=== PATIENT | female | born 1960 | race African-American/Black ===

== ENCOUNTER 2017-03-07 03:57 | Inpatient (IN) | payer BC ==
[~2017-03-07] VITALS: Ht 152.4 cm; Wt 69.4 kg
[~2017-03-07 03:57] MED LIST: FERR325T3 PO; LISI-334 PO; PANT40TA3 PO; PRAV20TA2 PO
[2017-03-07 04:42] LABS: BILIRUBIN,URINE SMALL (NEG); GLUCOSE,URINE 250 mg/dL (NEG); NITRITE,URINE NEGATIVE (NEG); PROTEIN,URINE 100 mg/dL (NEG-TRACE)
[2017-03-07 04:44] LABS: BASO % 0 % (0-3); EOS % 0 % (0-3); HEMATOCRIT 33.9 % (36.0-47.0); HEMOGLOBIN 10.7 g/dL (12.0-15.5); LYMPH # 1.4 x10^3/uL (1.0-4.8); LYMPH % 14 % (24-48); MEAN CORPUSCULAR HEMOGLOBIN 22 pg (25-35); MEAN CORPUSCULAR HGB CONC 32 g/dL (31-37); MEAN CORPUSCULAR VOLUME 69 fL (79-100); MONO % 9 % (0-9); NEUT % 77 % (31-73); PLATELET COUNT 202 x10^3/uL (140-400); RED BLOOD COUNT 4.92 x10^6/uL (3.50-5.40); WHITE BLOOD COUNT 10.5 x10^3/uL (4.0-11.0)
[2017-03-07] MEDS ORDERED: IV NORMAL SALINE 1000ML BAG 1,000 ML IV SCH (04:45)
[2017-03-07 04:54] LABS: CALCIUM 9.1 mg/dL (8.5-10.1); CREATININE 0.9 mg/dL (0.6-1.0); GFR 78.1; POTASSIUM 3.7 mmol/L (3.5-5.1)
[2017-03-07 04:55] LABS: BACTERIA,URINE MANY /HPF (0-FEW); RBC,URINE 0 /HPF (0-2); SQUAMOUS EPITHELIAL CELL,UR FEW /LPF
[2017-03-07 05:00] LABS: ALBUMIN 3.6 g/dL (3.4-5.0); ALBUMIN/GLOBULIN RATIO 0.8 (1.0-1.7); TOTAL BILIRUBIN 0.7 mg/dL (0.2-1.0); TOTAL PROTEIN 8.3 g/dL (6.4-8.2)
[2017-03-07] MEDS ORDERED: HYDROmorphone 2 MG/ML VIAL IV ONE (05:00)
[2017-03-07] MEDS ORDERED: IOHEXOL 300 MG/ML 75 ML VIAL IV ONE (05:00)
[2017-03-07] MEDS ORDERED: ONDANSETRON PF 4 MG/2 ML VIAL. IV ONE (05:00)
[2017-03-07] MEDS ORDERED: ACETAMINOPHEN 325 MG TABLET. PO ONE (05:00)
[2017-03-07] MEDS ORDERED: KETOROLAC TROMETHAMINE 30 MG/ML INJ. IV ONE (05:00)
[2017-03-07] MEDS ORDERED: CONTRAST GIVEN MC PRN (05:00)
--- NOTE | 2017-03-07 06:03 | RAD ---
INDICATION: Abdomen pain. COMPARISON: None TECHNIQUE: Axial CT images obtained through the abdomen and pelvis. Intravenous contrast was utilized. One or more of the following individualized dose reduction techniques were utilized for this examination: 1. Automated exposure control; 2. Adjustment of the mA and/or kV according to patient size; 3. Use of iterative reconstruction technique. FINDINGS: Abdominal aorta not aneurysmal. Small hiatal hernia No intrahepatic bile duct dilation. Liver is low attenuation. Gallstones. No peripancreatic edema. Spleen unremarkable. No hydronephrosis. 28 millimeter left renal cystic lesion. No definite evidence of small bowel obstruction. Bladder unremarkable within limits of CT. 6 millimeter nodule right lung base. Similar to CT chest from August 2014 The appendix measures up to about 6 millimeters without definite adjacent inflammation. Degenerative changes of the spine. There is expansion of the right gonadal vein with adjacent edema to the fat. IMPRESSION: Expansion of the right gonadal vein with adjacent infiltration of fat is suspected. Would correlate with symptoms in the region since causes such as partial ovarian vein thrombophlebitis can have this appearance. There is contrast seen throughout the majority of the vein therefore if there is a thrombophlebitis it would be partial. Low-attenuation liver. Nonspecific but can be seen with fatty infiltration. Gallstones. Left renal cystic lesion. Cannot exclude complex component. Follow-up ultrasound may be helpful to further evaluate. 6 millimeter nodule right lung base again seen. Electronically signed by: Babak Randall (Mar 07, 2017 06:02:00)
[2017-03-07 06:35] LABS: PLT ESTIMATE ADEQUATE (ADEQUATE)
[2017-03-07 06:36] LABS: ANISOCYTOSIS PRESENT; HYPOCHROMIA PRESENT; MICROCYTOSIS PRESENT
[2017-03-07] MEDS ORDERED: ONDANSETRON PF 4 MG/2 ML VIAL. IV PRN (06:45)
[2017-03-07] MEDS ORDERED: MORPHINE SULFATE 4 MG/ML DISP.SYRIN. IV PRN (06:45)
--- NOTE | 2017-03-07 06:45 | PHYS DOC ---
Past Medical History Past Medical History: High Cholesterol, Hypertension Past Surgical History: Hysterectomy Alcohol Use: None Drug Use: None Adult General Chief Complaint Chief Complaint: ABDOMINAL PAIN HPI HPI Patient is a 56 year old female who presents here today secondary to abdominal pain and fever up to 102.8 started on Monday. Patient reports that she went to urgent care center on Monday and she had a normal chest x-ray, strep screen, flu test. She reports all the systems were negative and she was sent home. Patient reports that today she is having a lot of fevers or muscle aches cough. Patient denies any dysuria frequency or urgency. Patient is complaining of pain to her right lower abdomen. Patient reports it's in the right flank to her right abdomen. Patient denies any diarrhea. Patient reports nausea and vomiting. Patient reports she has a history of hypertension no diabetes CHF COPD or CAD. Patient has had a hysterectomy. Her gallbladder and appendix are still intact. Patient does not smoke drink or do drugs. Patient is not allergic to any medications. Patient denies any rashes other than her typical eczema. Patient's physical exam was significant for tenderness to palpation in her right flank as well as right lower quadrant. Patient's abdomen was soft nondistended no rebound or guarding. Patient normal active bowel sounds. Patient denies any signs or symptoms of be consistent with an acute surgical abdomen. Patient is CT scan that was remarkable for a normal-appearing appendix. There was extension of the right gonadal vein with adjacent infiltration of the fat. 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 Patient's UA showed 5 tenderly disease per high-power field. Patient had normal white cell. Patient did have a high fever. Patient feels significantly improved after pain medicines in the ED. Given the patient's pain and persistent fever she's been having since Monday afield preprinted admit this patient for admission for IV antibiotics until her cultures return. A/P #1 fever/abdominal pain. Etiology unclear however suspect possibly secondary to urinary source. Patient was started on Rocephin and will be admitted to the hospital. Review of Systems Review of Systems Constitutional: Denies fever or chills [] Eyes: Denies change in visual acuity, redness, or eye pain [] HENT: Denies nasal congestion or sore throat [] Respiratory: Denies cough or shortness of breath [] All other review systems are negative except as documented in the history of present illness. Current Medications Current Medications Current Medications Medications (Trade) Dose Ordered Sig/Fe Start Time Stop Time Status Last Admin Dose Admin Acetaminophen (Tylenol) 650 mg 1X ONCE 03/07/17 05:00 03/07/17 05:01 DC 03/07/17 05:00 650 MG Ceftriaxone Sodium (Rocephin 1gm Ivpb For Omni) 50 ml @ 100 mls/hr 1X ONCE 03/07/17 06:30 03/07/17 06:59 Hydromorphone HCl (Dilaudid) 1 mg 1X ONCE 03/07/17 05:00 03/07/17 05:01 DC 03/07/17 04:59 1 MG Info 1 each 1 each PRN DAILY PRN 03/07/17 05:00 03/09/17 04:59 Iohexol (Omnipaque 300 Mg/ml) 75 ml 1X ONCE 03/07/17 05:00 03/07/17 05:01 DC 03/07/17 05:21 75 ML Ketorolac Tromethamine (Toradol) 15 mg 1X ONCE 03/07/17 05:00 03/07/17 05:01 DC 03/07/17 04:59 15 MG Ondansetron HCl (Zofran) 4 mg 1X ONCE 03/07/17 05:00 03/07/17 05:01 DC 03/07/17 05:00 4 MG Sodium Chloride (Iv Sodium Chloride 0.9% 1000ml Bag) 1,000 ml @ 1,000 mls/hr Q1H 03/07/17 04:45 03/07/17 05:44 DC 03/07/17 04:59 1,000 MLS/HR Allergies Allergies Allergies Coded Allergies Type Severity Reaction Last Updated Verified No Known Drug Allergies 01/28/16 No Physical Exam Physical Exam Constitutional: Well developed, well nourished, no acute distress, non-toxic appearance. [] HENT: Normocephalic, atraumatic, bilateral external ears normal, oropharynx moist, no oral exudates, nose normal. [] Eyes: PERRLA, EOMI, conjunctiva normal, no discharge. [] Neck: Normal range of motion, no tenderness, supple, no stridor. [] Cardiovascular:Heart rate regular rhythm, no murmur [] Lungs & Thorax: Bilateral breath sounds clear to auscultation [] Abdomen: As above. Skin: Warm, dry, no erythema, no rash. [] Back: No tenderness, no CVA tenderness. [] Extremities: No tenderness, no cyanosis, no clubbing, ROM intact, no edema. [] Neurologic: Alert and oriented X 3, normal motor function, normal sensory function, no focal deficits noted. [] Psychologic: Affect normal, judgement normal, mood normal. [] Current Patient Data Vital Signs Vital Signs Date Time Temp Pulse Resp B/P Pulse Ox O2 Delivery O2 Flow Rate FiO2 03/07/17 04:08 102.8 101 25 144/85 96 Room Air 102.8 Lab Values Laboratory Tests Test 03/07/17 04:30 03/07/17 04:40 Urine Collection Type Unknown Urine Color Monique Urine Clarity Clear Urine pH 6.0 Urine Specific [place] >=1.030 Urine Protein 100mg/dL (NEG-TRACE) Urine Glucose (UA) 250mg/dL (NEG) Urine Ketones (Stick) >=80mg/dL (NEG) Urine Blood Negative (NEG) Urine Nitrite Negative (NEG) Urine Bilirubin Small (NEG) Urine Urobilinogen Dipstick 4.0mg/dL (0.2 mg/dL) Urine Leukocyte Esterase Negative (NEG) Urine RBC 0/HPF (0-2) Urine WBC 5-10/HPF (0-4) Urine Squamous Epithelial Cells Few/LPF Urine Bacteria Many/HPF (0-FEW) Urine Mucus Mod/LPF White Blood Count 10.5x10^3/uL (4.0-11.0) Red Blood Count 4.92x10^6/uL (3.50-5.40) Hemoglobin 10.7g/dL (12.0-15.5) L Hematocrit 33.9% (36.0-47.0) L Mean Corpuscular Volume 69fL (79-100) L Mean Corpuscular Hemoglobin 22pg (25-35) L Mean Corpuscular Hemoglobin Concent 32g/dL (31-37) Red Cell Distribution Width 19.0% (11.5-14.5) H Platelet Count 202x10^3/uL (140-400) Neutrophils (%) (Auto) 77% (31-73) H Lymphocytes (%) (Auto) 14% (24-48) L Monocytes (%) (Auto) 9% (0-9) Eosinophils (%) (Auto) 0% (0-3) Basophils (%) (Auto) 0% (0-3) Neutrophils # (Auto) 8.0x10^3uL (1.8-7.7) H Lymphocytes # (Auto) 1.4x10^3/uL (1.0-4.8) Monocytes # (Auto) 1.0x10^3/uL (0.0-1.1) Eosinophils # (Auto) 0.0x10^3/uL (0.0-0.7) Basophils # (Auto) 0.0x10^3/uL (0.0-0.2) Platelet Estimate Adequate (ADEQUATE) Hypochromasia Present Anisocytosis Present Microcytosis Present Sodium Level 135mmol/L (136-145) L Potassium Level 3.7mmol/L (3.5-5.1) Chloride Level 98mmol/L (98-107) Carbon Dioxide Level 27mmol/L (21-32) Anion Gap 10 (6-14) Blood Urea Nitrogen 13mg/dL (7-20) Creatinine 0.9mg/dL (0.6-1.0) Estimated GFR (Cockcroft-Gault) 78.1 BUN/Creatinine Ratio 14 (6-20) Glucose Level 190mg/dL (70-99) H Calcium Level 9.1mg/dL (8.5-10.1) Total Bilirubin 0.7mg/dL (0.2-1.0) Aspartate Amino Transferase (AST) 75U/L (15-37) H Alanine Aminotransferase (ALT) 130U/L (14-59) H Alkaline Phosphatase 150U/L (46-116) H Total Protein 8.3g/dL (6.4-8.2) H Albumin 3.6g/dL (3.4-5.0) Albumin/Globulin Ratio 0.8 (1.0-1.7) L Lipase 158U/L (73-393) Laboratory Tests 03/07/17 04:40 Laboratory Tests 03/07/17 04:40 EKG EKG [] Radiology/Procedures Radiology/Procedures [] Course & Med Decision Making Course & Med Decision Making Pertinent Labs and Imaging studies reviewed. (See chart for details) [] Dragon Disclaimer Dragon Disclaimer This electronic medical record was generated, in whole or in part, using a voice recognition dictation system. Departure Departure Impression: Primary Impression: Abdominal pain Additional Impressions: Fever Urinary tract infection Disposition: ADMITTED INPATIENT Admitting Physician: Sharif Mckeon Condition: GUARDED Referrals: BISHNU ALLEN Jr, MD (PCP) Problem Qualifiers JOSE LEVY MD Mar 07, 2017 06:45
[2017-03-07] MEDS: IV NORMAL SALINE 1000ML BAG 1,000 ML IV SCH ×4 (07:09→17:21)
[2017-03-07 07:30] VITALS: BP 131/79
[2017-03-07] MEDS: ACETAMINOPHEN 325 MG TABLET. PO PRN ×2 (08:15→20:42)
[2017-03-07] MEDS ORDERED: ACETAMINOPHEN 325 MG TABLET. PO PRN (08:45)
[2017-03-07] MEDS ORDERED: hydrALAZINE 20 MG/ML VIAL. IVP PRN (08:45)
[2017-03-07] MEDS ORDERED: ALBUTEROL SULFATE 2.5 MG/3 ML NEBU. NEB PRN (08:45)
[2017-03-07] MEDS: HYDROcodone/APAP 5/325MG 1 TAB TABLET PO PRN ×2 (10:40→16:56)
--- NOTE | 2017-03-07 10:53 | PDOC1 ---
History and Physical Social History Smoke: No ALCOHOL: none Drugs: None Current Problem List Problem List Problems Medical Problems: (1) Abdominal pain Status: Acute (2) Fever Status: Acute (3) Urinary tract infection Status: Acute Current Medications Current Medications Current Medications Medications (Trade) Dose Ordered Sig/Fe Start Time Stop Time Status Last Admin Dose Admin Acetaminophen (Tylenol) 325 mg PRN Q6HRS PRN 03/07/17 08:45 Acetaminophen/ Hydrocodone Bitart (Lortab 5/325) 1 tab PRN Q6HRS PRN 03/07/17 08:45 03/07/17 10:40 1 TAB Albuterol Sulfate 2.5 mg 2.5 mg PRN Q4HRS PRN 03/07/17 08:45 Ceftriaxone Sodium 1 gm/ Sodium Chloride 50 ml @ 100 mls/hr Q24H 03/08/17 06:00 Ceftriaxone Sodium (Rocephin 1gm Ivpb For Omni) 50 ml @ 100 mls/hr 1X ONCE 03/07/17 06:30 03/07/17 06:59 DC 03/07/17 06:54 100 MLS/HR Hydralazine HCl (Apresoline) 10 mg PRN Q4HRS PRN 03/07/17 08:45 Hydromorphone HCl (Dilaudid) 1 mg 1X ONCE 03/07/17 05:00 03/07/17 05:01 DC 03/07/17 04:59 1 MG Info 1 each 1 each PRN DAILY PRN 03/07/17 05:00 03/09/17 04:59 Iohexol (Omnipaque 300 Mg/ml) 75 ml 1X ONCE 03/07/17 05:00 03/07/17 05:01 DC 03/07/17 05:21 75 ML Ketorolac Tromethamine (Toradol) 15 mg 1X ONCE 03/07/17 05:00 03/07/17 05:01 DC 03/07/17 04:59 15 MG Morphine Sulfate 4 mg PRN Q2HR PRN 03/07/17 06:45 03/08/17 06:44 Ondansetron HCl (Zofran) 4 mg PRN Q8HRS PRN 03/07/17 08:45 Sodium Chloride (Iv Sodium Chloride 0.9% 1000ml Bag) 1,000 ml @ 125 mls/hr Q8H 03/07/17 08:45 03/07/17 10:40 125 MLS/HR Allergies Allergies Allergies Coded Allergies Type Severity Reaction Last Updated Verified No Known Drug Allergies 01/28/16 No ROS Review of System CONSTITUTIONAL: No fever or chills EYES: No recent changes SKIN: No rash or itching CARDIOVASCULAR: No chest pain, syncope, palpitations, or edema RESPIRATORY: No SOB or cough GASTROINTESTINAL: abdominal pain NEUROLOGICAL: No headaches or weakness ENDOCRINE: No cold or heat intolerance GENITOURINARY: No urgency or frequency of urination MUSCULOSKELETAL: No back pain or joint pain LYMPHATICS: No enlarged lymph nodes PSYCHIATRIC: No anxiety or depression Physical Exam Physical Exam GEN.: apparent distress. Alert and oriented. HEENT: Head is normocephalic, atraumatic NECK: Supple. no JVD LUNGS: Clear to auscultation. normal airflow HEART: RRR, S1, S2 present. Peripheral pulses intact ABDOMEN: Soft, RLQ tender. Positive bowel sounds. EXTREMITIES: Without any cyanosis. NEUROLOGIC: Normal speech, normal tone PSYCHIATRIC: Normal affect, normal mood. SKIN: DRY Vitals Vitals Vital Signs Date Time Temp Pulse Resp B/P Pulse Ox O2 Delivery O2 Flow Rate FiO2 03/07/17 07:30 97.4 94 24 131/79 97 Room Air 97.4 Labs Labs Laboratory Tests Test 03/07/17 04:30 03/07/17 04:40 03/07/17 06:00 Urine Collection Type Unknown Urine Color Monique Urine Clarity Clear Urine pH 6.0 Urine Specific [place] >=1.030 Urine Protein 100mg/dL (NEG-TRACE) Urine Glucose (UA) 250mg/dL (NEG) Urine Ketones (Stick) >=80mg/dL (NEG) Urine Blood Negative (NEG) Urine Nitrite Negative (NEG) Urine Bilirubin Small (NEG) Urine Urobilinogen Dipstick 4.0mg/dL (0.2 mg/dL) Urine Leukocyte Esterase Negative (NEG) Urine RBC 0/HPF (0-2) Urine WBC 5-10/HPF (0-4) Urine Squamous Epithelial Cells Few/LPF Urine Bacteria Many/HPF (0-FEW) Urine Mucus Mod/LPF White Blood Count 10.5x10^3/uL (4.0-11.0) Red Blood Count 4.92x10^6/uL (3.50-5.40) Hemoglobin 10.7g/dL (12.0-15.5) Hematocrit 33.9% (36.0-47.0) Mean Corpuscular Volume 69fL (79-100) Mean Corpuscular Hemoglobin 22pg (25-35) Mean Corpuscular Hemoglobin Concent 32g/dL (31-37) Red Cell Distribution Width 19.0% (11.5-14.5) Platelet Count 202x10^3/uL (140-400) Neutrophils (%) (Auto) 77% (31-73) Lymphocytes (%) (Auto) 14% (24-48) Monocytes (%) (Auto) 9% (0-9) Eosinophils (%) (Auto) 0% (0-3) Basophils (%) (Auto) 0% (0-3) Neutrophils # (Auto) 8.0x10^3uL (1.8-7.7) Lymphocytes # (Auto) 1.4x10^3/uL (1.0-4.8) Monocytes # (Auto) 1.0x10^3/uL (0.0-1.1) Eosinophils # (Auto) 0.0x10^3/uL (0.0-0.7) Basophils # (Auto) 0.0x10^3/uL (0.0-0.2) Platelet Estimate Adequate (ADEQUATE) Hypochromasia Present Anisocytosis Present Microcytosis Present Sodium Level 135mmol/L (136-145) Potassium Level 3.7mmol/L (3.5-5.1) Chloride Level 98mmol/L (98-107) Carbon Dioxide Level 27mmol/L (21-32) Anion Gap 10 (6-14) Blood Urea Nitrogen 13mg/dL (7-20) Creatinine 0.9mg/dL (0.6-1.0) Estimated GFR (Cockcroft-Gault) 78.1 BUN/Creatinine Ratio 14 (6-20) Glucose Level 190mg/dL (70-99) Calcium Level 9.1mg/dL (8.5-10.1) Total Bilirubin 0.7mg/dL (0.2-1.0) Aspartate Amino Transf (AST/SGOT) 75U/L (15-37) Alanine Aminotransferase (ALT/SGPT) 130U/L (14-59) Alkaline Phosphatase 150U/L (46-116) Total Protein 8.3g/dL (6.4-8.2) Albumin 3.6g/dL (3.4-5.0) Albumin/Globulin Ratio 0.8 (1.0-1.7) Lipase 158U/L (73-393) Lactic Acid Level 2.2mmol/L (0.4-2.0) Laboratory Tests Test 03/07/17 04:30 03/07/17 04:40 03/07/17 06:00 Urine Collection Type Unknown Urine Color Monique Urine Clarity Clear Urine pH 6.0 Urine Specific [place] >=1.030 Urine Protein 100mg/dL (NEG-TRACE) Urine Glucose (UA) 250mg/dL (NEG) Urine Ketones (Stick) >=80mg/dL (NEG) Urine Blood Negative (NEG) Urine Nitrite Negative (NEG) Urine Bilirubin Small (NEG) Urine Urobilinogen Dipstick 4.0mg/dL (0.2 mg/dL) Urine Leukocyte Esterase Negative (NEG) Urine RBC 0/HPF (0-2) Urine WBC 5-10/HPF (0-4) Urine Squamous Epithelial Cells Few/LPF Urine Bacteria Many/HPF (0-FEW) Urine Mucus Mod/LPF White Blood Count 10.5x10^3/uL (4.0-11.0) Red Blood Count 4.92x10^6/uL (3.50-5.40) Hemoglobin 10.7g/dL (12.0-15.5) Hematocrit 33.9% (36.0-47.0) Mean Corpuscular Volume 69fL (79-100) Mean Corpuscular Hemoglobin 22pg (25-35) Mean Corpuscular Hemoglobin Concent 32g/dL (31-37) Red Cell Distribution Width 19.0% (11.5-14.5) Platelet Count 202x10^3/uL (140-400) Neutrophils (%) (Auto) 77% (31-73) Lymphocytes (%) (Auto) 14% (24-48) Monocytes (%) (Auto) 9% (0-9) Eosinophils (%) (Auto) 0% (0-3) Basophils (%) (Auto) 0% (0-3) Neutrophils # (Auto) 8.0x10^3uL (1.8-7.7) Lymphocytes # (Auto) 1.4x10^3/uL (1.0-4.8) Monocytes # (Auto) 1.0x10^3/uL (0.0-1.1) Eosinophils # (Auto) 0.0x10^3/uL (0.0-0.7) Basophils # (Auto) 0.0x10^3/uL (0.0-0.2) Platelet Estimate Adequate (ADEQUATE) Hypochromasia Present Anisocytosis Present Microcytosis Present Sodium Level 135mmol/L (136-145) Potassium Level 3.7mmol/L (3.5-5.1) Chloride Level 98mmol/L (98-107) Carbon Dioxide Level 27mmol/L (21-32) Anion Gap 10 (6-14) Blood Urea Nitrogen 13mg/dL (7-20) Creatinine 0.9mg/dL (0.6-1.0) Estimated GFR (Cockcroft-Gault) 78.1 BUN/Creatinine Ratio 14 (6-20) Glucose Level 190mg/dL (70-99) Calcium Level 9.1mg/dL (8.5-10.1) Total Bilirubin 0.7mg/dL (0.2-1.0) Aspartate Amino Transf (AST/SGOT) 75U/L (15-37) Alanine Aminotransferase (ALT/SGPT) 130U/L (14-59) Alkaline Phosphatase 150U/L (46-116) Total Protein 8.3g/dL (6.4-8.2) Albumin 3.6g/dL (3.4-5.0) Albumin/Globulin Ratio 0.8 (1.0-1.7) Lipase 158U/L (73-393) Lactic Acid Level 2.2mmol/L (0.4-2.0) VTE Prophylaxis Ordered VTE Prophylaxis Devices: Yes VTE Pharmacological Prophylaxi: Yes SYLVIA SAAB MD Mar 07, 2017 10:53
[2017-03-07 11:00] VITALS: BP 96/64
[2017-03-07] MEDS ORDERED: levOFLOXacin PER PHARMACY. MC PRN (11:00)
--- NOTE | 2017-03-07 11:14 | ACF ---
Admit Criteria Forms Admit Criteria Forms Admit Criteria Forms ABDOMINAL PAIN Clinical Indications for Admission to Inpatient Care (Place 'X' for any and all applicable criteria): Admission is indicated for ANY ONE of the following(1)(2)(3)(4)(5): [X]I. Inpatient admission required rather than observation care (Also use Abdominal Pain: Observation Care, as appropriate) because of ANY ONE of the following: [ ]a) Severe pain requiring acute inpatient management [ ]b) Identification of etiology/finding that requires inpatient care (eg, aortic dissection, free air) [ ]c) Absent bowel sounds with complete ileus(6) [ ]d) Suspected toxic megacolon [ ]e) Severe electrolyte abnormalities requiring inpatient care [ ]f) High fever or infection requiring inpatient admission as indicated by ANY ONE of following(7)(8): [ ] i) Appropriate outpatient or observational care antimicrobial treatment unavailable, not effective, or not feasible [ ] ii) Documented bacteremia [ ] iii) Temperature > 104.9 degrees F (oral) [ ] iv) T >103.1 F (oral) or < 96.8 F(rectal) that does not respond to all emergency treatment measures [ ]g) Signs of intestinal obstruction [B] [ ]h) Hemodynamic instability [ ]i) IV fluid to replace significant ongoing losses (greater than 3 L/m2 per day) (12)(13) [ ]j) Percutaneous or open drainage (eg, abscess, biliary tract ) procedures [ ]k) Parenteral nutrition regimen that must be implemented on inpatient basis [X]l) Other condition,treatment or monitoring requiring inpatient admission. [ ]II. Peritoneal signs present [ ]III. Surgery needed that cannot be performed on an ambulatory basis. [ ]IV. Evaluation requires patient to not eat or drink for extended period ( eg, more than 24 hours). [ ]V. Contraindications and/or Inappropriate clinical situations for Observational Care in patients with abdominal pain, when ANY ONE of the following is required: [ ]a) Thorough evaluation is required to prevent catastrophic events due to delays in diagnosing (e.g.Mesenteric ischemia) 1,3 [ ]b) Patient with severe pathology or with chronic symptoms unlikely to improve in the ED stay (3) [ ]. General contraindications and/or Inappropriate clinical situations for Observational Care in patients with abdominal pain, when ANY ONE of the following is required: [ ]a) Prediction of prolongation of LOS based on ANY ONE of the following may be considered as a contraindication for observational care 2, 3, 4, 5, 6, 7, 8, 9, 10, 11 [ ]i) Age > 65 yrs. [ ]ii) Patient arriving by ambulance [ ]iii) Patient with high acuity [ ]iv) Patient requiring vital sign monitoring [ ]v) Patient on IV medication [ ]b) Systolic blood pressures 180mmHg 3,12 [ ]c) Patient with altered mental status including delirium and other alteration of consciousness, (3) [ ]d) Patient whose discharge disposition will be to a custodial home or rehabilitation home should not be managed in Emergency Department Observation Unit. CMS rule requires 3 days hospital stay before such placement.3,13 [ ]e) Patient with failure to thrive due to broad array of etiologies 3,16,17 [ ]f) Inability to ambulate 3,14 Extended stay beyond goal length of stay may be needed for(2)(3): [ ]a) Persistent abdominal pain with suspected intra-abdominal process [ ]b) Diagnosed condition requiring continued stay (e.g., pancreatitis, complicated diverticulitis) [ ]c) Surgery (e.g., colectomy) The original [employer] content created by [employer] has been revised. The portions of the content which have been revised are identified through the use of italic text or in bold, and [facility] has neither reviewed nor approved the modified material.All other unmodified content is copyright [employer]. Please see references footnoted in the original [facility] [facility] edition 2016 BRIONNA REED Mar 07, 2017 11:14
[2017-03-07] MEDS: LISINOPRIL 20 MG TABLET PO SCH (11:30)
--- NOTE | 2017-03-07 12:37 | PDOC2 ---
GI CONSULT Reason For Consult: RLQ pain, fever HPI: HPI: 56 y/o AA female admitted through ER. Reports illness for two weeks, beginning w/ cough. Previously seen at an urgent care, reports flu tests negative, CXR normal. Has had intermittent fever w/ worsening RLQ pain which is most bothersome w/ movement and yawning. No change in bowel habits, generally has 1 stool every other day. No hematochezia, melena. No n/v, does report decreased appetite. Occasionally coughs up mucous. No heartburn/reflux. Reports previous EGD and colonoscopy each revealing polyps, believes she is due to repeat colonoscopy. H/o anemia, doesn't take iron due to constipation. Taking NSAIDs at home for fever. Labs: WBC 10.5, Hgb 10.7, low indices, elevated RDW, lactic acid 2.2 (now 0.9), AST 75, ALT 130, Alk Phos 150. Normal WBC, bili, lipase. Tmax 102.8. CT A/P: expansion of the right gonadal vein with adjacent infiltration of fat (?partial ovarian vein thrombophlebitis), possible fatty liver, gallstone, left renal cystic lesion, right lung nodule. On IV Flagyl and Levaquin. [facility] was consulted /cancelled (although appears as if transvag sono ordered). Gen surg asked to see as well. PMH: PMH: HTN, DANE and uterine fibroids s/p LAVH w/ BSO FH: Family History: No pertinent hx (denies GI cancers), CAD, Other (endometriosis) Social History: Smoke: No ALCOHOL: none Drugs: None ROS: GEN: +fevers HEENT: Denies blurred vision, sore throat CV: Denies chest pain RESP: +cough GI: Per HPI : Denies hematuria, dysuria ENDO: Denies weight changes NEURO: Denies confusion, dizziness MSK: Denies weakness, joint pain/swelling SKIN: Denies jaundice, pruritus VItals: Vitals: Vital Signs Date Time Temp Pulse Resp B/P Pulse Ox O2 Delivery O2 Flow Rate FiO2 03/07/17 11:30 88 96/64 03/07/17 11:00 97.4 20 97 Room Air 97.4 Labs: Labs: Laboratory Tests Test 03/07/17 04:30 03/07/17 04:40 03/07/17 06:00 03/07/17 10:50 Urine Collection Type Unknown Urine Color Monique Urine Clarity Clear Urine pH 6.0 Urine Specific [place] >=1.030 Urine Protein 100mg/dL (NEG-TRACE) Urine Glucose (UA) 250mg/dL (NEG) Urine Ketones (Stick) >=80mg/dL (NEG) Urine Blood Negative (NEG) Urine Nitrite Negative (NEG) Urine Bilirubin Small (NEG) Urine Urobilinogen Dipstick 4.0mg/dL (0.2 mg/dL) Urine Leukocyte Esterase Negative (NEG) Urine RBC 0/HPF (0-2) Urine WBC 5-10/HPF (0-4) Urine Squamous Epithelial Cells Few/LPF Urine Bacteria Many/HPF (0-FEW) Urine Mucus Mod/LPF White Blood Count 10.5x10^3/uL (4.0-11.0) Red Blood Count 4.92x10^6/uL (3.50-5.40) Hemoglobin 10.7g/dL (12.0-15.5) Hematocrit 33.9% (36.0-47.0) Mean Corpuscular Volume 69fL (79-100) Mean Corpuscular Hemoglobin 22pg (25-35) Mean Corpuscular Hemoglobin Concent 32g/dL (31-37) Red Cell Distribution Width 19.0% (11.5-14.5) Platelet Count 202x10^3/uL (140-400) Neutrophils (%) (Auto) 77% (31-73) Lymphocytes (%) (Auto) 14% (24-48) Monocytes (%) (Auto) 9% (0-9) Eosinophils (%) (Auto) 0% (0-3) Basophils (%) (Auto) 0% (0-3) Neutrophils # (Auto) 8.0x10^3uL (1.8-7.7) Lymphocytes # (Auto) 1.4x10^3/uL (1.0-4.8) Monocytes # (Auto) 1.0x10^3/uL (0.0-1.1) Eosinophils # (Auto) 0.0x10^3/uL (0.0-0.7) Basophils # (Auto) 0.0x10^3/uL (0.0-0.2) Platelet Estimate Adequate (ADEQUATE) Hypochromasia Present Anisocytosis Present Microcytosis Present Sodium Level 135mmol/L (136-145) Potassium Level 3.7mmol/L (3.5-5.1) Chloride Level 98mmol/L (98-107) Carbon Dioxide Level 27mmol/L (21-32) Anion Gap 10 (6-14) Blood Urea Nitrogen 13mg/dL (7-20) Creatinine 0.9mg/dL (0.6-1.0) Estimated GFR (Cockcroft-Gault) 78.1 BUN/Creatinine Ratio 14 (6-20) Glucose Level 190mg/dL (70-99) Calcium Level 9.1mg/dL (8.5-10.1) Total Bilirubin 0.7mg/dL (0.2-1.0) Aspartate Amino Transf (AST/SGOT) 75U/L (15-37) Alanine Aminotransferase (ALT/SGPT) 130U/L (14-59) Alkaline Phosphatase 150U/L (46-116) Total Protein 8.3g/dL (6.4-8.2) Albumin 3.6g/dL (3.4-5.0) Albumin/Globulin Ratio 0.8 (1.0-1.7) Lipase 158U/L (73-393) Lactic Acid Level 2.2mmol/L (0.4-2.0) 0.9mmol/L (0.4-2.0) Allergies: Coded Allergies: No Known Drug Allergies (Unverified , 01/28/16) Medications: Current Medications Medications (Trade) Dose Ordered Sig/Fe Route PRN Reason Start Time Stop Time Status Last Admin Dose Admin Sodium Chloride (Iv Sodium Chloride 0.9% 1000ml Bag) 1,000 ml @ 1,000 mls/hr Q1H IV 03/07/17 04:45 03/07/17 05:44 DC 03/07/17 04:59 Hydromorphone HCl (Dilaudid) 1 mg 1X ONCE IV 03/07/17 05:00 03/07/17 05:01 DC 03/07/17 04:59 Ondansetron HCl (Zofran) 4 mg 1X ONCE IV 03/07/17 05:00 03/07/17 05:01 DC 03/07/17 05:00 Ketorolac Tromethamine (Toradol) 15 mg 1X ONCE IV 03/07/17 05:00 03/07/17 05:01 DC 03/07/17 04:59 Acetaminophen (Tylenol) 650 mg 1X ONCE PO 03/07/17 05:00 03/07/17 05:01 DC 03/07/17 05:00 Iohexol 75 ml 75 ml 1X ONCE IV 03/07/17 05:00 03/07/17 05:01 DC 03/07/17 05:21 Ceftriaxone Sodium (Rocephin 1gm Ivpb For Omni) 50 ml @ 100 mls/hr 1X ONCE IV 03/07/17 06:30 03/07/17 06:59 DC 03/07/17 06:54 Ondansetron HCl 4 mg 4 mg PRN Q8HRS PRN IV NAUSEA/VOMITING 03/07/17 06:45 03/08/17 06:44 03/07/17 10:41 Sodium Chloride (Iv Sodium Chloride 0.9% 1000ml Bag) 1,000 ml @ 125 mls/hr Q8H IV 03/07/17 06:45 03/07/17 10:32 DC 03/07/17 07:09 Acetaminophen (Tylenol) 650 mg PRN Q4HRS PRN PO FEVER 03/07/17 06:45 03/08/17 06:44 03/07/17 08:15 Acetaminophen/ Hydrocodone Bitart 1 tab 1 tab PRN Q6HRS PRN PO MODERATE TO SEVERE PAIN 03/07/17 08:45 03/07/17 10:40 Sodium Chloride 1,000 ml @ 125 mls/hr Q8H IV 03/07/17 08:45 03/07/17 10:40 Levofloxacin/ Dextrose (LEVAQUIN 500mg PREMIX) 100 ml @ 100 mls/hr Q24H IV 03/07/17 12:00 03/07/17 12:10 Imaging: Imaging: CT A/P w/ IV contrast IMPRESSION: Expansion of the right gonadal vein with adjacent infiltration of fat is suspected. Would correlate with symptoms in the region since causes such as partial ovarian vein thrombophlebitis can have this appearance. There is contrast seen throughout the majority of the vein therefore if there is a thrombophlebitis it would be partial. Low-attenuation liver. Nonspecific but can be seen with fatty infiltration. Gallstones. Left renal cystic lesion. Cannot exclude complex component. Follow-up ultrasound may be helpful to further evaluate. 6 millimeter nodule right lung base again seen. PE: GEN: cooperative, looks uncomfortable HEENT: Atraumatic, PERRL LUNGS: CTAB anteriorly HEART: RRR ABD: BS quiet, RLQ tenderness, perhaps some RUQ/epigastric discomfort but much less obvious EXTREMITY: No edema SKIN: No rashes, no jaundice NEURO/PSYCH: A & O 3 A/P: A/P: RLQ pain, fever, decreased appetite -x 2 weeks, pain worse w/ movement -Tmax 102.8, on IV atbx Abnormal CT A/P -expansion of the right gonadal vein with adjacent infiltration of fat (? partial ovarian vein thrombophlebitis), gallstone -normal appendix Elevated LFTs -AST 75, ALT 130, Alk Phos 150 (normal bili) -fatty liver on CT Anemia -Hgb 10.7, low indices, elevated RDW -history of this (can review low Hgb back to 2013), denies overt bleeding, avoids taking iron due to side effect of constipation -recalls previous EGD and colonoscopy both revealing polyps -s/p hysterectomy w/ BSO Left renal cyst, right lung nodule -per primary CRC screen, h/o colon polyps (unsure type) -- D/w Dr. Beavers - [facility] consult cancelled w/ h/o hysterectomy w/ BSO. Check RUQ US w/ gallstone on CT, elevated LFTs. Await surgery thoughts, possible inpatient EGD/colon. LUPE MCLEOD Mar 07, 2017 12:36
--- NOTE | 2017-03-07 12:50 | HP ---
ADMIT DATE: 03/07/2017 CHIEF COMPLAINT: Abdominal pain. HISTORY OF PRESENT ILLNESS: A 56-year-old -[place] female patient with prior history of hypertension and hyperlipidemia, presented to the ER with complaints of abdominal pain, which was there for nearly few weeks; however, it is slowly getting worse. The patient is using heat pad and went to Urgent Care on Monday and she was sent home after treating symptomatically. She had a chest x-ray and flu test, which was negative per the patient; however, she had a temperature spike of 100.2. She denies any significant hematemesis, hematuria or hematochezia. She denies any cough, sick contacts or diarrhea; however, pain is located to right lower quadrant and dull in nature and able to have some bowel movements, last bowel movement is few days ago. She had prior history of total hysterectomy. Denies any surgeries. Her pain has been controlled with IV morphine; however, morphine make her drowsy. She denies any urinary tract infections or problems with urination. PAST MEDICAL HISTORY: Hyperlipidemia, hypertension. PAST SURGICAL HISTORY: Total hysterectomy. PERSONAL HISTORY: No smoking, no alcohol, no drug abuse. FAMILY HISTORY: Hypertension. REVIEW OF SYSTEMS AND PHYSICAL EXAMINATION: Please see my electronic H and P. LABORATORY FINDINGS: Sodium 135, potassium 3.7, chloride is 98, carbon dioxide 27, anion gap 10, BUN is 13, creatinine 0.9, GFR is 78, glucose is 198, lactic acid 2.2, AST 75, ALT 130, alkaline phosphatase 150. Albumin 3.6. Hemoglobin 10.7, MCV is 69 and platelets is 202. Urinalysis: Color is eddie, clarity clear, pH is 6, specific gravity more than 1.030, glucose 250, ketones more than 80, nitrites negative, leukocyte esterase negative. IMAGING STUDIES: 1. CT of the abdomen showed expansion of right gonadal vein with thrombophlebitis infiltration of the fat is suspected, would correlate with symptoms in the such as portal vein thrombophlebitis. 2. A 6 mm nodule at the right lung base. 3. Left renal cysts is 28 mm. ASSESSMENT: 1. Intractable abdominal pain, right lower quadrant, suspected vein thrombophlebitis. 2. Hypertension. 3. Fever, mild elevation of LFTs. PLAN: 1. Keep the patient n.p.o. and pain control with IV Dilaudid 0.5 q. 2 hours as needed, avoid CO2 narcosis. 2. Consult General Surgery and [employer] for further recommendations. 3. The patient received IV Rocephin this morning. I will change antibiotics to IV ciprofloxacin and Levaquin. Blood cultures have been drawn in the ER. We will wait for culture and sensitivity, urine cultures pending. 4. If the patient's symptoms do not improve, I will consult Gastroenterology. 5. Continue home medications for high blood pressures, p.r.n. hydralazine for high blood pressure. 6. Deep venous thrombosis prophylaxis, Lovenox. SYLVIA SAAB MD DR: CHRIS/skye JOB#: [id number] / [id number] ZAIN
[2017-03-07 15:00] VITALS: BP 140/80
--- NOTE | 2017-03-07 16:05 | RAD ---
Abdominal ultrasound, 03/07/2017: History: Abdominal pain The gallbladder is within normal limits in size. It contains echogenic foci with posterior acoustic shadowing compatible with cholelithiasis. The gallbladder scott are not thickened. No bile duct dilatation is seen. The hepatic echogenicity is generally increased suggesting fatty change. No hepatic mass is evident. The pancreas was obscured by overlying bowel. The spleen is of normal size. A 2.6 cm simple cyst is noted in the left kidney. The kidneys are otherwise unremarkable. Much of the abdominal aorta and inferior vena cava were obscured by overlying bowel. IMPRESSION: 1. Cholelithiasis. 2. Increased hepatic echogenicity suggesting hepatic steatosis. 3. Small left renal cyst.
--- NOTE | 2017-03-07 17:05 | RAD ---
Limited pelvic ultrasound include evaluation right lower quadrant of the abdomen 03/07/2017 Clinical history: Pelvic and right lower quadrant abdominal pain. Technique: Using the distended urinary bladder as a sonographic window, real-time ultrasound examination of the pelvis was performed. Additionally real-time ultrasound examination right lower quadrant of the abdomen was performed. Multiple images were obtained. Findings: The uterus and both ovaries are not visualized consistent with the patient's history of hysterectomy and bilateral oophorectomy. No adnexal mass is seen. No free fluid is noted. The appendix is not visualized. No abnormal fluid collection or free fluid is seen within the right lower quadrant of the abdomen. Impression: 1. Status post hysterectomy and bilateral oophorectomy. 2. Otherwise negative study.
--- NOTE | 2017-03-07 18:02 | PDOC2 ---
CONSULT Date of Consult Date of Consult DATE: 03/07/17 TIME: 17:56 Reason for Consult Reason for Consult: abd pain Referring Physician Referring Physician: Dr. Mckeon Identification/Chief Complaint Chief Complaint Abd pain in RLQ Source Source: Chart review, Patient History of Present Illness Reason for Visit: 56 y/o A1 presented to Urgent Care with c/o RLQ abd pain that was crampy/ sharp in nature for the past 3 wks that worsened in the past 2 days along with fever of 102 degrees F. She was then admitted to hospital for pain management and evaluation. She had LAVH & BSO a few years ago by Dr. Sarmiento. Past Surgical History Past Surgical History: Hysterectomy Social History No ALCOHOL: none Drugs: None Current Problem List Problem List Problems Medical Problems: (1) Abdominal pain Status: Acute (2) Fever Status: Acute (3) Urinary tract infection Status: Acute Current Medications Current Medications Current Medications Sodium Chloride (Iv Sodium Chloride 0.9% 1000ml Bag) 1,000 ml @ 1,000 mls/hr Q1H IV Last administered on 03/07/17 04:59; Start 03/07/17 at 04:45; Stop 10/13 at 05:44; Status DC Hydromorphone HCl (Dilaudid) 1 mg 1X ONCE IV Last administered on 03/07/17 04 :59; Start 03/07/17 at 05:00; Stop 03/07/17 at 05:01; Status DC Ondansetron HCl (Zofran) 4 mg 1X ONCE IV Last administered on 03/07/17 05:00 ; Start 03/07/17 at 05:00; Stop 03/07/17 at 05:01; Status DC Ketorolac Tromethamine (Toradol) 15 mg 1X ONCE IV Last administered on 04:59; Start 03/07/17 at 05:00; Stop 03/07/17 at 05:01; Status DC Acetaminophen (Tylenol) 650 mg 1X ONCE PO Last administered on 03/07/17 05:00 ; Start 03/07/17 at 05:00; Stop 03/07/17 at 05:01; Status DC Iohexol (Omnipaque 300 Mg/ml) 75 ml 1X ONCE IV Last administered on 03/07/17 05:21; Start 03/07/17 at 05:00; Stop 03/07/17 at 05:01; Status DC Info 1 each 1 each PRN DAILY PRN MC SEE COMMENTS; Start 03/07/17 at 05:00; Stop 03/09/17 at 04:59 Ceftriaxone Sodium (Rocephin 1gm Ivpb For Omni) 50 ml @ 100 mls/hr 1X ONCE IV Last administered on 03/07/17 06:54; Start 03/07/17 at 06:30; Stop 03/07/17 at 06:59; Status DC Ondansetron HCl (Zofran) 4 mg PRN Q8HRS PRN IV NAUSEA/VOMITING Last administered on 03/07/17 10:41; Start 03/07/17 at 06:45; Stop 03/08/17 at 06:44 Morphine Sulfate 4 mg 4 mg PRN Q2HR PRN IV PAIN; Start 03/07/17 at 06:45; Stop 03/07/17 at 10:52; Status DC Sodium Chloride (Iv Sodium Chloride 0.9% 1000ml Bag) 1,000 ml @ 125 mls/hr Q8H IV Last administered on 03/07/17 07:09; Start 03/07/17 at 06:45; Stop at 10:32; Status DC Acetaminophen (Tylenol) 650 mg PRN Q4HRS PRN PO FEVER Last administered on 03/07 08:15; Start 03/07/17 at 06:45; Stop 03/08/17 at 06:44 Acetaminophen (Tylenol) 325 mg PRN Q6HRS PRN PO MILD PAIN / TEMP; Start at 08:45; Stop 03/07/17 at 08:45; Status DC Acetaminophen/ Hydrocodone Bitart (Lortab 5/325) 1 tab PRN Q6HRS PRN PO MODERATE TO SEVERE PAIN Last administered on 03/07/17 16:56; Start 03/07/17 at 08:45 Hydralazine HCl (Apresoline) 10 mg PRN Q4HRS PRN IVP ELEVATED BP, SEE COMMENTS ; Start 03/07/17 at 08:45 Ondansetron HCl (Zofran) 4 mg PRN Q8HRS PRN IV NAUSEA/VOMITING; Start 03/07/17 at 08:45 Albuterol Sulfate 2.5 mg 2.5 mg PRN Q4HRS PRN NEB SHORTNESS OF BREATH; Start at 08:45 Ceftriaxone Sodium 1 gm/ Sodium Chloride 50 ml @ 100 mls/hr Q24H IV ; Start 11/12 at 06:00; Stop 03/08/17 at 06:00; Status DC Sodium Chloride (Iv Sodium Chloride 0.9% 1000ml Bag) 1,000 ml @ 125 mls/hr Q8H IV Last administered on 03/07/17 10:40; Start 03/07/17 at 08:45 Acetaminophen (Tylenol) 325 mg PRN Q6HRS PRN PO MILD PAIN / TEMP; Start at 08:45 Hydromorphone HCl 0.5 mg 0.5 mg PRN Q2HR PRN IV PAIN; Start 03/07/17 at 10:45 Metronidazole (FLAGYL 500Mmg PREMIX) 100 ml @ 100 mls/hr Q8HRS IV Last administered on 03/07/17 14:02; Start 03/07/17 at 14:00 Levofloxacin/ Dextrose (Levaquin Per Pharmacy) 1 each PRN DAILY PRN MC SEE COMMENTS; Start 03/07/17 at 11:00 Enoxaparin Sodium 40 mg 40 mg Q24H SQ ; Start 03/07/17 at 21:00 Levofloxacin/ Dextrose (LEVAQUIN 500mg PREMIX) 100 ml @ 100 mls/hr Q24H IV Last administered on 03/07/17 12:10; Start 03/07/17 at 12:00 Lisinopril (Prinivil) 20 mg DAILY PO ; Start 03/07/17 at 11:30 Atorvastatin Calcium (Lipitor) 5 mg QHS PO ; Start 03/07/17 at 21:00 Active Scripts Active Reported Pravastatin Sodium 20 Mg Tablet 1 Tab PO QHS Ferrous Sulfate 325 Mg Tablet.dr 325 Mg PO Lisinopril 20 Mg Tablet 1 Tab PO DAILY Allergies Allergies: Coded Allergies: No Known Drug Allergies (Unverified , 01/28/16) ROS General: YES: Appetite, Fatigue, Malaise, No: Chills, Night Sweats, Other PSYCHOLOGICAL ROS: No: Anxiety, Behavioral Disorder, Concentration difficultie , Decreased libido, Depression, Disorientation, Hallucinations, Hostility, Irritablity, Memory difficulties, Mood Swings, Obsessive thoughts, Other, Physical abuse, Sexual abuse, Sleep disturbances, Suicidal ideation Eyes: No Blurry vision, No Decreased vision, No Double vision, No Dry eyes, No Excessive tearing, No Eye Pain, No Itchy Eyes, No Loss of vision, No Other, No Photophobia, No Scotomata, No Uses contacts, No Uses glasses HEENT: No: Epistaxis, Heacaches, Hearing change, Nasal congestion, Nasal discharge, Oral lesions, Other, Sinus pain, Sneezing, Snoring, Sore Throat, Tinnitus, Vertigo, Visual Changes, Vocal changes ALLERGY AND IMMUNOLOGY: No: Hives, Insect Bite Sensitivity, Itchy/Watery Eyes, Nasal Congestion, Other, Post Nasal Drip, Seasonal Allergies Hematological and Lymphatic: No: Bleeding Problems, Blood Clots, Blood Transfusions, Brusing, Night Sweats, Other, Pallor, Swollen Lymph Nodes ENDOCRINE: No: Breast Changes, Galactorrhea, Hair Pattern Changes, Hot Flashes , Malaise/lethargy, Mood Swings, Other, Palpitations, Polydipsia/polyuria, Skin Changes, Temperature Intolerance, Unexpected Weight Changes Breast: No New/Changing Breast Lumps, No Nipple changes, No Nipple discharge, No Other Respiratory: No: Cough, Hemoptysis, Orthopnea, Other, Pleuritic Pain, SOB with excertion, Shortness of breath, Sputum Changes, Stridor, Tachypnea, Wheezing Cardiovascular: No Chest Pain, No Edema, No Lt Headedness, No Orthopnea, No Other, No Palpitations, No Paroxysmal Noc. Dyspnea Gastrointestinal: Yes Abdominal Pain, No Constipation, No Diarrhea, No Hematochezia, No Melena, No Nausea, No Other , No Vomiting Genitourinary: No , No , No , No , No , No , No , No Discharge, No Dysuria, No Flank Pain, No Frequency, No Hematuria, No Incontinence, No Other, No Pain, No Retention, No Urgency Skin: No Acne, No Dry Skin, No Eczema, No Hair Changes, No Lumps, No Mole Changes, No Mottling, No Nail Changes, No Other, No Pruritus, No Rash, No Skin Lesion Changes Physical Exam General: Alert, Oriented X3, Cooperative HEENT: Atraumatic Lungs: Clear to auscultation Heart: Regular rate Abdomen: Normal bowel sounds, Soft, No masses, Other (RLQ tenderness to palpation. No rebound tenderness) Extremities: No edema Neuro: Normal speech Psych/Mental Status: Mental status NL Vitals VITALS Vital Signs Date Time Temp Pulse Resp B/P Pulse Ox O2 Delivery O2 Flow Rate FiO2 03/07/17 15:00 98.0 86 22 140/80 98 Room Air 98.0 Labs Labs Laboratory Tests Test 03/07/17 04:30 03/07/17 04:40 03/07/17 06:00 03/07/17 10:50 Urine Collection Type Unknown Urine Color Monique Urine Clarity Clear Urine pH 6.0 Urine Specific [place] >=1.030 Urine Protein 100mg/dL (NEG-TRACE) Urine Glucose (UA) 250mg/dL (NEG) Urine Ketones (Stick) >=80mg/dL (NEG) Urine Blood Negative (NEG) Urine Nitrite Negative (NEG) Urine Bilirubin Small (NEG) Urine Urobilinogen Dipstick 4.0mg/dL (0.2 mg/dL) Urine Leukocyte Esterase Negative (NEG) Urine RBC 0/HPF (0-2) Urine WBC 5-10/HPF (0-4) Urine Squamous Epithelial Cells Few/LPF Urine Bacteria Many/HPF (0-FEW) Urine Mucus Mod/LPF White Blood Count 10.5x10^3/uL (4.0-11.0) Red Blood Count 4.92x10^6/uL (3.50-5.40) Hemoglobin 10.7g/dL (12.0-15.5) Hematocrit 33.9% (36.0-47.0) Mean Corpuscular Volume 69fL (79-100) Mean Corpuscular Hemoglobin 22pg (25-35) Mean Corpuscular Hemoglobin Concent 32g/dL (31-37) Red Cell Distribution Width 19.0% (11.5-14.5) Platelet Count 202x10^3/uL (140-400) Neutrophils (%) (Auto) 77% (31-73) Lymphocytes (%) (Auto) 14% (24-48) Monocytes (%) (Auto) 9% (0-9) Eosinophils (%) (Auto) 0% (0-3) Basophils (%) (Auto) 0% (0-3) Neutrophils # (Auto) 8.0x10^3uL (1.8-7.7) Lymphocytes # (Auto) 1.4x10^3/uL (1.0-4.8) Monocytes # (Auto) 1.0x10^3/uL (0.0-1.1) Eosinophils # (Auto) 0.0x10^3/uL (0.0-0.7) Basophils # (Auto) 0.0x10^3/uL (0.0-0.2) Platelet Estimate Adequate (ADEQUATE) Hypochromasia Present Anisocytosis Present Microcytosis Present Sodium Level 135mmol/L (136-145) Potassium Level 3.7mmol/L (3.5-5.1) Chloride Level 98mmol/L (98-107) Carbon Dioxide Level 27mmol/L (21-32) Anion Gap 10 (6-14) Blood Urea Nitrogen 13mg/dL (7-20) Creatinine 0.9mg/dL (0.6-1.0) Estimated GFR (Cockcroft-Gault) 78.1 BUN/Creatinine Ratio 14 (6-20) Glucose Level 190mg/dL (70-99) Calcium Level 9.1mg/dL (8.5-10.1) Total Bilirubin 0.7mg/dL (0.2-1.0) Aspartate Amino Transf (AST/SGOT) 75U/L (15-37) Alanine Aminotransferase (ALT/SGPT) 130U/L (14-59) Alkaline Phosphatase 150U/L (46-116) Total Protein 8.3g/dL (6.4-8.2) Albumin 3.6g/dL (3.4-5.0) Albumin/Globulin Ratio 0.8 (1.0-1.7) Lipase 158U/L (73-393) Lactic Acid Level 2.2mmol/L (0.4-2.0) 0.9mmol/L (0.4-2.0) Laboratory Tests Test 03/07/17 04:30 03/07/17 04:40 03/07/17 06:00 03/07/17 10:50 Urine Collection Type Unknown Urine Color Monique Urine Clarity Clear Urine pH 6.0 Urine Specific [place] >=1.030 Urine Protein 100mg/dL (NEG-TRACE) Urine Glucose (UA) 250mg/dL (NEG) Urine Ketones (Stick) >=80mg/dL (NEG) Urine Blood Negative (NEG) Urine Nitrite Negative (NEG) Urine Bilirubin Small (NEG) Urine Urobilinogen Dipstick 4.0mg/dL (0.2 mg/dL) Urine Leukocyte Esterase Negative (NEG) Urine RBC 0/HPF (0-2) Urine WBC 5-10/HPF (0-4) Urine Squamous Epithelial Cells Few/LPF Urine Bacteria Many/HPF (0-FEW) Urine Mucus Mod/LPF White Blood Count 10.5x10^3/uL (4.0-11.0) Red Blood Count 4.92x10^6/uL (3.50-5.40) Hemoglobin 10.7g/dL (12.0-15.5) Hematocrit 33.9% (36.0-47.0) Mean Corpuscular Volume 69fL (79-100) Mean Corpuscular Hemoglobin 22pg (25-35) Mean Corpuscular Hemoglobin Concent 32g/dL (31-37) Red Cell Distribution Width 19.0% (11.5-14.5) Platelet Count 202x10^3/uL (140-400) Neutrophils (%) (Auto) 77% (31-73) Lymphocytes (%) (Auto) 14% (24-48) Monocytes (%) (Auto) 9% (0-9) Eosinophils (%) (Auto) 0% (0-3) Basophils (%) (Auto) 0% (0-3) Neutrophils # (Auto) 8.0x10^3uL (1.8-7.7) Lymphocytes # (Auto) 1.4x10^3/uL (1.0-4.8) Monocytes # (Auto) 1.0x10^3/uL (0.0-1.1) Eosinophils # (Auto) 0.0x10^3/uL (0.0-0.7) Basophils # (Auto) 0.0x10^3/uL (0.0-0.2) Platelet Estimate Adequate (ADEQUATE) Hypochromasia Present Anisocytosis Present Microcytosis Present Sodium Level 135mmol/L (136-145) Potassium Level 3.7mmol/L (3.5-5.1) Chloride Level 98mmol/L (98-107) Carbon Dioxide Level 27mmol/L (21-32) Anion Gap 10 (6-14) Blood Urea Nitrogen 13mg/dL (7-20) Creatinine 0.9mg/dL (0.6-1.0) Estimated GFR (Cockcroft-Gault) 78.1 BUN/Creatinine Ratio 14 (6-20) Glucose Level 190mg/dL (70-99) Calcium Level 9.1mg/dL (8.5-10.1) Total Bilirubin 0.7mg/dL (0.2-1.0) Aspartate Amino Transf (AST/SGOT) 75U/L (15-37) Alanine Aminotransferase (ALT/SGPT) 130U/L (14-59) Alkaline Phosphatase 150U/L (46-116) Total Protein 8.3g/dL (6.4-8.2) Albumin 3.6g/dL (3.4-5.0) Albumin/Globulin Ratio 0.8 (1.0-1.7) Lipase 158U/L (73-393) Lactic Acid Level 2.2mmol/L (0.4-2.0) 0.9mmol/L (0.4-2.0) Assessment/Plan Assessment/Plan A: Abd pain Cholelithiasis Nml Electric Meter Technician P: Agree with current plan for evaluation with colonoscopy. No evidence of Electric Meter Technician problems. Will be happy to see patient in clinic for wellness exam. Thank you for consult. OLIVA GROVER Jr, MD Mar 07, 2017 18:02
[2017-03-07 19:00] VITALS: BP 119/71
[2017-03-07] MEDS: ATORVASTATIN CALCIUM 10 MG TABLET. PO SCH (20:42)
[2017-03-07] MEDS: ENOXAPARIN 40 MG/0.4 ML SYRINGE. SQ SCH (20:43)
[2017-03-07 23:00] VITALS: BP 113/62
[2017-03-08] MEDS: HYDROcodone/APAP 5/325MG 1 TAB TABLET PO PRN ×3 (00:27→21:35)
[2017-03-08] MEDS: IV NORMAL SALINE 1000ML BAG 1,000 ML IV SCH ×3 (02:55→17:21)
[2017-03-08 02:59] VITALS: BP 114/67
[2017-03-08] MEDS: ACETAMINOPHEN 325 MG TABLET. PO PRN (05:53)
[2017-03-08 07:00] VITALS: BP 124/78
[2017-03-08 07:54] LABS: BASO % 0 % (0-3); EOS % 1 % (0-3); HEMATOCRIT 26.9 % (36.0-47.0); HEMOGLOBIN 8.5 g/dL (12.0-15.5); LYMPH # 1.8 x10^3/uL (1.0-4.8); LYMPH % 21 % (24-48); MEAN CORPUSCULAR HEMOGLOBIN 22 pg (25-35); MEAN CORPUSCULAR HGB CONC 32 g/dL (31-37); MEAN CORPUSCULAR VOLUME 69 fL (79-100); MONO % 12 % (0-9); NEUT % 67 % (31-73); PLATELET COUNT 174 x10^3/uL (140-400); RED BLOOD COUNT 3.89 x10^6/uL (3.50-5.40); RED CELL DISTRIBUTION WIDTH 18.5 % (11.5-14.5)
[2017-03-08 08:04] LABS: CALCIUM 8.2 mg/dL (8.5-10.1); CREATININE 0.7 mg/dL (0.6-1.0); GFR 104.4; POTASSIUM 3.1 mmol/L (3.5-5.1)
[2017-03-08] MEDS: LISINOPRIL 20 MG TABLET PO SCH (08:08)
--- NOTE | 2017-03-08 09:41 | PDOC ---
PROGRESS NOTES Chief Complaint Chief Complaint CC: Abdominal pain A/P RLQ Pain for Weeks, Unclear etiology, ? gonadal vein thrombophlebitis GPC bacteremia POA HTN HLP Hypokalemia Plan on Levaquin and Falgyl, IV KCL NPO IV NS- hydration Follow blood cx. ID consult pending US abdomen no acute process GI and OBEGYN following DVT prophylaxis Lovenox Prognosis guarded. History of Present Illness History of Present Illness no fever no acute events. Vitals Vitals Vital Signs Date Time Temp Pulse Resp B/P Pulse Ox O2 Delivery O2 Flow Rate FiO2 03/08/17 07:00 98.4 82 20 124/78 96 Room Air 98.4 Physical Exam General: Alert, Oriented X3, Cooperative Heart: Regular rate, Normal S1, Normal S2 Lungs: Clear Abdomen: Normal bowel sounds, Soft, No masses, Other (RLQ tenderness to palpation. No rebound tenderness) Extremities: No edema Labs LABS Laboratory Tests Test 03/07/17 10:50 03/08/17 07:00 Lactic Acid Level 0.9mmol/L (0.4-2.0) White Blood Count 9.0x10^3/uL (4.0-11.0) Red Blood Count 3.89x10^6/uL (3.50-5.40) Hemoglobin 8.5g/dL (12.0-15.5) Hematocrit 26.9% (36.0-47.0) Mean Corpuscular Volume 69fL (79-100) Mean Corpuscular Hemoglobin 22pg (25-35) Mean Corpuscular Hemoglobin Concent 32g/dL (31-37) Red Cell Distribution Width 18.5% (11.5-14.5) Platelet Count 174x10^3/uL (140-400) Neutrophils (%) (Auto) 67% (31-73) Lymphocytes (%) (Auto) 21% (24-48) Monocytes (%) (Auto) 12% (0-9) Eosinophils (%) (Auto) 1% (0-3) Basophils (%) (Auto) 0% (0-3) Neutrophils # (Auto) 6.0x10^3uL (1.8-7.7) Lymphocytes # (Auto) 1.8x10^3/uL (1.0-4.8) Monocytes # (Auto) 1.1x10^3/uL (0.0-1.1) Eosinophils # (Auto) 0.1x10^3/uL (0.0-0.7) Basophils # (Auto) 0.0x10^3/uL (0.0-0.2) Sodium Level 138mmol/L (136-145) Potassium Level 3.1mmol/L (3.5-5.1) Chloride Level 104mmol/L (98-107) Carbon Dioxide Level 22mmol/L (21-32) Anion Gap 12 (6-14) Blood Urea Nitrogen 6mg/dL (7-20) Creatinine 0.7mg/dL (0.6-1.0) Estimated GFR (Cockcroft-Gault) 104.4 Glucose Level 98mg/dL (70-99) Calcium Level 8.2mg/dL (8.5-10.1) Assessment and Plan Assessmemt and Plan Problems Medical Problems: (1) Abdominal pain Status: Acute (2) Fever Status: Acute (3) Urinary tract infection Status: Acute Problems: Comment Review of Relevant I have reviewed the following items kory (where applicable) has been applied. Labs Laboratory Tests Test 03/07/17 04:30 03/07/17 04:40 03/07/17 06:00 03/07/17 10:50 Urine Collection Type Unknown Urine Color Monique Urine Clarity Clear Urine pH 6.0 Urine Specific [place] >=1.030 Urine Protein 100mg/dL (NEG-TRACE) Urine Glucose (UA) 250mg/dL (NEG) Urine Ketones (Stick) >=80mg/dL (NEG) Urine Blood Negative (NEG) Urine Nitrite Negative (NEG) Urine Bilirubin Small (NEG) Urine Urobilinogen Dipstick 4.0mg/dL (0.2 mg/dL) Urine Leukocyte Esterase Negative (NEG) Urine RBC 0/HPF (0-2) Urine WBC 5-10/HPF (0-4) Urine Squamous Epithelial Cells Few/LPF Urine Bacteria Many/HPF (0-FEW) Urine Mucus Mod/LPF White Blood Count 10.5x10^3/uL (4.0-11.0) Red Blood Count 4.92x10^6/uL (3.50-5.40) Hemoglobin 10.7g/dL (12.0-15.5) Hematocrit 33.9% (36.0-47.0) Mean Corpuscular Volume 69fL (79-100) Mean Corpuscular Hemoglobin 22pg (25-35) Mean Corpuscular Hemoglobin Concent 32g/dL (31-37) Red Cell Distribution Width 19.0% (11.5-14.5) Platelet Count 202x10^3/uL (140-400) Neutrophils (%) (Auto) 77% (31-73) Lymphocytes (%) (Auto) 14% (24-48) Monocytes (%) (Auto) 9% (0-9) Eosinophils (%) (Auto) 0% (0-3) Basophils (%) (Auto) 0% (0-3) Neutrophils # (Auto) 8.0x10^3uL (1.8-7.7) Lymphocytes # (Auto) 1.4x10^3/uL (1.0-4.8) Monocytes # (Auto) 1.0x10^3/uL (0.0-1.1) Eosinophils # (Auto) 0.0x10^3/uL (0.0-0.7) Basophils # (Auto) 0.0x10^3/uL (0.0-0.2) Platelet Estimate Adequate (ADEQUATE) Hypochromasia Present Anisocytosis Present Microcytosis Present Sodium Level 135mmol/L (136-145) Potassium Level 3.7mmol/L (3.5-5.1) Chloride Level 98mmol/L (98-107) Carbon Dioxide Level 27mmol/L (21-32) Anion Gap 10 (6-14) Blood Urea Nitrogen 13mg/dL (7-20) Creatinine 0.9mg/dL (0.6-1.0) Estimated GFR (Cockcroft-Gault) 78.1 BUN/Creatinine Ratio 14 (6-20) Glucose Level 190mg/dL (70-99) Calcium Level 9.1mg/dL (8.5-10.1) Total Bilirubin 0.7mg/dL (0.2-1.0) Aspartate Amino Transf (AST/SGOT) 75U/L (15-37) Alanine Aminotransferase (ALT/SGPT) 130U/L (14-59) Alkaline Phosphatase 150U/L (46-116) Total Protein 8.3g/dL (6.4-8.2) Albumin 3.6g/dL (3.4-5.0) Albumin/Globulin Ratio 0.8 (1.0-1.7) Lipase 158U/L (73-393) Lactic Acid Level 2.2mmol/L (0.4-2.0) 0.9mmol/L (0.4-2.0) Test 03/08/17 07:00 White Blood Count 9.0x10^3/uL (4.0-11.0) Red Blood Count 3.89x10^6/uL (3.50-5.40) Hemoglobin 8.5g/dL (12.0-15.5) Hematocrit 26.9% (36.0-47.0) Mean Corpuscular Volume 69fL (79-100) Mean Corpuscular Hemoglobin 22pg (25-35) Mean Corpuscular Hemoglobin Concent 32g/dL (31-37) Red Cell Distribution Width 18.5% (11.5-14.5) Platelet Count 174x10^3/uL (140-400) Neutrophils (%) (Auto) 67% (31-73) Lymphocytes (%) (Auto) 21% (24-48) Monocytes (%) (Auto) 12% (0-9) Eosinophils (%) (Auto) 1% (0-3) Basophils (%) (Auto) 0% (0-3) Neutrophils # (Auto) 6.0x10^3uL (1.8-7.7) Lymphocytes # (Auto) 1.8x10^3/uL (1.0-4.8) Monocytes # (Auto) 1.1x10^3/uL (0.0-1.1) Eosinophils # (Auto) 0.1x10^3/uL (0.0-0.7) Basophils # (Auto) 0.0x10^3/uL (0.0-0.2) Sodium Level 138mmol/L (136-145) Potassium Level 3.1mmol/L (3.5-5.1) Chloride Level 104mmol/L (98-107) Carbon Dioxide Level 22mmol/L (21-32) Anion Gap 12 (6-14) Blood Urea Nitrogen 6mg/dL (7-20) Creatinine 0.7mg/dL (0.6-1.0) Estimated GFR (Cockcroft-Gault) 104.4 Glucose Level 98mg/dL (70-99) Calcium Level 8.2mg/dL (8.5-10.1) Laboratory Tests Test 03/07/17 10:50 03/08/17 07:00 Lactic Acid Level 0.9mmol/L (0.4-2.0) White Blood Count 9.0x10^3/uL (4.0-11.0) Red Blood Count 3.89x10^6/uL (3.50-5.40) Hemoglobin 8.5g/dL (12.0-15.5) Hematocrit 26.9% (36.0-47.0) Mean Corpuscular Volume 69fL (79-100) Mean Corpuscular Hemoglobin 22pg (25-35) Mean Corpuscular Hemoglobin Concent 32g/dL (31-37) Red Cell Distribution Width 18.5% (11.5-14.5) Platelet Count 174x10^3/uL (140-400) Neutrophils (%) (Auto) 67% (31-73) Lymphocytes (%) (Auto) 21% (24-48) Monocytes (%) (Auto) 12% (0-9) Eosinophils (%) (Auto) 1% (0-3) Basophils (%) (Auto) 0% (0-3) Neutrophils # (Auto) 6.0x10^3uL (1.8-7.7) Lymphocytes # (Auto) 1.8x10^3/uL (1.0-4.8) Monocytes # (Auto) 1.1x10^3/uL (0.0-1.1) Eosinophils # (Auto) 0.1x10^3/uL (0.0-0.7) Basophils # (Auto) 0.0x10^3/uL (0.0-0.2) Sodium Level 138mmol/L (136-145) Potassium Level 3.1mmol/L (3.5-5.1) Chloride Level 104mmol/L (98-107) Carbon Dioxide Level 22mmol/L (21-32) Anion Gap 12 (6-14) Blood Urea Nitrogen 6mg/dL (7-20) Creatinine 0.7mg/dL (0.6-1.0) Estimated GFR (Cockcroft-Gault) 104.4 Glucose Level 98mg/dL (70-99) Calcium Level 8.2mg/dL (8.5-10.1) Microbiology 03/07/17 Blood Culture - Final, Complete Medications Current Medications Sodium Chloride (Iv Sodium Chloride 0.9% 1000ml Bag) 1,000 ml @ 1,000 mls/hr Q1H IV Last administered on 03/07/17 04:59; Start 03/07/17 at 04:45; Stop 10/13 at 05:44; Status DC Hydromorphone HCl (Dilaudid) 1 mg 1X ONCE IV Last administered on 03/07/17 04 :59; Start 03/07/17 at 05:00; Stop 03/07/17 at 05:01; Status DC Ondansetron HCl (Zofran) 4 mg 1X ONCE IV Last administered on 03/07/17 05:00 ; Start 03/07/17 at 05:00; Stop 03/07/17 at 05:01; Status DC Ketorolac Tromethamine (Toradol) 15 mg 1X ONCE IV Last administered on 04:59; Start 03/07/17 at 05:00; Stop 03/07/17 at 05:01; Status DC Acetaminophen (Tylenol) 650 mg 1X ONCE PO Last administered on 03/07/17 05:00 ; Start 03/07/17 at 05:00; Stop 03/07/17 at 05:01; Status DC Iohexol (Omnipaque 300 Mg/ml) 75 ml 1X ONCE IV Last administered on 03/07/17 05:21; Start 03/07/17 at 05:00; Stop 03/07/17 at 05:01; Status DC Info 1 each 1 each PRN DAILY PRN MC SEE COMMENTS; Start 03/07/17 at 05:00; Stop 03/09/17 at 04:59 Ceftriaxone Sodium (Rocephin 1gm Ivpb For Omni) 50 ml @ 100 mls/hr 1X ONCE IV Last administered on 03/07/17 06:54; Start 03/07/17 at 06:30; Stop 03/07/17 at 06:59; Status DC Ondansetron HCl (Zofran) 4 mg PRN Q8HRS PRN IV NAUSEA/VOMITING Last administered on 03/07/17 10:41; Start 03/07/17 at 06:45; Stop 03/08/17 at 06:44 ; Status DC Morphine Sulfate 4 mg 4 mg PRN Q2HR PRN IV PAIN; Start 03/07/17 at 06:45; Stop 03/07/17 at 10:52; Status DC Sodium Chloride (Iv Sodium Chloride 0.9% 1000ml Bag) 1,000 ml @ 125 mls/hr Q8H IV Last administered on 03/07/17 07:09; Start 03/07/17 at 06:45; Stop at 10:32; Status DC Acetaminophen (Tylenol) 650 mg PRN Q4HRS PRN PO FEVER Last administered on 03/08 05:53; Start 03/07/17 at 06:45; Stop 03/08/17 at 06:44; Status DC Acetaminophen (Tylenol) 325 mg PRN Q6HRS PRN PO MILD PAIN / TEMP; Start at 08:45; Stop 03/07/17 at 08:45; Status DC Acetaminophen/ Hydrocodone Bitart (Lortab 5/325) 1 tab PRN Q6HRS PRN PO MODERATE TO SEVERE PAIN Last administered on 03/08/17 00:27; Start 03/07/17 at 08:45 Hydralazine HCl (Apresoline) 10 mg PRN Q4HRS PRN IVP ELEVATED BP, SEE COMMENTS ; Start 03/07/17 at 08:45 Ondansetron HCl (Zofran) 4 mg PRN Q8HRS PRN IV NAUSEA/VOMITING; Start 03/07/17 at 08:45 Albuterol Sulfate 2.5 mg 2.5 mg PRN Q4HRS PRN NEB SHORTNESS OF BREATH; Start at 08:45 Ceftriaxone Sodium 1 gm/ Sodium Chloride 50 ml @ 100 mls/hr Q24H IV ; Start 11/12 at 06:00; Stop 03/08/17 at 06:00; Status DC Sodium Chloride (Iv Sodium Chloride 0.9% 1000ml Bag) 1,000 ml @ 125 mls/hr Q8H IV Last administered on 03/08/17 08:09; Start 03/07/17 at 08:45 Acetaminophen (Tylenol) 325 mg PRN Q6HRS PRN PO MILD PAIN / TEMP; Start at 08:45 Hydromorphone HCl 0.5 mg 0.5 mg PRN Q2HR PRN IV PAIN; Start 03/07/17 at 10:45 Metronidazole (FLAGYL 500Mmg PREMIX) 100 ml @ 100 mls/hr Q8HRS IV Last administered on 03/08/17 05:51; Start 03/07/17 at 14:00 Levofloxacin/ Dextrose (Levaquin Per Pharmacy) 1 each PRN DAILY PRN MC SEE COMMENTS; Start 03/07/17 at 11:00 Enoxaparin Sodium 40 mg 40 mg Q24H SQ Last administered on 03/07/17 20:43; Start 03/07/17 at 21:00 Levofloxacin/ Dextrose (LEVAQUIN 500mg PREMIX) 100 ml @ 100 mls/hr Q24H IV Last administered on 03/08/17 08:10; Start 03/07/17 at 12:00 Lisinopril (Prinivil) 20 mg DAILY PO ; Start 03/07/17 at 11:30 Atorvastatin Calcium (Lipitor) 5 mg QHS PO Last administered on 03/07/17 20:42 ; Start 03/07/17 at 21:00 Active Scripts Active Reported Pravastatin Sodium 20 Mg Tablet 1 Tab PO QHS Ferrous Sulfate 325 Mg Tablet.dr 325 Mg PO Lisinopril 20 Mg Tablet 1 Tab PO DAILY Vitals/I & O Vital Sign - Last 24 Hours 03/07/17 03/07/17 03/07/17 03/07/17 11:00 11:30 13:27 15:00 Temp 97.4 98.0 97.4 98.0 Pulse 88 88 86 Resp 20 22 B/P 96/64 96/64 140/80 Pulse Ox 97 94 98 O2 Delivery Room Air Room Air Room Air 03/07/17 03/07/17 03/08/17 03/08/17 19:00 23:00 00:27 01:42 Temp 100.1 99.6 100.1 99.6 Pulse 81 78 Resp 20 20 16 15 B/P 119/71 113/62 Pulse Ox 98 95 95 95 O2 Delivery Room Air Room Air Room Air Room Air 03/08/17 03/08/17 02:59 07:00 Temp 98.2 98.4 98.2 98.4 Pulse 78 82 Resp 20 20 B/P 114/67 124/78 Pulse Ox 98 96 O2 Delivery Room Air Room Air Intake and Output 03/07/17 03/07/17 03/08/17 15:00 23:00 07:00 Intake Total 50 ml 480 ml Balance 50 ml 480 ml SYLVIA SAAB MD Mar 08, 2017 09:41
[2017-03-08] MEDS ORDERED: POTASSIUM CL 20MEQ D5-0.9%NACL 1,000 ML IV ONE (10:00)
[2017-03-08 11:00] VITALS: BP 128/79
--- NOTE | 2017-03-08 11:03 | PDOC ---
Infectious Disease Note Vital Sign Vital Signs Vital Signs Date Time Temp Pulse Resp B/P Pulse Ox O2 Delivery O2 Flow Rate FiO2 03/08/17 07:00 98.4 82 20 124/78 96 Room Air 98.4 Labs Lab Laboratory Tests Test 03/08/17 07:00 White Blood Count 9.0x10^3/uL (4.0-11.0) Red Blood Count 3.89x10^6/uL (3.50-5.40) Hemoglobin 8.5g/dL (12.0-15.5) Hematocrit 26.9% (36.0-47.0) Mean Corpuscular Volume 69fL (79-100) Mean Corpuscular Hemoglobin 22pg (25-35) Mean Corpuscular Hemoglobin Concent 32g/dL (31-37) Red Cell Distribution Width 18.5% (11.5-14.5) Platelet Count 174x10^3/uL (140-400) Neutrophils (%) (Auto) 67% (31-73) Lymphocytes (%) (Auto) 21% (24-48) Monocytes (%) (Auto) 12% (0-9) Eosinophils (%) (Auto) 1% (0-3) Basophils (%) (Auto) 0% (0-3) Neutrophils # (Auto) 6.0x10^3uL (1.8-7.7) Lymphocytes # (Auto) 1.8x10^3/uL (1.0-4.8) Monocytes # (Auto) 1.1x10^3/uL (0.0-1.1) Eosinophils # (Auto) 0.1x10^3/uL (0.0-0.7) Basophils # (Auto) 0.0x10^3/uL (0.0-0.2) Sodium Level 138mmol/L (136-145) Potassium Level 3.1mmol/L (3.5-5.1) Chloride Level 104mmol/L (98-107) Carbon Dioxide Level 22mmol/L (21-32) Anion Gap 12 (6-14) Blood Urea Nitrogen 6mg/dL (7-20) Creatinine 0.7mg/dL (0.6-1.0) Estimated GFR (Cockcroft-Gault) 104.4 Glucose Level 98mg/dL (70-99) Calcium Level 8.2mg/dL (8.5-10.1) Objective Assessment BC + with strep vs enterococcus ID pending Fever Abd pain Anemia Plan Plan of Care change antibiotics to unasyn await id and then further workup and adjustment supportive care d/w KRISTIAN Amador MD Mar 08, 2017 11:03
[2017-03-08] MEDS: AMPICILLIN/SULBACTAM 3 GM in IV NORMAL SALINE 100ML 100 ML IV SCH ×3 (12:00→23:45)
--- NOTE | 2017-03-08 13:13 | PDOC ---
Subjective: Subjective: RLQ pain stable, about 4/10. Not much appetite. Had hallucinations overnight. Objective: Vital Signs: Vital Signs Date Time Temp Pulse Resp B/P Pulse Ox O2 Delivery O2 Flow Rate FiO2 03/08/17 11:00 98.2 76 22 128/79 96 Room Air 98.2 Labs: Laboratory Tests Test 03/08/17 07:00 White Blood Count 9.0x10^3/uL Red Blood Count 3.89x10^6/uL Hemoglobin 8.5g/dL Hematocrit 26.9% Mean Corpuscular Volume 69fL Mean Corpuscular Hemoglobin 22pg Mean Corpuscular Hemoglobin Concent 32g/dL Red Cell Distribution Width 18.5% Platelet Count 174x10^3/uL Neutrophils (%) (Auto) 67% Lymphocytes (%) (Auto) 21% Monocytes (%) (Auto) 12% Eosinophils (%) (Auto) 1% Basophils (%) (Auto) 0% Neutrophils # (Auto) 6.0x10^3uL Lymphocytes # (Auto) 1.8x10^3/uL Monocytes # (Auto) 1.1x10^3/uL Eosinophils # (Auto) 0.1x10^3/uL Basophils # (Auto) 0.0x10^3/uL Sodium Level 138mmol/L Potassium Level 3.1mmol/L Chloride Level 104mmol/L Carbon Dioxide Level 22mmol/L Anion Gap 12 Blood Urea Nitrogen 6mg/dL Creatinine 0.7mg/dL Estimated GFR (Cockcroft-Gault) 104.4 Glucose Level 98mg/dL Calcium Level 8.2mg/dL Imaging: Abd US IMPRESSION: 1. Cholelithiasis. 2. Increased hepatic echogenicity suggesting hepatic steatosis. 3. Small left renal cyst. Pelv US Impression: 1. Status post hysterectomy and bilateral oophorectomy. 2. Otherwise negative study. PE: GEN: NAD, up to chair watching tv LUNGS: clear anteriorly HEART: RRR ABD: BS+, RLQ tenderness NEURO/PSYCH: A & O 3 A/P: RLQ pain, fever, +blood cx -anemia (Hgb 10.7 to 8.5) -gram + cocci suggestive of strep; ID following on IV atbx -CT: expansion of the right gonadal vein with adjacent infiltration of fat (? partial ovarian vein thrombophlebitis), gallstone, normal appendix, US: cholelithiasis; surgery and DIRECT CARE COUNSELOR have seen -has had previous colonoscopy w/ polyps, s/p hysterectomy for DANE/fibroids -- D/w Dr. Diana - agree w/ ID eval, antibiotics. With positive blood cx and anemia, plan for eventual colonoscopy r/o malignancy. (Gram + cocci like strep bovis associated w/ colon cancer.) LUPE MCLEOD Mar 08, 2017 13:13
[2017-03-08 15:00] VITALS: BP 120/76
[2017-03-08 19:00] VITALS: BP 134/87
[2017-03-08] MEDS: ATORVASTATIN CALCIUM 10 MG TABLET. PO SCH (21:08)
[2017-03-08] MEDS: ENOXAPARIN 40 MG/0.4 ML SYRINGE. SQ SCH (21:09)
--- NOTE | 2017-03-08 22:44 | CONS ---
DATE OF CONSULTATION: 03/08/2017 REQUESTING PHYSICIAN: Dr. Beavers. REASON FOR CONSULTATION: Blood culture positive. HISTORY OF PRESENT ILLNESS: This is a 56-year-old -[place] female with history of hypertension and hyperlipidemia, but otherwise very active and in good "shape." presented with 2-week history of not feeling well, initially started with cough, has had fever. The patient was seen in the urgent care. Chest x-ray was done, which was negative and influenza throat swab was done, which was negative and she was not given any antibiotics. The patient also started then with right-sided abdominal pain, which pain got worse and she came in. The patient had [address] scan was done. The patient had blood culture done and blood cultures are 4/6 positive with Gram-positive cocci in pairs and chains. The patient is receiving Levaquin and Flagyl and consult has been requested. The patient denies any nausea, vomiting, denies any diarrhea, denies any chest pain, shortness of breath, headache or visual symptoms. PAST MEDICAL HISTORY: Positive for hypertension, hyperlipidemia, has had hysterectomy this year for anemia and has had fibroid with bleeding. The patient has not had colonoscopy for 10 years. SOCIAL HISTORY: Negative for smoking, alcohol, illicit drug use. ALLERGIES: No known drug allergies. CURRENT MEDICATIONS: Reviewed. REVIEW OF SYSTEMS: As per HPI, all other systems reviewed are negative. PHYSICAL EXAMINATION: GENERAL: Alert and oriented female, not in distress. VITAL SIGNS: T-max is 102.8. HEENT: NAD. NECK: Supple, no JVP, no lymphadenopathy. LUNGS: Clear. HEART: S1, S2 regular. The patient does have faint murmur. ABDOMEN: Soft, nontender, no organomegaly. EXTREMITIES: No edema, cyanosis. SKIN: Unremarkable. The patient does not have any peripheral stigmata for endocarditis. NEUROLOGIC: Intact. LABORATORY DATA: White count is normal. Hemoglobin is 8.5, platelets are normal. BUN and creatinine is negative. Urinalysis unremarkable other than 5-10 WBC. Blood cultures positive, 4/6 bottles positive with Gram-positive cocci in chains. Ultrasound was negative. CT scan of the abdomen had shown some infiltration of the fat around the gonadal vessels, question partial ovarian thrombophlebitis. The patient does have cholelithiasis. IMPRESSION: 1. Blood culture positive 4/6 with Gram-positive cocci in pairs and chains that would indicate either strep or enterococcus. Further ID will be available tomorrow. 2. Fever. 3. Abdominal pain. 4. Anemia. RECOMMENDATIONS: We would change antibiotics to Unasyn to cover strep as well as enterococcus. We will wait for identification and further scale down and depending upon the identification of the organism, further workup will be ordered. Supportive care. Discussion with Dr. Pineda done. Thank you very much, Dr. Beavers, for giving me the opportunity to participate in this patient's care. KRISTIAN MCKINLEY MD DR: JESE/skye JOB#: [id number] / [id number]
--- NOTE | 2017-03-08 22:53 | CONS ---
DATE OF CONSULTATION: 03/07/[address] Beavers. SUBJECTIVE: The patient is a pleasant 56-year-old female who presents with right lower quadrant abdominal pain. She went to an Urgent Care and was sent home with symptomatic treatment. Chest x-ray and flu test were negative. She did have a fever of 100.2. She was admitted to the ED here with escalating pain and was asked to see her for evaluation of same. PAST MEDICAL HISTORY AND SURGERY: MARIMAR-BSO. Medically, history of hypertension, hyperlipidemia. ALLERGIES: No known drug allergies. ROUTINE MEDICATIONS: Listed on reconciliation sheet. FAMILY HISTORY: Hypertension. REVIEW OF SYSTEMS: GENERAL: Positive for low-grade fevers, no chills or sweats. HEENT: No recent sore throat or earache. LUNGS: No productive cough or wheezing. Normal chest x-ray recently. CARDIAC: Denies chest pain or palpitations. GASTROINTESTINAL: See history of present illness. GENITOURINARY: Has had some increased frequency and history of UTI. GYNECOLOGY: Status post MARIMAR-BSO NEUROLOGIC: Denies headaches or visual changes. SKIN: No recent rashes or breakdown. PSYCHIATRIC: No history of depression or anxiety. OBJECTIVE: GENERAL: Physical exam reveals a pleasant female, awake, alert and oriented, in no acute distress. VITAL SIGNS: She is afebrile at 98, heart rate 86, blood pressure 140/80. HEENT: Normocephalic. EOMs intact. NECK: Supple. LUNGS: Clear. HEART: Has regular rate and rhythm. BREAST: Deferred. ABDOMEN: The belly is mildly obese, soft, well healed scars from previous laparoscopic assisted hysterectomy. She is tender to palpation in the right lower quadrant, less so in the other quadrants. PELVIC AND RECTAL: Deferred. EXTREMITIES: Showed no gross skeletal abnormalities. NEUROLOGIC: She is grossly intact. IMAGING: CT scan of the abdomen and pelvis done earlier on the day of admission showed gallstones, a left renal cyst, a fatty liver and expansion of the right gonadal vein. A gallbladder ultrasound showed cholelithiasis with no evidence of wall thickening or pericholecystic edema. LABORATORY DATA: Admission white count is 10,500, now 9000, hemoglobin 10.7, now 8.5. Chemistries were remarkable for mild elevation of her transaminases and alk phos. Lactic acid was 2.2, now 0.9. Preliminary blood culture results show Gram positive cocci and chains. IMPRESSION: 1. Abdominal pain. 2. Cholelithiasis without evidence of acute cholecystitis. 3. Anemia. 4. Preliminary positive culture results to be seen by ID. PLAN: Given her positive cultures and anemia and the lack of radiographic evidence to suggest acute issues with her gallstones, I would defer surgical intervention at present. I discussed with Dr. Diana. I understand that Infectious Disease service will see today. We will await their input. Thank you for asking me to see the patient and participate in her care. We will follow her with you during her hospitalization. RANDA REESE MD DR: AMANDA/skye JOB#: [id number] / [id number]
[2017-03-08 23:00] VITALS: BP 125/85
[2017-03-09] MEDS: IV NORMAL SALINE 1000ML BAG 1,000 ML IV SCH ×3 (01:09→18:23)
[2017-03-09 03:00] VITALS: BP 117/91
[2017-03-09] MEDS: AMPICILLIN/SULBACTAM 3 GM in IV NORMAL SALINE 100ML 100 ML IV SCH ×3 (05:59→18:23)
[2017-03-09] MEDS: HYDROcodone/APAP 5/325MG 1 TAB TABLET PO PRN (06:03)
[2017-03-09 06:54] LABS: BASO % 1 % (0-3); EOS % 1 % (0-3); HEMOGLOBIN 8.8 g/dL (12.0-15.5); LYMPH # 2.1 x10^3/uL (1.0-4.8); LYMPH % 26 % (24-48); MEAN CORPUSCULAR HEMOGLOBIN 22 pg (25-35); MEAN CORPUSCULAR HGB CONC 32 g/dL (31-37); MEAN CORPUSCULAR VOLUME 69 fL (79-100); MONO % 11 % (0-9); NEUT % 62 % (31-73); PLATELET COUNT 226 x10^3/uL (140-400); RED BLOOD COUNT 4.08 x10^6/uL (3.50-5.40); RED CELL DISTRIBUTION WIDTH 19.3 % (11.5-14.5); WHITE BLOOD COUNT 8.1 x10^3/uL (4.0-11.0)
[2017-03-09 07:00] VITALS: BP 132/90
[2017-03-09 07:11] LABS: CALCIUM 8.3 mg/dL (8.5-10.1); CREATININE 0.6 mg/dL (0.6-1.0); GFR 124.7; POTASSIUM 3.1 mmol/L (3.5-5.1)
[2017-03-09 07:57] LABS: % EOS 1 % (0-5)
[2017-03-09 07:58] LABS: HYPOCHROMIA SLIGHT; PLT ESTIMATE ADEQUATE (ADEQUATE); POLYCHROMASIA SLIGHT
--- NOTE | 2017-03-09 09:07 | PDOC ---
SURGICAL PROGRESS NOTE Subjective no new complaints still has a little pain Vital Signs Vital Signs Date Time Temp Pulse Resp B/P Pulse Ox O2 Delivery O2 Flow Rate FiO2 03/09/17 07:00 98.7 82 17 132/90 95 Room Air 98.7 I&O Intake and Output 03/09/17 07:00 Intake Total 1280 ml Balance 1280 ml Intake Oral 1280 ml # Voids 4 PATIENT HAS A BARRIENTOS: No General: Alert, Oriented X3, Cooperative, No acute distress Abdomen: Soft, Other (minimally TTP) Labs Laboratory Tests Test 03/07/17 10:50 03/08/17 07:00 03/09/17 04:40 Lactic Acid Level 0.9mmol/L (0.4-2.0) White Blood Count 9.0x10^3/uL (4.0-11.0) 8.1x10^3/uL (4.0-11.0) Red Blood Count 3.89x10^6/uL (3.50-5.40) 4.08x10^6/uL (3.50-5.40) Hemoglobin 8.5g/dL (12.0-15.5) 8.8g/dL (12.0-15.5) Hematocrit 26.9% (36.0-47.0) 28.0% (36.0-47.0) Mean Corpuscular Volume 69fL (79-100) 69fL (79-100) Mean Corpuscular Hemoglobin 22pg (25-35) 22pg (25-35) Mean Corpuscular Hemoglobin Concent 32g/dL (31-37) 32g/dL (31-37) Red Cell Distribution Width 18.5% (11.5-14.5) 19.3% (11.5-14.5) Platelet Count 174x10^3/uL (140-400) 226x10^3/uL (140-400) Neutrophils (%) (Auto) 67% (31-73) 62% (31-73) Lymphocytes (%) (Auto) 21% (24-48) 26% (24-48) Monocytes (%) (Auto) 12% (0-9) 11% (0-9) Eosinophils (%) (Auto) 1% (0-3) 1% (0-3) Basophils (%) (Auto) 0% (0-3) 1% (0-3) Neutrophils # (Auto) 6.0x10^3uL (1.8-7.7) 5.0x10^3uL (1.8-7.7) Lymphocytes # (Auto) 1.8x10^3/uL (1.0-4.8) 2.1x10^3/uL (1.0-4.8) Monocytes # (Auto) 1.1x10^3/uL (0.0-1.1) 0.8x10^3/uL (0.0-1.1) Eosinophils # (Auto) 0.1x10^3/uL (0.0-0.7) 0.1x10^3/uL (0.0-0.7) Basophils # (Auto) 0.0x10^3/uL (0.0-0.2) 0.0x10^3/uL (0.0-0.2) Sodium Level 138mmol/L (136-145) 141mmol/L (136-145) Potassium Level 3.1mmol/L (3.5-5.1) 3.1mmol/L (3.5-5.1) Chloride Level 104mmol/L (98-107) 105mmol/L (98-107) Carbon Dioxide Level 22mmol/L (21-32) 26mmol/L (21-32) Anion Gap 12 (6-14) 10 (6-14) Blood Urea Nitrogen 6mg/dL (7-20) 2mg/dL (7-20) Creatinine 0.7mg/dL (0.6-1.0) 0.6mg/dL (0.6-1.0) Estimated GFR (Cockcroft-Gault) 104.4 124.7 Glucose Level 98mg/dL (70-99) 151mg/dL (70-99) Calcium Level 8.2mg/dL (8.5-10.1) 8.3mg/dL (8.5-10.1) Segmented Neutrophils % 43% (35-66) Band Neutrophils % 10% (0-9) Lymphocytes % 30% (24-48) Atypical Lymphocytes % (Manual) 1% (0-0) Monocytes % 15% (0-10) Eosinophils % 1% (0-5) Platelet Estimate Adequate (ADEQUATE) Polychromasia Slight Hypochromasia Slight Laboratory Tests Test 03/09/17 04:40 White Blood Count 8.1x10^3/uL (4.0-11.0) Red Blood Count 4.08x10^6/uL (3.50-5.40) Hemoglobin 8.8g/dL (12.0-15.5) Hematocrit 28.0% (36.0-47.0) Mean Corpuscular Volume 69fL (79-100) Mean Corpuscular Hemoglobin 22pg (25-35) Mean Corpuscular Hemoglobin Concent 32g/dL (31-37) Red Cell Distribution Width 19.3% (11.5-14.5) Platelet Count 226x10^3/uL (140-400) Neutrophils (%) (Auto) 62% (31-73) Lymphocytes (%) (Auto) 26% (24-48) Monocytes (%) (Auto) 11% (0-9) Eosinophils (%) (Auto) 1% (0-3) Basophils (%) (Auto) 1% (0-3) Neutrophils # (Auto) 5.0x10^3uL (1.8-7.7) Lymphocytes # (Auto) 2.1x10^3/uL (1.0-4.8) Monocytes # (Auto) 0.8x10^3/uL (0.0-1.1) Eosinophils # (Auto) 0.1x10^3/uL (0.0-0.7) Basophils # (Auto) 0.0x10^3/uL (0.0-0.2) Segmented Neutrophils % 43% (35-66) Band Neutrophils % 10% (0-9) Lymphocytes % 30% (24-48) Atypical Lymphocytes % (Manual) 1% (0-0) Monocytes % 15% (0-10) Eosinophils % 1% (0-5) Platelet Estimate Adequate (ADEQUATE) Polychromasia Slight Hypochromasia Slight Sodium Level 141mmol/L (136-145) Potassium Level 3.1mmol/L (3.5-5.1) Chloride Level 105mmol/L (98-107) Carbon Dioxide Level 26mmol/L (21-32) Anion Gap 10 (6-14) Blood Urea Nitrogen 2mg/dL (7-20) Creatinine 0.6mg/dL (0.6-1.0) Estimated GFR (Cockcroft-Gault) 124.7 Glucose Level 151mg/dL (70-99) Calcium Level 8.3mg/dL (8.5-10.1) Problem List Problems Medical Problems: (1) Abdominal pain Status: Acute (2) Fever Status: Acute (3) Urinary tract infection Status: Acute Assessment/Plan cholelithiasis, sx? positive blood cultures anemia Rx bacteremia treat stones expectantly for colonoscopy as per GI Problems: RANDA REESE MD Mar 09, 2017 09:07
[2017-03-09] MEDS: LISINOPRIL 20 MG TABLET PO SCH (09:18)
--- NOTE | 2017-03-09 09:56 | PDOC ---
Infectious Disease Note Subjective Subjective feeling better, still some abd pain ROS ROS GEN: Denies fevers, chills, sweats HEENT: Denies blurred vision, sore throat CV: Denies chest pain RESP: Denies shortness of air, cough GI: Denies n/v/d NEURO: Denies confusion, dizziness MSK: Denies weakness, joint pain/swelling Vital Sign Vital Signs Vital Signs Date Time Temp Pulse Resp B/P Pulse Ox O2 Delivery O2 Flow Rate FiO2 03/09/17 09:18 82 132/90 03/09/17 07:00 98.7 17 95 Room Air 98.7 Physical Exam PHYSICAL EXAM GENERAL: NAD, Alert HEENT: PERRL, OC/OP NECK: Supple, no JVD, no LN LUNGS: Clear HEART: S1S2, no gallop, no murmur ABD: Soft, NT, no organomegaly, no rebound EXT: No edema, no cyanosis RESOURCE ANALYST: Alert, oriented x 3, no focal neurologic deficit SKIN: No rash IV: ok Labs Lab Laboratory Tests Test 03/09/17 04:40 White Blood Count 8.1x10^3/uL (4.0-11.0) Red Blood Count 4.08x10^6/uL (3.50-5.40) Hemoglobin 8.8g/dL (12.0-15.5) Hematocrit 28.0% (36.0-47.0) Mean Corpuscular Volume 69fL (79-100) Mean Corpuscular Hemoglobin 22pg (25-35) Mean Corpuscular Hemoglobin Concent 32g/dL (31-37) Red Cell Distribution Width 19.3% (11.5-14.5) Platelet Count 226x10^3/uL (140-400) Neutrophils (%) (Auto) 62% (31-73) Lymphocytes (%) (Auto) 26% (24-48) Monocytes (%) (Auto) 11% (0-9) Eosinophils (%) (Auto) 1% (0-3) Basophils (%) (Auto) 1% (0-3) Neutrophils # (Auto) 5.0x10^3uL (1.8-7.7) Lymphocytes # (Auto) 2.1x10^3/uL (1.0-4.8) Monocytes # (Auto) 0.8x10^3/uL (0.0-1.1) Eosinophils # (Auto) 0.1x10^3/uL (0.0-0.7) Basophils # (Auto) 0.0x10^3/uL (0.0-0.2) Segmented Neutrophils % 43% (35-66) Band Neutrophils % 10% (0-9) Lymphocytes % 30% (24-48) Atypical Lymphocytes % (Manual) 1% (0-0) Monocytes % 15% (0-10) Eosinophils % 1% (0-5) Platelet Estimate Adequate (ADEQUATE) Polychromasia Slight Hypochromasia Slight Sodium Level 141mmol/L (136-145) Potassium Level 3.1mmol/L (3.5-5.1) Chloride Level 105mmol/L (98-107) Carbon Dioxide Level 26mmol/L (21-32) Anion Gap 10 (6-14) Blood Urea Nitrogen 2mg/dL (7-20) Creatinine 0.6mg/dL (0.6-1.0) Estimated GFR (Cockcroft-Gault) 124.7 Glucose Level 151mg/dL (70-99) Calcium Level 8.3mg/dL (8.5-10.1) Micro BLOOD CULTURE Final GRAM POSITIVE COCCI IN CHAINS, SUGGESTIVE OF STREP, IN 4 OF 6 BOTTLES, TWO OF THREE SETS. CALLED TO JAMIE ON 5S AT 9:10 ON 03/08/17 DW MT SENT TO [facility] FOR FURTHER WORKUP. Objective Assessment BC + with strep vs enterococcus ID pending Fever Abd pain Anemia Plan Plan of Care unasyn await id and then further workup and adjustment supportive care d/w dr Pineda colonoscopy can be done will also get echo KRISTIAN MCKINLEY MD Mar 09, 2017 09:56
[2017-03-09] MEDS ORDERED: POTASSIUM CHLORIDE 20 MEQ TABLET.ER. PO ONE (10:45)
[2017-03-09 10:59] VITALS: BP 125/95
[2017-03-09] MEDS: POLYETHYLENE GLYCOL 3350 17 GM PACKET. PO SCH (11:51)
[2017-03-09] MEDS: ONDANSETRON PF 4 MG/2 ML VIAL. IV PRN (12:00)
--- NOTE | 2017-03-09 12:18 | PDOC ---
Subjective: Subjective: A little less RLQ pain today. Objective: Objective: Reviewed Dr. Valdez's and Dr. Pineda's notes. Echocardiogram ordered. Vital Signs: Vital Signs Date Time Temp Pulse Resp B/P Pulse Ox O2 Delivery O2 Flow Rate FiO2 03/09/17 10:59 98.8 78 16 125/95 97 Room Air 98.8 Labs: Laboratory Tests Test 03/09/17 04:40 White Blood Count 8.1x10^3/uL Red Blood Count 4.08x10^6/uL Hemoglobin 8.8g/dL Hematocrit 28.0% Mean Corpuscular Volume 69fL Mean Corpuscular Hemoglobin 22pg Mean Corpuscular Hemoglobin Concent 32g/dL Red Cell Distribution Width 19.3% Platelet Count 226x10^3/uL Neutrophils (%) (Auto) 62% Lymphocytes (%) (Auto) 26% Monocytes (%) (Auto) 11% Eosinophils (%) (Auto) 1% Basophils (%) (Auto) 1% Neutrophils # (Auto) 5.0x10^3uL Lymphocytes # (Auto) 2.1x10^3/uL Monocytes # (Auto) 0.8x10^3/uL Eosinophils # (Auto) 0.1x10^3/uL Basophils # (Auto) 0.0x10^3/uL Segmented Neutrophils % 43% Band Neutrophils % 10% Lymphocytes % 30% Atypical Lymphocytes % (Manual) 1% Monocytes % 15% Eosinophils % 1% Platelet Estimate Adequate Polychromasia Slight Hypochromasia Slight Sodium Level 141mmol/L Potassium Level 3.1mmol/L Chloride Level 105mmol/L Carbon Dioxide Level 26mmol/L Anion Gap 10 Blood Urea Nitrogen 2mg/dL Creatinine 0.6mg/dL Estimated GFR (Cockcroft-Gault) 124.7 Glucose Level 151mg/dL Calcium Level 8.3mg/dL PE: GEN: NAD LUNGS: CTAB HEART: RRR ABD: less RLQ discomfort NEURO/PSYCH: A & O 3 A/P: RLQ pain, fever, +blood cx -anemia (Hgb now stable in 8s) -gram + cocci suggestive of strep; ID following on IV atbx ---> echocardiogram ordered -CT: 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 Diana re: timing of colonoscopy. LUPE MCLEOD Mar 09, 2017 12:18
[2017-03-09] MEDS ORDERED: POLYETHYLENE GLYCOL 3350 238 GM POWDER PO ONE ×2 (13:15→14:00)
--- NOTE | 2017-03-09 13:25 | PDOC ---
PROGRESS NOTES Chief Complaint Chief Complaint CC: Abdominal pain A/P RLQ Pain for Weeks, Unclear etiology, ? gonadal vein thrombophlebitis GPC bacteremia POA HTN HLP Hypokalemia Replaced. Plan On Unasyn, IV KCL IV NS- hydration Echo r/o endocarditis. ID consult pending GS following Colonoscopy per GI History of Present Illness History of Present Illness no fever no acute events. Vitals Vitals Vital Signs Date Time Temp Pulse Resp B/P Pulse Ox O2 Delivery O2 Flow Rate FiO2 03/09/17 10:59 98.8 78 16 125/95 97 Room Air 98.8 Physical Exam General: Alert, Oriented X3, Cooperative, No acute distress Heart: Regular rate, Normal S1, Normal S2 Lungs: Clear Abdomen: Soft, No masses, Other (minimally TTP) Extremities: No edema Labs LABS Laboratory Tests Test 03/09/17 04:40 White Blood Count 8.1x10^3/uL (4.0-11.0) Red Blood Count 4.08x10^6/uL (3.50-5.40) Hemoglobin 8.8g/dL (12.0-15.5) Hematocrit 28.0% (36.0-47.0) Mean Corpuscular Volume 69fL (79-100) Mean Corpuscular Hemoglobin 22pg (25-35) Mean Corpuscular Hemoglobin Concent 32g/dL (31-37) Red Cell Distribution Width 19.3% (11.5-14.5) Platelet Count 226x10^3/uL (140-400) Neutrophils (%) (Auto) 62% (31-73) Lymphocytes (%) (Auto) 26% (24-48) Monocytes (%) (Auto) 11% (0-9) Eosinophils (%) (Auto) 1% (0-3) Basophils (%) (Auto) 1% (0-3) Neutrophils # (Auto) 5.0x10^3uL (1.8-7.7) Lymphocytes # (Auto) 2.1x10^3/uL (1.0-4.8) Monocytes # (Auto) 0.8x10^3/uL (0.0-1.1) Eosinophils # (Auto) 0.1x10^3/uL (0.0-0.7) Basophils # (Auto) 0.0x10^3/uL (0.0-0.2) Segmented Neutrophils % 43% (35-66) Band Neutrophils % 10% (0-9) Lymphocytes % 30% (24-48) Atypical Lymphocytes % (Manual) 1% (0-0) Monocytes % 15% (0-10) Eosinophils % 1% (0-5) Platelet Estimate Adequate (ADEQUATE) Polychromasia Slight Hypochromasia Slight Sodium Level 141mmol/L (136-145) Potassium Level 3.1mmol/L (3.5-5.1) Chloride Level 105mmol/L (98-107) Carbon Dioxide Level 26mmol/L (21-32) Anion Gap 10 (6-14) Blood Urea Nitrogen 2mg/dL (7-20) Creatinine 0.6mg/dL (0.6-1.0) Estimated GFR (Cockcroft-Gault) 124.7 Glucose Level 151mg/dL (70-99) Calcium Level 8.3mg/dL (8.5-10.1) Assessment and Plan Assessmemt and Plan Problems Medical Problems: (1) Abdominal pain Status: Acute (2) Fever Status: Acute (3) Urinary tract infection Status: Acute Problems: Comment Review of Relevant I have reviewed the following items kory (where applicable) has been applied. Labs Laboratory Tests Test 03/08/17 07:00 03/09/17 04:40 White Blood Count 9.0x10^3/uL (4.0-11.0) 8.1x10^3/uL (4.0-11.0) Red Blood Count 3.89x10^6/uL (3.50-5.40) 4.08x10^6/uL (3.50-5.40) Hemoglobin 8.5g/dL (12.0-15.5) 8.8g/dL (12.0-15.5) Hematocrit 26.9% (36.0-47.0) 28.0% (36.0-47.0) Mean Corpuscular Volume 69fL (79-100) 69fL (79-100) Mean Corpuscular Hemoglobin 22pg (25-35) 22pg (25-35) Mean Corpuscular Hemoglobin Concent 32g/dL (31-37) 32g/dL (31-37) Red Cell Distribution Width 18.5% (11.5-14.5) 19.3% (11.5-14.5) Platelet Count 174x10^3/uL (140-400) 226x10^3/uL (140-400) Neutrophils (%) (Auto) 67% (31-73) 62% (31-73) Lymphocytes (%) (Auto) 21% (24-48) 26% (24-48) Monocytes (%) (Auto) 12% (0-9) 11% (0-9) Eosinophils (%) (Auto) 1% (0-3) 1% (0-3) Basophils (%) (Auto) 0% (0-3) 1% (0-3) Neutrophils # (Auto) 6.0x10^3uL (1.8-7.7) 5.0x10^3uL (1.8-7.7) Lymphocytes # (Auto) 1.8x10^3/uL (1.0-4.8) 2.1x10^3/uL (1.0-4.8) Monocytes # (Auto) 1.1x10^3/uL (0.0-1.1) 0.8x10^3/uL (0.0-1.1) Eosinophils # (Auto) 0.1x10^3/uL (0.0-0.7) 0.1x10^3/uL (0.0-0.7) Basophils # (Auto) 0.0x10^3/uL (0.0-0.2) 0.0x10^3/uL (0.0-0.2) Sodium Level 138mmol/L (136-145) 141mmol/L (136-145) Potassium Level 3.1mmol/L (3.5-5.1) 3.1mmol/L (3.5-5.1) Chloride Level 104mmol/L (98-107) 105mmol/L (98-107) Carbon Dioxide Level 22mmol/L (21-32) 26mmol/L (21-32) Anion Gap 12 (6-14) 10 (6-14) Blood Urea Nitrogen 6mg/dL (7-20) 2mg/dL (7-20) Creatinine 0.7mg/dL (0.6-1.0) 0.6mg/dL (0.6-1.0) Estimated GFR (Cockcroft-Gault) 104.4 124.7 Glucose Level 98mg/dL (70-99) 151mg/dL (70-99) Calcium Level 8.2mg/dL (8.5-10.1) 8.3mg/dL (8.5-10.1) Segmented Neutrophils % 43% (35-66) Band Neutrophils % 10% (0-9) Lymphocytes % 30% (24-48) Atypical Lymphocytes % (Manual) 1% (0-0) Monocytes % 15% (0-10) Eosinophils % 1% (0-5) Platelet Estimate Adequate (ADEQUATE) Polychromasia Slight Hypochromasia Slight Laboratory Tests Test 03/09/17 04:40 White Blood Count 8.1x10^3/uL (4.0-11.0) Red Blood Count 4.08x10^6/uL (3.50-5.40) Hemoglobin 8.8g/dL (12.0-15.5) Hematocrit 28.0% (36.0-47.0) Mean Corpuscular Volume 69fL (79-100) Mean Corpuscular Hemoglobin 22pg (25-35) Mean Corpuscular Hemoglobin Concent 32g/dL (31-37) Red Cell Distribution Width 19.3% (11.5-14.5) Platelet Count 226x10^3/uL (140-400) Neutrophils (%) (Auto) 62% (31-73) Lymphocytes (%) (Auto) 26% (24-48) Monocytes (%) (Auto) 11% (0-9) Eosinophils (%) (Auto) 1% (0-3) Basophils (%) (Auto) 1% (0-3) Neutrophils # (Auto) 5.0x10^3uL (1.8-7.7) Lymphocytes # (Auto) 2.1x10^3/uL (1.0-4.8) Monocytes # (Auto) 0.8x10^3/uL (0.0-1.1) Eosinophils # (Auto) 0.1x10^3/uL (0.0-0.7) Basophils # (Auto) 0.0x10^3/uL (0.0-0.2) Segmented Neutrophils % 43% (35-66) Band Neutrophils % 10% (0-9) Lymphocytes % 30% (24-48) Atypical Lymphocytes % (Manual) 1% (0-0) Monocytes % 15% (0-10) Eosinophils % 1% (0-5) Platelet Estimate Adequate (ADEQUATE) Polychromasia Slight Hypochromasia Slight Sodium Level 141mmol/L (136-145) Potassium Level 3.1mmol/L (3.5-5.1) Chloride Level 105mmol/L (98-107) Carbon Dioxide Level 26mmol/L (21-32) Anion Gap 10 (6-14) Blood Urea Nitrogen 2mg/dL (7-20) Creatinine 0.6mg/dL (0.6-1.0) Estimated GFR (Cockcroft-Gault) 124.7 Glucose Level 151mg/dL (70-99) Calcium Level 8.3mg/dL (8.5-10.1) Microbiology 03/07/17 Blood Culture - Preliminary, Resulted NO GROWTH AFTER 2 DAYS 03/07/17 Urine Culture - Preliminary, Resulted 03/07/17 Urine Culture Result 1 ([facility]) - Preliminary, Resulted Medications Current Medications Sodium Chloride (Iv Sodium Chloride 0.9% 1000ml Bag) 1,000 ml @ 1,000 mls/hr Q1H IV Last administered on 03/07/17 04:59; Start 03/07/17 at 04:45; Stop 10/13 at 05:44; Status DC Hydromorphone HCl (Dilaudid) 1 mg 1X ONCE IV Last administered on 03/07/17 04 :59; Start 03/07/17 at 05:00; Stop 03/07/17 at 05:01; Status DC Ondansetron HCl (Zofran) 4 mg 1X ONCE IV Last administered on 03/07/17 05:00 ; Start 03/07/17 at 05:00; Stop 03/07/17 at 05:01; Status DC Ketorolac Tromethamine (Toradol) 15 mg 1X ONCE IV Last administered on 04:59; Start 03/07/17 at 05:00; Stop 03/07/17 at 05:01; Status DC Acetaminophen (Tylenol) 650 mg 1X ONCE PO Last administered on 03/07/17 05:00 ; Start 03/07/17 at 05:00; Stop 03/07/17 at 05:01; Status DC Iohexol (Omnipaque 300 Mg/ml) 75 ml 1X ONCE IV Last administered on 03/07/17 05:21; Start 03/07/17 at 05:00; Stop 03/07/17 at 05:01; Status DC Info 1 each 1 each PRN DAILY PRN MC SEE COMMENTS; Start 03/07/17 at 05:00; Stop 03/09/17 at 04:59; Status DC Ceftriaxone Sodium (Rocephin 1gm Ivpb For Omni) 50 ml @ 100 mls/hr 1X ONCE IV Last administered on 03/07/17 06:54; Start 03/07/17 at 06:30; Stop 03/07/17 at 06:59; Status DC Ondansetron HCl (Zofran) 4 mg PRN Q8HRS PRN IV NAUSEA/VOMITING Last administered on 03/07/17 10:41; Start 03/07/17 at 06:45; Stop 03/08/17 at 06:44 ; Status DC Morphine Sulfate 4 mg 4 mg PRN Q2HR PRN IV PAIN; Start 03/07/17 at 06:45; Stop 03/07/17 at 10:52; Status DC Sodium Chloride (Iv Sodium Chloride 0.9% 1000ml Bag) 1,000 ml @ 125 mls/hr Q8H IV Last administered on 03/07/17 07:09; Start 03/07/17 at 06:45; Stop at 10:32; Status DC Acetaminophen (Tylenol) 650 mg PRN Q4HRS PRN PO FEVER Last administered on 03/08 05:53; Start 03/07/17 at 06:45; Stop 03/08/17 at 06:44; Status DC Acetaminophen (Tylenol) 325 mg PRN Q6HRS PRN PO MILD PAIN / TEMP; Start at 08:45; Stop 03/07/17 at 08:45; Status DC Acetaminophen/ Hydrocodone Bitart (Lortab 5/325) 1 tab PRN Q6HRS PRN PO MODERATE TO SEVERE PAIN Last administered on 03/09/17 06:03; Start 03/07/17 at 08:45 Hydralazine HCl (Apresoline) 10 mg PRN Q4HRS PRN IVP ELEVATED BP, SEE COMMENTS ; Start 03/07/17 at 08:45 Ondansetron HCl (Zofran) 4 mg PRN Q8HRS PRN IV NAUSEA/VOMITING Last administered on 03/09/17 12:00; Start 03/07/17 at 08:45 Albuterol Sulfate 2.5 mg 2.5 mg PRN Q4HRS PRN NEB SHORTNESS OF BREATH; Start at 08:45 Ceftriaxone Sodium 1 gm/ Sodium Chloride 50 ml @ 100 mls/hr Q24H IV ; Start 11/12 at 06:00; Stop 03/08/17 at 06:00; Status DC Sodium Chloride (Iv Sodium Chloride 0.9% 1000ml Bag) 1,000 ml @ 125 mls/hr Q8H IV Last administered on 03/09/17 09:42; Start 03/07/17 at 08:45 Acetaminophen (Tylenol) 325 mg PRN Q6HRS PRN PO MILD PAIN / TEMP; Start at 08:45 Hydromorphone HCl 0.5 mg 0.5 mg PRN Q2HR PRN IV PAIN; Start 03/07/17 at 10:45 Metronidazole (FLAGYL 500Mmg PREMIX) 100 ml @ 100 mls/hr Q8HRS IV Last administered on 03/08/17 05:51; Start 03/07/17 at 14:00; Stop 03/08/17 at 11:03 ; Status DC Levofloxacin/ Dextrose (Levaquin Per Pharmacy) 1 each PRN DAILY PRN MC SEE COMMENTS; Start 03/07/17 at 11:00; Status Cancel Enoxaparin Sodium 40 mg 40 mg Q24H SQ Last administered on 03/08/17 21:09; Start 03/07/17 at 21:00 Levofloxacin/ Dextrose (LEVAQUIN 500mg PREMIX) 100 ml @ 100 mls/hr Q24H IV Last administered on 03/08/17 08:10; Start 03/07/17 at 12:00; Stop 03/08/17 at 11:03; Status DC Lisinopril (Prinivil) 20 mg DAILY PO Last administered on 03/09/17 09:18; Start 03/07/17 at 11:30 Atorvastatin Calcium 5 mg 5 mg QHS PO Last administered on 03/08/17 21:08; Start 03/07/17 at 21:00 Potassium Chloride/Dextrose/ Sod Cl 1,000 ml @ 75 mls/hr 1X ONCE IV Last administered on 03/08/17 10:00; Start 03/08/17 at 10:00; Stop 03/08/17 at 23:19 ; Status DC Ampicillin Sodium/ Sulbactam Sodium/ Sodium Chloride (Unasyn/Iv Sodium Chloride 0.9% 100ml) 100 ml @ 200 mls/hr Q6HRS IV Last administered on 03/09/17 12:00 ; Start 03/08/17 at 12:00 Polyethylene Glycol (miraLAX PACKET) 17 gm DAILY PO Last administered on 11:51; Start 03/09/17 at 11:00 Potassium Chloride (Klor-Con) 40 meq 1X ONCE PO Last administered on 11:51; Start 03/09/17 at 10:45; Stop 03/09/17 at 10:46; Status DC Polyethylene Glycol (miraLAX Powder BULK BOTTLE) 238 gm 1X ONCE PO ; Start at 13:15; Stop 03/09/17 at 13:16; Status UNV Magnesium Citrate (Citroma) 296 ml 1X ONCE PO ; Start 03/09/17 at 13:15; Stop 03/09/17 at 13:16; Status UNV Bisacodyl (Dulcolax Tab) 5 mg 1X ONCE PO ; Start 03/09/17 at 13:15; Stop at 13:16; Status UNV Active Scripts Active Reported Pravastatin Sodium 20 Mg Tablet 1 Tab PO QHS Ferrous Sulfate 325 Mg Tablet.dr 325 Mg PO Lisinopril 20 Mg Tablet 1 Tab PO DAILY Vitals/I & O Vital Sign - Last 24 Hours 03/08/17 03/08/17 03/08/17 03/08/17 15:00 19:00 21:35 23:00 Temp 98.0 98.6 98.7 98.0 98.6 98.7 Pulse 76 77 75 Resp 20 18 18 16 B/P 120/76 134/87 125/85 Pulse Ox 96 97 98 O2 Delivery Room Air Room Air 403/09/17 03/09/17 03/09/17 03:00 06:03 07:00 08:00 Temp 99.1 98.7 99.1 98.7 Pulse 78 82 Resp 18 17 B/P 117/91 132/90 Pulse Ox 98 95 O2 Delivery Room Air Room Air Room Air 03/09/17 03/09/17 09:18 10:59 Temp 98.8 98.8 Pulse 82 78 Resp 16 B/P 132/90 125/95 Pulse Ox 97 O2 Delivery Room Air Intake and Output 03/08/17 03/08/17 03/09/17 15:00 23:00 07:00 Intake Total 240 ml 920 ml 120 ml Balance 240 ml 920 ml 120 ml SYLVIA SAAB MD Mar 09, 2017 13:25
[2017-03-09] MEDS ORDERED: MAGNESIUM CITRATE 296 ML SOLUTION. PO ONE (14:00)
[2017-03-09] MEDS ORDERED: BISACODYL 5 MG TABLET.DR. PO ONE ×2 (14:00→14:30)
[2017-03-09 15:00] VITALS: BP 139/97
[2017-03-09] MEDS: ACETAMINOPHEN 325 MG TABLET. PO PRN (15:50)
--- NOTE | 2017-03-09 16:48 | CARD ---
APPROVED REPORT EXAM: Two-dimensional and M-mode echocardiogram with Doppler and color Doppler. Other Information Quality : GoodHR: 70bpm Rhythm : NSR INDICATION Rule out endocarditis 2D DIMENSIONS RVDd2.9 (2.9-3.5cm)Left Atrium(2D)3.3 (1.6-4.0cm) IVSd0.9 (0.7-1.1cm)Aortic Root(2D)3.0 (2.0-3.7cm) LVDd5.1 (3.9-5.9cm)LVOT Diameter2.0 (1.8-2.4cm) PWd0.9 (0.7-1.1cm)LVDs3.5 (2.5-4.0cm) FS (%) 32.2 %SV74.0 ml LVEF(%)60.0 (>50%) Aortic Valve AoV Peak Chris.133.0cm/sAoV VTI27.0cm AO Peak GR.7.1mmHgLVOT Peak Chris.112.4cm/s LVOT VTI 24.84cmAO Mean GR.4mmHg SABRA (VMAX)2.38bm1WGT (VTI)2.88cm2 Mitral Valve MV E Fuejqhby77.2cm/sMV DECEL BAZD910vz MV A Pvehczmf60.0cm/sMV E Mean Gr.2mmHg MV ZBX76ieY/A Ratio1.4 MV A Scmjlqki255iwNLW (PHT)3.62cm2 TDI E/Lateral E'10.1E/Medial E'12.6 Pulmonary Valve PV Peak Aruiekxc86.5cm/sPV Peak Grad.3mmHg RVOT VTI19.5cm Tricuspid Valve TR P. Ezlgnmqa018cu/sRAP JHPHHEPQ1adGy TR Peak Gr.46bwAbLIEY53rkLm Pulmonary Vein S1 Fsjelezc09.2cm/sD2 Waknrmia88.2cm/s PVa asfjmfhj493dcev LEFT VENTRICLE The left ventricle is normal size. There is normal left ventricular wall thickness. Left ventricle sy stolic function is normal. The Ejection Fraction is 60%. There is normal LV segmental wall motion. Th e left ventricular diastolic function and filling is normal for age. There is no ventricular septal d efect visualized. RIGHT VENTRICLE The right ventricle is normal size. The right ventricular systolic function is normal. ATRIA The left atrium size is normal. The right atrium size is normal. The interatrial septum is intact wit h no evidence for an atrial septal defect or patent foramen ovale as noted on 2-D or Doppler imaging. AORTIC VALVE The aortic valve is normal in structure and function. The aortic valve is trileaflet. Doppler and Col or Flow revealed no significant aortic regurgitation. There is no significant aortic valvular stenosi s. MITRAL VALVE The mitral valve is normal in structure There is no evidence of mitral valve prolapse. There is no mi tral valve stenosis. Doppler and Color Flow revealed mild mitral regurgitation. TRICUSPID VALVE The tricuspid valve is normal in structure. Doppler and Color Flow revealed trace to mild tricuspid r egurgitation. There is no pulmonary hypertension. The PA pressure was estimated at 26 mmHg. There is no tricuspid valve stenosis. PULMONIC VALVE The pulmonary valve is normal in structure Doppler and Color Flow revealed trace pulmonic valvular re gurgitation. There is no pulmonic valvular stenosis. GREAT VESSELS The aortic root is normal in size. The ascending aorta is normal in size. Normal pulmonary venous taon w (Doppler). The IVC is normal in size and collapses >50% with inspiration. PERICARDIAL EFFUSION There is no pleural effusion. There is no evidence of significant pericardial effusion. Critical Notification Critical Value: No <Conclusion> Left ventricle systolic function is normal. The Ejection Fraction is 60%. The left atrium size is normal. The right atrium size is normal. The aortic valve is normal in structure and function. The aortic valve is trileaflet. Doppler and Color Flow revealed mild mitral regurgitation. Doppler and Color Flow revealed trace to mild tricuspid regurgitation. There is no pulmonary hypertension. The PA pressure was estimated at 26 mmHg. Doppler and Color Flow revealed trace pulmonic valvular regurgitation. There is no evidence of significant pericardial effusion.
[2017-03-09 19:00] VITALS: BP 126/91
[2017-03-09] MEDS: ENOXAPARIN 40 MG/0.4 ML SYRINGE. SQ SCH (21:00)
[2017-03-09] MEDS: ATORVASTATIN CALCIUM 10 MG TABLET. PO SCH (22:34)
[2017-03-09 23:00] VITALS: BP 130/93
[2017-03-10] MEDS: AMPICILLIN/SULBACTAM 3 GM in IV NORMAL SALINE 100ML 100 ML IV SCH ×4 (00:30→17:36)
[2017-03-10] MEDS: IV NORMAL SALINE 1000ML BAG 1,000 ML IV SCH ×3 (01:54→21:22)
[2017-03-10] MEDS: ACETAMINOPHEN 325 MG TABLET. PO PRN ×3 (01:54→17:35)
[2017-03-10 06:25] LABS: BASO % 1 % (0-3); EOS % 1 % (0-3); HEMOGLOBIN 8.9 g/dL (12.0-15.5); LYMPH # 2.4 x10^3/uL (1.0-4.8); LYMPH % 31 % (24-48); MEAN CORPUSCULAR HEMOGLOBIN 22 pg (25-35); MEAN CORPUSCULAR HGB CONC 32 g/dL (31-37); MEAN CORPUSCULAR VOLUME 68 fL (79-100); MONO % 10 % (0-9); NEUT % 58 % (31-73); PLATELET COUNT 284 x10^3/uL (140-400); RED BLOOD COUNT 4.14 x10^6/uL (3.50-5.40); WHITE BLOOD COUNT 7.8 x10^3/uL (4.0-11.0)
[2017-03-10 06:38] LABS: CALCIUM 8.3 mg/dL (8.5-10.1); CREATININE 0.5 mg/dL (0.6-1.0); GFR 153.9; POTASSIUM 3.2 mmol/L (3.5-5.1)
[2017-03-10 07:00] VITALS: BP 151/80
[2017-03-10] MEDS ORDERED: MORPHINE SULFATE 2 MG/ML DISP.SYRIN. IV PRN (07:00)
[2017-03-10] MEDS ORDERED: LIDOCAINE 1% 1 ML SYRINGE. ID PRN (07:00)
[2017-03-10] MEDS ORDERED: IV RINGERS,LACTATED 1000ML 1,000 ML IV SCH (07:00)
[2017-03-10] MEDS ORDERED: PROCHLORPERAZINE 10 MG/2 ML VIAL. IV PRN (07:00)
[2017-03-10] MEDS ORDERED: fentaNYL PF VIAL 100 MCG/2 ML VIAL IV PRN ×2 (07:00)
[2017-03-10] MEDS ORDERED: HYDROmorphone 2 MG/ML VIAL IV PRN (07:00)
[2017-03-10] MEDS ORDERED: ONDANSETRON PF 4 MG/2 ML VIAL. IV PRN (07:00)
[2017-03-10] MEDS: POLYETHYLENE GLYCOL 3350 17 GM PACKET. PO SCH (09:25)
[2017-03-10] MEDS: LISINOPRIL 20 MG TABLET PO SCH (09:29)
[2017-03-10] MEDS ORDERED: LIDOCAINE 2% PF Vial for OR 5 ML VIAL. ONE (10:26)
[2017-03-10] MEDS ORDERED: PROPOFOL 40 ML IV ONE (10:26)
--- NOTE | 2017-03-10 11:00 | PDOC4 ---
Operative Note Operative Note EGD Colonoscopy with biopsy Meds propofol per anesthesia Pre-op dx anemia/rlq abd pain Post-op dx gastritis internal hemorrhoids rectal polyps s/p bx Imp RLQ abd pain- etiology likely thrombophlebitis Plan antibiotics and medical therapy advance diet MAYRA LUNDY MD Mar 10, 2017 11:00
[2017-03-10 11:48] VITALS: BP 147/81
[2017-03-10] MEDS: ONDANSETRON PF 4 MG/2 ML VIAL. IV PRN (11:57)
[2017-03-10] MEDS: HYDROcodone/APAP 5/325MG 1 TAB TABLET PO PRN (11:58)
--- NOTE | 2017-03-10 12:35 | PDOC ---
PROGRESS NOTES Chief Complaint Chief Complaint CC: Abdominal pain A/P RLQ Pain for Weeks, Unclear etiology, ? gonadal vein thrombophlebitis GPC bacteremia POA Group A strep HTN HLP Hypokalemia Replaced. Plan On Unasyn, KCL Echo no endocarditis. appreciate ID recommendations. s/p Colonoscopy, rectal polyp biopsy History of Present Illness History of Present Illness no fever no acute events. Vitals Vitals Vital Signs Date Time Temp Pulse Resp B/P Pulse Ox O2 Delivery O2 Flow Rate FiO2 03/10/17 11:48 97.9 69 18 147/81 98 Room Air 97.9 Physical Exam General: Alert, Oriented X3, Cooperative, No acute distress Heart: Regular rate, Normal S1, Normal S2 Lungs: Clear Abdomen: Soft, No masses, Other Extremities: No edema Labs LABS Laboratory Tests Test 03/10/17 05:50 White Blood Count 7.8x10^3/uL (4.0-11.0) Red Blood Count 4.14x10^6/uL (3.50-5.40) Hemoglobin 8.9g/dL (12.0-15.5) Hematocrit 28.0% (36.0-47.0) Mean Corpuscular Volume 68fL (79-100) Mean Corpuscular Hemoglobin 22pg (25-35) Mean Corpuscular Hemoglobin Concent 32g/dL (31-37) Red Cell Distribution Width 19.0% (11.5-14.5) Platelet Count 284x10^3/uL (140-400) Neutrophils (%) (Auto) 58% (31-73) Lymphocytes (%) (Auto) 31% (24-48) Monocytes (%) (Auto) 10% (0-9) Eosinophils (%) (Auto) 1% (0-3) Basophils (%) (Auto) 1% (0-3) Neutrophils # (Auto) 4.5x10^3uL (1.8-7.7) Lymphocytes # (Auto) 2.4x10^3/uL (1.0-4.8) Monocytes # (Auto) 0.7x10^3/uL (0.0-1.1) Eosinophils # (Auto) 0.1x10^3/uL (0.0-0.7) Basophils # (Auto) 0.0x10^3/uL (0.0-0.2) Sodium Level 143mmol/L (136-145) Potassium Level 3.2mmol/L (3.5-5.1) Chloride Level 106mmol/L (98-107) Carbon Dioxide Level 27mmol/L (21-32) Anion Gap 10 (6-14) Blood Urea Nitrogen 2mg/dL (7-20) Creatinine 0.5mg/dL (0.6-1.0) Estimated GFR (Cockcroft-Gault) 153.9 Glucose Level 145mg/dL (70-99) Calcium Level 8.3mg/dL (8.5-10.1) Assessment and Plan Assessmemt and Plan Problems Medical Problems: (1) Abdominal pain Status: Acute (2) Fever Status: Acute (3) Urinary tract infection Status: Acute Problems: Comment Review of Relevant I have reviewed the following items kory (where applicable) has been applied. Labs Laboratory Tests Test 03/09/17 04:40 03/10/17 05:50 White Blood Count 8.1x10^3/uL (4.0-11.0) 7.8x10^3/uL (4.0-11.0) Red Blood Count 4.08x10^6/uL (3.50-5.40) 4.14x10^6/uL (3.50-5.40) Hemoglobin 8.8g/dL (12.0-15.5) 8.9g/dL (12.0-15.5) Hematocrit 28.0% (36.0-47.0) 28.0% (36.0-47.0) Mean Corpuscular Volume 69fL (79-100) 68fL (79-100) Mean Corpuscular Hemoglobin 22pg (25-35) 22pg (25-35) Mean Corpuscular Hemoglobin Concent 32g/dL (31-37) 32g/dL (31-37) Red Cell Distribution Width 19.3% (11.5-14.5) 19.0% (11.5-14.5) Platelet Count 226x10^3/uL (140-400) 284x10^3/uL (140-400) Neutrophils (%) (Auto) 62% (31-73) 58% (31-73) Lymphocytes (%) (Auto) 26% (24-48) 31% (24-48) Monocytes (%) (Auto) 11% (0-9) 10% (0-9) Eosinophils (%) (Auto) 1% (0-3) 1% (0-3) Basophils (%) (Auto) 1% (0-3) 1% (0-3) Neutrophils # (Auto) 5.0x10^3uL (1.8-7.7) 4.5x10^3uL (1.8-7.7) Lymphocytes # (Auto) 2.1x10^3/uL (1.0-4.8) 2.4x10^3/uL (1.0-4.8) Monocytes # (Auto) 0.8x10^3/uL (0.0-1.1) 0.7x10^3/uL (0.0-1.1) Eosinophils # (Auto) 0.1x10^3/uL (0.0-0.7) 0.1x10^3/uL (0.0-0.7) Basophils # (Auto) 0.0x10^3/uL (0.0-0.2) 0.0x10^3/uL (0.0-0.2) Segmented Neutrophils % 43% (35-66) Band Neutrophils % 10% (0-9) Lymphocytes % 30% (24-48) Atypical Lymphocytes % (Manual) 1% (0-0) Monocytes % 15% (0-10) Eosinophils % 1% (0-5) Platelet Estimate Adequate (ADEQUATE) Polychromasia Slight Hypochromasia Slight Sodium Level 141mmol/L (136-145) 143mmol/L (136-145) Potassium Level 3.1mmol/L (3.5-5.1) 3.2mmol/L (3.5-5.1) Chloride Level 105mmol/L (98-107) 106mmol/L (98-107) Carbon Dioxide Level 26mmol/L (21-32) 27mmol/L (21-32) Anion Gap 10 (6-14) 10 (6-14) Blood Urea Nitrogen 2mg/dL (7-20) 2mg/dL (7-20) Creatinine 0.6mg/dL (0.6-1.0) 0.5mg/dL (0.6-1.0) Estimated GFR (Cockcroft-Gault) 124.7 153.9 Glucose Level 151mg/dL (70-99) 145mg/dL (70-99) Calcium Level 8.3mg/dL (8.5-10.1) 8.3mg/dL (8.5-10.1) Laboratory Tests Test 03/10/17 05:50 White Blood Count 7.8x10^3/uL (4.0-11.0) Red Blood Count 4.14x10^6/uL (3.50-5.40) Hemoglobin 8.9g/dL (12.0-15.5) Hematocrit 28.0% (36.0-47.0) Mean Corpuscular Volume 68fL (79-100) Mean Corpuscular Hemoglobin 22pg (25-35) Mean Corpuscular Hemoglobin Concent 32g/dL (31-37) Red Cell Distribution Width 19.0% (11.5-14.5) Platelet Count 284x10^3/uL (140-400) Neutrophils (%) (Auto) 58% (31-73) Lymphocytes (%) (Auto) 31% (24-48) Monocytes (%) (Auto) 10% (0-9) Eosinophils (%) (Auto) 1% (0-3) Basophils (%) (Auto) 1% (0-3) Neutrophils # (Auto) 4.5x10^3uL (1.8-7.7) Lymphocytes # (Auto) 2.4x10^3/uL (1.0-4.8) Monocytes # (Auto) 0.7x10^3/uL (0.0-1.1) Eosinophils # (Auto) 0.1x10^3/uL (0.0-0.7) Basophils # (Auto) 0.0x10^3/uL (0.0-0.2) Sodium Level 143mmol/L (136-145) Potassium Level 3.2mmol/L (3.5-5.1) Chloride Level 106mmol/L (98-107) Carbon Dioxide Level 27mmol/L (21-32) Anion Gap 10 (6-14) Blood Urea Nitrogen 2mg/dL (7-20) Creatinine 0.5mg/dL (0.6-1.0) Estimated GFR (Cockcroft-Gault) 153.9 Glucose Level 145mg/dL (70-99) Calcium Level 8.3mg/dL (8.5-10.1) Microbiology 03/07/17 Blood Culture - Preliminary, Resulted NO GROWTH AFTER 3 DAYS 03/07/17 Urine Culture - Final, Complete 03/07/17 Urine Culture Result 1 ([facility]) - Final, Complete Medications Current Medications Sodium Chloride (Iv Sodium Chloride 0.9% 1000ml Bag) 1,000 ml @ 1,000 mls/hr Q1H IV Last administered on 03/07/17 04:59; Start 03/07/17 at 04:45; Stop 10/13 at 05:44; Status DC Hydromorphone HCl (Dilaudid) 1 mg 1X ONCE IV Last administered on 03/07/17 04 :59; Start 03/07/17 at 05:00; Stop 03/07/17 at 05:01; Status DC Ondansetron HCl (Zofran) 4 mg 1X ONCE IV Last administered on 03/07/17 05:00 ; Start 03/07/17 at 05:00; Stop 03/07/17 at 05:01; Status DC Ketorolac Tromethamine (Toradol) 15 mg 1X ONCE IV Last administered on 04:59; Start 03/07/17 at 05:00; Stop 03/07/17 at 05:01; Status DC Acetaminophen (Tylenol) 650 mg 1X ONCE PO Last administered on 03/07/17 05:00 ; Start 03/07/17 at 05:00; Stop 03/07/17 at 05:01; Status DC Iohexol (Omnipaque 300 Mg/ml) 75 ml 1X ONCE IV Last administered on 03/07/17 05:21; Start 03/07/17 at 05:00; Stop 03/07/17 at 05:01; Status DC Info 1 each 1 each PRN DAILY PRN MC SEE COMMENTS; Start 03/07/17 at 05:00; Stop 03/09/17 at 04:59; Status DC Ceftriaxone Sodium (Rocephin 1gm Ivpb For Omni) 50 ml @ 100 mls/hr 1X ONCE IV Last administered on 03/07/17 06:54; Start 03/07/17 at 06:30; Stop 03/07/17 at 06:59; Status DC Ondansetron HCl (Zofran) 4 mg PRN Q8HRS PRN IV NAUSEA/VOMITING Last administered on 03/07/17 10:41; Start 03/07/17 at 06:45; Stop 03/08/17 at 06:44 ; Status DC Morphine Sulfate 4 mg 4 mg PRN Q2HR PRN IV PAIN; Start 03/07/17 at 06:45; Stop 03/07/17 at 10:52; Status DC Sodium Chloride (Iv Sodium Chloride 0.9% 1000ml Bag) 1,000 ml @ 125 mls/hr Q8H IV Last administered on 03/07/17 07:09; Start 03/07/17 at 06:45; Stop at 10:32; Status DC Acetaminophen (Tylenol) 650 mg PRN Q4HRS PRN PO FEVER Last administered on 03/08 05:53; Start 03/07/17 at 06:45; Stop 03/08/17 at 06:44; Status DC Acetaminophen (Tylenol) 325 mg PRN Q6HRS PRN PO MILD PAIN / TEMP; Start at 08:45; Stop 03/07/17 at 08:45; Status DC Acetaminophen/ Hydrocodone Bitart (Lortab 5/325) 1 tab PRN Q6HRS PRN PO MODERATE TO SEVERE PAIN Last administered on 03/10/17 11:58; Start 03/07/17 at 08:45 Hydralazine HCl (Apresoline) 10 mg PRN Q4HRS PRN IVP ELEVATED BP, SEE COMMENTS ; Start 03/07/17 at 08:45 Ondansetron HCl (Zofran) 4 mg PRN Q8HRS PRN IV NAUSEA/VOMITING Last administered on 03/10/17 11:57; Start 03/07/17 at 08:45 Albuterol Sulfate 2.5 mg 2.5 mg PRN Q4HRS PRN NEB SHORTNESS OF BREATH; Start at 08:45 Ceftriaxone Sodium 1 gm/ Sodium Chloride 50 ml @ 100 mls/hr Q24H IV ; Start 11/12 at 06:00; Stop 03/08/17 at 06:00; Status DC Sodium Chloride (Iv Sodium Chloride 0.9% 1000ml Bag) 1,000 ml @ 125 mls/hr Q8H IV Last administered on 03/10/17 11:56; Start 03/07/17 at 08:45 Acetaminophen (Tylenol) 325 mg PRN Q6HRS PRN PO MILD PAIN / TEMP Last administered on 03/10/17 09:29; Start 03/07/17 at 08:45 Hydromorphone HCl 0.5 mg 0.5 mg PRN Q2HR PRN IV PAIN; Start 03/07/17 at 10:45 Metronidazole (FLAGYL 500Mmg PREMIX) 100 ml @ 100 mls/hr Q8HRS IV Last administered on 03/08/17 05:51; Start 03/07/17 at 14:00; Stop 03/08/17 at 11:03 ; Status DC Levofloxacin/ Dextrose (Levaquin Per Pharmacy) 1 each PRN DAILY PRN MC SEE COMMENTS; Start 03/07/17 at 11:00; Status Cancel Enoxaparin Sodium 40 mg 40 mg Q24H SQ Last administered on 03/08/17 21:09; Start 03/07/17 at 21:00 Levofloxacin/ Dextrose (LEVAQUIN 500mg PREMIX) 100 ml @ 100 mls/hr Q24H IV Last administered on 03/08/17 08:10; Start 03/07/17 at 12:00; Stop 03/08/17 at 11:03; Status DC Lisinopril (Prinivil) 20 mg DAILY PO Last administered on 03/10/17 09:29; Start 03/07/17 at 11:30 Atorvastatin Calcium 5 mg 5 mg QHS PO Last administered on 03/09/17 22:34; Start 03/07/17 at 21:00 Potassium Chloride/Dextrose/ Sod Cl 1,000 ml @ 75 mls/hr 1X ONCE IV Last administered on 03/08/17 10:00; Start 03/08/17 at 10:00; Stop 03/08/17 at 23:19 ; Status DC Ampicillin Sodium/ Sulbactam Sodium/ Sodium Chloride (Unasyn/Iv Sodium Chloride 0.9% 100ml) 100 ml @ 200 mls/hr Q6HRS IV Last administered on 03/10/17 11:56 ; Start 03/08/17 at 12:00 Polyethylene Glycol (miraLAX PACKET) 17 gm DAILY PO Last administered on 11:51; Start 03/09/17 at 11:00 Potassium Chloride (Klor-Con) 40 meq 1X ONCE PO Last administered on 11:51; Start 03/09/17 at 10:45; Stop 03/09/17 at 10:46; Status DC Polyethylene Glycol (miraLAX Powder BULK BOTTLE) 238 gm 1X ONCE PO ; Start at 13:15; Stop 03/09/17 at 13:29; Status DC Magnesium Citrate (Citroma) 296 ml 1X ONCE PO Last administered on 03/09/17 14:21; Start 03/09/17 at 14:00; Stop 03/09/17 at 14:01; Status DC Bisacodyl (Dulcolax Tab) 5 mg 1X ONCE PO ; Start 03/09/17 at 14:00; Stop at 14:19; Status DC Polyethylene Glycol (miraLAX Powder BULK BOTTLE) 238 gm 1X ONCE PO Last administered on 03/09/17 14:30; Start 03/09/17 at 14:00; Stop 03/09/17 at 14:01 ; Status DC Ondansetron HCl (Zofran) 4 mg PRN Q6HRS PRN IV NAUSEA/VOMITING; Start 03/10/17 at 07:00; Stop 03/10/17 at 18:00 Fentanyl Citrate (Fentanyl 2ml Vial) 25 mcg PRN Q5MIN PRN IV MILD PAIN; Start 03/10/17 at 07:00; Stop 03/10/17 at 18:00 Fentanyl Citrate (Fentanyl 2ml Vial) 50 mcg PRN Q5MIN PRN IV MODERATE PAIN; Start 03/10/17 at 07:00; Stop 03/10/17 at 18:00 Morphine Sulfate 1 mg 1 mg PRN Q10MIN PRN IV SEVERE PAIN; Start 03/10/17 at 07: 00; Stop 03/10/17 at 18:00 Lactated Ringer's (Iv Lactated Ringers) 1,000 ml @ 30 mls/hr Q24H IV ; Start at 07:00; Stop 03/10/17 at 18:59 Lidocaine HCl 2 ml PRN 1X PRN ID PRIOR TO IV START; Start 03/10/17 at 07:00; Stop 03/10/17 at 18:00 Hydromorphone HCl (Dilaudid) 0.5 mg PRN Q10MIN PRN IV SEV PAIN, Second choice; Start 03/10/17 at 07:00; Stop 03/10/17 at 18:00 Prochlorperazine Edisylate (Compazine) 5 mg PACU PRN PRN IV NAUSEA, MRX1; Start 03/10/17 at 07:00; Stop 03/10/17 at 18:00 Bisacodyl 10 mg 10 mg 1X ONCE PO Last administered on 03/09/17t 18:23; Start 03/09/17 at 14:30; Stop 03/09/17 at 14:31; Status DC Propofol (Diprivan) 40 ml @ As Directed STK-MED ONCE IV ; Start 03/10/17 at 10: 26; Stop 03/10/17 at 10:27; Status DC Lidocaine HCl (Lidocaine Pf 2% Vial) 5 ml STK-MED ONCE .ROUTE ; Start 03/10/17 at 10:26; Stop 03/10/17 at 10:27; Status DC Active Scripts Active Reported Pravastatin Sodium 20 Mg Tablet 1 Tab PO QHS Ferrous Sulfate 325 Mg Tablet.dr 325 Mg PO Lisinopril 20 Mg Tablet 1 Tab PO DAILY Vitals/I & O Vital Sign - Last 24 Hours 03/09/17 03/09/17 03/09/17 03/09/17 15:00 19:00 20:00 23:00 Temp 98.5 98.4 98.5 98.5 98.4 98.5 Pulse 80 74 74 Resp 17 16 16 B/P 139/97 126/91 130/93 Pulse Ox 98 100 97 O2 Delivery Room Air Room Air 03/10/17 03/10/17 03/10/17 03/10/17 03:00 07:00 08:00 09:29 Temp 98.1 98.1 Pulse 67 67 Resp 18 B/P 151/80 151/80 Pulse Ox 98 O2 Delivery Room Air Room Air 03/10/17 03/10/17 03/10/17 03/10/17 10:09 10:59 11:05 11:10 Temp 98.2 98.2 98.2 98.2 98.2 98.2 Pulse 68 73 84 Resp 20 20 20 B/P 140/74 131/73 Pulse Ox 97 95 98 O2 Delivery Room Air Room Air Room Air 03/10/17 03/10/17 03/10/17 11:19 11:25 11:48 Temp 98.2 98.2 97.9 98.2 98.2 97.9 Pulse 68 71 69 Resp 20 20 18 B/P 134/82 141/79 147/81 Pulse Ox 98 97 98 O2 Delivery Room Air Room Air Room Air Intake and Output 03/09/17 03/09/17 03/10/17 14:59 22:59 06:59 Intake Total 600 ml 720 ml 100 ml Balance 600 ml 720 ml 100 ml SYLVIA SAAB MD Mar 10, 2017 12:35
[2017-03-10] MEDS ORDERED: POTASSIUM CHLORIDE 20 MEQ TABLET.ER. PO ONE (12:45)
[2017-03-10 15:27] VITALS: BP 137/96
--- NOTE | 2017-03-10 17:10 | EKG ---
[facility] [address] [place] [address] Test Date: 2017-03-10 Test Time: 16:01:28 Pat Name: SANDRA ROA Department: Room: 554 1 Gender: F [employer]: JANICE : 1960 Requested By: SYLVIA SAAB Order Number: [id number] Reading MD: Blu Jules Measurements Intervals [place] Rate: 73 P: 24 LA: 186 QRS: 2 QRSD: 92 T: 5 QT: 388 QTc: 431 Interpretive Statements SINUS RHYTHM Electronically Signed On 03-21-2017 13:05:32 CDT by Blu Jules
[2017-03-10] MEDS: guaiFENesin DM 200MG/20MG 10 ML SYRUP PO PRN (17:36)
[2017-03-10 19:00] VITALS: BP 117/88
[2017-03-10] MEDS: ENOXAPARIN 40 MG/0.4 ML SYRINGE. SQ SCH (21:00)
[2017-03-10] MEDS: ATORVASTATIN CALCIUM 10 MG TABLET. PO SCH (21:25)
[2017-03-10 22:30] VITALS: BP 122/76
[2017-03-11] MEDS: AMPICILLIN/SULBACTAM 3 GM in IV NORMAL SALINE 100ML 100 ML IV SCH ×4 (00:19→17:55)
[2017-03-11 02:31] VITALS: BP 122/83
[2017-03-11 05:20] LABS: BASO % 1 % (0-3); EOS % 2 % (0-3); HEMOGLOBIN 8.4 g/dL (12.0-15.5); LYMPH # 2.3 x10^3/uL (1.0-4.8); LYMPH % 36 % (24-48); MEAN CORPUSCULAR HEMOGLOBIN 22 pg (25-35); MEAN CORPUSCULAR HGB CONC 31 g/dL (31-37); MEAN CORPUSCULAR VOLUME 69 fL (79-100); MONO % 6 % (0-9); NEUT % 55 % (31-73); PLATELET COUNT 319 x10^3/uL (140-400); WHITE BLOOD COUNT 6.5 x10^3/uL (4.0-11.0)
[2017-03-11 05:30] LABS: CALCIUM 8.4 mg/dL (8.5-10.1); CREATININE 0.6 mg/dL (0.6-1.0); GFR 124.7; POTASSIUM 3.2 mmol/L (3.5-5.1)
[2017-03-11] MEDS: IV NORMAL SALINE 1000ML BAG 1,000 ML IV SCH ×3 (05:45→17:21)
[2017-03-11] MEDS: guaiFENesin DM 200MG/20MG 10 ML SYRUP PO PRN (05:56)
[2017-03-11 07:00] VITALS: BP 146/98
[2017-03-11] MEDS: POLYETHYLENE GLYCOL 3350 17 GM PACKET. PO SCH (08:39)
[2017-03-11] MEDS: LISINOPRIL 20 MG TABLET PO SCH (08:40)
[2017-03-11 11:10] VITALS: BP 123/78
--- NOTE | 2017-03-11 11:33 | PDOC ---
SURGICAL PROGRESS NOTE Subjective feels well, no new complaints Vital Signs Vital Signs Date Time Temp Pulse Resp B/P Pulse Ox O2 Delivery O2 Flow Rate FiO2 03/11/17 11:10 98.8 75 18 123/78 98 Room Air 98.8 I&O Intake and Output 03/11/17 07:00 Intake Total 1180 ml Balance 1180 ml Intake Oral 980 ml IV Total 200 ml # Voids 1 PATIENT HAS A BARRIENTOS: No General: Alert, Oriented X3, Cooperative, No acute distress Abdomen: Soft, No tenderness Labs Laboratory Tests Test 03/10/17 05:50 03/11/17 04:30 White Blood Count 7.8x10^3/uL (4.0-11.0) 6.5x10^3/uL (4.0-11.0) Red Blood Count 4.14x10^6/uL (3.50-5.40) 3.90x10^6/uL (3.50-5.40) Hemoglobin 8.9g/dL (12.0-15.5) 8.4g/dL (12.0-15.5) Hematocrit 28.0% (36.0-47.0) 27.0% (36.0-47.0) Mean Corpuscular Volume 68fL (79-100) 69fL (79-100) Mean Corpuscular Hemoglobin 22pg (25-35) 22pg (25-35) Mean Corpuscular Hemoglobin Concent 32g/dL (31-37) 31g/dL (31-37) Red Cell Distribution Width 19.0% (11.5-14.5) 19.0% (11.5-14.5) Platelet Count 284x10^3/uL (140-400) 319x10^3/uL (140-400) Neutrophils (%) (Auto) 58% (31-73) 55% (31-73) Lymphocytes (%) (Auto) 31% (24-48) 36% (24-48) Monocytes (%) (Auto) 10% (0-9) 6% (0-9) Eosinophils (%) (Auto) 1% (0-3) 2% (0-3) Basophils (%) (Auto) 1% (0-3) 1% (0-3) Neutrophils # (Auto) 4.5x10^3uL (1.8-7.7) 3.6x10^3uL (1.8-7.7) Lymphocytes # (Auto) 2.4x10^3/uL (1.0-4.8) 2.3x10^3/uL (1.0-4.8) Monocytes # (Auto) 0.7x10^3/uL (0.0-1.1) 0.4x10^3/uL (0.0-1.1) Eosinophils # (Auto) 0.1x10^3/uL (0.0-0.7) 0.2x10^3/uL (0.0-0.7) Basophils # (Auto) 0.0x10^3/uL (0.0-0.2) 0.0x10^3/uL (0.0-0.2) Sodium Level 143mmol/L (136-145) 142mmol/L (136-145) Potassium Level 3.2mmol/L (3.5-5.1) 3.2mmol/L (3.5-5.1) Chloride Level 106mmol/L (98-107) 106mmol/L (98-107) Carbon Dioxide Level 27mmol/L (21-32) 29mmol/L (21-32) Anion Gap 10 (6-14) 7 (6-14) Blood Urea Nitrogen 2mg/dL (7-20) 3mg/dL (7-20) Creatinine 0.5mg/dL (0.6-1.0) 0.6mg/dL (0.6-1.0) Estimated GFR (Cockcroft-Gault) 153.9 124.7 Glucose Level 145mg/dL (70-99) 144mg/dL (70-99) Calcium Level 8.3mg/dL (8.5-10.1) 8.4mg/dL (8.5-10.1) Laboratory Tests Test 03/11/17 04:30 White Blood Count 6.5x10^3/uL (4.0-11.0) Red Blood Count 3.90x10^6/uL (3.50-5.40) Hemoglobin 8.4g/dL (12.0-15.5) Hematocrit 27.0% (36.0-47.0) Mean Corpuscular Volume 69fL (79-100) Mean Corpuscular Hemoglobin 22pg (25-35) Mean Corpuscular Hemoglobin Concent 31g/dL (31-37) Red Cell Distribution Width 19.0% (11.5-14.5) Platelet Count 319x10^3/uL (140-400) Neutrophils (%) (Auto) 55% (31-73) Lymphocytes (%) (Auto) 36% (24-48) Monocytes (%) (Auto) 6% (0-9) Eosinophils (%) (Auto) 2% (0-3) Basophils (%) (Auto) 1% (0-3) Neutrophils # (Auto) 3.6x10^3uL (1.8-7.7) Lymphocytes # (Auto) 2.3x10^3/uL (1.0-4.8) Monocytes # (Auto) 0.4x10^3/uL (0.0-1.1) Eosinophils # (Auto) 0.2x10^3/uL (0.0-0.7) Basophils # (Auto) 0.0x10^3/uL (0.0-0.2) Sodium Level 142mmol/L (136-145) Potassium Level 3.2mmol/L (3.5-5.1) Chloride Level 106mmol/L (98-107) Carbon Dioxide Level 29mmol/L (21-32) Anion Gap 7 (6-14) Blood Urea Nitrogen 3mg/dL (7-20) Creatinine 0.6mg/dL (0.6-1.0) Estimated GFR (Cockcroft-Gault) 124.7 Glucose Level 144mg/dL (70-99) Calcium Level 8.4mg/dL (8.5-10.1) Problem List Problems Medical Problems: (1) Abdominal pain Status: Acute (2) Fever Status: Acute (3) Urinary tract infection Status: Acute Assessment/Plan cholelithiasis bacteremia chronic anemia would like to post pone any surgery happy to follow her post hospitalization in my office Problems: RANDA REESE MD Mar 11, 2017 11:33
--- NOTE | 2017-03-11 13:07 | PDOC ---
Infectious Disease Note Subjective Subjective Mild abdominal pain No BM + cough Low-energy Appeite alright ROS ROS GEN: Denies fevers, chills, sweats CV: Denies chest pain RESP: Denies shortness of air GI: Denies n/v Vital Sign Vital Signs Vital Signs Date Time Temp Pulse Resp B/P Pulse Ox O2 Delivery O2 Flow Rate FiO2 03/11/17 11:10 98.8 75 18 123/78 98 Room Air 98.8 Physical Exam PHYSICAL EXAM GENERAL: Propped up in bed, NAD HEENT: PERRL, OC/OP clear NECK: Supple, no JVD, no LN LUNGS: Clear HEART: S1S2, no gallop, no murmur ABD: Soft, NT light palpation EXT: No edema, no cyanosis SECURITY EXPERT: Alert, oriented x 3, no focal neurologic deficit SKIN: No rash IV: ok Labs Lab Laboratory Tests Test 03/11/17 04:30 White Blood Count 6.5x10^3/uL (4.0-11.0) Red Blood Count 3.90x10^6/uL (3.50-5.40) Hemoglobin 8.4g/dL (12.0-15.5) Hematocrit 27.0% (36.0-47.0) Mean Corpuscular Volume 69fL (79-100) Mean Corpuscular Hemoglobin 22pg (25-35) Mean Corpuscular Hemoglobin Concent 31g/dL (31-37) Red Cell Distribution Width 19.0% (11.5-14.5) Platelet Count 319x10^3/uL (140-400) Neutrophils (%) (Auto) 55% (31-73) Lymphocytes (%) (Auto) 36% (24-48) Monocytes (%) (Auto) 6% (0-9) Eosinophils (%) (Auto) 2% (0-3) Basophils (%) (Auto) 1% (0-3) Neutrophils # (Auto) 3.6x10^3uL (1.8-7.7) Lymphocytes # (Auto) 2.3x10^3/uL (1.0-4.8) Monocytes # (Auto) 0.4x10^3/uL (0.0-1.1) Eosinophils # (Auto) 0.2x10^3/uL (0.0-0.7) Basophils # (Auto) 0.0x10^3/uL (0.0-0.2) Sodium Level 142mmol/L (136-145) Potassium Level 3.2mmol/L (3.5-5.1) Chloride Level 106mmol/L (98-107) Carbon Dioxide Level 29mmol/L (21-32) Anion Gap 7 (6-14) Blood Urea Nitrogen 3mg/dL (7-20) Creatinine 0.6mg/dL (0.6-1.0) Estimated GFR (Cockcroft-Gault) 124.7 Glucose Level 144mg/dL (70-99) Calcium Level 8.4mg/dL (8.5-10.1) TTE <Conclusion> Left ventricle systolic function is normal. The Ejection Fraction is 60%. The left atrium size is normal. The right atrium size is normal. The aortic valve is normal in structure and function. The aortic valve is trileaflet. Doppler and Color Flow revealed mild mitral regurgitation. Doppler and Color Flow revealed trace to mild tricuspid regurgitation. There is no pulmonary hypertension. The PA pressure was estimated at 26 mmHg. Doppler and Color Flow revealed trace pulmonic valvular regurgitation. There is no evidence of significant pericardial effusion. Micro /. BLOOD CULT RESULT 1 Final Comment Beta hemolytic Streptococcus, group A 03/10. BC pending Objective Assessment Group A strep sepsis. POA 03/07 Fever. Resolved Abdominal pain. Cholelithiasis - better Anemia Eczema Plan Plan of Care Unasyn for now f/u am labs/cultures d/w dr Pineda. No surgery at this time. Patient plans to follow-up OP Attending Co-Sign Attending Co-Sign The patient was seen and interviewed as well as examined at the bedside. The chart was reviewed. The case was discussed. Agree with the plan of care. IAN CRUZ APRN Mar 11, 2017 13:07 BELGICA QUINTEROS MD Mar 11, 2017 13:13
--- NOTE | 2017-03-11 13:13 | PDOC ---
PROGRESS NOTES Chief Complaint Chief Complaint CC: Abdominal pain 1.) Abdominal Pain - RLQ Pain for Weeks, Unclear etiology, ? gonadal vein thrombophlebitis seen abd/pelvis CT 2.) Gram (+) cultures - bacteremia, POA. Postive for Group A strep 3.) HTN 4.) HLP 5.) hypokalemia 6.) Cholelithiasis. 7.) probable hepatic steatosis 8.) Left simple renal cyst. 9.) microcytic, microchromic anemia, ? etiology chronic vs. iron deficiency 10.) internal hemorroids 11.) rectal polyps s/p bx. History of Present Illness History of Present Illness Patient seen and evaluated at bedside. Patient resting comfortably, in no apparent distress. She c/o epigastric pain when palpated, but otherwise no new complaints. d/w nurse about plan of care. Questions were sought and answered. Vitals Vitals Vital Signs Date Time Temp Pulse Resp B/P Pulse Ox O2 Delivery O2 Flow Rate FiO2 03/11/17 11:10 98.8 75 18 123/78 98 Room Air 98.8 Physical Exam General: Alert, Oriented X3, Cooperative, No acute distress Heart: Regular rate, Normal S1, Normal S2 Lungs: Clear, Other (equalt chest wall rise bilaterally. negative chest retractions ) Abdomen: Normal bowel sounds, Soft, Other (minimal tenderness to palpation to lower quadrants bilaterally. negative peritoneal signs. ) Extremities: No clubbing, No edema Skin: No rashes, No significant lesion Labs LABS Laboratory Tests Test 03/11/17 04:30 White Blood Count 6.5x10^3/uL (4.0-11.0) Red Blood Count 3.90x10^6/uL (3.50-5.40) Hemoglobin 8.4g/dL (12.0-15.5) Hematocrit 27.0% (36.0-47.0) Mean Corpuscular Volume 69fL (79-100) Mean Corpuscular Hemoglobin 22pg (25-35) Mean Corpuscular Hemoglobin Concent 31g/dL (31-37) Red Cell Distribution Width 19.0% (11.5-14.5) Platelet Count 319x10^3/uL (140-400) Neutrophils (%) (Auto) 55% (31-73) Lymphocytes (%) (Auto) 36% (24-48) Monocytes (%) (Auto) 6% (0-9) Eosinophils (%) (Auto) 2% (0-3) Basophils (%) (Auto) 1% (0-3) Neutrophils # (Auto) 3.6x10^3uL (1.8-7.7) Lymphocytes # (Auto) 2.3x10^3/uL (1.0-4.8) Monocytes # (Auto) 0.4x10^3/uL (0.0-1.1) Eosinophils # (Auto) 0.2x10^3/uL (0.0-0.7) Basophils # (Auto) 0.0x10^3/uL (0.0-0.2) Sodium Level 142mmol/L (136-145) Potassium Level 3.2mmol/L (3.5-5.1) Chloride Level 106mmol/L (98-107) Carbon Dioxide Level 29mmol/L (21-32) Anion Gap 7 (6-14) Blood Urea Nitrogen 3mg/dL (7-20) Creatinine 0.6mg/dL (0.6-1.0) Estimated GFR (Cockcroft-Gault) 124.7 Glucose Level 144mg/dL (70-99) Calcium Level 8.4mg/dL (8.5-10.1) Review of Systems Review of Systems (+) abdominal pain Denies chest pain, sob, n/v/d, headache, or fever/chills. Assessment and Plan Assessmemt and Plan Problems Medical Problems: (1) Abdominal pain Status: Acute (2) Fever Status: Acute (3) Urinary tract infection Status: Acute 1.) Abdominal Pain - RLQ Pain for Weeks, Unclear etiology, ? gonadal vein thrombophlebitis seen abd/pelvis CT 2.) Gram (+) cultures - bacteremia, POA. Postive for Group A strep 3.) HTN 4.) HLP 5.) hypokalemia 6.) Cholelithiasis. 7.) probable hepatic steatosis 8.) Left simple renal cyst. 9.) microcytic, microchromic anemia, ? etiology chronic vs. iron deficiency 10.) internal hemorroids 11.) rectal polyps s/p bx. Plan 1.) continue IV Unasyn, per ID 2.) electrolyte repletion. check magnesium lvls. 3.) Echocardiogram with no evidence of endocarditis. 4.) appreciate subspecialty input 5.) PT/OT 6.) recheck AM labs 7.) s/p Colonoscopy, f/u rectal polyp biopsy 8.) f/u cultures 9.) probable discharge with f/u instructions in the next few days when okay with subspecialties 10.) dvt ppx: lovenox Problems: Comment Review of Relevant I have reviewed the following items kory (where applicable) has been applied. Labs Laboratory Tests Test 03/10/17 05:50 03/11/17 04:30 White Blood Count 7.8x10^3/uL (4.0-11.0) 6.5x10^3/uL (4.0-11.0) Red Blood Count 4.14x10^6/uL (3.50-5.40) 3.90x10^6/uL (3.50-5.40) Hemoglobin 8.9g/dL (12.0-15.5) 8.4g/dL (12.0-15.5) Hematocrit 28.0% (36.0-47.0) 27.0% (36.0-47.0) Mean Corpuscular Volume 68fL (79-100) 69fL (79-100) Mean Corpuscular Hemoglobin 22pg (25-35) 22pg (25-35) Mean Corpuscular Hemoglobin Concent 32g/dL (31-37) 31g/dL (31-37) Red Cell Distribution Width 19.0% (11.5-14.5) 19.0% (11.5-14.5) Platelet Count 284x10^3/uL (140-400) 319x10^3/uL (140-400) Neutrophils (%) (Auto) 58% (31-73) 55% (31-73) Lymphocytes (%) (Auto) 31% (24-48) 36% (24-48) Monocytes (%) (Auto) 10% (0-9) 6% (0-9) Eosinophils (%) (Auto) 1% (0-3) 2% (0-3) Basophils (%) (Auto) 1% (0-3) 1% (0-3) Neutrophils # (Auto) 4.5x10^3uL (1.8-7.7) 3.6x10^3uL (1.8-7.7) Lymphocytes # (Auto) 2.4x10^3/uL (1.0-4.8) 2.3x10^3/uL (1.0-4.8) Monocytes # (Auto) 0.7x10^3/uL (0.0-1.1) 0.4x10^3/uL (0.0-1.1) Eosinophils # (Auto) 0.1x10^3/uL (0.0-0.7) 0.2x10^3/uL (0.0-0.7) Basophils # (Auto) 0.0x10^3/uL (0.0-0.2) 0.0x10^3/uL (0.0-0.2) Sodium Level 143mmol/L (136-145) 142mmol/L (136-145) Potassium Level 3.2mmol/L (3.5-5.1) 3.2mmol/L (3.5-5.1) Chloride Level 106mmol/L (98-107) 106mmol/L (98-107) Carbon Dioxide Level 27mmol/L (21-32) 29mmol/L (21-32) Anion Gap 10 (6-14) 7 (6-14) Blood Urea Nitrogen 2mg/dL (7-20) 3mg/dL (7-20) Creatinine 0.5mg/dL (0.6-1.0) 0.6mg/dL (0.6-1.0) Estimated GFR (Cockcroft-Gault) 153.9 124.7 Glucose Level 145mg/dL (70-99) 144mg/dL (70-99) Calcium Level 8.3mg/dL (8.5-10.1) 8.4mg/dL (8.5-10.1) Laboratory Tests Test 03/11/17 04:30 White Blood Count 6.5x10^3/uL (4.0-11.0) Red Blood Count 3.90x10^6/uL (3.50-5.40) Hemoglobin 8.4g/dL (12.0-15.5) Hematocrit 27.0% (36.0-47.0) Mean Corpuscular Volume 69fL (79-100) Mean Corpuscular Hemoglobin 22pg (25-35) Mean Corpuscular Hemoglobin Concent 31g/dL (31-37) Red Cell Distribution Width 19.0% (11.5-14.5) Platelet Count 319x10^3/uL (140-400) Neutrophils (%) (Auto) 55% (31-73) Lymphocytes (%) (Auto) 36% (24-48) Monocytes (%) (Auto) 6% (0-9) Eosinophils (%) (Auto) 2% (0-3) Basophils (%) (Auto) 1% (0-3) Neutrophils # (Auto) 3.6x10^3uL (1.8-7.7) Lymphocytes # (Auto) 2.3x10^3/uL (1.0-4.8) Monocytes # (Auto) 0.4x10^3/uL (0.0-1.1) Eosinophils # (Auto) 0.2x10^3/uL (0.0-0.7) Basophils # (Auto) 0.0x10^3/uL (0.0-0.2) Sodium Level 142mmol/L (136-145) Potassium Level 3.2mmol/L (3.5-5.1) Chloride Level 106mmol/L (98-107) Carbon Dioxide Level 29mmol/L (21-32) Anion Gap 7 (6-14) Blood Urea Nitrogen 3mg/dL (7-20) Creatinine 0.6mg/dL (0.6-1.0) Estimated GFR (Cockcroft-Gault) 124.7 Glucose Level 144mg/dL (70-99) Calcium Level 8.4mg/dL (8.5-10.1) Microbiology 03/07/17 Blood Culture - Preliminary, Resulted NO GROWTH AFTER 4 DAYS 03/07/17 Urine Culture - Final, Complete 03/07/17 Urine Culture Result 1 ([facility]) - Final, Complete Medications Current Medications Sodium Chloride (Iv Sodium Chloride 0.9% 1000ml Bag) 1,000 ml @ 1,000 mls/hr Q1H IV Last administered on 03/07/17t 04:59; Start 03/07/17 at 04:45; Stop 10/13 at 05:44; Status DC Hydromorphone HCl (Dilaudid) 1 mg 1X ONCE IV Last administered on 03/07/17 04 :59; Start 03/07/17 at 05:00; Stop 03/07/17 at 05:01; Status DC Ondansetron HCl (Zofran) 4 mg 1X ONCE IV Last administered on 03/07/17 05:00 ; Start 03/07/17 at 05:00; Stop 03/07/17 at 05:01; Status DC Ketorolac Tromethamine (Toradol) 15 mg 1X ONCE IV Last administered on 04:59; Start 03/07/17 at 05:00; Stop 03/07/17 at 05:01; Status DC Acetaminophen (Tylenol) 650 mg 1X ONCE PO Last administered on 03/07/17 05:00 ; Start 03/07/17 at 05:00; Stop 03/07/17 at 05:01; Status DC Iohexol (Omnipaque 300 Mg/ml) 75 ml 1X ONCE IV Last administered on 03/07/17 05:21; Start 03/07/17 at 05:00; Stop 03/07/17 at 05:01; Status DC Info 1 each 1 each PRN DAILY PRN MC SEE COMMENTS; Start 03/07/17 at 05:00; Stop 03/09/17 at 04:59; Status DC Ceftriaxone Sodium (Rocephin 1gm Ivpb For Omni) 50 ml @ 100 mls/hr 1X ONCE IV Last administered on 03/07/17 06:54; Start 03/07/17 at 06:30; Stop 03/07/17 at 06:59; Status DC Ondansetron HCl (Zofran) 4 mg PRN Q8HRS PRN IV NAUSEA/VOMITING Last administered on 03/07/17 10:41; Start 03/07/17 at 06:45; Stop 03/08/17 at 06:44 ; Status DC Morphine Sulfate 4 mg 4 mg PRN Q2HR PRN IV PAIN; Start 03/07/17 at 06:45; Stop 03/07/17 at 10:52; Status DC Sodium Chloride (Iv Sodium Chloride 0.9% 1000ml Bag) 1,000 ml @ 125 mls/hr Q8H IV Last administered on 03/07/17 07:09; Start 03/07/17 at 06:45; Stop at 10:32; Status DC Acetaminophen (Tylenol) 650 mg PRN Q4HRS PRN PO FEVER Last administered on 03/08 05:53; Start 03/07/17 at 06:45; Stop 03/08/17 at 06:44; Status DC Acetaminophen (Tylenol) 325 mg PRN Q6HRS PRN PO MILD PAIN / TEMP; Start at 08:45; Stop 03/07/17 at 08:45; Status DC Acetaminophen/ Hydrocodone Bitart (Lortab 5/325) 1 tab PRN Q6HRS PRN PO MODERATE TO SEVERE PAIN Last administered on 03/10/17 11:58; Start 03/07/17 at 08:45 Hydralazine HCl (Apresoline) 10 mg PRN Q4HRS PRN IVP ELEVATED BP, SEE COMMENTS ; Start 03/07/17 at 08:45 Ondansetron HCl (Zofran) 4 mg PRN Q8HRS PRN IV NAUSEA/VOMITING Last administered on 03/10/17 11:57; Start 03/07/17 at 08:45 Albuterol Sulfate 2.5 mg 2.5 mg PRN Q4HRS PRN NEB SHORTNESS OF BREATH; Start at 08:45 Ceftriaxone Sodium 1 gm/ Sodium Chloride 50 ml @ 100 mls/hr Q24H IV ; Start 11/12 at 06:00; Stop 03/08/17 at 06:00; Status DC Sodium Chloride (Iv Sodium Chloride 0.9% 1000ml Bag) 1,000 ml @ 125 mls/hr Q8H IV Last administered on 03/11/17 05:45; Start 03/07/17 at 08:45 Acetaminophen (Tylenol) 325 mg PRN Q6HRS PRN PO MILD PAIN / TEMP Last administered on 03/10/17 09:29; Start 03/07/17 at 08:45; Stop 03/10/17 at 17:22 ; Status DC Hydromorphone HCl 0.5 mg 0.5 mg PRN Q2HR PRN IV PAIN; Start 03/07/17 at 10:45 Metronidazole (FLAGYL 500Mmg PREMIX) 100 ml @ 100 mls/hr Q8HRS IV Last administered on 03/08/17 05:51; Start 03/07/17 at 14:00; Stop 03/08/17 at 11:03 ; Status DC Levofloxacin/ Dextrose (Levaquin Per Pharmacy) 1 each PRN DAILY PRN MC SEE COMMENTS; Start 03/07/17 at 11:00; Status Cancel Enoxaparin Sodium 40 mg 40 mg Q24H SQ Last administered on 03/08/17 21:09; Start 03/07/17 at 21:00 Levofloxacin/ Dextrose (LEVAQUIN 500mg PREMIX) 100 ml @ 100 mls/hr Q24H IV Last administered on 03/08/17 08:10; Start 03/07/17 at 12:00; Stop 03/08/17 at 11:03; Status DC Lisinopril (Prinivil) 20 mg DAILY PO Last administered on 03/11/17 08:40; Start 03/07/17 at 11:30 Atorvastatin Calcium 5 mg 5 mg QHS PO Last administered on 03/10/17 21:25; Start 03/07/17 at 21:00 Potassium Chloride/Dextrose/ Sod Cl 1,000 ml @ 75 mls/hr 1X ONCE IV Last administered on 03/08/17 10:00; Start 03/08/17 at 10:00; Stop 03/08/17 at 23:19 ; Status DC Ampicillin Sodium/ Sulbactam Sodium/ Sodium Chloride (Unasyn/Iv Sodium Chloride 0.9% 100ml) 100 ml @ 200 mls/hr Q6HRS IV Last administered on 03/11/17 05:46 ; Start 03/08/17 at 12:00 Polyethylene Glycol (miraLAX PACKET) 17 gm DAILY PO Last administered on 08:39; Start 03/09/17 at 11:00 Potassium Chloride (Klor-Con) 40 meq 1X ONCE PO Last administered on 11:51; Start 03/09/17 at 10:45; Stop 03/09/17 at 10:46; Status DC Polyethylene Glycol (miraLAX Powder BULK BOTTLE) 238 gm 1X ONCE PO ; Start at 13:15; Stop 03/09/17 at 13:29; Status DC Magnesium Citrate (Citroma) 296 ml 1X ONCE PO Last administered on 03/09/17t 14:21; Start 03/09/17 at 14:00; Stop 03/09/17 at 14:01; Status DC Bisacodyl (Dulcolax Tab) 5 mg 1X ONCE PO ; Start 03/09/17 at 14:00; Stop at 14:19; Status DC Polyethylene Glycol (miraLAX Powder BULK BOTTLE) 238 gm 1X ONCE PO Last administered on 03/09/17t 14:30; Start 03/09/17 at 14:00; Stop 03/09/17 at 14:01 ; Status DC Ondansetron HCl (Zofran) 4 mg PRN Q6HRS PRN IV NAUSEA/VOMITING; Start 03/10/17 at 07:00; Stop 03/10/17 at 17:20; Status DC Fentanyl Citrate (Fentanyl 2ml Vial) 25 mcg PRN Q5MIN PRN IV MILD PAIN; Start 03/10/17 at 07:00; Stop 03/10/17 at 17:20; Status DC Fentanyl Citrate (Fentanyl 2ml Vial) 50 mcg PRN Q5MIN PRN IV MODERATE PAIN; Start 03/10/17 at 07:00; Stop 03/10/17 at 17:20; Status DC Morphine Sulfate 1 mg 1 mg PRN Q10MIN PRN IV SEVERE PAIN; Start 03/10/17 at 07: 00; Stop 03/10/17 at 17:20; Status DC Lactated Ringer's (Iv Lactated Ringers) 1,000 ml @ 30 mls/hr Q24H IV ; Start at 07:00; Stop 03/10/17 at 17:20; Status DC Lidocaine HCl 2 ml PRN 1X PRN ID PRIOR TO IV START; Start 03/10/17 at 07:00; Stop 03/10/17 at 17:20; Status DC Hydromorphone HCl (Dilaudid) 0.5 mg PRN Q10MIN PRN IV SEV PAIN, Second choice; Start 03/10/17 at 07:00; Stop 03/10/17 at 17:21; Status DC Prochlorperazine Edisylate (Compazine) 5 mg PACU PRN PRN IV NAUSEA, MRX1; Start 03/10/17 at 07:00; Stop 03/10/17 at 17:21; Status DC Bisacodyl 10 mg 10 mg 1X ONCE PO Last administered on 03/09/17 18:23; Start 03/09/17 at 14:30; Stop 03/09/17 at 14:31; Status DC Propofol (Diprivan) 40 ml @ As Directed STK-MED ONCE IV ; Start 03/10/17 at 10: 26; Stop 03/10/17 at 10:27; Status DC Lidocaine HCl (Lidocaine Pf 2% Vial) 5 ml STK-MED ONCE .ROUTE ; Start 03/10/17 at 10:26; Stop 03/10/17 at 10:27; Status DC Potassium Chloride (Klor-Con) 40 meq 1X ONCE PO Last administered on 14:11; Start 03/10/17 at 12:45; Stop 03/10/17 at 12:46; Status DC Acetaminophen (Tylenol) 650 mg PRN Q6HRS PRN PO MILD PAIN / TEMP Last administered on 03/10/17 17:35; Start 03/10/17 at 17:30 Guaifenesin (Robitussin Dm) 10 ml PRN Q6HRS PRN PO COUGH Last administered on 05:56; Start 03/10/17 at 17:30 Active Scripts Active Reported Pravastatin Sodium 20 Mg Tablet 1 Tab PO QHS Ferrous Sulfate 325 Mg Tablet.dr 325 Mg PO Lisinopril 20 Mg Tablet 1 Tab PO DAILY Vitals/I & O Vital Sign - Last 24 Hours 03/10/17 03/10/17 03/10/17 03/10/17 14:09 15:27 19:00 20:00 Temp 98.1 98.6 98.1 98.6 Pulse 67 79 Resp 18 B/P 137/96 117/88 Pulse Ox 98 98 99 O2 Delivery Room Air Room Air Room Air Room Air 03/10/17 03/11/17 03/11/17 03/11/17 22:30 02:31 07:00 08:10 Temp 98.6 98.4 98.3 98.6 98.4 98.3 Pulse 72 67 68 Resp 17 18 18 B/P 122/76 122/83 146/98 Pulse Ox 97 99 99 O2 Delivery Room Air Room Air Room Air Room Air 03/11/17 03/11/17 08:40 11:10 Temp 98.8 98.8 Pulse 68 75 Resp 18 B/P 146/98 123/78 Pulse Ox 98 O2 Delivery Room Air Intake and Output 03/10/17 03/10/17 03/11/17 15:00 23:00 07:00 Intake Total 260 ml 220 ml 700 ml Balance 260 ml 220 ml 700 ml DIETER KUHN III, DO Mar 11, 2017 13:13
[2017-03-11] MEDS ORDERED: POTASSIUM CHLORIDE 20 MEQ TABLET.ER. PO ONE (13:30)
--- NOTE | 2017-03-11 13:52 | PDOC ---
G I PROGRESS NOTE Subjective No real GI complaints. Has cough. Relates seen at Urgent Care for "sore throat " prior to admission. Physical Exam Seems a little tender beneath right mandibular angle. Lungs clear. RRR Abdomen soft, not distended nor tender. Review of Relevant I have reviewed the following items kory (where applicable) has been applied. Labs Laboratory Tests Test 03/10/17 05:50 03/11/17 04:30 White Blood Count 7.8x10^3/uL (4.0-11.0) 6.5x10^3/uL (4.0-11.0) Red Blood Count 4.14x10^6/uL (3.50-5.40) 3.90x10^6/uL (3.50-5.40) Hemoglobin 8.9g/dL (12.0-15.5) 8.4g/dL (12.0-15.5) Hematocrit 28.0% (36.0-47.0) 27.0% (36.0-47.0) Mean Corpuscular Volume 68fL (79-100) 69fL (79-100) Mean Corpuscular Hemoglobin 22pg (25-35) 22pg (25-35) Mean Corpuscular Hemoglobin Concent 32g/dL (31-37) 31g/dL (31-37) Red Cell Distribution Width 19.0% (11.5-14.5) 19.0% (11.5-14.5) Platelet Count 284x10^3/uL (140-400) 319x10^3/uL (140-400) Neutrophils (%) (Auto) 58% (31-73) 55% (31-73) Lymphocytes (%) (Auto) 31% (24-48) 36% (24-48) Monocytes (%) (Auto) 10% (0-9) 6% (0-9) Eosinophils (%) (Auto) 1% (0-3) 2% (0-3) Basophils (%) (Auto) 1% (0-3) 1% (0-3) Neutrophils # (Auto) 4.5x10^3uL (1.8-7.7) 3.6x10^3uL (1.8-7.7) Lymphocytes # (Auto) 2.4x10^3/uL (1.0-4.8) 2.3x10^3/uL (1.0-4.8) Monocytes # (Auto) 0.7x10^3/uL (0.0-1.1) 0.4x10^3/uL (0.0-1.1) Eosinophils # (Auto) 0.1x10^3/uL (0.0-0.7) 0.2x10^3/uL (0.0-0.7) Basophils # (Auto) 0.0x10^3/uL (0.0-0.2) 0.0x10^3/uL (0.0-0.2) Sodium Level 143mmol/L (136-145) 142mmol/L (136-145) Potassium Level 3.2mmol/L (3.5-5.1) 3.2mmol/L (3.5-5.1) Chloride Level 106mmol/L (98-107) 106mmol/L (98-107) Carbon Dioxide Level 27mmol/L (21-32) 29mmol/L (21-32) Anion Gap 10 (6-14) 7 (6-14) Blood Urea Nitrogen 2mg/dL (7-20) 3mg/dL (7-20) Creatinine 0.5mg/dL (0.6-1.0) 0.6mg/dL (0.6-1.0) Estimated GFR (Cockcroft-Gault) 153.9 124.7 Glucose Level 145mg/dL (70-99) 144mg/dL (70-99) Calcium Level 8.3mg/dL (8.5-10.1) 8.4mg/dL (8.5-10.1) Magnesium Level 1.9mg/dL (1.8-2.4) Laboratory Tests Test 03/11/17 04:30 White Blood Count 6.5x10^3/uL (4.0-11.0) Red Blood Count 3.90x10^6/uL (3.50-5.40) Hemoglobin 8.4g/dL (12.0-15.5) Hematocrit 27.0% (36.0-47.0) Mean Corpuscular Volume 69fL (79-100) Mean Corpuscular Hemoglobin 22pg (25-35) Mean Corpuscular Hemoglobin Concent 31g/dL (31-37) Red Cell Distribution Width 19.0% (11.5-14.5) Platelet Count 319x10^3/uL (140-400) Neutrophils (%) (Auto) 55% (31-73) Lymphocytes (%) (Auto) 36% (24-48) Monocytes (%) (Auto) 6% (0-9) Eosinophils (%) (Auto) 2% (0-3) Basophils (%) (Auto) 1% (0-3) Neutrophils # (Auto) 3.6x10^3uL (1.8-7.7) Lymphocytes # (Auto) 2.3x10^3/uL (1.0-4.8) Monocytes # (Auto) 0.4x10^3/uL (0.0-1.1) Eosinophils # (Auto) 0.2x10^3/uL (0.0-0.7) Basophils # (Auto) 0.0x10^3/uL (0.0-0.2) Sodium Level 142mmol/L (136-145) Potassium Level 3.2mmol/L (3.5-5.1) Chloride Level 106mmol/L (98-107) Carbon Dioxide Level 29mmol/L (21-32) Anion Gap 7 (6-14) Blood Urea Nitrogen 3mg/dL (7-20) Creatinine 0.6mg/dL (0.6-1.0) Estimated GFR (Cockcroft-Gault) 124.7 Glucose Level 144mg/dL (70-99) Calcium Level 8.4mg/dL (8.5-10.1) Magnesium Level 1.9mg/dL (1.8-2.4) Microbiology 03/07/17 Blood Culture - Preliminary, Resulted NO GROWTH AFTER 4 DAYS 03/07/17 Urine Culture - Final, Complete 03/07/17 Urine Culture Result 1 ([facility]) - Final, Complete Medications Current Medications Sodium Chloride (Iv Sodium Chloride 0.9% 1000ml Bag) 1,000 ml @ 1,000 mls/hr Q1H IV Last administered on 03/07/17t 04:59; Start 03/07/17 at 04:45; Stop 10/13 at 05:44; Status DC Hydromorphone HCl (Dilaudid) 1 mg 1X ONCE IV Last administered on 03/07/17 04 :59; Start 03/07/17 at 05:00; Stop 03/07/17 at 05:01; Status DC Ondansetron HCl (Zofran) 4 mg 1X ONCE IV Last administered on 03/07/17 05:00 ; Start 03/07/17 at 05:00; Stop 03/07/17 at 05:01; Status DC Ketorolac Tromethamine (Toradol) 15 mg 1X ONCE IV Last administered on 04:59; Start 03/07/17 at 05:00; Stop 03/07/17 at 05:01; Status DC Acetaminophen (Tylenol) 650 mg 1X ONCE PO Last administered on 03/07/17 05:00 ; Start 03/07/17 at 05:00; Stop 03/07/17 at 05:01; Status DC Iohexol (Omnipaque 300 Mg/ml) 75 ml 1X ONCE IV Last administered on 03/07/17 05:21; Start 03/07/17 at 05:00; Stop 03/07/17 at 05:01; Status DC Info 1 each 1 each PRN DAILY PRN MC SEE COMMENTS; Start 03/07/17 at 05:00; Stop 03/09/17 at 04:59; Status DC Ceftriaxone Sodium (Rocephin 1gm Ivpb For Omni) 50 ml @ 100 mls/hr 1X ONCE IV Last administered on 03/07/17 06:54; Start 03/07/17 at 06:30; Stop 03/07/17 at 06:59; Status DC Ondansetron HCl (Zofran) 4 mg PRN Q8HRS PRN IV NAUSEA/VOMITING Last administered on 03/07/17 10:41; Start 03/07/17 at 06:45; Stop 03/08/17 at 06:44 ; Status DC Morphine Sulfate 4 mg 4 mg PRN Q2HR PRN IV PAIN; Start 03/07/17 at 06:45; Stop 03/07/17 at 10:52; Status DC Sodium Chloride (Iv Sodium Chloride 0.9% 1000ml Bag) 1,000 ml @ 125 mls/hr Q8H IV Last administered on 03/07/17 07:09; Start 03/07/17 at 06:45; Stop at 10:32; Status DC Acetaminophen (Tylenol) 650 mg PRN Q4HRS PRN PO FEVER Last administered on 03/08 05:53; Start 03/07/17 at 06:45; Stop 03/08/17 at 06:44; Status DC Acetaminophen (Tylenol) 325 mg PRN Q6HRS PRN PO MILD PAIN / TEMP; Start at 08:45; Stop 03/07/17 at 08:45; Status DC Acetaminophen/ Hydrocodone Bitart (Lortab 5/325) 1 tab PRN Q6HRS PRN PO MODERATE TO SEVERE PAIN Last administered on 03/10/17 11:58; Start 03/07/17 at 08:45 Hydralazine HCl (Apresoline) 10 mg PRN Q4HRS PRN IVP ELEVATED BP, SEE COMMENTS ; Start 03/07/17 at 08:45 Ondansetron HCl (Zofran) 4 mg PRN Q8HRS PRN IV NAUSEA/VOMITING Last administered on 03/10/17 11:57; Start 03/07/17 at 08:45 Albuterol Sulfate 2.5 mg 2.5 mg PRN Q4HRS PRN NEB SHORTNESS OF BREATH; Start at 08:45 Ceftriaxone Sodium 1 gm/ Sodium Chloride 50 ml @ 100 mls/hr Q24H IV ; Start 11/12 at 06:00; Stop 03/08/17 at 06:00; Status DC Sodium Chloride (Iv Sodium Chloride 0.9% 1000ml Bag) 1,000 ml @ 125 mls/hr Q8H IV Last administered on 03/11/17 05:45; Start 03/07/17 at 08:45 Acetaminophen (Tylenol) 325 mg PRN Q6HRS PRN PO MILD PAIN / TEMP Last administered on 03/10/17 09:29; Start 03/07/17 at 08:45; Stop 03/10/17 at 17:22 ; Status DC Hydromorphone HCl 0.5 mg 0.5 mg PRN Q2HR PRN IV PAIN; Start 03/07/17 at 10:45 Metronidazole (FLAGYL 500Mmg PREMIX) 100 ml @ 100 mls/hr Q8HRS IV Last administered on 03/08/17 05:51; Start 03/07/17 at 14:00; Stop 03/08/17 at 11:03 ; Status DC Levofloxacin/ Dextrose (Levaquin Per Pharmacy) 1 each PRN DAILY PRN MC SEE COMMENTS; Start 03/07/17 at 11:00; Status Cancel Enoxaparin Sodium 40 mg 40 mg Q24H SQ Last administered on 03/08/17 21:09; Start 03/07/17 at 21:00 Levofloxacin/ Dextrose (LEVAQUIN 500mg PREMIX) 100 ml @ 100 mls/hr Q24H IV Last administered on 03/08/17 08:10; Start 03/07/17 at 12:00; Stop 03/08/17 at 11:03; Status DC Lisinopril (Prinivil) 20 mg DAILY PO Last administered on 03/11/17 08:40; Start 03/07/17 at 11:30 Atorvastatin Calcium 5 mg 5 mg QHS PO Last administered on 03/10/17 21:25; Start 03/07/17 at 21:00 Potassium Chloride/Dextrose/ Sod Cl 1,000 ml @ 75 mls/hr 1X ONCE IV Last administered on 03/08/17 10:00; Start 03/08/17 at 10:00; Stop 03/08/17 at 23:19 ; Status DC Ampicillin Sodium/ Sulbactam Sodium/ Sodium Chloride (Unasyn/Iv Sodium Chloride 0.9% 100ml) 100 ml @ 200 mls/hr Q6HRS IV Last administered on 03/11/17 12:00 ; Start 03/08/17 at 12:00 Polyethylene Glycol (miraLAX PACKET) 17 gm DAILY PO Last administered on 08:39; Start 03/09/17 at 11:00 Potassium Chloride (Klor-Con) 40 meq 1X ONCE PO Last administered on 11:51; Start 03/09/17 at 10:45; Stop 03/09/17 at 10:46; Status DC Polyethylene Glycol (miraLAX Powder BULK BOTTLE) 238 gm 1X ONCE PO ; Start at 13:15; Stop 03/09/17 at 13:29; Status DC Magnesium Citrate (Citroma) 296 ml 1X ONCE PO Last administered on 4/13/17at 14:21; Start 03/09/17 at 14:00; Stop 03/09/17 at 14:01; Status DC Bisacodyl (Dulcolax Tab) 5 mg 1X ONCE PO ; Start 03/09/17 at 14:00; Stop at 14:19; Status DC Polyethylene Glycol (miraLAX Powder BULK BOTTLE) 238 gm 1X ONCE PO Last administered on 03/09/17t 14:30; Start 03/09/17 at 14:00; Stop 03/09/17 at 14:01 ; Status DC Ondansetron HCl (Zofran) 4 mg PRN Q6HRS PRN IV NAUSEA/VOMITING; Start 03/10/17 at 07:00; Stop 03/10/17 at 17:20; Status DC Fentanyl Citrate (Fentanyl 2ml Vial) 25 mcg PRN Q5MIN PRN IV MILD PAIN; Start 03/10/17 at 07:00; Stop 03/10/17 at 17:20; Status DC Fentanyl Citrate (Fentanyl 2ml Vial) 50 mcg PRN Q5MIN PRN IV MODERATE PAIN; Start 03/10/17 at 07:00; Stop 03/10/17 at 17:20; Status DC Morphine Sulfate 1 mg 1 mg PRN Q10MIN PRN IV SEVERE PAIN; Start 03/10/17 at 07: 00; Stop 03/10/17 at 17:20; Status DC Lactated Ringer's (Iv Lactated Ringers) 1,000 ml @ 30 mls/hr Q24H IV ; Start at 07:00; Stop 03/10/17 at 17:20; Status DC Lidocaine HCl 2 ml PRN 1X PRN ID PRIOR TO IV START; Start 03/10/17 at 07:00; Stop 03/10/17 at 17:20; Status DC Hydromorphone HCl (Dilaudid) 0.5 mg PRN Q10MIN PRN IV SEV PAIN, Second choice; Start 03/10/17 at 07:00; Stop 03/10/17 at 17:21; Status DC Prochlorperazine Edisylate (Compazine) 5 mg PACU PRN PRN IV NAUSEA, MRX1; Start 03/10/17 at 07:00; Stop 03/10/17 at 17:21; Status DC Bisacodyl 10 mg 10 mg 1X ONCE PO Last administered on 03/09/17 18:23; Start 03/09/17 at 14:30; Stop 03/09/17 at 14:31; Status DC Propofol (Diprivan) 40 ml @ As Directed STK-MED ONCE IV ; Start 03/10/17 at 10: 26; Stop 03/10/17 at 10:27; Status DC Lidocaine HCl (Lidocaine Pf 2% Vial) 5 ml STK-MED ONCE .ROUTE ; Start 03/10/17 at 10:26; Stop 03/10/17 at 10:27; Status DC Potassium Chloride (Klor-Con) 40 meq 1X ONCE PO Last administered on 14:11; Start 03/10/17 at 12:45; Stop 03/10/17 at 12:46; Status DC Acetaminophen (Tylenol) 650 mg PRN Q6HRS PRN PO MILD PAIN / TEMP Last administered on 03/10/17 17:35; Start 03/10/17 at 17:30 Guaifenesin (Robitussin Dm) 10 ml PRN Q6HRS PRN PO COUGH Last administered on 05:56; Start 03/10/17 at 17:30 Potassium Chloride (Klor-Con) 40 meq 1X ONCE PO ; Start 03/11/17 at 13:30; Stop 03/11/17 at 13:31; Status DC Active Scripts Active Reported Pravastatin Sodium 20 Mg Tablet 1 Tab PO QHS Ferrous Sulfate 325 Mg Tablet.dr 325 Mg PO Lisinopril 20 Mg Tablet 1 Tab PO DAILY Vitals/I & O Vital Sign - Last 24 Hours 03/10/17 03/10/17 03/10/17 03/10/17 14:09 15:27 19:00 20:00 Temp 98.1 98.6 98.1 98.6 Pulse 67 79 Resp 18 B/P 137/96 117/88 Pulse Ox 98 98 99 O2 Delivery Room Air Room Air Room Air Room Air 03/10/17 03/11/17 03/11/17 03/11/17 22:30 02:31 07:00 08:10 Temp 98.6 98.4 98.3 98.6 98.4 98.3 Pulse 72 67 68 Resp 18 18 B/P 122/76 122/83 146/98 Pulse Ox 97 99 99 O2 Delivery Room Air Room Air Room Air Room Air 03/11/17 03/11/17 08:40 11:10 Temp 98.8 98.8 Pulse 68 75 Resp 18 B/P 146/98 123/78 Pulse Ox 98 O2 Delivery Room Air Intake and Output 03/10/17 03/10/17 03/11/17 15:00 23:00 07:00 Intake Total 260 ml 220 ml 700 ml Balance 260 ml 220 ml 700 ml Problem List Problems Medical Problems: (1) Abdominal pain Status: Acute (2) Fever Status: Acute (3) Urinary tract infection Status: Acute Assessment Group A Strep sepsis; this is not a gut bug. Has some neck tenderness to me. Plan of Care: Continue current Tx, Mgmt Plan of Care Note Early imaging neck? WYATT STEVENS MD Mar 11, 2017 13:52
[2017-03-11 15:10] VITALS: BP 131/84
[2017-03-11 19:00] VITALS: BP 155/89
[2017-03-11] MEDS: ACETAMINOPHEN 325 MG TABLET. PO PRN (20:54)
[2017-03-11] MEDS: ATORVASTATIN CALCIUM 10 MG TABLET. PO SCH (20:54)
[2017-03-11] MEDS: ENOXAPARIN 40 MG/0.4 ML SYRINGE. SQ SCH (20:55)
[2017-03-11 22:57] VITALS: BP 141/95
[2017-03-12] MEDS: AMPICILLIN/SULBACTAM 3 GM in IV NORMAL SALINE 100ML 100 ML IV SCH ×4 (00:46→17:01)
[2017-03-12] MEDS: IV NORMAL SALINE 1000ML BAG 1,000 ML IV SCH ×3 (01:42→23:51)
[2017-03-12 02:26] VITALS: BP 131/96
[2017-03-12 04:35] LABS: BASO % 1 % (0-3); EOS % 4 % (0-3); HEMATOCRIT 27.1 % (36.0-47.0); HEMOGLOBIN 8.5 g/dL (12.0-15.5); LYMPH # 2.7 x10^3/uL (1.0-4.8); LYMPH % 38 % (24-48); MEAN CORPUSCULAR HEMOGLOBIN 22 pg (25-35); MEAN CORPUSCULAR HGB CONC 32 g/dL (31-37); MEAN CORPUSCULAR VOLUME 69 fL (79-100); MONO % 8 % (0-9); NEUT % 50 % (31-73); PLATELET COUNT 377 x10^3/uL (140-400); RED BLOOD COUNT 3.93 x10^6/uL (3.50-5.40); WHITE BLOOD COUNT 7.1 x10^3/uL (4.0-11.0)
[2017-03-12 05:44] LABS: CALCIUM 8.6 mg/dL (8.5-10.1); CREATININE 0.7 mg/dL (0.6-1.0); GFR 104.4
[2017-03-12 07:00] VITALS: BP 145/90
[2017-03-12] MEDS: LISINOPRIL 20 MG TABLET PO SCH (08:36)
[2017-03-12] MEDS: POLYETHYLENE GLYCOL 3350 17 GM PACKET. PO SCH (08:36)
[2017-03-12] MEDS: ACETAMINOPHEN 325 MG TABLET. PO PRN (08:39)
[2017-03-12 11:00] VITALS: BP 137/88
--- NOTE | 2017-03-12 11:22 | PDOC ---
PROGRESS NOTES Chief Complaint Chief Complaint CC: Abdominal pain 1.) Abdominal Pain - RLQ Pain for Weeks, Unclear etiology, ? gonadal vein thrombophlebitis seen abd/pelvis CT 2.) Gram (+) cultures - bacteremia, POA. Positive for Group A strep : on Unasyn , , anticipated DC based on ID recommendations 3.) HTN 4.) HLP 5.) Hypokalemia: resolved. 6.) Cholelithiasis. 7.) Probable hepatic steatosis 8.) Left simple renal cyst. 9.) Microcytic, micro chromic anemia, ? etiology chronic vs. iron deficiency s/ p colonoscopy, rectal polyps s/p bx. 10.) Internal hemorrhoids Vitals Vitals Vital Signs Date Time Temp Pulse Resp B/P Pulse Ox O2 Delivery O2 Flow Rate FiO2 03/12/17 08:36 95 145/90 03/12/17 07:00 98.1 20 99 Room Air 98.1 Physical Exam General: Alert, Oriented X3, Cooperative, No acute distress Heart: Regular rate, Normal S1, Normal S2 Lungs: Clear, Other Abdomen: Normal bowel sounds, Soft, Other Extremities: No clubbing, No edema Skin: No rashes, No significant lesion Labs LABS Laboratory Tests Test 03/12/17 04:15 White Blood Count 7.1x10^3/uL (4.0-11.0) Red Blood Count 3.93x10^6/uL (3.50-5.40) Hemoglobin 8.5g/dL (12.0-15.5) Hematocrit 27.1% (36.0-47.0) Mean Corpuscular Volume 69fL (79-100) Mean Corpuscular Hemoglobin 22pg (25-35) Mean Corpuscular Hemoglobin Concent 32g/dL (31-37) Red Cell Distribution Width 19.0% (11.5-14.5) Platelet Count 377x10^3/uL (140-400) Neutrophils (%) (Auto) 50% (31-73) Lymphocytes (%) (Auto) 38% (24-48) Monocytes (%) (Auto) 8% (0-9) Eosinophils (%) (Auto) 4% (0-3) Basophils (%) (Auto) 1% (0-3) Neutrophils # (Auto) 3.6x10^3uL (1.8-7.7) Lymphocytes # (Auto) 2.7x10^3/uL (1.0-4.8) Monocytes # (Auto) 0.5x10^3/uL (0.0-1.1) Eosinophils # (Auto) 0.2x10^3/uL (0.0-0.7) Basophils # (Auto) 0.0x10^3/uL (0.0-0.2) Sodium Level 142mmol/L (136-145) Potassium Level 4.0mmol/L (3.5-5.1) Chloride Level 106mmol/L (98-107) Carbon Dioxide Level 29mmol/L (21-32) Anion Gap 7 (6-14) Blood Urea Nitrogen 5mg/dL (7-20) Creatinine 0.7mg/dL (0.6-1.0) Estimated GFR (Cockcroft-Gault) 104.4 Glucose Level 170mg/dL (70-99) Calcium Level 8.6mg/dL (8.5-10.1) Assessment and Plan Assessmemt and Plan Problems Medical Problems: (1) Abdominal pain Status: Acute (2) Fever Status: Acute (3) Urinary tract infection Status: Acute Problems: Comment Review of Relevant I have reviewed the following items kory (where applicable) has been applied. Labs Laboratory Tests Test 03/11/17 04:30 03/12/17 04:15 White Blood Count 6.5x10^3/uL (4.0-11.0) 7.1x10^3/uL (4.0-11.0) Red Blood Count 3.90x10^6/uL (3.50-5.40) 3.93x10^6/uL (3.50-5.40) Hemoglobin 8.4g/dL (12.0-15.5) 8.5g/dL (12.0-15.5) Hematocrit 27.0% (36.0-47.0) 27.1% (36.0-47.0) Mean Corpuscular Volume 69fL (79-100) 69fL (79-100) Mean Corpuscular Hemoglobin 22pg (25-35) 22pg (25-35) Mean Corpuscular Hemoglobin Concent 31g/dL (31-37) 32g/dL (31-37) Red Cell Distribution Width 19.0% (11.5-14.5) 19.0% (11.5-14.5) Platelet Count 319x10^3/uL (140-400) 377x10^3/uL (140-400) Neutrophils (%) (Auto) 55% (31-73) 50% (31-73) Lymphocytes (%) (Auto) 36% (24-48) 38% (24-48) Monocytes (%) (Auto) 6% (0-9) 8% (0-9) Eosinophils (%) (Auto) 2% (0-3) 4% (0-3) Basophils (%) (Auto) 1% (0-3) 1% (0-3) Neutrophils # (Auto) 3.6x10^3uL (1.8-7.7) 3.6x10^3uL (1.8-7.7) Lymphocytes # (Auto) 2.3x10^3/uL (1.0-4.8) 2.7x10^3/uL (1.0-4.8) Monocytes # (Auto) 0.4x10^3/uL (0.0-1.1) 0.5x10^3/uL (0.0-1.1) Eosinophils # (Auto) 0.2x10^3/uL (0.0-0.7) 0.2x10^3/uL (0.0-0.7) Basophils # (Auto) 0.0x10^3/uL (0.0-0.2) 0.0x10^3/uL (0.0-0.2) Sodium Level 142mmol/L (136-145) 142mmol/L (136-145) Potassium Level 3.2mmol/L (3.5-5.1) 4.0mmol/L (3.5-5.1) Chloride Level 106mmol/L (98-107) 106mmol/L (98-107) Carbon Dioxide Level 29mmol/L (21-32) 29mmol/L (21-32) Anion Gap 7 (6-14) 7 (6-14) Blood Urea Nitrogen 3mg/dL (7-20) 5mg/dL (7-20) Creatinine 0.6mg/dL (0.6-1.0) 0.7mg/dL (0.6-1.0) Estimated GFR (Cockcroft-Gault) 124.7 104.4 Glucose Level 144mg/dL (70-99) 170mg/dL (70-99) Calcium Level 8.4mg/dL (8.5-10.1) 8.6mg/dL (8.5-10.1) Magnesium Level 1.9mg/dL (1.8-2.4) Laboratory Tests Test 03/12/17 04:15 White Blood Count 7.1x10^3/uL (4.0-11.0) Red Blood Count 3.93x10^6/uL (3.50-5.40) Hemoglobin 8.5g/dL (12.0-15.5) Hematocrit 27.1% (36.0-47.0) Mean Corpuscular Volume 69fL (79-100) Mean Corpuscular Hemoglobin 22pg (25-35) Mean Corpuscular Hemoglobin Concent 32g/dL (31-37) Red Cell Distribution Width 19.0% (11.5-14.5) Platelet Count 377x10^3/uL (140-400) Neutrophils (%) (Auto) 50% (31-73) Lymphocytes (%) (Auto) 38% (24-48) Monocytes (%) (Auto) 8% (0-9) Eosinophils (%) (Auto) 4% (0-3) Basophils (%) (Auto) 1% (0-3) Neutrophils # (Auto) 3.6x10^3uL (1.8-7.7) Lymphocytes # (Auto) 2.7x10^3/uL (1.0-4.8) Monocytes # (Auto) 0.5x10^3/uL (0.0-1.1) Eosinophils # (Auto) 0.2x10^3/uL (0.0-0.7) Basophils # (Auto) 0.0x10^3/uL (0.0-0.2) Sodium Level 142mmol/L (136-145) Potassium Level 4.0mmol/L (3.5-5.1) Chloride Level 106mmol/L (98-107) Carbon Dioxide Level 29mmol/L (21-32) Anion Gap 7 (6-14) Blood Urea Nitrogen 5mg/dL (7-20) Creatinine 0.7mg/dL (0.6-1.0) Estimated GFR (Cockcroft-Gault) 104.4 Glucose Level 170mg/dL (70-99) Calcium Level 8.6mg/dL (8.5-10.1) Microbiology 03/10/17 Blood Culture - Preliminary, Resulted NO GROWTH AFTER 1 DAY 03/07/17 Urine Culture - Final, Complete 03/07/17 Urine Culture Result 1 ([facility]) - Final, Complete Medications Current Medications Sodium Chloride (Iv Sodium Chloride 0.9% 1000ml Bag) 1,000 ml @ 1,000 mls/hr Q1H IV Last administered on 03/07/17 04:59; Start 03/07/17 at 04:45; Stop 10/13 at 05:44; Status DC Hydromorphone HCl (Dilaudid) 1 mg 1X ONCE IV Last administered on 03/07/17 04 :59; Start 03/07/17 at 05:00; Stop 03/07/17 at 05:01; Status DC Ondansetron HCl (Zofran) 4 mg 1X ONCE IV Last administered on 03/07/17 05:00 ; Start 03/07/17 at 05:00; Stop 03/07/17 at 05:01; Status DC Ketorolac Tromethamine (Toradol) 15 mg 1X ONCE IV Last administered on 04:59; Start 03/07/17 at 05:00; Stop 03/07/17 at 05:01; Status DC Acetaminophen (Tylenol) 650 mg 1X ONCE PO Last administered on 03/07/17 05:00 ; Start 03/07/17 at 05:00; Stop 03/07/17 at 05:01; Status DC Iohexol (Omnipaque 300 Mg/ml) 75 ml 1X ONCE IV Last administered on 03/07/17 05:21; Start 03/07/17 at 05:00; Stop 03/07/17 at 05:01; Status DC Info 1 each 1 each PRN DAILY PRN MC SEE COMMENTS; Start 03/07/17 at 05:00; Stop 03/09/17 at 04:59; Status DC Ceftriaxone Sodium (Rocephin 1gm Ivpb For Omni) 50 ml @ 100 mls/hr 1X ONCE IV Last administered on 03/07/17 06:54; Start 03/07/17 at 06:30; Stop 03/07/17 at 06:59; Status DC Ondansetron HCl (Zofran) 4 mg PRN Q8HRS PRN IV NAUSEA/VOMITING Last administered on 03/07/17 10:41; Start 03/07/17 at 06:45; Stop 03/08/17 at 06:44 ; Status DC Morphine Sulfate 4 mg 4 mg PRN Q2HR PRN IV PAIN; Start 03/07/17 at 06:45; Stop 03/07/17 at 10:52; Status DC Sodium Chloride (Iv Sodium Chloride 0.9% 1000ml Bag) 1,000 ml @ 125 mls/hr Q8H IV Last administered on 03/07/17 07:09; Start 03/07/17 at 06:45; Stop at 10:32; Status DC Acetaminophen (Tylenol) 650 mg PRN Q4HRS PRN PO FEVER Last administered on 03/08 05:53; Start 03/07/17 at 06:45; Stop 03/08/17 at 06:44; Status DC Acetaminophen (Tylenol) 325 mg PRN Q6HRS PRN PO MILD PAIN / TEMP; Start at 08:45; Stop 03/07/17 at 08:45; Status DC Acetaminophen/ Hydrocodone Bitart (Lortab 5/325) 1 tab PRN Q6HRS PRN PO MODERATE TO SEVERE PAIN Last administered on 03/10/17 11:58; Start 03/07/17 at 08:45 Hydralazine HCl (Apresoline) 10 mg PRN Q4HRS PRN IVP ELEVATED BP, SEE COMMENTS ; Start 03/07/17 at 08:45 Ondansetron HCl (Zofran) 4 mg PRN Q8HRS PRN IV NAUSEA/VOMITING Last administered on 03/10/17 11:57; Start 03/07/17 at 08:45 Albuterol Sulfate 2.5 mg 2.5 mg PRN Q4HRS PRN NEB SHORTNESS OF BREATH; Start at 08:45 Ceftriaxone Sodium 1 gm/ Sodium Chloride 50 ml @ 100 mls/hr Q24H IV ; Start 11/12 at 06:00; Stop 03/08/17 at 06:00; Status DC Sodium Chloride (Iv Sodium Chloride 0.9% 1000ml Bag) 1,000 ml @ 125 mls/hr Q8H IV Last administered on 03/12/17 01:42; Start 03/07/17 at 08:45 Acetaminophen (Tylenol) 325 mg PRN Q6HRS PRN PO MILD PAIN / TEMP Last administered on 03/10/17 09:29; Start 03/07/17 at 08:45; Stop 03/10/17 at 17:22 ; Status DC Hydromorphone HCl 0.5 mg 0.5 mg PRN Q2HR PRN IV PAIN; Start 03/07/17 at 10:45 Metronidazole (FLAGYL 500Mmg PREMIX) 100 ml @ 100 mls/hr Q8HRS IV Last administered on 03/08/17 05:51; Start 03/07/17 at 14:00; Stop 03/08/17 at 11:03 ; Status DC Levofloxacin/ Dextrose (Levaquin Per Pharmacy) 1 each PRN DAILY PRN MC SEE COMMENTS; Start 03/07/17 at 11:00; Status Cancel Enoxaparin Sodium 40 mg 40 mg Q24H SQ Last administered on 03/11/17 20:55; Start 03/07/17 at 21:00 Levofloxacin/ Dextrose (LEVAQUIN 500mg PREMIX) 100 ml @ 100 mls/hr Q24H IV Last administered on 03/08/17 08:10; Start 03/07/17 at 12:00; Stop 03/08/17 at 11:03; Status DC Lisinopril (Prinivil) 20 mg DAILY PO Last administered on 03/12/17 08:36; Start 03/07/17 at 11:30 Atorvastatin Calcium 5 mg 5 mg QHS PO Last administered on 03/11/17 20:54; Start 03/07/17 at 21:00 Potassium Chloride/Dextrose/ Sod Cl 1,000 ml @ 75 mls/hr 1X ONCE IV Last administered on 03/08/17 10:00; Start 03/08/17 at 10:00; Stop 03/08/17 at 23:19 ; Status DC Ampicillin Sodium/ Sulbactam Sodium/ Sodium Chloride (Unasyn/Iv Sodium Chloride 0.9% 100ml) 100 ml @ 200 mls/hr Q6HRS IV Last administered on 03/12/17 06:20 ; Start 03/08/17 at 12:00 Polyethylene Glycol (miraLAX PACKET) 17 gm DAILY PO Last administered on 08:36; Start 03/09/17 at 11:00 Potassium Chloride (Klor-Con) 40 meq 1X ONCE PO Last administered on 11:51; Start 03/09/17 at 10:45; Stop 03/09/17 at 10:46; Status DC Polyethylene Glycol (miraLAX Powder BULK BOTTLE) 238 gm 1X ONCE PO ; Start at 13:15; Stop 03/09/17 at 13:29; Status DC Magnesium Citrate (Citroma) 296 ml 1X ONCE PO Last administered on 03/09/17 14:21; Start 03/09/17 at 14:00; Stop 03/09/17 at 14:01; Status DC Bisacodyl (Dulcolax Tab) 5 mg 1X ONCE PO ; Start 03/09/17 at 14:00; Stop at 14:19; Status DC Polyethylene Glycol (miraLAX Powder BULK BOTTLE) 238 gm 1X ONCE PO Last administered on 03/09/17 14:30; Start 03/09/17 at 14:00; Stop 03/09/17 at 14:01 ; Status DC Ondansetron HCl (Zofran) 4 mg PRN Q6HRS PRN IV NAUSEA/VOMITING; Start 03/10/17 at 07:00; Stop 03/10/17 at 17:20; Status DC Fentanyl Citrate (Fentanyl 2ml Vial) 25 mcg PRN Q5MIN PRN IV MILD PAIN; Start 03/10/17 at 07:00; Stop 03/10/17 at 17:20; Status DC Fentanyl Citrate (Fentanyl 2ml Vial) 50 mcg PRN Q5MIN PRN IV MODERATE PAIN; Start 03/10/17 at 07:00; Stop 03/10/17 at 17:20; Status DC Morphine Sulfate 1 mg 1 mg PRN Q10MIN PRN IV SEVERE PAIN; Start 03/10/17 at 07: 00; Stop 03/10/17 at 17:20; Status DC Lactated Ringer's (Iv Lactated Ringers) 1,000 ml @ 30 mls/hr Q24H IV ; Start at 07:00; Stop 03/10/17 at 17:20; Status DC Lidocaine HCl 2 ml PRN 1X PRN ID PRIOR TO IV START; Start 03/10/17 at 07:00; Stop 03/10/17 at 17:20; Status DC Hydromorphone HCl (Dilaudid) 0.5 mg PRN Q10MIN PRN IV SEV PAIN, Second choice; Start 03/10/17 at 07:00; Stop 03/10/17 at 17:21; Status DC Prochlorperazine Edisylate (Compazine) 5 mg PACU PRN PRN IV NAUSEA, MRX1; Start 03/10/17 at 07:00; Stop 03/10/17 at 17:21; Status DC Bisacodyl 10 mg 10 mg 1X ONCE PO Last administered on 03/09/17 18:23; Start 03/09/17 at 14:30; Stop 03/09/17 at 14:31; Status DC Propofol (Diprivan) 40 ml @ As Directed STK-MED ONCE IV ; Start 03/10/17 at 10: 26; Stop 03/10/17 at 10:27; Status DC Lidocaine HCl (Lidocaine Pf 2% Vial) 5 ml STK-MED ONCE .ROUTE ; Start 03/10/17 at 10:26; Stop 03/10/17 at 10:27; Status DC Potassium Chloride (Klor-Con) 40 meq 1X ONCE PO Last administered on 14:11; Start 03/10/17 at 12:45; Stop 03/10/17 at 12:46; Status DC Acetaminophen (Tylenol) 650 mg PRN Q6HRS PRN PO MILD PAIN / TEMP Last administered on 03/12/17 08:39; Start 03/10/17 at 17:30 Guaifenesin (Robitussin Dm) 10 ml PRN Q6HRS PRN PO COUGH Last administered on 05:56; Start 03/10/17 at 17:30 Potassium Chloride (Klor-Con) 40 meq 1X ONCE PO Last administered on 14:23; Start 03/11/17 at 13:30; Stop 03/11/17 at 13:31; Status DC Active Scripts Active Reported Pravastatin Sodium 20 Mg Tablet 1 Tab PO QHS Ferrous Sulfate 325 Mg Tablet.dr 325 Mg PO Lisinopril 20 Mg Tablet 1 Tab PO DAILY Vitals/I & O Vital Sign - Last 24 Hours 03/11/17 03/11/17 03/11/17 03/11/17 15:10 19:00 20:00 22:57 Temp 98.8 99.9 98.7 98.8 99.9 98.7 Pulse 98 71 73 Resp 18 16 18 B/P 131/84 155/89 141/95 Pulse Ox 99 97 93 O2 Delivery Room Air Room Air Room Air Room Air 03/12/17 03/12/17 03/12/17 02:26 07:00 08:36 Temp 98.1 98.1 98.1 98.1 Pulse 75 98 95 Resp 18 20 B/P 131/96 145/90 145/90 Pulse Ox 94 99 O2 Delivery Room Air Room Air Intake and Output 03/11/17 03/11/17 03/12/17 15:00 23:00 07:00 Intake Total 800 ml 700 ml Balance 800 ml 700 ml SYLVIA SAAB MD Mar 12, 2017 11:22
--- NOTE | 2017-03-12 11:34 | PDOC ---
Infectious Disease Note Subjective Subjective Mild abdominal pain still + BM + cough Low-energy - still Appetite alright ROS ROS GEN: Denies fevers, chills, sweats HEENT: Denies blurred vision, sore throat CV: Denies chest pain RESP: Denies shortness of air, cough NEURO: Denies confusion, dizziness MSK: Denies weakness, joint pain/swelling Vital Sign Vital Signs Vital Signs Date Time Temp Pulse Resp B/P Pulse Ox O2 Delivery O2 Flow Rate FiO2 03/12/17 08:36 95 145/90 03/12/17 07:00 98.1 20 99 Room Air 98.1 Physical Exam PHYSICAL EXAM GENERAL: NAD, Alert - in chair. Looks a little tired HEENT: PERRL, OC/OP - clear NECK: Supple, no JVD, no LN LUNGS: Clear HEART: S1S2, no gallop, no murmur ABD: Soft, ND, no organomegaly, no rebound. 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, no focal neurologic deficit SKIN: No rash IV: ok Labs Lab Laboratory Tests Test 03/12/17 04:15 White Blood Count 7.1x10^3/uL (4.0-11.0) Red Blood Count 3.93x10^6/uL (3.50-5.40) Hemoglobin 8.5g/dL (12.0-15.5) Hematocrit 27.1% (36.0-47.0) Mean Corpuscular Volume 69fL (79-100) Mean Corpuscular Hemoglobin 22pg (25-35) Mean Corpuscular Hemoglobin Concent 32g/dL (31-37) Red Cell Distribution Width 19.0% (11.5-14.5) Platelet Count 377x10^3/uL (140-400) Neutrophils (%) (Auto) 50% (31-73) Lymphocytes (%) (Auto) 38% (24-48) Monocytes (%) (Auto) 8% (0-9) Eosinophils (%) (Auto) 4% (0-3) Basophils (%) (Auto) 1% (0-3) Neutrophils # (Auto) 3.6x10^3uL (1.8-7.7) Lymphocytes # (Auto) 2.7x10^3/uL (1.0-4.8) Monocytes # (Auto) 0.5x10^3/uL (0.0-1.1) Eosinophils # (Auto) 0.2x10^3/uL (0.0-0.7) Basophils # (Auto) 0.0x10^3/uL (0.0-0.2) Sodium Level 142mmol/L (136-145) Potassium Level 4.0mmol/L (3.5-5.1) Chloride Level 106mmol/L (98-107) Carbon Dioxide Level 29mmol/L (21-32) Anion Gap 7 (6-14) Blood Urea Nitrogen 5mg/dL (7-20) Creatinine 0.7mg/dL (0.6-1.0) Estimated GFR (Cockcroft-Gault) 104.4 Glucose Level 170mg/dL (70-99) Calcium Level 8.6mg/dL (8.5-10.1) Objective Assessment Group A strep sepsis. POA 03/07 Fever. Resolved Abdominal pain. Cholelithiasis - better but still mild Anemia Eczema Plan Plan of Care Unasyn for now f/u am labs/cultures d/w dr Pineda. No surgery at this time. Patient plans to follow-up OP Home 03/13 if stable D/w BELGICA Patel MD Mar 12, 2017 11:34
[2017-03-12 15:00] VITALS: BP 98/65
[2017-03-12 19:00] VITALS: BP 141/89
[2017-03-12] MEDS: ENOXAPARIN 40 MG/0.4 ML SYRINGE. SQ SCH (20:20)
[2017-03-12] MEDS: ATORVASTATIN CALCIUM 10 MG TABLET. PO SCH (20:22)
[2017-03-12 23:00] VITALS: BP 151/102
[2017-03-13] MEDS: AMPICILLIN/SULBACTAM 3 GM in IV NORMAL SALINE 100ML 100 ML IV SCH ×5 (01:20→23:26)
[2017-03-13 03:00] VITALS: BP 120/90
[2017-03-13 04:51] LABS: BASO % 1 % (0-3); EOS % 3 % (0-3); HEMATOCRIT 29.5 % (36.0-47.0); HEMOGLOBIN 9.2 g/dL (12.0-15.5); LYMPH # 2.5 x10^3/uL (1.0-4.8); LYMPH % 33 % (24-48); MEAN CORPUSCULAR HEMOGLOBIN 22 pg (25-35); MEAN CORPUSCULAR HGB CONC 31 g/dL (31-37); MEAN CORPUSCULAR VOLUME 69 fL (79-100); MONO % 7 % (0-9); NEUT % 57 % (31-73); PLATELET COUNT 468 x10^3/uL (140-400); RED CELL DISTRIBUTION WIDTH 19.3 % (11.5-14.5); WHITE BLOOD COUNT 7.5 x10^3/uL (4.0-11.0)
[2017-03-13 05:23] LABS: CALCIUM 8.9 mg/dL (8.5-10.1); CREATININE 0.7 mg/dL (0.6-1.0); GFR 104.4; POTASSIUM 3.5 mmol/L (3.5-5.1)
[2017-03-13 07:00] VITALS: BP 130/85
--- NOTE | 2017-03-13 08:35 | PDOC ---
Infectious Disease Note Subjective Subjective Mild abdominal pain still but better + BM Occ Shannon Appetite alright ROS ROS GEN: Denies fevers, chills, sweats HEENT: Denies blurred vision, sore throat CV: Denies chest pain RESP: Denies shortness of air GI: Denies n/v/d NEURO: Denies confusion, dizziness MSK: Denies weakness, joint pain/swelling Vital Sign Vital Signs Vital Signs Date Time Temp Pulse Resp B/P Pulse Ox O2 Delivery O2 Flow Rate FiO2 03/13/17 07:00 98.1 69 17 130/85 98 Room Air 98.1 Physical Exam PHYSICAL EXAM GENERAL: NAD, Alert HEENT: PERRL, OC/OP -clear NECK: Supple, no JVD, no LN LUNGS: Clear HEART: S1S2, no gallop, no murmur ABD: Soft, NT, no organomegaly, no rebound, obese. No guard or rebound. ? 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 Dry eczema skin IV: ok Labs Lab Laboratory Tests Test 03/13/17 03:00 White Blood Count 7.5x10^3/uL (4.0-11.0) Red Blood Count 4.30x10^6/uL (3.50-5.40) Hemoglobin 9.2g/dL (12.0-15.5) Hematocrit 29.5% (36.0-47.0) Mean Corpuscular Volume 69fL (79-100) Mean Corpuscular Hemoglobin 22pg (25-35) Mean Corpuscular Hemoglobin Concent 31g/dL (31-37) Red Cell Distribution Width 19.3% (11.5-14.5) Platelet Count 468x10^3/uL (140-400) Neutrophils (%) (Auto) 57% (31-73) Lymphocytes (%) (Auto) 33% (24-48) Monocytes (%) (Auto) 7% (0-9) Eosinophils (%) (Auto) 3% (0-3) Basophils (%) (Auto) 1% (0-3) Neutrophils # (Auto) 4.3x10^3uL (1.8-7.7) Lymphocytes # (Auto) 2.5x10^3/uL (1.0-4.8) Monocytes # (Auto) 0.5x10^3/uL (0.0-1.1) Eosinophils # (Auto) 0.2x10^3/uL (0.0-0.7) Basophils # (Auto) 0.0x10^3/uL (0.0-0.2) Sodium Level 141mmol/L (136-145) Potassium Level 3.5mmol/L (3.5-5.1) Chloride Level 103mmol/L (98-107) Carbon Dioxide Level 26mmol/L (21-32) Anion Gap 12 (6-14) Blood Urea Nitrogen 7mg/dL (7-20) Creatinine 0.7mg/dL (0.6-1.0) Estimated GFR (Cockcroft-Gault) 104.4 Glucose Level 181mg/dL (70-99) Calcium Level 8.9mg/dL (8.5-10.1) Objective Assessment Group A strep sepsis. POA 03/07. repeat cult 03/10 neg. ECHO 03/09 neg Fever. Resolved Abdominal pain. Cholelithiasis - better Anemia Eczema Plan Plan of Care Unasyn for now Would like to talk to Dr. Pineda re surgery f/u am labs/cultures BELGICA QUINTEROS MD Mar 13, 2017 08:35
[2017-03-13] MEDS: POLYETHYLENE GLYCOL 3350 17 GM PACKET. PO SCH (09:00)
[2017-03-13] MEDS: LISINOPRIL 20 MG TABLET PO SCH (09:44)
[2017-03-13 11:11] VITALS: BP 135/90
--- NOTE | 2017-03-13 11:51 | PDOC ---
G I PROGRESS NOTE Reason for Follow-up Anemia/rlq abdominal pain Subjective Pondering possible laparoscopy Physical Exam Lungs clear CV S1 S2 ABD +BS, soft, minimal RLQ tenderness Review of Relevant I have reviewed the following items kory (where applicable) has been applied. Labs Laboratory Tests Test 03/12/17 04:15 03/13/17 03:00 White Blood Count 7.1x10^3/uL (4.0-11.0) 7.5x10^3/uL (4.0-11.0) Red Blood Count 3.93x10^6/uL (3.50-5.40) 4.30x10^6/uL (3.50-5.40) Hemoglobin 8.5g/dL (12.0-15.5) 9.2g/dL (12.0-15.5) Hematocrit 27.1% (36.0-47.0) 29.5% (36.0-47.0) Mean Corpuscular Volume 69fL (79-100) 69fL (79-100) Mean Corpuscular Hemoglobin 22pg (25-35) 22pg (25-35) Mean Corpuscular Hemoglobin Concent 32g/dL (31-37) 31g/dL (31-37) Red Cell Distribution Width 19.0% (11.5-14.5) 19.3% (11.5-14.5) Platelet Count 377x10^3/uL (140-400) 468x10^3/uL (140-400) Neutrophils (%) (Auto) 50% (31-73) 57% (31-73) Lymphocytes (%) (Auto) 38% (24-48) 33% (24-48) Monocytes (%) (Auto) 8% (0-9) 7% (0-9) Eosinophils (%) (Auto) 4% (0-3) 3% (0-3) Basophils (%) (Auto) 1% (0-3) 1% (0-3) Neutrophils # (Auto) 3.6x10^3uL (1.8-7.7) 4.3x10^3uL (1.8-7.7) Lymphocytes # (Auto) 2.7x10^3/uL (1.0-4.8) 2.5x10^3/uL (1.0-4.8) Monocytes # (Auto) 0.5x10^3/uL (0.0-1.1) 0.5x10^3/uL (0.0-1.1) Eosinophils # (Auto) 0.2x10^3/uL (0.0-0.7) 0.2x10^3/uL (0.0-0.7) Basophils # (Auto) 0.0x10^3/uL (0.0-0.2) 0.0x10^3/uL (0.0-0.2) Sodium Level 142mmol/L (136-145) 141mmol/L (136-145) Potassium Level 4.0mmol/L (3.5-5.1) 3.5mmol/L (3.5-5.1) Chloride Level 106mmol/L (98-107) 103mmol/L (98-107) Carbon Dioxide Level 29mmol/L (21-32) 26mmol/L (21-32) Anion Gap 7 (6-14) 12 (6-14) Blood Urea Nitrogen 5mg/dL (7-20) 7mg/dL (7-20) Creatinine 0.7mg/dL (0.6-1.0) 0.7mg/dL (0.6-1.0) Estimated GFR (Cockcroft-Gault) 104.4 104.4 Glucose Level 170mg/dL (70-99) 181mg/dL (70-99) Calcium Level 8.6mg/dL (8.5-10.1) 8.9mg/dL (8.5-10.1) Laboratory Tests Test 03/13/17 03:00 White Blood Count 7.5x10^3/uL (4.0-11.0) Red Blood Count 4.30x10^6/uL (3.50-5.40) Hemoglobin 9.2g/dL (12.0-15.5) Hematocrit 29.5% (36.0-47.0) Mean Corpuscular Volume 69fL (79-100) Mean Corpuscular Hemoglobin 22pg (25-35) Mean Corpuscular Hemoglobin Concent 31g/dL (31-37) Red Cell Distribution Width 19.3% (11.5-14.5) Platelet Count 468x10^3/uL (140-400) Neutrophils (%) (Auto) 57% (31-73) Lymphocytes (%) (Auto) 33% (24-48) Monocytes (%) (Auto) 7% (0-9) Eosinophils (%) (Auto) 3% (0-3) Basophils (%) (Auto) 1% (0-3) Neutrophils # (Auto) 4.3x10^3uL (1.8-7.7) Lymphocytes # (Auto) 2.5x10^3/uL (1.0-4.8) Monocytes # (Auto) 0.5x10^3/uL (0.0-1.1) Eosinophils # (Auto) 0.2x10^3/uL (0.0-0.7) Basophils # (Auto) 0.0x10^3/uL (0.0-0.2) Sodium Level 141mmol/L (136-145) Potassium Level 3.5mmol/L (3.5-5.1) Chloride Level 103mmol/L (98-107) Carbon Dioxide Level 26mmol/L (21-32) Anion Gap 12 (6-14) Blood Urea Nitrogen 7mg/dL (7-20) Creatinine 0.7mg/dL (0.6-1.0) Estimated GFR (Cockcroft-Gault) 104.4 Glucose Level 181mg/dL (70-99) Calcium Level 8.9mg/dL (8.5-10.1) Microbiology 03/10/17 Blood Culture - Preliminary, Resulted NO GROWTH AFTER 2 DAYS 03/07/17 Urine Culture - Final, Complete 03/07/17 Urine Culture Result 1 ([facility]) - Final, Complete Medications Current Medications Sodium Chloride (Iv Sodium Chloride 0.9% 1000ml Bag) 1,000 ml @ 1,000 mls/hr Q1H IV Last administered on 03/07/17 04:59; Start 03/07/17 at 04:45; Stop 10/13 at 05:44; Status DC Hydromorphone HCl (Dilaudid) 1 mg 1X ONCE IV Last administered on 03/07/17 04 :59; Start 03/07/17 at 05:00; Stop 03/07/17 at 05:01; Status DC Ondansetron HCl (Zofran) 4 mg 1X ONCE IV Last administered on 03/07/17 05:00 ; Start 03/07/17 at 05:00; Stop 03/07/17 at 05:01; Status DC Ketorolac Tromethamine (Toradol) 15 mg 1X ONCE IV Last administered on 04:59; Start 03/07/17 at 05:00; Stop 03/07/17 at 05:01; Status DC Acetaminophen (Tylenol) 650 mg 1X ONCE PO Last administered on 03/07/17 05:00 ; Start 03/07/17 at 05:00; Stop 03/07/17 at 05:01; Status DC Iohexol (Omnipaque 300 Mg/ml) 75 ml 1X ONCE IV Last administered on 03/07/17 05:21; Start 03/07/17 at 05:00; Stop 03/07/17 at 05:01; Status DC Info 1 each 1 each PRN DAILY PRN MC SEE COMMENTS; Start 03/07/17 at 05:00; Stop 03/09/17 at 04:59; Status DC Ceftriaxone Sodium (Rocephin 1gm Ivpb For Omni) 50 ml @ 100 mls/hr 1X ONCE IV Last administered on 03/07/17 06:54; Start 03/07/17 at 06:30; Stop 03/07/17 at 06:59; Status DC Ondansetron HCl (Zofran) 4 mg PRN Q8HRS PRN IV NAUSEA/VOMITING Last administered on 03/07/17 10:41; Start 03/07/17 at 06:45; Stop 03/08/17 at 06:44 ; Status DC Morphine Sulfate 4 mg 4 mg PRN Q2HR PRN IV PAIN; Start 03/07/17 at 06:45; Stop 03/07/17 at 10:52; Status DC Sodium Chloride (Iv Sodium Chloride 0.9% 1000ml Bag) 1,000 ml @ 125 mls/hr Q8H IV Last administered on 03/07/17 07:09; Start 03/07/17 at 06:45; Stop at 10:32; Status DC Acetaminophen (Tylenol) 650 mg PRN Q4HRS PRN PO FEVER Last administered on 03/08 05:53; Start 03/07/17 at 06:45; Stop 03/08/17 at 06:44; Status DC Acetaminophen (Tylenol) 325 mg PRN Q6HRS PRN PO MILD PAIN / TEMP; Start at 08:45; Stop 03/07/17 at 08:45; Status DC Acetaminophen/ Hydrocodone Bitart (Lortab 5/325) 1 tab PRN Q6HRS PRN PO MODERATE TO SEVERE PAIN Last administered on 03/10/17 11:58; Start 03/07/17 at 08:45 Hydralazine HCl (Apresoline) 10 mg PRN Q4HRS PRN IVP ELEVATED BP, SEE COMMENTS ; Start 03/07/17 at 08:45 Ondansetron HCl (Zofran) 4 mg PRN Q8HRS PRN IV NAUSEA/VOMITING Last administered on 03/10/17 11:57; Start 03/07/17 at 08:45 Albuterol Sulfate 2.5 mg 2.5 mg PRN Q4HRS PRN NEB SHORTNESS OF BREATH; Start at 08:45 Ceftriaxone Sodium 1 gm/ Sodium Chloride 50 ml @ 100 mls/hr Q24H IV ; Start 11/12 at 06:00; Stop 03/08/17 at 06:00; Status DC Sodium Chloride (Iv Sodium Chloride 0.9% 1000ml Bag) 1,000 ml @ 50 mls/hr Q20H IV Last administered on 03/12/17 01:42; Start 03/07/17 at 08:45 Acetaminophen (Tylenol) 325 mg PRN Q6HRS PRN PO MILD PAIN / TEMP Last administered on 03/10/17 09:29; Start 03/07/17 at 08:45; Stop 03/10/17 at 17:22 ; Status DC Hydromorphone HCl 0.5 mg 0.5 mg PRN Q2HR PRN IV PAIN; Start 03/07/17 at 10:45 Metronidazole (FLAGYL 500Mmg PREMIX) 100 ml @ 100 mls/hr Q8HRS IV Last administered on 03/08/17 05:51; Start 03/07/17 at 14:00; Stop 03/08/17 at 11:03 ; Status DC Levofloxacin/ Dextrose (Levaquin Per Pharmacy) 1 each PRN DAILY PRN MC SEE COMMENTS; Start 03/07/17 at 11:00; Status Cancel Enoxaparin Sodium 40 mg 40 mg Q24H SQ Last administered on 03/11/17 20:55; Start 03/07/17 at 21:00 Levofloxacin/ Dextrose (LEVAQUIN 500mg PREMIX) 100 ml @ 100 mls/hr Q24H IV Last administered on 03/08/17 08:10; Start 03/07/17 at 12:00; Stop 03/08/17 at 11:03; Status DC Lisinopril (Prinivil) 20 mg DAILY PO Last administered on 03/13/17 09:44; Start 03/07/17 at 11:30 Atorvastatin Calcium 5 mg 5 mg QHS PO Last administered on 03/12/17 20:22; Start 03/07/17 at 21:00 Potassium Chloride/Dextrose/ Sod Cl 1,000 ml @ 75 mls/hr 1X ONCE IV Last administered on 03/08/17 10:00; Start 03/08/17 at 10:00; Stop 03/08/17 at 23:19 ; Status DC Ampicillin Sodium/ Sulbactam Sodium/ Sodium Chloride (Unasyn/Iv Sodium Chloride 0.9% 100ml) 100 ml @ 200 mls/hr Q6HRS IV Last administered on 03/13/17 06:11 ; Start 03/08/17 at 12:00 Polyethylene Glycol (miraLAX PACKET) 17 gm DAILY PO Last administered on 08:36; Start 03/09/17 at 11:00 Potassium Chloride (Klor-Con) 40 meq 1X ONCE PO Last administered on 11:51; Start 03/09/17 at 10:45; Stop 03/09/17 at 10:46; Status DC Polyethylene Glycol (miraLAX Powder BULK BOTTLE) 238 gm 1X ONCE PO ; Start at 13:15; Stop 03/09/17 at 13:29; Status DC Magnesium Citrate (Citroma) 296 ml 1X ONCE PO Last administered on 03/09/17 14:21; Start 03/09/17 at 14:00; Stop 03/09/17 at 14:01; Status DC Bisacodyl (Dulcolax Tab) 5 mg 1X ONCE PO ; Start 03/09/17 at 14:00; Stop at 14:19; Status DC Polyethylene Glycol (miraLAX Powder BULK BOTTLE) 238 gm 1X ONCE PO Last administered on 03/09/17t 14:30; Start 03/09/17 at 14:00; Stop 03/09/17 at 14:01 ; Status DC Ondansetron HCl (Zofran) 4 mg PRN Q6HRS PRN IV NAUSEA/VOMITING; Start 03/10/17 at 07:00; Stop 03/10/17 at 17:20; Status DC Fentanyl Citrate (Fentanyl 2ml Vial) 25 mcg PRN Q5MIN PRN IV MILD PAIN; Start 03/10/17 at 07:00; Stop 03/10/17 at 17:20; Status DC Fentanyl Citrate (Fentanyl 2ml Vial) 50 mcg PRN Q5MIN PRN IV MODERATE PAIN; Start 03/10/17 at 07:00; Stop 03/10/17 at 17:20; Status DC Morphine Sulfate 1 mg 1 mg PRN Q10MIN PRN IV SEVERE PAIN; Start 03/10/17 at 07: 00; Stop 03/10/17 at 17:20; Status DC Lactated Ringer's (Iv Lactated Ringers) 1,000 ml @ 30 mls/hr Q24H IV ; Start at 07:00; Stop 03/10/17 at 17:20; Status DC Lidocaine HCl 2 ml PRN 1X PRN ID PRIOR TO IV START; Start 03/10/17 at 07:00; Stop 03/10/17 at 17:20; Status DC Hydromorphone HCl (Dilaudid) 0.5 mg PRN Q10MIN PRN IV SEV PAIN, Second choice; Start 03/10/17 at 07:00; Stop 03/10/17 at 17:21; Status DC Prochlorperazine Edisylate (Compazine) 5 mg PACU PRN PRN IV NAUSEA, MRX1; Start 03/10/17 at 07:00; Stop 03/10/17 at 17:21; Status DC Bisacodyl 10 mg 10 mg 1X ONCE PO Last administered on 03/09/17t 18:23; Start 03/09/17 at 14:30; Stop 03/09/17 at 14:31; Status DC Propofol (Diprivan) 40 ml @ As Directed STK-MED ONCE IV ; Start 03/10/17 at 10: 26; Stop 03/10/17 at 10:27; Status DC Lidocaine HCl (Lidocaine Pf 2% Vial) 5 ml STK-MED ONCE .ROUTE ; Start 03/10/17 at 10:26; Stop 03/10/17 at 10:27; Status DC Potassium Chloride (Klor-Con) 40 meq 1X ONCE PO Last administered on 14:11; Start 03/10/17 at 12:45; Stop 03/10/17 at 12:46; Status DC Acetaminophen (Tylenol) 650 mg PRN Q6HRS PRN PO MILD PAIN / TEMP Last administered on 03/12/17 08:39; Start 03/10/17 at 17:30 Guaifenesin (Robitussin Dm) 10 ml PRN Q6HRS PRN PO COUGH Last administered on 05:56; Start 03/10/17 at 17:30 Potassium Chloride (Klor-Con) 40 meq 1X ONCE PO Last administered on 14:23; Start 03/11/17 at 13:30; Stop 03/11/17 at 13:31; Status DC Active Scripts Active Reported Pravastatin Sodium 20 Mg Tablet 1 Tab PO QHS Ferrous Sulfate 325 Mg Tablet.dr 325 Mg PO Lisinopril 20 Mg Tablet 1 Tab PO DAILY Vitals/I & O Vital Sign - Last 24 Hours 03/12/17 03/12/17 03/12/17 03/12/17 15:00 19:00 20:00 23:00 Temp 97.5 99.3 98.5 97.5 99.3 98.5 Pulse 65 70 64 Resp B/P 98/65 141/89 151/102 Pulse Ox 98 98 99 O2 Delivery Room Air Room Air 03/13/17 03/13/17 03/13/17 03/13/17 03:00 07:00 09:44 11:11 Temp 98.2 98.1 98.1 98.2 98.1 98.1 Pulse 70 69 69 73 Resp B/P 120/90 130/85 130/85 135/90 Pulse Ox 97 98 97 O2 Delivery Room Air Room Air Intake and Output 03/12/17 03/12/17 03/13/17 15:00 23:00 07:00 Intake Total 1800 ml 850 ml Balance 1800 ml 850 ml Problem List Problems Medical Problems: (1) Abdominal pain Status: Acute (2) Fever Status: Acute (3) Urinary tract infection Status: Acute Assessment RLQ abd pain- with unrevealing endoscopic evaluation, adhesions lead differential. Location of pain not consistent with symptomatic GB disease, advance diet as tolerated MAYRA LUNDY MD Mar 13, 2017 11:51
--- NOTE | 2017-03-13 13:28 | PATHOLOGY ---
PATHOLOGY REPORT * * * * * * * * FINAL DIAGNOSIS: Colorectal biopsy, rectal polyp: - Hyperplastic polyp showing focal congestion and mild chronic inflammation. COMMENT: There are no adenomatous changes or evidence of malignancy. (BRENDAM:; d/t: 03/13/17) REPORT ELECTRONICALLY SIGNED BY: Parag Kaur M.D. DATE/TIME: 03/13/2017 13:27 * * * * * * * * GROSS PATHOLOGY: Received in formalin labeled "Sandra Pastrana and rectal polyp," are 4 segments of valverde soft tissue measuring 1.3 x 0.3 x 0.2 cm in aggregate dimensions and ranging from 0.3 to 0.6 cm in maximum dimension. The specimen is submitted entirely in cassette A1. (TTL; 03/10/2017) INITIAL CPT CODE(S): A; 39560 Professional services performed [place] [facility] [address] Technical services performed by [facility] at [address] [place] [address], [facility] [address], [place] [address]. SPECIMEN(S) RECEIVED: A.Rectal polyp CLINICAL HISTORY: Fever, abdominal pain, UTI PATIENT: SANDRA PASTRANA /AGE: 8 1960 (Age: 56) PATIENT #: [id number] ALT CASE #: SPECIMEN COLLECTION DATE: 03/10/2017 SPECIMEN RECEIVED DATE: 03/10/2017 [facility] - [address] [place] [address] - PHONE: [phone] * * * END OF REPORT * * *
--- NOTE | 2017-03-13 14:20 | PDOC ---
PROGRESS NOTES Chief Complaint Chief Complaint CC: Abdominal pain 1.) Abdominal Pain - RLQ Pain - multifactorial 2.) Gram (+) cultures - strep bacteremia, POA. : on Unasyn, , following ID recommendations 3.) HTN 4.) HLP 5.) Hypokalemia: resolved. 6.) Cholelithiasis. 7.) Probable hepatic steatosis 8.) Left simple renal cyst. 9.) Microcytic, micro chromic anemia, chronic vs. iron deficiency s/p colonoscopy, rectal polyps s/p bx. 10.) Internal hemorrhoids Vitals Vitals Vital Signs Date Time Temp Pulse Resp B/P Pulse Ox O2 Delivery O2 Flow Rate FiO2 03/13/17 11:11 98.1 73 17 135/90 97 Room Air 98.1 Physical Exam General: Alert, Oriented X3, Cooperative, No acute distress Heart: Regular rate, Normal S1, Normal S2 Lungs: Clear, Other Abdomen: Normal bowel sounds, Soft, Other Extremities: No clubbing, No edema Skin: No rashes, No significant lesion Labs LABS Laboratory Tests Test 03/13/17 03:00 White Blood Count 7.5x10^3/uL (4.0-11.0) Red Blood Count 4.30x10^6/uL (3.50-5.40) Hemoglobin 9.2g/dL (12.0-15.5) Hematocrit 29.5% (36.0-47.0) Mean Corpuscular Volume 69fL (79-100) Mean Corpuscular Hemoglobin 22pg (25-35) Mean Corpuscular Hemoglobin Concent 31g/dL (31-37) Red Cell Distribution Width 19.3% (11.5-14.5) Platelet Count 468x10^3/uL (140-400) Neutrophils (%) (Auto) 57% (31-73) Lymphocytes (%) (Auto) 33% (24-48) Monocytes (%) (Auto) 7% (0-9) Eosinophils (%) (Auto) 3% (0-3) Basophils (%) (Auto) 1% (0-3) Neutrophils # (Auto) 4.3x10^3uL (1.8-7.7) Lymphocytes # (Auto) 2.5x10^3/uL (1.0-4.8) Monocytes # (Auto) 0.5x10^3/uL (0.0-1.1) Eosinophils # (Auto) 0.2x10^3/uL (0.0-0.7) Basophils # (Auto) 0.0x10^3/uL (0.0-0.2) Sodium Level 141mmol/L (136-145) Potassium Level 3.5mmol/L (3.5-5.1) Chloride Level 103mmol/L (98-107) Carbon Dioxide Level 26mmol/L (21-32) Anion Gap 12 (6-14) Blood Urea Nitrogen 7mg/dL (7-20) Creatinine 0.7mg/dL (0.6-1.0) Estimated GFR (Cockcroft-Gault) 104.4 Glucose Level 181mg/dL (70-99) Calcium Level 8.9mg/dL (8.5-10.1) Review of Systems Review of Systems no n.v.d RLQ pain is improved no event, eating OK Assessment and Plan Assessmemt and Plan Problems Medical Problems: (1) Abdominal pain Status: Acute (2) Fever Status: Acute (3) Urinary tract infection Status: Acute Problems: Comment Review of Relevant I have reviewed the following items kory (where applicable) has been applied. Labs Laboratory Tests Test 03/12/17 04:15 03/13/17 03:00 White Blood Count 7.1x10^3/uL (4.0-11.0) 7.5x10^3/uL (4.0-11.0) Red Blood Count 3.93x10^6/uL (3.50-5.40) 4.30x10^6/uL (3.50-5.40) Hemoglobin 8.5g/dL (12.0-15.5) 9.2g/dL (12.0-15.5) Hematocrit 27.1% (36.0-47.0) 29.5% (36.0-47.0) Mean Corpuscular Volume 69fL (79-100) 69fL (79-100) Mean Corpuscular Hemoglobin 22pg (25-35) 22pg (25-35) Mean Corpuscular Hemoglobin Concent 32g/dL (31-37) 31g/dL (31-37) Red Cell Distribution Width 19.0% (11.5-14.5) 19.3% (11.5-14.5) Platelet Count 377x10^3/uL (140-400) 468x10^3/uL (140-400) Neutrophils (%) (Auto) 50% (31-73) 57% (31-73) Lymphocytes (%) (Auto) 38% (24-48) 33% (24-48) Monocytes (%) (Auto) 8% (0-9) 7% (0-9) Eosinophils (%) (Auto) 4% (0-3) 3% (0-3) Basophils (%) (Auto) 1% (0-3) 1% (0-3) Neutrophils # (Auto) 3.6x10^3uL (1.8-7.7) 4.3x10^3uL (1.8-7.7) Lymphocytes # (Auto) 2.7x10^3/uL (1.0-4.8) 2.5x10^3/uL (1.0-4.8) Monocytes # (Auto) 0.5x10^3/uL (0.0-1.1) 0.5x10^3/uL (0.0-1.1) Eosinophils # (Auto) 0.2x10^3/uL (0.0-0.7) 0.2x10^3/uL (0.0-0.7) Basophils # (Auto) 0.0x10^3/uL (0.0-0.2) 0.0x10^3/uL (0.0-0.2) Sodium Level 142mmol/L (136-145) 141mmol/L (136-145) Potassium Level 4.0mmol/L (3.5-5.1) 3.5mmol/L (3.5-5.1) Chloride Level 106mmol/L (98-107) 103mmol/L (98-107) Carbon Dioxide Level 29mmol/L (21-32) 26mmol/L (21-32) Anion Gap 7 (6-14) 12 (6-14) Blood Urea Nitrogen 5mg/dL (7-20) 7mg/dL (7-20) Creatinine 0.7mg/dL (0.6-1.0) 0.7mg/dL (0.6-1.0) Estimated GFR (Cockcroft-Gault) 104.4 104.4 Glucose Level 170mg/dL (70-99) 181mg/dL (70-99) Calcium Level 8.6mg/dL (8.5-10.1) 8.9mg/dL (8.5-10.1) Laboratory Tests Test 03/13/17 03:00 White Blood Count 7.5x10^3/uL (4.0-11.0) Red Blood Count 4.30x10^6/uL (3.50-5.40) Hemoglobin 9.2g/dL (12.0-15.5) Hematocrit 29.5% (36.0-47.0) Mean Corpuscular Volume 69fL (79-100) Mean Corpuscular Hemoglobin 22pg (25-35) Mean Corpuscular Hemoglobin Concent 31g/dL (31-37) Red Cell Distribution Width 19.3% (11.5-14.5) Platelet Count 468x10^3/uL (140-400) Neutrophils (%) (Auto) 57% (31-73) Lymphocytes (%) (Auto) 33% (24-48) Monocytes (%) (Auto) 7% (0-9) Eosinophils (%) (Auto) 3% (0-3) Basophils (%) (Auto) 1% (0-3) Neutrophils # (Auto) 4.3x10^3uL (1.8-7.7) Lymphocytes # (Auto) 2.5x10^3/uL (1.0-4.8) Monocytes # (Auto) 0.5x10^3/uL (0.0-1.1) Eosinophils # (Auto) 0.2x10^3/uL (0.0-0.7) Basophils # (Auto) 0.0x10^3/uL (0.0-0.2) Sodium Level 141mmol/L (136-145) Potassium Level 3.5mmol/L (3.5-5.1) Chloride Level 103mmol/L (98-107) Carbon Dioxide Level 26mmol/L (21-32) Anion Gap 12 (6-14) Blood Urea Nitrogen 7mg/dL (7-20) Creatinine 0.7mg/dL (0.6-1.0) Estimated GFR (Cockcroft-Gault) 104.4 Glucose Level 181mg/dL (70-99) Calcium Level 8.9mg/dL (8.5-10.1) Microbiology 03/10/17 Blood Culture - Preliminary, Resulted NO GROWTH AFTER 3 DAYS 03/07/17 Urine Culture - Final, Complete 03/07/17 Urine Culture Result 1 ([facility]) - Final, Complete Medications Current Medications Sodium Chloride (Iv Sodium Chloride 0.9% 1000ml Bag) 1,000 ml @ 1,000 mls/hr Q1H IV Last administered on 03/07/17 04:59; Start 03/07/17 at 04:45; Stop 10/13 at 05:44; Status DC Hydromorphone HCl (Dilaudid) 1 mg 1X ONCE IV Last administered on 03/07/17 04 :59; Start 03/07/17 at 05:00; Stop 03/07/17 at 05:01; Status DC Ondansetron HCl (Zofran) 4 mg 1X ONCE IV Last administered on 03/07/17 05:00 ; Start 03/07/17 at 05:00; Stop 03/07/17 at 05:01; Status DC Ketorolac Tromethamine (Toradol) 15 mg 1X ONCE IV Last administered on 04:59; Start 03/07/17 at 05:00; Stop 03/07/17 at 05:01; Status DC Acetaminophen (Tylenol) 650 mg 1X ONCE PO Last administered on 03/07/17 05:00 ; Start 03/07/17 at 05:00; Stop 03/07/17 at 05:01; Status DC Iohexol (Omnipaque 300 Mg/ml) 75 ml 1X ONCE IV Last administered on 03/07/17 05:21; Start 03/07/17 at 05:00; Stop 03/07/17 at 05:01; Status DC Info 1 each 1 each PRN DAILY PRN MC SEE COMMENTS; Start 03/07/17 at 05:00; Stop 03/09/17 at 04:59; Status DC Ceftriaxone Sodium (Rocephin 1gm Ivpb For Omni) 50 ml @ 100 mls/hr 1X ONCE IV Last administered on 03/07/17 06:54; Start 03/07/17 at 06:30; Stop 03/07/17 at 06:59; Status DC Ondansetron HCl (Zofran) 4 mg PRN Q8HRS PRN IV NAUSEA/VOMITING Last administered on 03/07/17 10:41; Start 03/07/17 at 06:45; Stop 03/08/17 at 06:44 ; Status DC Morphine Sulfate 4 mg 4 mg PRN Q2HR PRN IV PAIN; Start 03/07/17 at 06:45; Stop 03/07/17 at 10:52; Status DC Sodium Chloride (Iv Sodium Chloride 0.9% 1000ml Bag) 1,000 ml @ 125 mls/hr Q8H IV Last administered on 03/07/17 07:09; Start 03/07/17 at 06:45; Stop at 10:32; Status DC Acetaminophen (Tylenol) 650 mg PRN Q4HRS PRN PO FEVER Last administered on 03/08 05:53; Start 03/07/17 at 06:45; Stop 03/08/17 at 06:44; Status DC Acetaminophen (Tylenol) 325 mg PRN Q6HRS PRN PO MILD PAIN / TEMP; Start at 08:45; Stop 03/07/17 at 08:45; Status DC Acetaminophen/ Hydrocodone Bitart (Lortab 5/325) 1 tab PRN Q6HRS PRN PO MODERATE TO SEVERE PAIN Last administered on 03/10/17 11:58; Start 03/07/17 at 08:45 Hydralazine HCl (Apresoline) 10 mg PRN Q4HRS PRN IVP ELEVATED BP, SEE COMMENTS ; Start 03/07/17 at 08:45 Ondansetron HCl (Zofran) 4 mg PRN Q8HRS PRN IV NAUSEA/VOMITING Last administered on 03/10/17 11:57; Start 03/07/17 at 08:45 Albuterol Sulfate 2.5 mg 2.5 mg PRN Q4HRS PRN NEB SHORTNESS OF BREATH; Start at 08:45 Ceftriaxone Sodium 1 gm/ Sodium Chloride 50 ml @ 100 mls/hr Q24H IV ; Start 11/12 at 06:00; Stop 03/08/17 at 06:00; Status DC Sodium Chloride (Iv Sodium Chloride 0.9% 1000ml Bag) 1,000 ml @ 50 mls/hr Q20H IV Last administered on 03/12/17 01:42; Start 03/07/17 at 08:45 Acetaminophen (Tylenol) 325 mg PRN Q6HRS PRN PO MILD PAIN / TEMP Last administered on 03/10/17 09:29; Start 03/07/17 at 08:45; Stop 03/10/17 at 17:22 ; Status DC Hydromorphone HCl 0.5 mg 0.5 mg PRN Q2HR PRN IV PAIN; Start 03/07/17 at 10:45 Metronidazole (FLAGYL 500Mmg PREMIX) 100 ml @ 100 mls/hr Q8HRS IV Last administered on 03/08/17 05:51; Start 03/07/17 at 14:00; Stop 03/08/17 at 11:03 ; Status DC Levofloxacin/ Dextrose (Levaquin Per Pharmacy) 1 each PRN DAILY PRN MC SEE COMMENTS; Start 03/07/17 at 11:00; Status Cancel Enoxaparin Sodium 40 mg 40 mg Q24H SQ Last administered on 03/11/17 20:55; Start 03/07/17 at 21:00 Levofloxacin/ Dextrose (LEVAQUIN 500mg PREMIX) 100 ml @ 100 mls/hr Q24H IV Last administered on 03/08/17 08:10; Start 03/07/17 at 12:00; Stop 03/08/17 at 11:03; Status DC Lisinopril (Prinivil) 20 mg DAILY PO Last administered on 03/13/17 09:44; Start 03/07/17 at 11:30 Atorvastatin Calcium 5 mg 5 mg QHS PO Last administered on 03/12/17 20:22; Start 03/07/17 at 21:00 Potassium Chloride/Dextrose/ Sod Cl 1,000 ml @ 75 mls/hr 1X ONCE IV Last administered on 03/08/17 10:00; Start 03/08/17 at 10:00; Stop 03/08/17 at 23:19 ; Status DC Ampicillin Sodium/ Sulbactam Sodium/ Sodium Chloride (Unasyn/Iv Sodium Chloride 0.9% 100ml) 100 ml @ 200 mls/hr Q6HRS IV Last administered on 03/13/17 12:00 ; Start 03/08/17 at 12:00 Polyethylene Glycol (miraLAX PACKET) 17 gm DAILY PO Last administered on 08:36; Start 03/09/17 at 11:00 Potassium Chloride (Klor-Con) 40 meq 1X ONCE PO Last administered on 11:51; Start 03/09/17 at 10:45; Stop 03/09/17 at 10:46; Status DC Polyethylene Glycol (miraLAX Powder BULK BOTTLE) 238 gm 1X ONCE PO ; Start at 13:15; Stop 03/09/17 at 13:29; Status DC Magnesium Citrate (Citroma) 296 ml 1X ONCE PO Last administered on 03/09/17 14:21; Start 03/09/17 at 14:00; Stop 03/09/17 at 14:01; Status DC Bisacodyl (Dulcolax Tab) 5 mg 1X ONCE PO ; Start 03/09/17 at 14:00; Stop at 14:19; Status DC Polyethylene Glycol (miraLAX Powder BULK BOTTLE) 238 gm 1X ONCE PO Last administered on 03/09/17 14:30; Start 03/09/17 at 14:00; Stop 03/09/17 at 14:01 ; Status DC Ondansetron HCl (Zofran) 4 mg PRN Q6HRS PRN IV NAUSEA/VOMITING; Start 03/10/17 at 07:00; Stop 03/10/17 at 17:20; Status DC Fentanyl Citrate (Fentanyl 2ml Vial) 25 mcg PRN Q5MIN PRN IV MILD PAIN; Start 03/10/17 at 07:00; Stop 03/10/17 at 17:20; Status DC Fentanyl Citrate (Fentanyl 2ml Vial) 50 mcg PRN Q5MIN PRN IV MODERATE PAIN; Start 03/10/17 at 07:00; Stop 03/10/17 at 17:20; Status DC Morphine Sulfate 1 mg 1 mg PRN Q10MIN PRN IV SEVERE PAIN; Start 03/10/17 at 07: 00; Stop 03/10/17 at 17:20; Status DC Lactated Ringer's (Iv Lactated Ringers) 1,000 ml @ 30 mls/hr Q24H IV ; Start at 07:00; Stop 03/10/17 at 17:20; Status DC Lidocaine HCl 2 ml PRN 1X PRN ID PRIOR TO IV START; Start 03/10/17 at 07:00; Stop 03/10/17 at 17:20; Status DC Hydromorphone HCl (Dilaudid) 0.5 mg PRN Q10MIN PRN IV SEV PAIN, Second choice; Start 03/10/17 at 07:00; Stop 03/10/17 at 17:21; Status DC Prochlorperazine Edisylate (Compazine) 5 mg PACU PRN PRN IV NAUSEA, MRX1; Start 03/10/17 at 07:00; Stop 03/10/17 at 17:21; Status DC Bisacodyl 10 mg 10 mg 1X ONCE PO Last administered on 03/09/17 18:23; Start 03/09/17 at 14:30; Stop 03/09/17 at 14:31; Status DC Propofol (Diprivan) 40 ml @ As Directed STK-MED ONCE IV ; Start 03/10/17 at 10: 26; Stop 03/10/17 at 10:27; Status DC Lidocaine HCl (Lidocaine Pf 2% Vial) 5 ml STK-MED ONCE .ROUTE ; Start 03/10/17 at 10:26; Stop 03/10/17 at 10:27; Status DC Potassium Chloride (Klor-Con) 40 meq 1X ONCE PO Last administered on 14:11; Start 03/10/17 at 12:45; Stop 03/10/17 at 12:46; Status DC Acetaminophen (Tylenol) 650 mg PRN Q6HRS PRN PO MILD PAIN / TEMP Last administered on 03/12/17 08:39; Start 03/10/17 at 17:30 Guaifenesin (Robitussin Dm) 10 ml PRN Q6HRS PRN PO COUGH Last administered on 05:56; Start 03/10/17 at 17:30 Potassium Chloride (Klor-Con) 40 meq 1X ONCE PO Last administered on 14:23; Start 03/11/17 at 13:30; Stop 03/11/17 at 13:31; Status DC Active Scripts Active Reported Pravastatin Sodium 20 Mg Tablet 1 Tab PO QHS Ferrous Sulfate 325 Mg Tablet.dr 325 Mg PO Lisinopril 20 Mg Tablet 1 Tab PO DAILY Vitals/I & O Vital Sign - Last 24 Hours 03/12/17 03/12/17 03/12/17 03/12/17 15:00 19:00 20:00 23:00 Temp 97.5 99.3 98.5 97.5 99.3 98.5 Pulse 65 70 64 Resp B/P 98/65 141/89 151/102 Pulse Ox 98 98 99 O2 Delivery Room Air Room Air 03/13/17 03/13/17 03/13/17 03/13/17 03:00 07:00 09:44 11:11 Temp 98.2 98.1 98.1 98.2 98.1 98.1 Pulse 70 69 69 73 Resp B/P 120/90 130/85 130/85 135/90 Pulse Ox 97 98 97 O2 Delivery Room Air Room Air Intake and Output 03/12/17 03/12/17 03/13/17 15:00 23:00 07:00 Intake Total 1800 ml 850 ml Balance 1800 ml 850 ml YURIY ROACH MD Mar 13, 2017 14:20
[2017-03-13] MEDS ORDERED: POTASSIUM CHLORIDE 20 MEQ TABLET.ER. PO ONE (14:30)
[2017-03-13 15:03] VITALS: BP 145/93
[2017-03-13] MEDS: ACETAMINOPHEN 325 MG TABLET. PO PRN (18:08)
[2017-03-13 19:00] VITALS: BP 139/88
[2017-03-13] MEDS: ENOXAPARIN 40 MG/0.4 ML SYRINGE. SQ SCH (21:10)
[2017-03-13] MEDS: ATORVASTATIN CALCIUM 10 MG TABLET. PO SCH (21:10)
[2017-03-13 23:00] VITALS: BP 126/80
[2017-03-14] MEDS: IV NORMAL SALINE 1000ML BAG 1,000 ML IV SCH ×2 (01:06→19:09)
[2017-03-14] MEDS: AMPICILLIN/SULBACTAM 3 GM in IV NORMAL SALINE 100ML 100 ML IV SCH ×4 (05:44→23:54)
[2017-03-14] MEDS: ACETAMINOPHEN 325 MG TABLET. PO PRN (05:47)
[2017-03-14 06:04] LABS: BASO % 0 % (0-3); EOS % 3 % (0-3); HEMATOCRIT 31.1 % (36.0-47.0); HEMOGLOBIN 9.8 g/dL (12.0-15.5); LYMPH # 2.3 x10^3/uL (1.0-4.8); LYMPH % 32 % (24-48); MEAN CORPUSCULAR HEMOGLOBIN 21 pg (25-35); MEAN CORPUSCULAR HGB CONC 32 g/dL (31-37); MEAN CORPUSCULAR VOLUME 68 fL (79-100); MONO % 6 % (0-9); NEUT % 59 % (31-73); PLATELET COUNT 599 x10^3/uL (140-400); RED BLOOD COUNT 4.57 x10^6/uL (3.50-5.40); RED CELL DISTRIBUTION WIDTH 19.6 % (11.5-14.5); WHITE BLOOD COUNT 7.2 x10^3/uL (4.0-11.0)
[2017-03-14 06:34] LABS: ALBUMIN 3.1 g/dL (3.4-5.0); ALBUMIN/GLOBULIN RATIO 0.7 (1.0-1.7); CALCIUM 9.1 mg/dL (8.5-10.1); CREATININE 0.7 mg/dL (0.6-1.0); GFR 104.4; POTASSIUM 3.8 mmol/L (3.5-5.1); TOTAL BILIRUBIN 0.4 mg/dL (0.2-1.0); TOTAL PROTEIN 7.5 g/dL (6.4-8.2)
[2017-03-14 06:43] LABS: % SAT IRON 8 % (15-34); IRON,SERUM 26 ug/dL (50-170)
[2017-03-14 07:00] VITALS: BP 129/85
[2017-03-14] MEDS: POLYETHYLENE GLYCOL 3350 17 GM PACKET. PO SCH (09:00)
--- NOTE | 2017-03-14 09:15 | PDOC ---
Infectious Disease Note Subjective Subjective Mild abdominal pain still but better + BM Occ AHN Appetite alright ROS ROS GEN: Denies fevers, chills, sweats HEENT: Denies blurred vision, sore throat CV: Denies chest pain RESP: Denies shortness of air, cough GI: Denies n/v/d NEURO: Denies confusion, dizziness MSK: Denies weakness, joint pain/swelling Vital Sign Vital Signs Vital Signs Date Time Temp Pulse Resp B/P Pulse Ox O2 Delivery O2 Flow Rate FiO2 03/14/17 07:00 98.3 67 16 129/85 98 Room Air 98.3 Physical Exam PHYSICAL EXAM GENERAL: NAD, Alert HEENT: PERRL, OC/OP - clear NECK: Supple, no JVD, no LN LUNGS: Clear HEART: S1S2, no gallop, no murmur ABD: Soft, NT, no organomegaly, no rebound, Obese, no guard EXT: No edema, no cyanosis [employer] BUS: Alert, oriented x 3, no focal neurologic deficit SKIN: No rash IV: ok Labs Lab Laboratory Tests Test 03/14/17 05:15 White Blood Count 7.2x10^3/uL (4.0-11.0) Red Blood Count 4.57x10^6/uL (3.50-5.40) Hemoglobin 9.8g/dL (12.0-15.5) Hematocrit 31.1% (36.0-47.0) Mean Corpuscular Volume 68fL (79-100) Mean Corpuscular Hemoglobin 21pg (25-35) Mean Corpuscular Hemoglobin Concent 32g/dL (31-37) Red Cell Distribution Width 19.6% (11.5-14.5) Platelet Count 599x10^3/uL (140-400) Neutrophils (%) (Auto) 59% (31-73) Lymphocytes (%) (Auto) 32% (24-48) Monocytes (%) (Auto) 6% (0-9) Eosinophils (%) (Auto) 3% (0-3) Basophils (%) (Auto) 0% (0-3) Neutrophils # (Auto) 4.3x10^3uL (1.8-7.7) Lymphocytes # (Auto) 2.3x10^3/uL (1.0-4.8) Monocytes # (Auto) 0.4x10^3/uL (0.0-1.1) Eosinophils # (Auto) 0.2x10^3/uL (0.0-0.7) Basophils # (Auto) 0.0x10^3/uL (0.0-0.2) Sodium Level 138mmol/L (136-145) Potassium Level 3.8mmol/L (3.5-5.1) Chloride Level 105mmol/L (98-107) Carbon Dioxide Level 29mmol/L (21-32) Anion Gap 4 (6-14) Blood Urea Nitrogen 7mg/dL (7-20) Creatinine 0.7mg/dL (0.6-1.0) Estimated GFR (Cockcroft-Gault) 104.4 BUN/Creatinine Ratio 10 (6-20) Glucose Level 158mg/dL (70-99) Calcium Level 9.1mg/dL (8.5-10.1) Iron Level 26ug/dL (50-170) Total Iron Binding Capacity 315ug/dL (250-450) Iron Saturation 8% (15-34) Total Bilirubin 0.4mg/dL (0.2-1.0) Aspartate Amino Transf (AST/SGOT) 25U/L (15-37) Alanine Aminotransferase (ALT/SGPT) 52U/L (14-59) Alkaline Phosphatase 88U/L (46-116) Total Protein 7.5g/dL (6.4-8.2) Albumin 3.1g/dL (3.4-5.0) Albumin/Globulin Ratio 0.7 (1.0-1.7) Objective Assessment Group A strep sepsis. POA 03/07. repeat cult 03/10 neg. ECHO 03/09 neg Fever. Resolved Abdominal pain. Cholelithiasis - better. / adhesions Anemia Eczema Plan Plan of Care Unasyn for now Await surgical decision. If no surgery ok to d/c home with Augmentin 875 mg po BID 5 days BELGICA QUINTEROS MD Mar 14, 2017 09:15
--- NOTE | 2017-03-14 09:59 | PDOC ---
SURGICAL PROGRESS NOTE Subjective she is still having RUQ pain with radiation to her back tolerating diet ok, no n/v considering surgery prior to discharge now with ongoing pain Vital Signs Vital Signs Date Time Temp Pulse Resp B/P Pulse Ox O2 Delivery O2 Flow Rate FiO2 03/14/17 07:00 98.3 67 16 129/85 98 Room Air 98.3 I&O Intake and Output 03/14/17 07:00 Intake Total 980 ml Balance 980 ml Intake Oral 980 ml # Voids 7 General: Alert, Oriented X3, Cooperative, No acute distress Abdomen: Soft, Other (ND, RUQ TTP) Labs Laboratory Tests Test 03/13/17 03:00 03/14/17 05:15 White Blood Count 7.5x10^3/uL (4.0-11.0) 7.2x10^3/uL (4.0-11.0) Red Blood Count 4.30x10^6/uL (3.50-5.40) 4.57x10^6/uL (3.50-5.40) Hemoglobin 9.2g/dL (12.0-15.5) 9.8g/dL (12.0-15.5) Hematocrit 29.5% (36.0-47.0) 31.1% (36.0-47.0) Mean Corpuscular Volume 69fL (79-100) 68fL (79-100) Mean Corpuscular Hemoglobin 22pg (25-35) 21pg (25-35) Mean Corpuscular Hemoglobin Concent 31g/dL (31-37) 32g/dL (31-37) Red Cell Distribution Width 19.3% (11.5-14.5) 19.6% (11.5-14.5) Platelet Count 468x10^3/uL (140-400) 599x10^3/uL (140-400) Neutrophils (%) (Auto) 57% (31-73) 59% (31-73) Lymphocytes (%) (Auto) 33% (24-48) 32% (24-48) Monocytes (%) (Auto) 7% (0-9) 6% (0-9) Eosinophils (%) (Auto) 3% (0-3) 3% (0-3) Basophils (%) (Auto) 1% (0-3) 0% (0-3) Neutrophils # (Auto) 4.3x10^3uL (1.8-7.7) 4.3x10^3uL (1.8-7.7) Lymphocytes # (Auto) 2.5x10^3/uL (1.0-4.8) 2.3x10^3/uL (1.0-4.8) Monocytes # (Auto) 0.5x10^3/uL (0.0-1.1) 0.4x10^3/uL (0.0-1.1) Eosinophils # (Auto) 0.2x10^3/uL (0.0-0.7) 0.2x10^3/uL (0.0-0.7) Basophils # (Auto) 0.0x10^3/uL (0.0-0.2) 0.0x10^3/uL (0.0-0.2) Sodium Level 141mmol/L (136-145) 138mmol/L (136-145) Potassium Level 3.5mmol/L (3.5-5.1) 3.8mmol/L (3.5-5.1) Chloride Level 103mmol/L (98-107) 105mmol/L (98-107) Carbon Dioxide Level 26mmol/L (21-32) 29mmol/L (21-32) Anion Gap 12 (6-14) 4 (6-14) Blood Urea Nitrogen 7mg/dL (7-20) 7mg/dL (7-20) Creatinine 0.7mg/dL (0.6-1.0) 0.7mg/dL (0.6-1.0) Estimated GFR (Cockcroft-Gault) 104.4 104.4 Glucose Level 181mg/dL (70-99) 158mg/dL (70-99) Calcium Level 8.9mg/dL (8.5-10.1) 9.1mg/dL (8.5-10.1) BUN/Creatinine Ratio 10 (6-20) Iron Level 26ug/dL (50-170) Total Iron Binding Capacity 315ug/dL (250-450) Iron Saturation 8% (15-34) Total Bilirubin 0.4mg/dL (0.2-1.0) Aspartate Amino Transf (AST/SGOT) 25U/L (15-37) Alanine Aminotransferase (ALT/SGPT) 52U/L (14-59) Alkaline Phosphatase 88U/L (46-116) Total Protein 7.5g/dL (6.4-8.2) Albumin 3.1g/dL (3.4-5.0) Albumin/Globulin Ratio 0.7 (1.0-1.7) Laboratory Tests Test 03/14/17 05:15 White Blood Count 7.2x10^3/uL (4.0-11.0) Red Blood Count 4.57x10^6/uL (3.50-5.40) Hemoglobin 9.8g/dL (12.0-15.5) Hematocrit 31.1% (36.0-47.0) Mean Corpuscular Volume 68fL (79-100) Mean Corpuscular Hemoglobin 21pg (25-35) Mean Corpuscular Hemoglobin Concent 32g/dL (31-37) Red Cell Distribution Width 19.6% (11.5-14.5) Platelet Count 599x10^3/uL (140-400) Neutrophils (%) (Auto) 59% (31-73) Lymphocytes (%) (Auto) 32% (24-48) Monocytes (%) (Auto) 6% (0-9) Eosinophils (%) (Auto) 3% (0-3) Basophils (%) (Auto) 0% (0-3) Neutrophils # (Auto) 4.3x10^3uL (1.8-7.7) Lymphocytes # (Auto) 2.3x10^3/uL (1.0-4.8) Monocytes # (Auto) 0.4x10^3/uL (0.0-1.1) Eosinophils # (Auto) 0.2x10^3/uL (0.0-0.7) Basophils # (Auto) 0.0x10^3/uL (0.0-0.2) Sodium Level 138mmol/L (136-145) Potassium Level 3.8mmol/L (3.5-5.1) Chloride Level 105mmol/L (98-107) Carbon Dioxide Level 29mmol/L (21-32) Anion Gap 4 (6-14) Blood Urea Nitrogen 7mg/dL (7-20) Creatinine 0.7mg/dL (0.6-1.0) Estimated GFR (Cockcroft-Gault) 104.4 BUN/Creatinine Ratio 10 (6-20) Glucose Level 158mg/dL (70-99) Calcium Level 9.1mg/dL (8.5-10.1) Iron Level 26ug/dL (50-170) Total Iron Binding Capacity 315ug/dL (250-450) Iron Saturation 8% (15-34) Total Bilirubin 0.4mg/dL (0.2-1.0) Aspartate Amino Transf (AST/SGOT) 25U/L (15-37) Alanine Aminotransferase (ALT/SGPT) 52U/L (14-59) Alkaline Phosphatase 88U/L (46-116) Total Protein 7.5g/dL (6.4-8.2) Albumin 3.1g/dL (3.4-5.0) Albumin/Globulin Ratio 0.7 (1.0-1.7) Problem List Problems Medical Problems: (1) Abdominal pain Status: Acute (2) Fever Status: Acute (3) Urinary tract infection Status: Acute Assessment/Plan cholelithiasis will review with Dr Pineda Problems: ZEKE CABELLO APRN Mar 14, 2017 09:59
[2017-03-14] MEDS: LISINOPRIL 20 MG TABLET PO SCH (10:04)
[2017-03-14 10:51] VITALS: BP 120/81
--- NOTE | 2017-03-14 14:13 | PDOC ---
PROGRESS NOTES Chief Complaint Chief Complaint CC: Abdominal pain 1.) Abdominal Pain - RLQ Pain - multifactorial 2.) Gram (+) cultures - strep bacteremia, POA. : on Unasyn, 3.) HTN 4.) HLP 5.) Hypokalemia: resolved. 6.) Cholelithiasis. 7.) Probable hepatic steatosis 8.) Left simple renal cyst. 9.) Microcytic, micro chromic anemia, chronic vs. iron deficiency s/p colonoscopy, rectal polyps s/p bx. 10.) Internal hemorrhoids History of Present Illness History of Present Illness would like to revisit discussion on cristóbal before DC, ongoing pain, does not feel much btter plan NPO in AM, if sched able Vitals Vitals Vital Signs Date Time Temp Pulse Resp B/P Pulse Ox O2 Delivery O2 Flow Rate FiO2 03/14/17 10:51 98.3 78 16 120/81 98 Room Air 98.3 Physical Exam General: Alert, Oriented X3, Cooperative, No acute distress Heart: Regular rate, Normal S1, Normal S2 Lungs: Clear, Other Abdomen: Soft, Other (ND, RUQ TTP) Extremities: No clubbing, No edema Skin: No rashes, No significant lesion Labs LABS Laboratory Tests Test 03/14/17 05:15 White Blood Count 7.2x10^3/uL (4.0-11.0) Red Blood Count 4.57x10^6/uL (3.50-5.40) Hemoglobin 9.8g/dL (12.0-15.5) Hematocrit 31.1% (36.0-47.0) Mean Corpuscular Volume 68fL (79-100) Mean Corpuscular Hemoglobin 21pg (25-35) Mean Corpuscular Hemoglobin Concent 32g/dL (31-37) Red Cell Distribution Width 19.6% (11.5-14.5) Platelet Count 599x10^3/uL (140-400) Neutrophils (%) (Auto) 59% (31-73) Lymphocytes (%) (Auto) 32% (24-48) Monocytes (%) (Auto) 6% (0-9) Eosinophils (%) (Auto) 3% (0-3) Basophils (%) (Auto) 0% (0-3) Neutrophils # (Auto) 4.3x10^3uL (1.8-7.7) Lymphocytes # (Auto) 2.3x10^3/uL (1.0-4.8) Monocytes # (Auto) 0.4x10^3/uL (0.0-1.1) Eosinophils # (Auto) 0.2x10^3/uL (0.0-0.7) Basophils # (Auto) 0.0x10^3/uL (0.0-0.2) Sodium Level 138mmol/L (136-145) Potassium Level 3.8mmol/L (3.5-5.1) Chloride Level 105mmol/L (98-107) Carbon Dioxide Level 29mmol/L (21-32) Anion Gap 4 (6-14) Blood Urea Nitrogen 7mg/dL (7-20) Creatinine 0.7mg/dL (0.6-1.0) Estimated GFR (Cockcroft-Gault) 104.4 BUN/Creatinine Ratio 10 (6-20) Glucose Level 158mg/dL (70-99) Calcium Level 9.1mg/dL (8.5-10.1) Iron Level 26ug/dL (50-170) Total Iron Binding Capacity 315ug/dL (250-450) Iron Saturation 8% (15-34) Total Bilirubin 0.4mg/dL (0.2-1.0) Aspartate Amino Transf (AST/SGOT) 25U/L (15-37) Alanine Aminotransferase (ALT/SGPT) 52U/L (14-59) Alkaline Phosphatase 88U/L (46-116) Total Protein 7.5g/dL (6.4-8.2) Albumin 3.1g/dL (3.4-5.0) Albumin/Globulin Ratio 0.7 (1.0-1.7) Assessment and Plan Assessmemt and Plan Problems Medical Problems: (1) Abdominal pain Status: Acute (2) Fever Status: Acute (3) Urinary tract infection Status: Acute Problems: Comment Review of Relevant I have reviewed the following items kory (where applicable) has been applied. Labs Laboratory Tests Test 03/13/17 03:00 03/14/17 05:15 White Blood Count 7.5x10^3/uL (4.0-11.0) 7.2x10^3/uL (4.0-11.0) Red Blood Count 4.30x10^6/uL (3.50-5.40) 4.57x10^6/uL (3.50-5.40) Hemoglobin 9.2g/dL (12.0-15.5) 9.8g/dL (12.0-15.5) Hematocrit 29.5% (36.0-47.0) 31.1% (36.0-47.0) Mean Corpuscular Volume 69fL (79-100) 68fL (79-100) Mean Corpuscular Hemoglobin 22pg (25-35) 21pg (25-35) Mean Corpuscular Hemoglobin Concent 31g/dL (31-37) 32g/dL (31-37) Red Cell Distribution Width 19.3% (11.5-14.5) 19.6% (11.5-14.5) Platelet Count 468x10^3/uL (140-400) 599x10^3/uL (140-400) Neutrophils (%) (Auto) 57% (31-73) 59% (31-73) Lymphocytes (%) (Auto) 33% (24-48) 32% (24-48) Monocytes (%) (Auto) 7% (0-9) 6% (0-9) Eosinophils (%) (Auto) 3% (0-3) 3% (0-3) Basophils (%) (Auto) 1% (0-3) 0% (0-3) Neutrophils # (Auto) 4.3x10^3uL (1.8-7.7) 4.3x10^3uL (1.8-7.7) Lymphocytes # (Auto) 2.5x10^3/uL (1.0-4.8) 2.3x10^3/uL (1.0-4.8) Monocytes # (Auto) 0.5x10^3/uL (0.0-1.1) 0.4x10^3/uL (0.0-1.1) Eosinophils # (Auto) 0.2x10^3/uL (0.0-0.7) 0.2x10^3/uL (0.0-0.7) Basophils # (Auto) 0.0x10^3/uL (0.0-0.2) 0.0x10^3/uL (0.0-0.2) Sodium Level 141mmol/L (136-145) 138mmol/L (136-145) Potassium Level 3.5mmol/L (3.5-5.1) 3.8mmol/L (3.5-5.1) Chloride Level 103mmol/L (98-107) 105mmol/L (98-107) Carbon Dioxide Level 26mmol/L (21-32) 29mmol/L (21-32) Anion Gap 12 (6-14) 4 (6-14) Blood Urea Nitrogen 7mg/dL (7-20) 7mg/dL (7-20) Creatinine 0.7mg/dL (0.6-1.0) 0.7mg/dL (0.6-1.0) Estimated GFR (Cockcroft-Gault) 104.4 104.4 Glucose Level 181mg/dL (70-99) 158mg/dL (70-99) Calcium Level 8.9mg/dL (8.5-10.1) 9.1mg/dL (8.5-10.1) BUN/Creatinine Ratio 10 (6-20) Iron Level 26ug/dL (50-170) Total Iron Binding Capacity 315ug/dL (250-450) Iron Saturation 8% (15-34) Total Bilirubin 0.4mg/dL (0.2-1.0) Aspartate Amino Transf (AST/SGOT) 25U/L (15-37) Alanine Aminotransferase (ALT/SGPT) 52U/L (14-59) Alkaline Phosphatase 88U/L (46-116) Total Protein 7.5g/dL (6.4-8.2) Albumin 3.1g/dL (3.4-5.0) Albumin/Globulin Ratio 0.7 (1.0-1.7) Laboratory Tests Test 03/14/17 05:15 White Blood Count 7.2x10^3/uL (4.0-11.0) Red Blood Count 4.57x10^6/uL (3.50-5.40) Hemoglobin 9.8g/dL (12.0-15.5) Hematocrit 31.1% (36.0-47.0) Mean Corpuscular Volume 68fL (79-100) Mean Corpuscular Hemoglobin 21pg (25-35) Mean Corpuscular Hemoglobin Concent 32g/dL (31-37) Red Cell Distribution Width 19.6% (11.5-14.5) Platelet Count 599x10^3/uL (140-400) Neutrophils (%) (Auto) 59% (31-73) Lymphocytes (%) (Auto) 32% (24-48) Monocytes (%) (Auto) 6% (0-9) Eosinophils (%) (Auto) 3% (0-3) Basophils (%) (Auto) 0% (0-3) Neutrophils # (Auto) 4.3x10^3uL (1.8-7.7) Lymphocytes # (Auto) 2.3x10^3/uL (1.0-4.8) Monocytes # (Auto) 0.4x10^3/uL (0.0-1.1) Eosinophils # (Auto) 0.2x10^3/uL (0.0-0.7) Basophils # (Auto) 0.0x10^3/uL (0.0-0.2) Sodium Level 138mmol/L (136-145) Potassium Level 3.8mmol/L (3.5-5.1) Chloride Level 105mmol/L (98-107) Carbon Dioxide Level 29mmol/L (21-32) Anion Gap 4 (6-14) Blood Urea Nitrogen 7mg/dL (7-20) Creatinine 0.7mg/dL (0.6-1.0) Estimated GFR (Cockcroft-Gault) 104.4 BUN/Creatinine Ratio 10 (6-20) Glucose Level 158mg/dL (70-99) Calcium Level 9.1mg/dL (8.5-10.1) Iron Level 26ug/dL (50-170) Total Iron Binding Capacity 315ug/dL (250-450) Iron Saturation 8% (15-34) Total Bilirubin 0.4mg/dL (0.2-1.0) Aspartate Amino Transf (AST/SGOT) 25U/L (15-37) Alanine Aminotransferase (ALT/SGPT) 52U/L (14-59) Alkaline Phosphatase 88U/L (46-116) Total Protein 7.5g/dL (6.4-8.2) Albumin 3.1g/dL (3.4-5.0) Albumin/Globulin Ratio 0.7 (1.0-1.7) Microbiology 03/10/17 Blood Culture - Preliminary, Resulted NO GROWTH AFTER 4 DAYS 03/07/17 Urine Culture - Final, Complete 03/07/17 Urine Culture Result 1 ([facility]) - Final, Complete Medications Current Medications Sodium Chloride (Iv Sodium Chloride 0.9% 1000ml Bag) 1,000 ml @ 1,000 mls/hr Q1H IV Last administered on 03/07/17 04:59; Start 03/07/17 at 04:45; Stop 10/13 at 05:44; Status DC Hydromorphone HCl (Dilaudid) 1 mg 1X ONCE IV Last administered on 03/07/17 04 :59; Start 03/07/17 at 05:00; Stop 03/07/17 at 05:01; Status DC Ondansetron HCl (Zofran) 4 mg 1X ONCE IV Last administered on 03/07/17 05:00 ; Start 03/07/17 at 05:00; Stop 03/07/17 at 05:01; Status DC Ketorolac Tromethamine (Toradol) 15 mg 1X ONCE IV Last administered on 04:59; Start 03/07/17 at 05:00; Stop 03/07/17 at 05:01; Status DC Acetaminophen (Tylenol) 650 mg 1X ONCE PO Last administered on 03/07/17 05:00 ; Start 03/07/17 at 05:00; Stop 03/07/17 at 05:01; Status DC Iohexol (Omnipaque 300 Mg/ml) 75 ml 1X ONCE IV Last administered on 03/07/17 05:21; Start 03/07/17 at 05:00; Stop 03/07/17 at 05:01; Status DC Info 1 each 1 each PRN DAILY PRN MC SEE COMMENTS; Start 03/07/17 at 05:00; Stop 03/09/17 at 04:59; Status DC Ceftriaxone Sodium (Rocephin 1gm Ivpb For Omni) 50 ml @ 100 mls/hr 1X ONCE IV Last administered on 03/07/17 06:54; Start 03/07/17 at 06:30; Stop 03/07/17 at 06:59; Status DC Ondansetron HCl (Zofran) 4 mg PRN Q8HRS PRN IV NAUSEA/VOMITING Last administered on 03/07/17 10:41; Start 03/07/17 at 06:45; Stop 03/08/17 at 06:44 ; Status DC Morphine Sulfate 4 mg 4 mg PRN Q2HR PRN IV PAIN; Start 03/07/17 at 06:45; Stop 03/07/17 at 10:52; Status DC Sodium Chloride (Iv Sodium Chloride 0.9% 1000ml Bag) 1,000 ml @ 125 mls/hr Q8H IV Last administered on 03/07/17 07:09; Start 03/07/17 at 06:45; Stop at 10:32; Status DC Acetaminophen (Tylenol) 650 mg PRN Q4HRS PRN PO FEVER Last administered on 03/08 05:53; Start 03/07/17 at 06:45; Stop 03/08/17 at 06:44; Status DC Acetaminophen (Tylenol) 325 mg PRN Q6HRS PRN PO MILD PAIN / TEMP; Start at 08:45; Stop 03/07/17 at 08:45; Status DC Acetaminophen/ Hydrocodone Bitart (Lortab 5/325) 1 tab PRN Q6HRS PRN PO MODERATE TO SEVERE PAIN Last administered on 03/10/17 11:58; Start 03/07/17 at 08:45 Hydralazine HCl (Apresoline) 10 mg PRN Q4HRS PRN IVP ELEVATED BP, SEE COMMENTS ; Start 03/07/17 at 08:45 Ondansetron HCl (Zofran) 4 mg PRN Q8HRS PRN IV NAUSEA/VOMITING Last administered on 03/10/17 11:57; Start 03/07/17 at 08:45 Albuterol Sulfate 2.5 mg 2.5 mg PRN Q4HRS PRN NEB SHORTNESS OF BREATH; Start at 08:45 Ceftriaxone Sodium 1 gm/ Sodium Chloride 50 ml @ 100 mls/hr Q24H IV ; Start 11/12 at 06:00; Stop 03/08/17 at 06:00; Status DC Sodium Chloride (Iv Sodium Chloride 0.9% 1000ml Bag) 1,000 ml @ 50 mls/hr Q20H IV Last administered on 03/14/17 01:06; Start 03/07/17 at 08:45 Acetaminophen (Tylenol) 325 mg PRN Q6HRS PRN PO MILD PAIN / TEMP Last administered on 03/10/17 09:29; Start 03/07/17 at 08:45; Stop 03/10/17 at 17:22 ; Status DC Hydromorphone HCl 0.5 mg 0.5 mg PRN Q2HR PRN IV PAIN; Start 03/07/17 at 10:45 Metronidazole (FLAGYL 500Mmg PREMIX) 100 ml @ 100 mls/hr Q8HRS IV Last administered on 03/08/17 05:51; Start 03/07/17 at 14:00; Stop 03/08/17 at 11:03 ; Status DC Levofloxacin/ Dextrose (Levaquin Per Pharmacy) 1 each PRN DAILY PRN MC SEE COMMENTS; Start 03/07/17 at 11:00; Status Cancel Enoxaparin Sodium 40 mg 40 mg Q24H SQ Last administered on 03/13/17 21:10; Start 03/07/17 at 21:00 Levofloxacin/ Dextrose (LEVAQUIN 500mg PREMIX) 100 ml @ 100 mls/hr Q24H IV Last administered on 03/08/17 08:10; Start 03/07/17 at 12:00; Stop 03/08/17 at 11:03; Status DC Lisinopril (Prinivil) 20 mg DAILY PO Last administered on 03/14/17 10:04; Start 03/07/17 at 11:30 Atorvastatin Calcium 5 mg 5 mg QHS PO Last administered on 03/13/17 21:10; Start 03/07/17 at 21:00 Potassium Chloride/Dextrose/ Sod Cl 1,000 ml @ 75 mls/hr 1X ONCE IV Last administered on 03/08/17 10:00; Start 03/08/17 at 10:00; Stop 03/08/17 at 23:19 ; Status DC Ampicillin Sodium/ Sulbactam Sodium/ Sodium Chloride (Unasyn/Iv Sodium Chloride 0.9% 100ml) 100 ml @ 200 mls/hr Q6HRS IV Last administered on 03/14/17 12:28 ; Start 03/08/17 at 12:00 Polyethylene Glycol (miraLAX PACKET) 17 gm DAILY PO Last administered on 08:36; Start 03/09/17 at 11:00 Potassium Chloride (Klor-Con) 40 meq 1X ONCE PO Last administered on 11:51; Start 03/09/17 at 10:45; Stop 03/09/17 at 10:46; Status DC Polyethylene Glycol (miraLAX Powder BULK BOTTLE) 238 gm 1X ONCE PO ; Start at 13:15; Stop 03/09/17 at 13:29; Status DC Magnesium Citrate (Citroma) 296 ml 1X ONCE PO Last administered on 03/09/17 14:21; Start 03/09/17 at 14:00; Stop 03/09/17 at 14:01; Status DC Bisacodyl (Dulcolax Tab) 5 mg 1X ONCE PO ; Start 03/09/17 at 14:00; Stop at 14:19; Status DC Polyethylene Glycol (miraLAX Powder BULK BOTTLE) 238 gm 1X ONCE PO Last administered on 03/09/17 14:30; Start 03/09/17 at 14:00; Stop 03/09/17 at 14:01 ; Status DC Ondansetron HCl (Zofran) 4 mg PRN Q6HRS PRN IV NAUSEA/VOMITING; Start 03/10/17 at 07:00; Stop 03/10/17 at 17:20; Status DC Fentanyl Citrate (Fentanyl 2ml Vial) 25 mcg PRN Q5MIN PRN IV MILD PAIN; Start 03/10/17 at 07:00; Stop 03/10/17 at 17:20; Status DC Fentanyl Citrate (Fentanyl 2ml Vial) 50 mcg PRN Q5MIN PRN IV MODERATE PAIN; Start 03/10/17 at 07:00; Stop 03/10/17 at 17:20; Status DC Morphine Sulfate 1 mg 1 mg PRN Q10MIN PRN IV SEVERE PAIN; Start 03/10/17 at 07: 00; Stop 03/10/17 at 17:20; Status DC Lactated Ringer's (Iv Lactated Ringers) 1,000 ml @ 30 mls/hr Q24H IV ; Start at 07:00; Stop 03/10/17 at 17:20; Status DC Lidocaine HCl 2 ml PRN 1X PRN ID PRIOR TO IV START; Start 03/10/17 at 07:00; Stop 03/10/17 at 17:20; Status DC Hydromorphone HCl (Dilaudid) 0.5 mg PRN Q10MIN PRN IV SEV PAIN, Second choice; Start 03/10/17 at 07:00; Stop 03/10/17 at 17:21; Status DC Prochlorperazine Edisylate (Compazine) 5 mg PACU PRN PRN IV NAUSEA, MRX1; Start 03/10/17 at 07:00; Stop 03/10/17 at 17:21; Status DC Bisacodyl 10 mg 10 mg 1X ONCE PO Last administered on 03/09/17 18:23; Start 03/09/17 at 14:30; Stop 03/09/17 at 14:31; Status DC Propofol (Diprivan) 40 ml @ As Directed STK-MED ONCE IV ; Start 03/10/17 at 10: 26; Stop 03/10/17 at 10:27; Status DC Lidocaine HCl (Lidocaine Pf 2% Vial) 5 ml STK-MED ONCE .ROUTE ; Start 03/10/17 at 10:26; Stop 03/10/17 at 10:27; Status DC Potassium Chloride (Klor-Con) 40 meq 1X ONCE PO Last administered on 14:11; Start 03/10/17 at 12:45; Stop 03/10/17 at 12:46; Status DC Acetaminophen (Tylenol) 650 mg PRN Q6HRS PRN PO MILD PAIN / TEMP Last administered on 03/14/17 05:47; Start 03/10/17 at 17:30 Guaifenesin (Robitussin Dm) 10 ml PRN Q6HRS PRN PO COUGH Last administered on 05:56; Start 03/10/17 at 17:30 Potassium Chloride (Klor-Con) 40 meq 1X ONCE PO Last administered on 14:23; Start 03/11/17 at 13:30; Stop 03/11/17 at 13:31; Status DC Potassium Chloride (Klor-Con) 20 meq 1X ONCE PO Last administered on 15:36; Start 03/13/17 at 14:30; Stop 03/13/17 at 14:31; Status DC Active Scripts Active Reported Pravastatin Sodium 20 Mg Tablet 1 Tab PO QHS Ferrous Sulfate 325 Mg Tablet.dr 325 Mg PO Lisinopril 20 Mg Tablet 1 Tab PO DAILY Vitals/I & O Vital Sign - Last 24 Hours 03/13/17 03/13/17 03/13/17 03/14/17 15:03 19:00 23:00 07:00 Temp 98.1 98.3 98.1 98.3 98.1 98.3 98.1 98.3 Pulse 77 64 67 67 Resp 17 20 20 16 B/P 145/93 139/88 126/80 129/85 Pulse Ox 99 97 99 98 O2 Delivery Room Air Room Air Room Air Room Air 03/14/17 03/14/17 03/14/17 08:00 10:04 10:51 Temp 98.3 98.3 Pulse 78 78 Resp 16 B/P 120/81 120/81 Pulse Ox 98 O2 Delivery Room Air Room Air Intake and Output 03/13/17 03/13/17 03/14/17 15:00 23:00 07:00 Intake Total 360 ml 620 ml Balance 360 ml 620 ml YURIY ROACH MD Mar 14, 2017 14:13
[2017-03-14 15:03] VITALS: BP 146/88
[2017-03-14 19:00] VITALS: BP 154/96
[2017-03-14] MEDS: ATORVASTATIN CALCIUM 10 MG TABLET. PO SCH (20:26)
[2017-03-14] MEDS: ENOXAPARIN 40 MG/0.4 ML SYRINGE. SQ SCH (20:27)
[2017-03-14 23:00] VITALS: BP 136/75
[2017-03-15 03:00] VITALS: BP 135/82
[2017-03-15] MEDS: AMPICILLIN/SULBACTAM 3 GM in IV NORMAL SALINE 100ML 100 ML IV SCH ×3 (05:43→20:33)
[2017-03-15 07:00] VITALS: BP 121/94
[2017-03-15] MEDS: POLYETHYLENE GLYCOL 3350 17 GM PACKET. PO SCH (08:08)
[2017-03-15] MEDS: LISINOPRIL 20 MG TABLET PO SCH (08:08)
--- NOTE | 2017-03-15 08:28 | PDOC ---
SURGICAL PROGRESS NOTE Subjective Patient still having right sided abdominal pain. No N/V Wants to have surgery to remove gallbladder. Vital Signs Vital Signs Date Time Temp Pulse Resp B/P Pulse Ox O2 Delivery O2 Flow Rate FiO2 03/15/17 08:08 68 121/94 03/15/17 03:00 98.4 20 95 98.4 03/14/17 23:00 Room Air I&O Intake and Output 03/15/17 07:00 Intake Total 480 ml Balance 480 ml Intake Oral 480 ml # Voids 4 PATIENT HAS A BARRIENTOS: No General: Alert, Oriented X3, Cooperative, mild distress Abdomen: Normal bowel sounds, Soft, Other (TTP RUQ) Labs Laboratory Tests Test 03/14/17 05:15 White Blood Count 7.2x10^3/uL (4.0-11.0) Red Blood Count 4.57x10^6/uL (3.50-5.40) Hemoglobin 9.8g/dL (12.0-15.5) Hematocrit 31.1% (36.0-47.0) Mean Corpuscular Volume 68fL (79-100) Mean Corpuscular Hemoglobin 21pg (25-35) Mean Corpuscular Hemoglobin Concent 32g/dL (31-37) Red Cell Distribution Width 19.6% (11.5-14.5) Platelet Count 599x10^3/uL (140-400) Neutrophils (%) (Auto) 59% (31-73) Lymphocytes (%) (Auto) 32% (24-48) Monocytes (%) (Auto) 6% (0-9) Eosinophils (%) (Auto) 3% (0-3) Basophils (%) (Auto) 0% (0-3) Neutrophils # (Auto) 4.3x10^3uL (1.8-7.7) Lymphocytes # (Auto) 2.3x10^3/uL (1.0-4.8) Monocytes # (Auto) 0.4x10^3/uL (0.0-1.1) Eosinophils # (Auto) 0.2x10^3/uL (0.0-0.7) Basophils # (Auto) 0.0x10^3/uL (0.0-0.2) Sodium Level 138mmol/L (136-145) Potassium Level 3.8mmol/L (3.5-5.1) Chloride Level 105mmol/L (98-107) Carbon Dioxide Level 29mmol/L (21-32) Anion Gap 4 (6-14) Blood Urea Nitrogen 7mg/dL (7-20) Creatinine 0.7mg/dL (0.6-1.0) Estimated GFR (Cockcroft-Gault) 104.4 BUN/Creatinine Ratio 10 (6-20) Glucose Level 158mg/dL (70-99) Calcium Level 9.1mg/dL (8.5-10.1) Iron Level 26ug/dL (50-170) Total Iron Binding Capacity 315ug/dL (250-450) Iron Saturation 8% (15-34) Total Bilirubin 0.4mg/dL (0.2-1.0) Aspartate Amino Transf (AST/SGOT) 25U/L (15-37) Alanine Aminotransferase (ALT/SGPT) 52U/L (14-59) Alkaline Phosphatase 88U/L (46-116) Total Protein 7.5g/dL (6.4-8.2) Albumin 3.1g/dL (3.4-5.0) Albumin/Globulin Ratio 0.7 (1.0-1.7) I have reviewed the following U/S shows gallstones Problem List Problems Medical Problems: (1) Abdominal pain Status: Acute (2) Fever Status: Acute (3) Urinary tract infection Status: Acute Assessment/Plan Symptomatic cholelithiasis plan for L/S Cholecystectomy tomorrow AM Discussed with the patient including risks and benefits and she wishes to proceed. Problems: PRINCE DUNCAN MD Mar 15, 2017 08:28
--- NOTE | 2017-03-15 10:25 | PDOC ---
Infectious Disease Note Subjective Subjective Mild abdominal pain still but better + BM Occ AHN at night Appetite alright ROS ROS GEN: Denies fevers, chills, sweats HEENT: Denies blurred vision, sore throat CV: Denies chest pain RESP: Denies shortness of air, cough GI: Denies n/v/d NEURO: Denies confusion, dizziness MSK: Denies weakness, joint pain/swelling Vital Sign Vital Signs Vital Signs Date Time Temp Pulse Resp B/P Pulse Ox O2 Delivery O2 Flow Rate FiO2 03/15/17 08:08 68 121/94 03/15/17 07:00 97.6 24 98 Room Air 97.6 Physical Exam PHYSICAL EXAM GENERAL: NAD, Alert HEENT: PERRL, OC/OP - clear NECK: Supple, no JVD, no LN LUNGS: Clear HEART: S1S2, no gallop, no murmur ABD: Soft, NT, no organomegaly, no rebound, Obese, no guard EXT: No edema, no cyanosis [employer]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 POA 03/07. repeat cult 03/10 neg. ECHO 03/09 neg Fever. Resolved AHN - Med related Abdominal pain. Cholelithiasis - better. /adhesions Anemia Eczema Plan Plan of Care Unasyn for now Surgery in am BELGICA QUINTEROS MD Mar 15, 2017 10:25
[2017-03-15 11:00] VITALS: BP 134/70
--- NOTE | 2017-03-15 11:36 | PDOC ---
PROGRESS NOTES Chief Complaint Chief Complaint CC: Abdominal pain 1.) Abdominal Pain - RLQ Pain - acute cristóbal pain, symptomatic cholecystitis 2.) Gram (+) cultures - strep bacteremia, POA. : on Unasyn, 3.) HTN 4.) HLP 5.) Hypokalemia: resolved. 6.) Cholelithiasis. 7.) Probable hepatic steatosis 8.) Left simple renal cyst. 9.) Microcytic, micro chromic anemia, chronic vs. iron deficiency s/p colonoscopy, rectal polyps s/p bx. 10.) Internal hemorrhoids History of Present Illness History of Present Illness AHN at night, would consider lipitor related, will hold tylenol PRN plan surg in AM per Dr. Bland note, symptomatic cristóbal Vitals Vitals Vital Signs Date Time Temp Pulse Resp B/P Pulse Ox O2 Delivery O2 Flow Rate FiO2 03/15/17 08:15 Room Air 03/15/17 08:08 68 121/94 03/15/17 07:00 97.6 24 98 97.6 Physical Exam General: Alert, Oriented X3, Cooperative, mild distress Heart: Regular rate, Normal S1, Normal S2 Lungs: Clear, Other Abdomen: Normal bowel sounds, Soft, Other (TTP RUQ) Extremities: No clubbing, No edema Skin: No rashes, No significant lesion Assessment and Plan Assessmemt and Plan Problems Medical Problems: (1) Abdominal pain Status: Acute (2) Fever Status: Acute (3) Urinary tract infection Status: Acute Problems: Comment Review of Relevant I have reviewed the following items kory (where applicable) has been applied. Labs Laboratory Tests Test 03/14/17 05:15 White Blood Count 7.2x10^3/uL (4.0-11.0) Red Blood Count 4.57x10^6/uL (3.50-5.40) Hemoglobin 9.8g/dL (12.0-15.5) Hematocrit 31.1% (36.0-47.0) Mean Corpuscular Volume 68fL (79-100) Mean Corpuscular Hemoglobin 21pg (25-35) Mean Corpuscular Hemoglobin Concent 32g/dL (31-37) Red Cell Distribution Width 19.6% (11.5-14.5) Platelet Count 599x10^3/uL (140-400) Neutrophils (%) (Auto) 59% (31-73) Lymphocytes (%) (Auto) 32% (24-48) Monocytes (%) (Auto) 6% (0-9) Eosinophils (%) (Auto) 3% (0-3) Basophils (%) (Auto) 0% (0-3) Neutrophils # (Auto) 4.3x10^3uL (1.8-7.7) Lymphocytes # (Auto) 2.3x10^3/uL (1.0-4.8) Monocytes # (Auto) 0.4x10^3/uL (0.0-1.1) Eosinophils # (Auto) 0.2x10^3/uL (0.0-0.7) Basophils # (Auto) 0.0x10^3/uL (0.0-0.2) Sodium Level 138mmol/L (136-145) Potassium Level 3.8mmol/L (3.5-5.1) Chloride Level 105mmol/L (98-107) Carbon Dioxide Level 29mmol/L (21-32) Anion Gap 4 (6-14) Blood Urea Nitrogen 7mg/dL (7-20) Creatinine 0.7mg/dL (0.6-1.0) Estimated GFR (Cockcroft-Gault) 104.4 BUN/Creatinine Ratio 10 (6-20) Glucose Level 158mg/dL (70-99) Calcium Level 9.1mg/dL (8.5-10.1) Iron Level 26ug/dL (50-170) Total Iron Binding Capacity 315ug/dL (250-450) Iron Saturation 8% (15-34) Total Bilirubin 0.4mg/dL (0.2-1.0) Aspartate Amino Transf (AST/SGOT) 25U/L (15-37) Alanine Aminotransferase (ALT/SGPT) 52U/L (14-59) Alkaline Phosphatase 88U/L (46-116) Total Protein 7.5g/dL (6.4-8.2) Albumin 3.1g/dL (3.4-5.0) Albumin/Globulin Ratio 0.7 (1.0-1.7) Microbiology 03/10/17 Blood Culture - Preliminary, Resulted NO GROWTH AFTER 4 DAYS 03/07/17 Urine Culture - Final, Complete 03/07/17 Urine Culture Result 1 ([facility]) - Final, Complete Medications Current Medications Sodium Chloride (Iv Sodium Chloride 0.9% 1000ml Bag) 1,000 ml @ 1,000 mls/hr Q1H IV Last administered on 03/07/17 04:59; Start 03/07/17 at 04:45; Stop 10/13 at 05:44; Status DC Hydromorphone HCl (Dilaudid) 1 mg 1X ONCE IV Last administered on 03/07/17 04 :59; Start 03/07/17 at 05:00; Stop 03/07/17 at 05:01; Status DC Ondansetron HCl (Zofran) 4 mg 1X ONCE IV Last administered on 03/07/17 05:00 ; Start 03/07/17 at 05:00; Stop 03/07/17 at 05:01; Status DC Ketorolac Tromethamine (Toradol) 15 mg 1X ONCE IV Last administered on 04:59; Start 03/07/17 at 05:00; Stop 03/07/17 at 05:01; Status DC Acetaminophen (Tylenol) 650 mg 1X ONCE PO Last administered on 03/07/17 05:00 ; Start 03/07/17 at 05:00; Stop 03/07/17 at 05:01; Status DC Iohexol (Omnipaque 300 Mg/ml) 75 ml 1X ONCE IV Last administered on 03/07/17 05:21; Start 03/07/17 at 05:00; Stop 03/07/17 at 05:01; Status DC Info 1 each 1 each PRN DAILY PRN MC SEE COMMENTS; Start 03/07/17 at 05:00; Stop 03/09/17 at 04:59; Status DC Ceftriaxone Sodium (Rocephin 1gm Ivpb For Omni) 50 ml @ 100 mls/hr 1X ONCE IV Last administered on 03/07/17 06:54; Start 03/07/17 at 06:30; Stop 03/07/17 at 06:59; Status DC Ondansetron HCl (Zofran) 4 mg PRN Q8HRS PRN IV NAUSEA/VOMITING Last administered on 03/07/17 10:41; Start 03/07/17 at 06:45; Stop 03/08/17 at 06:44 ; Status DC Morphine Sulfate 4 mg 4 mg PRN Q2HR PRN IV PAIN; Start 03/07/17 at 06:45; Stop 03/07/17 at 10:52; Status DC Sodium Chloride (Iv Sodium Chloride 0.9% 1000ml Bag) 1,000 ml @ 125 mls/hr Q8H IV Last administered on 03/07/17 07:09; Start 03/07/17 at 06:45; Stop at 10:32; Status DC Acetaminophen (Tylenol) 650 mg PRN Q4HRS PRN PO FEVER Last administered on 03/08 05:53; Start 03/07/17 at 06:45; Stop 03/08/17 at 06:44; Status DC Acetaminophen (Tylenol) 325 mg PRN Q6HRS PRN PO MILD PAIN / TEMP; Start at 08:45; Stop 03/07/17 at 08:45; Status DC Acetaminophen/ Hydrocodone Bitart (Lortab 5/325) 1 tab PRN Q6HRS PRN PO MODERATE TO SEVERE PAIN Last administered on 03/10/17 11:58; Start 03/07/17 at 08:45 Hydralazine HCl (Apresoline) 10 mg PRN Q4HRS PRN IVP ELEVATED BP, SEE COMMENTS ; Start 03/07/17 at 08:45 Ondansetron HCl (Zofran) 4 mg PRN Q8HRS PRN IV NAUSEA/VOMITING Last administered on 03/10/17 11:57; Start 03/07/17 at 08:45 Albuterol Sulfate 2.5 mg 2.5 mg PRN Q4HRS PRN NEB SHORTNESS OF BREATH; Start at 08:45 Ceftriaxone Sodium 1 gm/ Sodium Chloride 50 ml @ 100 mls/hr Q24H IV ; Start 11/12 at 06:00; Stop 03/08/17 at 06:00; Status DC Sodium Chloride (Iv Sodium Chloride 0.9% 1000ml Bag) 1,000 ml @ 50 mls/hr Q20H IV Last administered on 03/14/17 19:09; Start 03/07/17 at 08:45 Acetaminophen (Tylenol) 325 mg PRN Q6HRS PRN PO MILD PAIN / TEMP Last administered on 03/10/17 09:29; Start 03/07/17 at 08:45; Stop 03/10/17 at 17:22 ; Status DC Hydromorphone HCl 0.5 mg 0.5 mg PRN Q2HR PRN IV PAIN; Start 03/07/17 at 10:45 Metronidazole (FLAGYL 500Mmg PREMIX) 100 ml @ 100 mls/hr Q8HRS IV Last administered on 03/08/17 05:51; Start 03/07/17 at 14:00; Stop 03/08/17 at 11:03 ; Status DC Levofloxacin/ Dextrose (Levaquin Per Pharmacy) 1 each PRN DAILY PRN MC SEE COMMENTS; Start 03/07/17 at 11:00; Status Cancel Enoxaparin Sodium 40 mg 40 mg Q24H SQ Last administered on 03/14/17 20:27; Start 03/07/17 at 21:00 Levofloxacin/ Dextrose (LEVAQUIN 500mg PREMIX) 100 ml @ 100 mls/hr Q24H IV Last administered on 03/08/17 08:10; Start 03/07/17 at 12:00; Stop 03/08/17 at 11:03; Status DC Lisinopril (Prinivil) 20 mg DAILY PO Last administered on 03/15/17 08:08; Start 03/07/17 at 11:30 Atorvastatin Calcium 5 mg 5 mg QHS PO Last administered on 03/14/17 20:26; Start 03/07/17 at 21:00 Potassium Chloride/Dextrose/ Sod Cl 1,000 ml @ 75 mls/hr 1X ONCE IV Last administered on 03/08/17 10:00; Start 03/08/17 at 10:00; Stop 03/08/17 at 23:19 ; Status DC Ampicillin Sodium/ Sulbactam Sodium/ Sodium Chloride (Unasyn/Iv Sodium Chloride 0.9% 100ml) 100 ml @ 200 mls/hr Q6HRS IV Last administered on 03/15/17 05:43 ; Start 03/08/17 at 12:00 Polyethylene Glycol (miraLAX PACKET) 17 gm DAILY PO Last administered on 08:36; Start 03/09/17 at 11:00 Potassium Chloride (Klor-Con) 40 meq 1X ONCE PO Last administered on 11:51; Start 03/09/17 at 10:45; Stop 03/09/17 at 10:46; Status DC Polyethylene Glycol (miraLAX Powder BULK BOTTLE) 238 gm 1X ONCE PO ; Start at 13:15; Stop 03/09/17 at 13:29; Status DC Magnesium Citrate (Citroma) 296 ml 1X ONCE PO Last administered on 03/09/17t 14:21; Start 03/09/17 at 14:00; Stop 03/09/17 at 14:01; Status DC Bisacodyl (Dulcolax Tab) 5 mg 1X ONCE PO ; Start 03/09/17 at 14:00; Stop at 14:19; Status DC Polyethylene Glycol (miraLAX Powder BULK BOTTLE) 238 gm 1X ONCE PO Last administered on 03/09/17t 14:30; Start 03/09/17 at 14:00; Stop 03/09/17 at 14:01 ; Status DC Ondansetron HCl (Zofran) 4 mg PRN Q6HRS PRN IV NAUSEA/VOMITING; Start 03/10/17 at 07:00; Stop 03/10/17 at 17:20; Status DC Fentanyl Citrate (Fentanyl 2ml Vial) 25 mcg PRN Q5MIN PRN IV MILD PAIN; Start 03/10/17 at 07:00; Stop 03/10/17 at 17:20; Status DC Fentanyl Citrate (Fentanyl 2ml Vial) 50 mcg PRN Q5MIN PRN IV MODERATE PAIN; Start 03/10/17 at 07:00; Stop 03/10/17 at 17:20; Status DC Morphine Sulfate 1 mg 1 mg PRN Q10MIN PRN IV SEVERE PAIN; Start 03/10/17 at 07: 00; Stop 03/10/17 at 17:20; Status DC Lactated Ringer's (Iv Lactated Ringers) 1,000 ml @ 30 mls/hr Q24H IV ; Start at 07:00; Stop 03/10/17 at 17:20; Status DC Lidocaine HCl 2 ml PRN 1X PRN ID PRIOR TO IV START; Start 03/10/17 at 07:00; Stop 03/10/17 at 17:20; Status DC Hydromorphone HCl (Dilaudid) 0.5 mg PRN Q10MIN PRN IV SEV PAIN, Second choice; Start 03/10/17 at 07:00; Stop 03/10/17 at 17:21; Status DC Prochlorperazine Edisylate (Compazine) 5 mg PACU PRN PRN IV NAUSEA, MRX1; Start 03/10/17 at 07:00; Stop 03/10/17 at 17:21; Status DC Bisacodyl 10 mg 10 mg 1X ONCE PO Last administered on 03/09/17 18:23; Start 03/09/17 at 14:30; Stop 03/09/17 at 14:31; Status DC Propofol (Diprivan) 40 ml @ As Directed STK-MED ONCE IV ; Start 03/10/17 at 10: 26; Stop 03/10/17 at 10:27; Status DC Lidocaine HCl (Lidocaine Pf 2% Vial) 5 ml STK-MED ONCE .ROUTE ; Start 03/10/17 at 10:26; Stop 03/10/17 at 10:27; Status DC Potassium Chloride (Klor-Con) 40 meq 1X ONCE PO Last administered on 14:11; Start 03/10/17 at 12:45; Stop 03/10/17 at 12:46; Status DC Acetaminophen (Tylenol) 650 mg PRN Q6HRS PRN PO MILD PAIN / TEMP Last administered on 03/15/17 00:00; Start 03/10/17 at 17:30 Guaifenesin (Robitussin Dm) 10 ml PRN Q6HRS PRN PO COUGH Last administered on 05:56; Start 03/10/17 at 17:30 Potassium Chloride (Klor-Con) 40 meq 1X ONCE PO Last administered on 14:23; Start 03/11/17 at 13:30; Stop 03/11/17 at 13:31; Status DC Potassium Chloride 20 meq 20 meq 1X ONCE PO Last administered on 03/13/17 15: 36; Start 03/13/17 at 14:30; Stop 03/13/17 at 14:31; Status DC Cefazolin Sodium/ Dextrose (Ancef 2gm Premix) 50 ml @ 100 mls/hr PREOP 1X IV ; Start 03/15/17 at 08:30 Active Scripts Active Reported Pravastatin Sodium 20 Mg Tablet 1 Tab PO QHS Ferrous Sulfate 325 Mg Tablet.dr 325 Mg PO Lisinopril 20 Mg Tablet 1 Tab PO DAILY Vitals/I & O Vital Sign - Last 24 Hours 03/14/17 03/14/17 03/14/17 03/15/17 15:03 19:00 23:00 03:00 Temp 98.3 98.1 98.5 98.4 98.3 98.1 98.5 98.4 Pulse 77 73 73 69 Resp 16 20 20 20 B/P 146/88 154/96 136/75 135/82 Pulse Ox 97 100 98 95 O2 Delivery Room Air Room Air Room Air 03/15/17 03/15/17 03/15/17 07:00 08:08 08:15 Temp 97.6 97.6 Pulse 68 68 Resp 24 B/P 121/94 121/94 Pulse Ox 98 O2 Delivery Room Air Room Air Intake and Output 03/14/17 03/14/17 03/15/17 14:59 22:59 06:59 Intake Total 360 ml 120 ml Balance 360 ml 120 ml YURIY ROACH MD Mar 15, 2017 11:35
--- NOTE | 2017-03-15 13:33 | PDOC ---
G I PROGRESS NOTE Reason for Follow-up Abd pain/nausea Subjective Without new complaints Physical Exam Lungs clear CV S1 S2 ABD +BS, soft, mild right sided tenderness Review of Relevant I have reviewed the following items kory (where applicable) has been applied. Labs Laboratory Tests Test 03/14/17 05:15 White Blood Count 7.2x10^3/uL (4.0-11.0) Red Blood Count 4.57x10^6/uL (3.50-5.40) Hemoglobin 9.8g/dL (12.0-15.5) Hematocrit 31.1% (36.0-47.0) Mean Corpuscular Volume 68fL (79-100) Mean Corpuscular Hemoglobin 21pg (25-35) Mean Corpuscular Hemoglobin Concent 32g/dL (31-37) Red Cell Distribution Width 19.6% (11.5-14.5) Platelet Count 599x10^3/uL (140-400) Neutrophils (%) (Auto) 59% (31-73) Lymphocytes (%) (Auto) 32% (24-48) Monocytes (%) (Auto) 6% (0-9) Eosinophils (%) (Auto) 3% (0-3) Basophils (%) (Auto) 0% (0-3) Neutrophils # (Auto) 4.3x10^3uL (1.8-7.7) Lymphocytes # (Auto) 2.3x10^3/uL (1.0-4.8) Monocytes # (Auto) 0.4x10^3/uL (0.0-1.1) Eosinophils # (Auto) 0.2x10^3/uL (0.0-0.7) Basophils # (Auto) 0.0x10^3/uL (0.0-0.2) Sodium Level 138mmol/L (136-145) Potassium Level 3.8mmol/L (3.5-5.1) Chloride Level 105mmol/L (98-107) Carbon Dioxide Level 29mmol/L (21-32) Anion Gap 4 (6-14) Blood Urea Nitrogen 7mg/dL (7-20) Creatinine 0.7mg/dL (0.6-1.0) Estimated GFR (Cockcroft-Gault) 104.4 BUN/Creatinine Ratio 10 (6-20) Glucose Level 158mg/dL (70-99) Calcium Level 9.1mg/dL (8.5-10.1) Iron Level 26ug/dL (50-170) Total Iron Binding Capacity 315ug/dL (250-450) Iron Saturation 8% (15-34) Total Bilirubin 0.4mg/dL (0.2-1.0) Aspartate Amino Transf (AST/SGOT) 25U/L (15-37) Alanine Aminotransferase (ALT/SGPT) 52U/L (14-59) Alkaline Phosphatase 88U/L (46-116) Total Protein 7.5g/dL (6.4-8.2) Albumin 3.1g/dL (3.4-5.0) Albumin/Globulin Ratio 0.7 (1.0-1.7) Microbiology 03/10/17 Blood Culture - Preliminary, Resulted NO GROWTH AFTER 4 DAYS 03/07/17 Urine Culture - Final, Complete 03/07/17 Urine Culture Result 1 ([facility]) - Final, Complete Medications Current Medications Sodium Chloride (Iv Sodium Chloride 0.9% 1000ml Bag) 1,000 ml @ 1,000 mls/hr Q1H IV Last administered on 03/07/17 04:59; Start 03/07/17 at 04:45; Stop 10/13 at 05:44; Status DC Hydromorphone HCl (Dilaudid) 1 mg 1X ONCE IV Last administered on 03/07/17 04 :59; Start 03/07/17 at 05:00; Stop 03/07/17 at 05:01; Status DC Ondansetron HCl (Zofran) 4 mg 1X ONCE IV Last administered on 03/07/17 05:00 ; Start 03/07/17 at 05:00; Stop 03/07/17 at 05:01; Status DC Ketorolac Tromethamine (Toradol) 15 mg 1X ONCE IV Last administered on 04:59; Start 03/07/17 at 05:00; Stop 03/07/17 at 05:01; Status DC Acetaminophen (Tylenol) 650 mg 1X ONCE PO Last administered on 03/07/17 05:00 ; Start 03/07/17 at 05:00; Stop 03/07/17 at 05:01; Status DC Iohexol (Omnipaque 300 Mg/ml) 75 ml 1X ONCE IV Last administered on 03/07/17 05:21; Start 03/07/17 at 05:00; Stop 03/07/17 at 05:01; Status DC Info 1 each 1 each PRN DAILY PRN MC SEE COMMENTS; Start 03/07/17 at 05:00; Stop 03/09/17 at 04:59; Status DC Ceftriaxone Sodium (Rocephin 1gm Ivpb For Omni) 50 ml @ 100 mls/hr 1X ONCE IV Last administered on 03/07/17 06:54; Start 03/07/17 at 06:30; Stop 03/07/17 at 06:59; Status DC Ondansetron HCl (Zofran) 4 mg PRN Q8HRS PRN IV NAUSEA/VOMITING Last administered on 03/07/17 10:41; Start 03/07/17 at 06:45; Stop 03/08/17 at 06:44 ; Status DC Morphine Sulfate 4 mg 4 mg PRN Q2HR PRN IV PAIN; Start 03/07/17 at 06:45; Stop 03/07/17 at 10:52; Status DC Sodium Chloride (Iv Sodium Chloride 0.9% 1000ml Bag) 1,000 ml @ 125 mls/hr Q8H IV Last administered on 03/07/17 07:09; Start 03/07/17 at 06:45; Stop at 10:32; Status DC Acetaminophen (Tylenol) 650 mg PRN Q4HRS PRN PO FEVER Last administered on 03/08 05:53; Start 03/07/17 at 06:45; Stop 03/08/17 at 06:44; Status DC Acetaminophen (Tylenol) 325 mg PRN Q6HRS PRN PO MILD PAIN / TEMP; Start at 08:45; Stop 03/07/17 at 08:45; Status DC Acetaminophen/ Hydrocodone Bitart (Lortab 5/325) 1 tab PRN Q6HRS PRN PO MODERATE TO SEVERE PAIN Last administered on 03/10/17 11:58; Start 03/07/17 at 08:45 Hydralazine HCl (Apresoline) 10 mg PRN Q4HRS PRN IVP ELEVATED BP, SEE COMMENTS ; Start 03/07/17 at 08:45 Ondansetron HCl (Zofran) 4 mg PRN Q8HRS PRN IV NAUSEA/VOMITING Last administered on 03/10/17 11:57; Start 03/07/17 at 08:45 Albuterol Sulfate 2.5 mg 2.5 mg PRN Q4HRS PRN NEB SHORTNESS OF BREATH; Start at 08:45 Ceftriaxone Sodium 1 gm/ Sodium Chloride 50 ml @ 100 mls/hr Q24H IV ; Start 11/12 at 06:00; Stop 03/08/17 at 06:00; Status DC Sodium Chloride (Iv Sodium Chloride 0.9% 1000ml Bag) 1,000 ml @ 50 mls/hr Q20H IV Last administered on 03/14/17 19:09; Start 03/07/17 at 08:45 Acetaminophen (Tylenol) 325 mg PRN Q6HRS PRN PO MILD PAIN / TEMP Last administered on 03/10/17 09:29; Start 03/07/17 at 08:45; Stop 03/10/17 at 17:22 ; Status DC Hydromorphone HCl 0.5 mg 0.5 mg PRN Q2HR PRN IV PAIN; Start 03/07/17 at 10:45 Metronidazole (FLAGYL 500Mmg PREMIX) 100 ml @ 100 mls/hr Q8HRS IV Last administered on 03/08/17 05:51; Start 03/07/17 at 14:00; Stop 03/08/17 at 11:03 ; Status DC Levofloxacin/ Dextrose (Levaquin Per Pharmacy) 1 each PRN DAILY PRN MC SEE COMMENTS; Start 03/07/17 at 11:00; Status Cancel Enoxaparin Sodium 40 mg 40 mg Q24H SQ Last administered on 03/14/17 20:27; Start 03/07/17 at 21:00 Levofloxacin/ Dextrose (LEVAQUIN 500mg PREMIX) 100 ml @ 100 mls/hr Q24H IV Last administered on 03/08/17 08:10; Start 03/07/17 at 12:00; Stop 03/08/17 at 11:03; Status DC Lisinopril (Prinivil) 20 mg DAILY PO Last administered on 03/15/17 08:08; Start 03/07/17 at 11:30 Atorvastatin Calcium 5 mg 5 mg QHS PO Last administered on 03/14/17 20:26; Start 03/07/17 at 21:00; Stop 03/15/17 at 11:34; Status DC Potassium Chloride/Dextrose/ Sod Cl 1,000 ml @ 75 mls/hr 1X ONCE IV Last administered on 03/08/17 10:00; Start 03/08/17 at 10:00; Stop 03/08/17 at 23:19 ; Status DC Ampicillin Sodium/ Sulbactam Sodium/ Sodium Chloride (Unasyn/Iv Sodium Chloride 0.9% 100ml) 100 ml @ 200 mls/hr Q6HRS IV Last administered on 03/15/17 05:43 ; Start 03/08/17 at 12:00 Polyethylene Glycol (miraLAX PACKET) 17 gm DAILY PO Last administered on 08:36; Start 03/09/17 at 11:00 Potassium Chloride (Klor-Con) 40 meq 1X ONCE PO Last administered on 11:51; Start 03/09/17 at 10:45; Stop 03/09/17 at 10:46; Status DC Polyethylene Glycol (miraLAX Powder BULK BOTTLE) 238 gm 1X ONCE PO ; Start at 13:15; Stop 03/09/17 at 13:29; Status DC Magnesium Citrate (Citroma) 296 ml 1X ONCE PO Last administered on 03/09/17 14:21; Start 03/09/17 at 14:00; Stop 03/09/17 at 14:01; Status DC Bisacodyl (Dulcolax Tab) 5 mg 1X ONCE PO ; Start 03/09/17 at 14:00; Stop at 14:19; Status DC Polyethylene Glycol (miraLAX Powder BULK BOTTLE) 238 gm 1X ONCE PO Last administered on 03/09/17 14:30; Start 03/09/17 at 14:00; Stop 03/09/17 at 14:01 ; Status DC Ondansetron HCl (Zofran) 4 mg PRN Q6HRS PRN IV NAUSEA/VOMITING; Start 03/10/17 at 07:00; Stop 03/10/17 at 17:20; Status DC Fentanyl Citrate (Fentanyl 2ml Vial) 25 mcg PRN Q5MIN PRN IV MILD PAIN; Start 03/10/17 at 07:00; Stop 03/10/17 at 17:20; Status DC Fentanyl Citrate (Fentanyl 2ml Vial) 50 mcg PRN Q5MIN PRN IV MODERATE PAIN; Start 03/10/17 at 07:00; Stop 03/10/17 at 17:20; Status DC Morphine Sulfate 1 mg 1 mg PRN Q10MIN PRN IV SEVERE PAIN; Start 03/10/17 at 07: 00; Stop 03/10/17 at 17:20; Status DC Lactated Ringer's (Iv Lactated Ringers) 1,000 ml @ 30 mls/hr Q24H IV ; Start at 07:00; Stop 03/10/17 at 17:20; Status DC Lidocaine HCl 2 ml PRN 1X PRN ID PRIOR TO IV START; Start 03/10/17 at 07:00; Stop 03/10/17 at 17:20; Status DC Hydromorphone HCl (Dilaudid) 0.5 mg PRN Q10MIN PRN IV SEV PAIN, Second choice; Start 03/10/17 at 07:00; Stop 03/10/17 at 17:21; Status DC Prochlorperazine Edisylate (Compazine) 5 mg PACU PRN PRN IV NAUSEA, MRX1; Start 03/10/17 at 07:00; Stop 03/10/17 at 17:21; Status DC Bisacodyl 10 mg 10 mg 1X ONCE PO Last administered on 03/09/17t 18:23; Start 03/09/17 at 14:30; Stop 03/09/17 at 14:31; Status DC Propofol (Diprivan) 40 ml @ As Directed STK-MED ONCE IV ; Start 03/10/17 at 10: 26; Stop 03/10/17 at 10:27; Status DC Lidocaine HCl (Lidocaine Pf 2% Vial) 5 ml STK-MED ONCE .ROUTE ; Start 03/10/17 at 10:26; Stop 03/10/17 at 10:27; Status DC Potassium Chloride (Klor-Con) 40 meq 1X ONCE PO Last administered on t 14:11; Start 03/10/17 at 12:45; Stop 03/10/17 at 12:46; Status DC Acetaminophen (Tylenol) 650 mg PRN Q6HRS PRN PO MILD PAIN / TEMP Last administered on 03/15/17 00:00; Start 03/10/17 at 17:30; Stop 03/15/17 at 11:39 ; Status DC Guaifenesin (Robitussin Dm) 10 ml PRN Q6HRS PRN PO COUGH Last administered on 05:56; Start 03/10/17 at 17:30 Potassium Chloride (Klor-Con) 40 meq 1X ONCE PO Last administered on 14:23; Start 03/11/17 at 13:30; Stop 03/11/17 at 13:31; Status DC Potassium Chloride 20 meq 20 meq 1X ONCE PO Last administered on 03/13/17 15: 36; Start 03/13/17 at 14:30; Stop 03/13/17 at 14:31; Status DC Cefazolin Sodium/ Dextrose (Ancef 2gm Premix) 50 ml @ 100 mls/hr PREOP 1X IV ; Start 03/15/17 at 08:30 Acetaminophen (Tylenol) 650 mg PRN Q6HRS PRN PO headache; Start 03/15/17 at 11: 45 Active Scripts Active Reported Pravastatin Sodium 20 Mg Tablet 1 Tab PO QHS Ferrous Sulfate 325 Mg Tablet.dr 325 Mg PO Lisinopril 20 Mg Tablet 1 Tab PO DAILY Vitals/I & O Vital Sign - Last 24 Hours 03/14/17 03/14/17 03/14/17 03/15/17 15:03 19:00 23:00 03:00 Temp 98.3 98.1 98.5 98.4 98.3 98.1 98.5 98.4 Pulse 77 73 73 69 Resp 16 20 20 20 B/P 146/88 154/96 136/75 135/82 Pulse Ox 97 100 98 95 O2 Delivery Room Air Room Air Room Air 03/15/17 03/15/17 03/15/17 03/15/17 07:00 08:08 08:15 11:00 Temp 97.6 97.9 97.6 97.9 Pulse 68 68 66 Resp 24 22 B/P 121/94 121/94 134/70 Pulse Ox 98 98 O2 Delivery Room Air Room Air Room Air Intake and Output 03/14/17 03/14/17 03/15/17 15:00 23:00 07:00 Intake Total 360 ml 120 ml Balance 360 ml 120 ml Problem List Problems Medical Problems: (1) Abdominal pain Status: Acute (2) Fever Status: Acute (3) Urinary tract infection Status: Acute Assessment Abd pain- with cholelithiasis, sepsis, lapc hole tentatively in am, cpm, await intra-operative findings MAYRA LUNDY MD Mar 15, 2017 13:33
[2017-03-15] MEDS: IV NORMAL SALINE 1000ML BAG 1,000 ML IV SCH (14:06)
[2017-03-15 15:00] VITALS: BP 157/71
[2017-03-15] MEDS ORDERED: IRON SUCROSE COMPLEX 200 MG in IV NORMAL SALINE 100ML 100 ML IV ONE (15:30)
[2017-03-15] MEDS: ACETAMINOPHEN 325 MG TABLET. PO PRN ×2 (17:25)
[2017-03-15 19:00] VITALS: BP 124/80
[2017-03-15] MEDS: ENOXAPARIN 40 MG/0.4 ML SYRINGE. SQ SCH (20:33)
[2017-03-15 22:34] VITALS: BP 138/89
[2017-03-16] VITALS (9 sets, daily range): BP systolic 113–144; BP diastolic 67–89
[2017-03-16] MEDS: AMPICILLIN/SULBACTAM 3 GM in IV NORMAL SALINE 100ML 100 ML IV SCH ×6 (05:55→23:58)
[2017-03-16] MEDS ORDERED: PROCHLORPERAZINE 10 MG/2 ML VIAL. IV PRN (07:00)
[2017-03-16] MEDS ORDERED: ONDANSETRON PF 4 MG/2 ML VIAL. IV PRN (07:00)
[2017-03-16] MEDS ORDERED: MORPHINE SULFATE 2 MG/ML DISP.SYRIN. IV PRN (07:00)
[2017-03-16] MEDS ORDERED: fentaNYL PF VIAL 100 MCG/2 ML VIAL IV PRN (07:00)
[2017-03-16] MEDS ORDERED: IV RINGERS,LACTATED 1000ML 1,000 ML IV SCH (07:00)
[2017-03-16] MEDS ORDERED: LIDOCAINE 1% 1 ML SYRINGE. ID PRN (07:00)
[2017-03-16] MEDS: POLYETHYLENE GLYCOL 3350 17 GM PACKET. PO SCH (08:08)
[2017-03-16] MEDS: LISINOPRIL 20 MG TABLET PO SCH (08:08)
[2017-03-16] MEDS ORDERED: fentaNYL PF VIAL 100 MCG/2 ML VIAL ONE (09:47)
[2017-03-16] MEDS ORDERED: PROPOFOL 20 ML IV ONE (09:47)
[2017-03-16] MEDS ORDERED: ROCURONIUM 50 MG/5 ML VIAL. ONE (09:47)
[2017-03-16] MEDS ORDERED: SUCCINYLCHOLINE 200 MG/10 ML VIAL. ONE (09:47)
[2017-03-16] MEDS ORDERED: LIDOCAINE 2% 100 MG/5 ML SYRINGE. ONE (09:47)
[2017-03-16] MEDS ORDERED: BUPIVACAINE-EPI 0.25%-1:200000 MPF 30 ML VIAL. ONE (10:22)
[2017-03-16] MEDS ORDERED: DESFLURANE 31 TO 60 MINUTES IH ONE (10:41)
[2017-03-16] MEDS ORDERED: DEXAMETHASONE SOD PHOS 20 MG/5 ML VIAL. ONE (10:41)
[2017-03-16] MEDS ORDERED: GLYCOPYRROLATE 1 MG/5 ML VIAL. ONE (10:47)
[2017-03-16] MEDS ORDERED: ONDANSETRON PF 4 MG/2 ML VIAL. ONE (10:47)
[2017-03-16] MEDS ORDERED: NEOSTIGMINE METHYLSULFATE 5 MG/5 ML SYRINGE. ONE (10:48)
--- NOTE | 2017-03-16 11:25 | PDOC ---
BRIEF OPERATIVE NOTE Date: Mar 16, 2017 Pre-Op Diagnosis Chronic cholecystitis Post-Op Diagnosis Same Procedure Performed L/S Cholecystectomy Surgeon Baldo Anesthesia Type: General Blood Loss 20ml Specimens Obtained Gallbladder Findings As above Complications None PRINCE DUNCAN MD Mar 16, 2017 11:25
[2017-03-16] MEDS ORDERED: oxyCODONE/APAP 5/325 1 TAB TABLET PO PRN (11:30)
[2017-03-16] MEDS: fentaNYL PF VIAL 100 MCG/2 ML VIAL IV PRN ×2 (11:33→11:45)
[2017-03-16] MEDS: HYDROmorphone 2 MG/ML VIAL IV PRN ×6 (11:56→17:41)
--- NOTE | 2017-03-16 11:58 | OP ---
DATE OF SURGERY: 03/16/2017 PREOPERATIVE DIAGNOSIS: Chronic cholecystitis. POSTOPERATIVE DIAGNOSIS: Chronic cholecystitis. PROCEDURE: Laparoscopic cholecystectomy. SURGEON: Warren Duncan M.D. INDICATIONS: The patient is a 56-year-old female who was admitted to the hospital with abdominal pain. She has had intermittently for quite some time. Ultrasound did show gallstones. Procedure of laparoscopic cholecystectomy was explained to the patient in detail. Risks, benefits were also discussed including bleeding, infection, injury to intra-abdominal contents, possibly necessitating further open operations. Alternatives of this procedure were also discussed with the patient who seemed to understand and gave verbal and written consent to have the procedure performed. DESCRIPTION OF PROCEDURE: The patient was taken to the operating room and placed in the supine position, general anesthesia was initiated. Once the patient was asleep and intubated, her abdomen was prepped and draped in usual sterile fashion using ChloraPrep. An area just below the umbilicus injected 0.25% Marcaine with epinephrine. Incision was made with an 11 blade scalpel and a Veress needle was placed within the abdomen. Pneumoperitoneum was achieved. Once this was completed, an 11 mm port was placed and a 5 mm camera was placed within the abdomen. Abdomen was inspected. No other abnormalities were noted. At this point, three 5 mm ports were placed under direct visualization, one in the epigastrium, 2 in the right upper quadrant. The dome of the gallbladder was grasped and retracted cephalad. Infundibulum of the gallbladder was grasped and retracted laterally exposing the triangle of Calot. Adherent tissues of the triangle were taken down exposing the cystic duct and cystic artery. Both were doubly clipped and transected. The gallbladder was taken off the liver with hook electrocautery, placed in EndoCatch bag and removed from the umbilicus. Right upper quadrant was irrigated and suctioned dry. Hemostasis seemed to be appropriate and the pneumoperitoneum was reduced. All ports were removed. Fascial defect at the umbilicus closed with [id number] 0 Vicryl suture and the skin was reapproximated at all port sites with 4-0 subcuticular Monocryl. Mastisol, Steri-Strips and Band-Aids were applied as dressings. The patient was awakened, extubated in the operating room, taken to recovery in stable condition. All sponge, instrument counts listed as correct. Estimated blood loss ____ mL. WARREN DUNCAN MD DR: KARISHMA/skye JOB#: [id number] / [id number]
--- NOTE | 2017-03-16 12:15 | PDOC ---
PROGRESS NOTES Chief Complaint Chief Complaint CC: Abdominal pain 1.) Abdominal Pain - RLQ Pain - acute cristóbal pain, symptomatic cholecystitis 2.) Gram (+) cultures - strep bacteremia, POA. : on Unasyn, 3.) HTN 4.) HLP 5.) Hypokalemia: resolved. 6.) Cholelithiasis. 7.) Probable hepatic steatosis 8.) Left simple renal cyst. 9.) Microcytic, micro chromic anemia, chronic vs. iron deficiency s/p colonoscopy, rectal polyps s/p bx. 10.) Internal hemorrhoids History of Present Illness History of Present Illness tylenol PRN surg today, DC if pain improved and ambulatory Vitals Vitals Vital Signs Date Time Temp Pulse Resp B/P Pulse Ox O2 Delivery O2 Flow Rate FiO2 03/16/17 12:06 18 100 Nasal Cannula 2.0 03/16/17 09:44 97.6 86 152/85 97.6 Physical Exam General: Alert, Oriented X3, Cooperative, mild distress Heart: Regular rate, Normal S1, Normal S2 Lungs: Clear, Other Abdomen: Normal bowel sounds, Soft, Other (TTP RUQ) Extremities: No clubbing, No edema Skin: No rashes, No significant lesion Assessment and Plan Assessmemt and Plan Problems Medical Problems: (1) Abdominal pain Status: Acute (2) Fever Status: Acute (3) Urinary tract infection Status: Acute Problems: Comment Review of Relevant I have reviewed the following items kory (where applicable) has been applied. Labs Microbiology 03/10/17 Blood Culture - Final, Complete NO GROWTH AFTER 5 DAYS 03/07/17 Urine Culture - Final, Complete 03/07/17 Urine Culture Result 1 ([facility]) - Final, Complete Medications Current Medications Sodium Chloride (Iv Sodium Chloride 0.9% 1000ml Bag) 1,000 ml @ 1,000 mls/hr Q1H IV Last administered on 03/07/17 04:59; Start 03/07/17 at 04:45; Stop 10/13 at 05:44; Status DC Hydromorphone HCl (Dilaudid) 1 mg 1X ONCE IV Last administered on 03/07/17 04 :59; Start 03/07/17 at 05:00; Stop 03/07/17 at 05:01; Status DC Ondansetron HCl (Zofran) 4 mg 1X ONCE IV Last administered on 03/07/17 05:00 ; Start 03/07/17 at 05:00; Stop 03/07/17 at 05:01; Status DC Ketorolac Tromethamine (Toradol) 15 mg 1X ONCE IV Last administered on 04:59; Start 03/07/17 at 05:00; Stop 03/07/17 at 05:01; Status DC Acetaminophen (Tylenol) 650 mg 1X ONCE PO Last administered on 03/07/17 05:00 ; Start 03/07/17 at 05:00; Stop 03/07/17 at 05:01; Status DC Iohexol (Omnipaque 300 Mg/ml) 75 ml 1X ONCE IV Last administered on 03/07/17 05:21; Start 03/07/17 at 05:00; Stop 03/07/17 at 05:01; Status DC Info 1 each 1 each PRN DAILY PRN MC SEE COMMENTS; Start 03/07/17 at 05:00; Stop 03/09/17 at 04:59; Status DC Ceftriaxone Sodium (Rocephin 1gm Ivpb For Omni) 50 ml @ 100 mls/hr 1X ONCE IV Last administered on 03/07/17 06:54; Start 03/07/17 at 06:30; Stop 03/07/17 at 06:59; Status DC Ondansetron HCl (Zofran) 4 mg PRN Q8HRS PRN IV NAUSEA/VOMITING Last administered on 03/07/17 10:41; Start 03/07/17 at 06:45; Stop 03/08/17 at 06:44 ; Status DC Morphine Sulfate 4 mg 4 mg PRN Q2HR PRN IV PAIN; Start 03/07/17 at 06:45; Stop 03/07/17 at 10:52; Status DC Sodium Chloride (Iv Sodium Chloride 0.9% 1000ml Bag) 1,000 ml @ 125 mls/hr Q8H IV Last administered on 03/07/17 07:09; Start 03/07/17 at 06:45; Stop at 10:32; Status DC Acetaminophen (Tylenol) 650 mg PRN Q4HRS PRN PO FEVER Last administered on 03/08 05:53; Start 03/07/17 at 06:45; Stop 03/08/17 at 06:44; Status DC Acetaminophen (Tylenol) 325 mg PRN Q6HRS PRN PO MILD PAIN / TEMP; Start at 08:45; Stop 03/07/17 at 08:45; Status DC Acetaminophen/ Hydrocodone Bitart (Lortab 5/325) 1 tab PRN Q6HRS PRN PO MODERATE TO SEVERE PAIN Last administered on 03/10/17 11:58; Start 03/07/17 at 08:45 Hydralazine HCl (Apresoline) 10 mg PRN Q4HRS PRN IVP ELEVATED BP, SEE COMMENTS ; Start 03/07/17 at 08:45 Ondansetron HCl (Zofran) 4 mg PRN Q8HRS PRN IV NAUSEA/VOMITING Last administered on 03/10/17 11:57; Start 03/07/17 at 08:45 Albuterol Sulfate 2.5 mg 2.5 mg PRN Q4HRS PRN NEB SHORTNESS OF BREATH Last administered on 03/16/17 11:49; Start 03/07/17 at 08:45 Ceftriaxone Sodium 1 gm/ Sodium Chloride 50 ml @ 100 mls/hr Q24H IV ; Start 11/12 at 06:00; Stop 03/08/17 at 06:00; Status DC Sodium Chloride (Iv Sodium Chloride 0.9% 1000ml Bag) 1,000 ml @ 50 mls/hr Q20H IV Last administered on 03/15/17 14:06; Start 03/07/17 at 08:45 Acetaminophen (Tylenol) 325 mg PRN Q6HRS PRN PO MILD PAIN / TEMP Last administered on 03/10/17 09:29; Start 03/07/17 at 08:45; Stop 03/10/17 at 17:22 ; Status DC Hydromorphone HCl 0.5 mg 0.5 mg PRN Q2HR PRN IV PAIN Last administered on 12:06; Start 03/07/17 at 10:45 Metronidazole (FLAGYL 500Mmg PREMIX) 100 ml @ 100 mls/hr Q8HRS IV Last administered on 03/08/17 05:51; Start 03/07/17 at 14:00; Stop 03/08/17 at 11:03 ; Status DC Levofloxacin/ Dextrose (Levaquin Per Pharmacy) 1 each PRN DAILY PRN MC SEE COMMENTS; Start 03/07/17 at 11:00; Status Cancel Enoxaparin Sodium 40 mg 40 mg Q24H SQ Last administered on 03/15/17 20:33; Start 03/07/17 at 21:00 Levofloxacin/ Dextrose (LEVAQUIN 500mg PREMIX) 100 ml @ 100 mls/hr Q24H IV Last administered on 03/08/17 08:10; Start 03/07/17 at 12:00; Stop 03/08/17 at 11:03; Status DC Lisinopril (Prinivil) 20 mg DAILY PO Last administered on 03/16/17 08:08; Start 03/07/17 at 11:30 Atorvastatin Calcium 5 mg 5 mg QHS PO Last administered on 03/14/17 20:26; Start 03/07/17 at 21:00; Stop 03/15/17 at 11:34; Status DC Potassium Chloride/Dextrose/ Sod Cl 1,000 ml @ 75 mls/hr 1X ONCE IV Last administered on 03/08/17 10:00; Start 03/08/17 at 10:00; Stop 03/08/17 at 23:19 ; Status DC Ampicillin Sodium/ Sulbactam Sodium/ Sodium Chloride (Unasyn/Iv Sodium Chloride 0.9% 100ml) 100 ml @ 200 mls/hr Q6HRS IV Last administered on 03/16/17 05:55 ; Start 03/08/17 at 12:00 Polyethylene Glycol (miraLAX PACKET) 17 gm DAILY PO Last administered on 08:36; Start 03/09/17 at 11:00 Potassium Chloride (Klor-Con) 40 meq 1X ONCE PO Last administered on 11:51; Start 03/09/17 at 10:45; Stop 03/09/17 at 10:46; Status DC Polyethylene Glycol (miraLAX Powder BULK BOTTLE) 238 gm 1X ONCE PO ; Start at 13:15; Stop 03/09/17 at 13:29; Status DC Magnesium Citrate (Citroma) 296 ml 1X ONCE PO Last administered on 03/09/17 14:21; Start 03/09/17 at 14:00; Stop 03/09/17 at 14:01; Status DC Bisacodyl (Dulcolax Tab) 5 mg 1X ONCE PO ; Start 03/09/17 at 14:00; Stop at 14:19; Status DC Polyethylene Glycol (miraLAX Powder BULK BOTTLE) 238 gm 1X ONCE PO Last administered on 03/09/17t 14:30; Start 03/09/17 at 14:00; Stop 03/09/17 at 14:01 ; Status DC Ondansetron HCl (Zofran) 4 mg PRN Q6HRS PRN IV NAUSEA/VOMITING; Start 03/10/17 at 07:00; Stop 03/10/17 at 17:20; Status DC Fentanyl Citrate (Fentanyl 2ml Vial) 25 mcg PRN Q5MIN PRN IV MILD PAIN; Start 03/10/17 at 07:00; Stop 03/10/17 at 17:20; Status DC Fentanyl Citrate (Fentanyl 2ml Vial) 50 mcg PRN Q5MIN PRN IV MODERATE PAIN; Start 03/10/17 at 07:00; Stop 03/10/17 at 17:20; Status DC Morphine Sulfate 1 mg 1 mg PRN Q10MIN PRN IV SEVERE PAIN; Start 03/10/17 at 07: 00; Stop 03/10/17 at 17:20; Status DC Lactated Ringer's (Iv Lactated Ringers) 1,000 ml @ 30 mls/hr Q24H IV ; Start at 07:00; Stop 03/10/17 at 17:20; Status DC Lidocaine HCl 2 ml PRN 1X PRN ID PRIOR TO IV START; Start 03/10/17 at 07:00; Stop 03/10/17 at 17:20; Status DC Hydromorphone HCl (Dilaudid) 0.5 mg PRN Q10MIN PRN IV SEV PAIN, Second choice; Start 03/10/17 at 07:00; Stop 03/10/17 at 17:21; Status DC Prochlorperazine Edisylate (Compazine) 5 mg PACU PRN PRN IV NAUSEA, MRX1; Start 03/10/17 at 07:00; Stop 03/10/17 at 17:21; Status DC Bisacodyl 10 mg 10 mg 1X ONCE PO Last administered on 03/09/17t 18:23; Start 03/09/17 at 14:30; Stop 03/09/17 at 14:31; Status DC Propofol (Diprivan) 40 ml @ As Directed STK-MED ONCE IV ; Start 03/10/17 at 10: 26; Stop 03/10/17 at 10:27; Status DC Lidocaine HCl (Lidocaine Pf 2% Vial) 5 ml STK-MED ONCE .ROUTE ; Start 03/10/17 at 10:26; Stop 03/10/17 at 10:27; Status DC Potassium Chloride (Klor-Con) 40 meq 1X ONCE PO Last administered on 14:11; Start 03/10/17 at 12:45; Stop 03/10/17 at 12:46; Status DC Acetaminophen (Tylenol) 650 mg PRN Q6HRS PRN PO MILD PAIN / TEMP Last administered on 03/15/17 00:00; Start 03/10/17 at 17:30; Stop 03/15/17 at 11:39 ; Status DC Guaifenesin (Robitussin Dm) 10 ml PRN Q6HRS PRN PO COUGH Last administered on 05:56; Start 03/10/17 at 17:30 Potassium Chloride (Klor-Con) 40 meq 1X ONCE PO Last administered on 14:23; Start 03/11/17 at 13:30; Stop 03/11/17 at 13:31; Status DC Potassium Chloride 20 meq 20 meq 1X ONCE PO Last administered on 03/13/17 15: 36; Start 03/13/17 at 14:30; Stop 03/13/17 at 14:31; Status DC Cefazolin Sodium/ Dextrose (Ancef 2gm Premix) 50 ml @ 100 mls/hr PREOP 1X IV Last administered on 03/16/17 10:51; Start 03/15/17 at 08:30 Acetaminophen 650 mg 650 mg PRN Q6HRS PRN PO headache Last administered on 03/15 17:25; Start 03/15/17 at 11:45 Iron Sucrose/ Sodium Chloride (Venofer/Iv Sodium Chloride 0.9% 100ml) 110 ml @ 55 mls/hr 1X ONCE IV Last administered on 03/15/17 17:16; Start 03/15/17 at 15:30; Stop 03/15/17 at 17:29; Status DC Ondansetron HCl (Zofran) 4 mg PRN Q6HRS PRN IV NAUSEA/VOMITING; Start 03/16/17 at 07:00; Stop 03/17/17 at 06:59 Fentanyl Citrate (Fentanyl 2ml Vial) 25 mcg PRN Q5MIN PRN IV MILD PAIN; Start 03/16/17 at 07:00; Stop 03/17/17 at 06:59 Fentanyl Citrate (Fentanyl 2ml Vial) 50 mcg PRN Q5MIN PRN IV MODERATE PAIN Last administered on 03/16/17 11:33; Start 03/16/17 at 07:00; Stop 03/17/17 at 06:59 Morphine Sulfate 1 mg 1 mg PRN Q10MIN PRN IV SEVERE PAIN Last administered on 11:39; Start 03/16/17 at 07:00; Stop 03/17/17 at 06:59 Lactated Ringer's (Iv Lactated Ringers) 1,000 ml @ 0 mls/hr Q0M IV Last administered on 03/16/17 09:46; Start 03/16/17 at 07:00; Stop 03/16/17 at 18:59 Lidocaine HCl 2 ml PRN 1X PRN ID PRIOR TO IV START; Start 03/16/17 at 07:00; Stop 03/17/17 at 06:59 Hydromorphone HCl (Dilaudid) 0.5 mg PRN Q10MIN PRN IV SEV PAIN, Second choice; Start 03/16/17 at 07:00; Stop 03/17/17 at 06:59 Prochlorperazine Edisylate 5 mg 5 mg PACU PRN PRN IV NAUSEA, MRX1 Last administered on 03/16/17 11:42; Start 03/16/17 at 07:00; Stop 03/17/17 at 06:59 Propofol (Diprivan) 20 ml @ As Directed STK-MED ONCE IV ; Start 03/16/17 at 09: 47; Stop 03/16/17 at 09:48; Status DC Lidocaine HCl (Lidocaine HCl 2% Abboject) 100 mg STK-MED ONCE .ROUTE ; Start at 09:47; Stop 03/16/17 at 09:48; Status DC Fentanyl Citrate (Fentanyl 2ml Vial) 100 mcg STK-MED ONCE .ROUTE ; Start at 09:47; Stop 03/16/17 at 09:48; Status DC Succinylcholine Chloride (Anectine) 200 mg STK-MED ONCE .ROUTE ; Start 03/16/17 at 09:47; Stop 03/16/17 at 09:48; Status DC Rocuronium [place] (Zemuron) 50 mg STK-MED ONCE .ROUTE ; Start 03/16/17 at 09:47 ; Stop 03/16/17 at 09:48; Status DC Bupivacaine HCl/ Epinephrine Bitart (Sensorcaine-Epi 0.25%-1:[id number] Mpf) 30 ml STK-MED ONCE .ROUTE Last administered on 03/16/17t 10:43; Start 03/16/17 at 10: 22; Stop 03/16/17 at 10:23; Status DC Dexamethasone Sodium Phosphate (Decadron) 20 mg STK-MED ONCE .ROUTE ; Start at 10:41; Stop 03/16/17 at 10:42; Status DC Desflurane (Suprane) 30 ml STK-MED ONCE IH ; Start 03/16/17 at 10:41; Stop 03/16 at 10:42; Status DC Ondansetron HCl (Zofran) 4 mg STK-MED ONCE .ROUTE ; Start 03/16/17 at 10:47; Stop 03/16/17 at 10:48; Status DC Glycopyrrolate (Robinul) 1 mg STK-MED ONCE .ROUTE ; Start 03/16/17 at 10:47; Stop 03/16/17 at 10:48; Status DC Neostigmine Methylsulfate 5 mg STK-MED ONCE .ROUTE ; Start 03/16/17 at 10:48; Stop 03/16/17 at 10:49; Status DC Oxycodone/ Acetaminophen (Percocet 5/325) 1 tab PRN Q4HRS PRN PO MILD PAIN; Start 03/16/17 at 11:30 Oxycodone/ Acetaminophen (Percocet 5/325) 2 tab PRN Q4HRS PRN PO MODERATE/ SEVERE PAIN; Start 03/16/17 at 11:30 Active Scripts Active Reported Pravastatin Sodium 20 Mg Tablet 1 Tab PO QHS Ferrous Sulfate 325 Mg Tablet.dr 325 Mg PO Lisinopril 20 Mg Tablet 1 Tab PO DAILY Vitals/I & O Vital Sign - Last 24 Hours 03/15/17 03/15/17 03/15/17 03/15/17 15:00 19:00 20:00 22:34 Temp 98.2 98.1 98.3 98.2 98.1 98.3 Pulse 72 64 67 Resp 18 B/P 157/71 124/80 138/89 Pulse Ox 96 99 96 O2 Delivery Room Air Room Air Room Air Room Air 03/16/17 03/16/17 03/16/17 03/16/17 03:03 07:00 07:50 08:08 Temp 98.2 98.3 98.2 98.3 Pulse 59 68 68 Resp 16 B/P 144/80 141/89 141/89 Pulse Ox 99 94 O2 Delivery Room Air Room Air Room Air 03/16/17 03/16/17 03/16/17 03/16/17 09:44 11:33 11:39 11:45 Temp 97.6 97.6 Pulse 86 Resp B/P 152/85 Pulse Ox 99 99 98 96 O2 Delivery Room Air Simple Mask Simple Mask Nasal Cannula O2 Flow Rate 10.0 10.0 2.0 03/16/17 03/16/17 11:56 12:06 Resp 18 Pulse Ox 96 100 O2 Delivery Room Air Nasal Cannula O2 Flow Rate 2.0 2.0 Intake and Output 03/15/17 03/15/17 03/16/17 15:00 23:00 07:00 Intake Total 840 ml 480 ml 400 ml Balance 840 ml 480 ml 400 ml YURIY ROACH MD Mar 16, 2017 12:15
[2017-03-16] MEDS ORDERED: HYDROmorphone 2 MG/ML VIAL IVP ONE (13:30)
--- NOTE | 2017-03-16 13:36 | PDOC ---
Objective: Objective: Back from surgery. Vital Signs: Vital Signs Date Time Temp Pulse Resp B/P Pulse Ox O2 Delivery O2 Flow Rate FiO2 03/16/17 12:29 18 99 Nasal Cannula 2.0 03/16/17 12:23 98.2 74 138/72 98.2 PE: GEN: NAD, laying curled up in bed NEURO/PSYCH: drowsy A/P: Abd pain, DANE -s/p cristóbal 03/16 -s/p EGD/colon 03/10: gastritis, hyperplastic rectal polyps, internal hemorrhoids -- Will follow. LUPE MCLEOD Mar 16, 2017 13:36
[2017-03-16] MEDS: IV NORMAL SALINE 1000ML BAG 1,000 ML IV SCH (14:39)
[2017-03-16] MEDS: ONDANSETRON PF 4 MG/2 ML VIAL. IV PRN (17:50)
[2017-03-16] MEDS: ENOXAPARIN 40 MG/0.4 ML SYRINGE. SQ SCH (20:39)
[2017-03-16] MEDS: ACETAMINOPHEN 325 MG TABLET. PO PRN (20:40)
[2017-03-17 03:00] VITALS: BP 113/73
[2017-03-17] MEDS: oxyCODONE/APAP 5/325 1 TAB TABLET PO PRN ×2 (03:19→07:47)
[2017-03-17] MEDS: AMPICILLIN/SULBACTAM 3 GM in IV NORMAL SALINE 100ML 100 ML IV SCH (05:53)
[2017-03-17] MEDS: IV NORMAL SALINE 1000ML BAG 1,000 ML IV SCH (05:53)
[2017-03-17 07:00] VITALS: BP 133/84
[2017-03-17] MEDS: LISINOPRIL 20 MG TABLET PO SCH (07:47)
[2017-03-17] MEDS: POLYETHYLENE GLYCOL 3350 17 GM PACKET. PO SCH (07:48)
--- NOTE | 2017-03-17 09:10 | PDOC ---
SURGICAL PROGRESS NOTE Subjective Doing well, a little nausea but able to eat breakfast. Minimal pain Vital Signs Vital Signs Date Time Temp Pulse Resp B/P Pulse Ox O2 Delivery O2 Flow Rate FiO2 03/17/17 08:40 18 97 Room Air 03/17/17 08:00 2.0 03/17/17 07:47 68 113/73 03/17/17 07:00 98.2 98.2 I&O Intake and Output 03/17/17 07:00 Intake Total 1890 ml Output Total 65 ml Balance 1825 ml Intake Oral 340 ml IV Total 950 ml Other 600 ml Output Estimated Blood Loss 65 ml # Voids 5 PATIENT HAS A BARRIENTOS: No General: Alert, Oriented X3, Cooperative, mild distress Abdomen: Normal bowel sounds, Soft, Other (mild umbilical tenderness) Problem List Problems Medical Problems: (1) Abdominal pain Status: Acute (2) Fever Status: Acute (3) Urinary tract infection Status: Acute Assessment/Plan S/P L/S Cholecystectomy yesterday. Doing well Ok to D/C home from surgical point of view F/U with Dr Duncan in 2 weeks. Problems: PRINCE DUNCAN MD Mar 17, 2017 9:10 am
--- NOTE | 2017-03-17 09:30 | PDOC ---
Infectious Disease Note Subjective Subjective Mild abdominal pain still but better Had breakfast No Bm or flatus yet ROS ROS GEN: Denies fevers, chills, sweats HEENT: Denies blurred vision, sore throat CV: Denies chest pain RESP: Denies shortness of air, cough GI: Denies n/v/d NEURO: Denies confusion, dizziness MSK: Denies weakness, joint pain/swelling Vital Sign Vital Signs Vital Signs Date Time Temp Pulse Resp B/P Pulse Ox O2 Delivery O2 Flow Rate FiO2 03/17/17 08:40 18 97 Room Air 03/17/17 08:00 2.0 03/17/17 07:47 68 113/73 03/17/17 07:00 98.2 98.2 Physical Exam PHYSICAL EXAM GENERAL: NAD, Alert, in bed HEENT: PERRL, OC/OP- clear NECK: Supple, no JVD, no LN LUNGS: Clear HEART: S1S2, no gallop, no murmur ABD: Soft, Mod distension. Port sites clean. Decreased BS EXT: No edema, no cyanosis PROFESSOR OF PSYCHIATRY: Alert, oriented x 3, no focal neurologic deficit SKIN: No rash IV: ok Objective Assessment Group A strep sepsis. POA 03/07. repeat cult 03/10 neg. ECHO 03/09 neg Fever. Resolved AHN - Med related Abdominal pain. Cholelithiasis - better. /adhesions. S/p Lap cristóbal 03/16 Anemia Eczema Plan Plan of Care D/c Unasyn Augmentin for 3 days OK to d/c from [facility] Moreno MD Mar 17, 2017 09:30
--- NOTE | 2017-03-17 09:54 | PDOC ---
Subjective: Subjective: Feeling better. Ate some breakfast, feels a little dizzy, no BM/flatus, some nausea w/o vomiting, ready to go home. Objective: Objective: Per RN - less pain, eating, no BM but taking Miralax now, wants to DC. Vital Signs: Vital Signs Date Time Temp Pulse Resp B/P Pulse Ox O2 Delivery O2 Flow Rate FiO2 03/17/17 08:40 18 97 Room Air 03/17/17 08:00 2.0 03/17/17 07:47 68 113/73 03/17/17 07:00 98.2 98.2 PE: GEN: NAD LUNGS: CTAB anteriorly HEART: RRR ABD: BS+, some RUQ tenderness around incisions NEURO/PSYCH: A & O 3 A/P: Abd pain, DANE, sepsis -s/p cristóbal 03/16 -s/p EGD/colon 03/10: gastritis, hyperplastic rectal polyps, internal hemorrhoids -ID following -- Improved. Okay to DC from GI standpoint. LUPE MCLEOD Mar 17, 2017 09:54
[2017-03-17 11:35] VITALS: BP 135/78
[2017-03-17] MEDS ORDERED: AMOX1TAB11 PO (12:53)
[2017-03-17] MEDS ORDERED: POLY17PO29 PO (12:56)
[2017-03-17] MEDS ORDERED: OXYC1TAB7 PO (12:56)
--- NOTE | 2017-03-17 16:36 | PATHOLOGY ---
PATHOLOGY REPORT * * * * * * * * FINAL DIAGNOSIS: Gallbladder, laparoscopic cholecystectomy: - Cholelithiasis. - Chronic cholecystitis. COMMENT: There is no evidence of malignancy. (BRENDAM:; d/t: 03/17/17) REPORT ELECTRONICALLY SIGNED BY: Parag Kaur M.D. DATE/TIME: 03/17/2017 16:35 * * * * * * * * GROSS PATHOLOGY: Received in formalin labeled "Sandra Pastrana, gallbladder and its contents," is a 6.7 x 2.9 x 1.1 cm, intact gallbladder with pink-hermosillo serosal surfaces. Opening the gallbladder reveals a velvety, bile-stained mucosa and an average wall thickness of 0.1 cm. Calculi are present and no masses are noted grossly. [employer]els Plant Manager sections from the body and fundus are submitted along with the proximal margin in cassette A1. (CAA; 03/16/2017) INITIAL CPT CODE(S): A; 17610 Professional services performed by [id number] [place] [address] Technical services performed by [id number] at [address] [place] [address] [address], [place] [address]. SPECIMEN(S) RECEIVED: A.Gallbladder and its contents CLINICAL HISTORY: Abdominal pain PATIENT: SANDRA PASTRANA /AGE: 8 1960 (Age: 56) PATIENT #: [id number] ALT CASE #: SPECIMEN COLLECTION DATE: 03/16/2017 SPECIMEN RECEIVED DATE: 03/16/2017 [facility] - [address] [place] [address] - PHONE: [phone] * * * END OF REPORT * * *
[2017-03-17] MEDS ORDERED: AMOXICILLIN/K CLAV 875/125MG TABLET. PO SCH (21:00)
== END 2017-03-17 14:27 | disposition home or self-care (01) | DRG 854 ==
LOC: ER 03:57 → 5 SOUTH 06:36
PROVIDERS: ADMIT Internal Medicine; ATTEND Internal Medicine
PROC: 0DBP8ZX Excision of Rectum, Via Natural or Artificial Opening Endoscopic, Diagnostic (ICD-10-PCS; 2017-03-10)
PROC: 0DJ08ZZ Inspection of Upper Intestinal Tract, Via Natural or Artificial Opening Endoscopic (ICD-10-PCS; 2017-03-10 11:00)
PROC: 0FT44ZZ Resection of Gallbladder, Percutaneous Endoscopic Approach (ICD-10-PCS; principal; 2017-03-16 10:00)
DX: A40.0 Sepsis due to streptococcus, group A (principal); K80.10 Calculus of gallbladder with chronic cholecystitis without obstruction; N39.0 Urinary tract infection, site not specified; K56.7 Ileus, unspecified; D64.9 Anemia, unspecified; E78.5 Hyperlipidemia, unspecified; E87.6 Hypokalemia; I10 Essential (primary) hypertension; I80.9 Phlebitis and thrombophlebitis of unspecified site; K29.70 Gastritis, unspecified, without bleeding; K62.1 Rectal polyp; K64.8 Other hemorrhoids; K76.0 Fatty (change of) liver, not elsewhere classified; L30.9 Dermatitis, unspecified; N28.1 Cyst of kidney, acquired; Z82.49 Family history of ischemic heart disease and other diseases of the circulatory system; Z86.010 Personal history of colon polyps; Z90.710 Acquired absence of both cervix and uterus
CPT/HCPCS: 36415; 74177; 76700; 76857; 80048; 80053; 81001; 83540; 83550; 83605; 83690; 83735; 85007; 85027; 87040; 87086; 87205; 88304; 88305; 93005; 93306; 94250; 94760; 96361; 96365; 96375; C1782; J0295; J0330; J0690; J0780; J1100; J1170; J1650; J1756; J1885; J1956; J2270; J2405; J2704; J2710; J3010; J3490; J7030; J7120; Q9967; 99285-25

== ENCOUNTER → 2018-08-17 | Outpatient (CLI) | payer BC ==
[~2018-08-17] MED LIST changes: +AMOX1TAB11 PO; +OXYC1TAB7 PO; +POLY17PO29 PO
--- NOTE | 2018-08-17 16:11 | KCIC ---
EXAM: Renal sonogram. HISTORY: Right flank pain. TECHNIQUE: Sonographic imaging of the kidneys and bladder was performed. COMPARISON: CT dated 03/07/2017. FINDINGS: The kidneys are normal in size. There is a 2.9 cm slightly complex cyst within the lower pole the left kidney. No solid renal lesion is seen. There is no hydronephrosis. The bladder is decompressed. The ureteral jets are not seen during the exam. The aorta and inferior vena cava are obscured due to bowel gas. IMPRESSION: 1. 2.9 cm slightly complex left renal cyst, previously measuring 2.6 cm. 2. Small bladder volume. The ureteral jets are not seen during the exam. Electronically signed by: Elli Dickinson MD (08/17/2018 4:07 PM) [id number]
== END | disposition home or self-care (01) ==
LOC: KCIC US 15:35
DX: N28.1 Cyst of kidney, acquired (principal); I10 Essential (primary) hypertension; E78.5 Hyperlipidemia, unspecified; E78.00 Pure hypercholesterolemia, unspecified; Z86.010 Personal history of colon polyps; Z90.710 Acquired absence of both cervix and uterus; Z82.49 Family history of ischemic heart disease and other diseases of the circulatory system
CPT/HCPCS: 76770

== ENCOUNTER 2019-11-30 18:59 | Inpatient (IN) | payer BC ==
[~2019-11-30] VITALS: Ht 162.6 cm; Wt 68.2 kg
[~2019-11-30 18:59] MED LIST changes: -PANT40TA3 PO; +PANT40TA77 PO
--- NOTE | 2019-11-30 19:14 | PHYS DOC ---
Past Medical History Past Medical History: High Cholesterol, Hypertension Past Surgical History: Hysterectomy Alcohol Use: None Drug Use: None Adult General Chief Complaint Chief Complaint: SHORTNESS OF BREATH HPI HPI Patient is a 59 year old female who presented to ER today for evaluation of left-sided chest pain that radiated to her left arm and shoulder associated with trouble breathing after she walking up some steps at her house. She denies any fever, no cough, no abdominal pain, no nausea vomiting. Patient denies any history of coronary artery disease. Patient has history hypertension, strong family history OF heart disease. Patient has no history of diabetes. Nonsmoker. aLL OTHER ros IS NEGATIVE UNLESS OTHERWISE NOTED IN hpi Review of Systems Review of Systems See above Current Medications Current Medications Current Medications Medications (Trade) Dose Ordered Sig/Fe Start Time Stop Time Status Last Admin Dose Admin Aspirin ([facility]uck Aspirin) 325 mg 1X ONCE 11/30/19 19:15 11/30/19 19:16 Cancel Aspirin ([facility] Aspirin) 162 mg 1X ONCE 11/30/19 19:30 11/30/19 19:31 DC 11/30/19 19:29 162 MG Nitroglycerin (Nitrostat) 0.4 mg PRN Q5MIN PRN 11/30/19 19:15 12/01/19 19:14 Allergies Allergies Allergies Coded Allergies Type Severity Reaction Last Updated Verified nitroglycerin Allergy Unknown 11/30/19 Yes Physical Exam Physical Exam See above Constitutional: Well developed, well nourished, no acute distress, non-toxic appearance. [] HENT: Normocephalic, atraumatic, bilateral external ears normal, oropharynx moist, no oral exudates, nose normal. [] Eyes: PERRLA, EOMI, conjunctiva normal, no discharge. [] Neck: Normal range of motion, no tenderness, supple, no stridor. [] Cardiovascular:Heart rate regular rhythm, no murmur [] Lungs & Thorax: Bilateral breath sounds clear to auscultation [] Abdomen: Bowel sounds normal, soft, no tenderness, no masses, no pulsatile masses. [] Skin: Warm, dry, no erythema, no rash. [] Back: No tenderness, no CVA tenderness. [] Extremities: No tenderness, no cyanosis, no clubbing, ROM intact, no edema. [] Neurologic: Alert and oriented X 3, normal motor function, normal sensory function, no focal deficits noted. [] Psychologic: Affect normal, judgement normal, mood normal. [] Current Patient Data Vital Signs Vital Signs Date Time Temp Pulse Resp B/P (MAP) Pulse Ox O2 Delivery O2 Flow Rate FiO2 11/30/19 19:00 97.8 85 26 188/96 (126) 94 Room Air 97.8 Lab Values Laboratory Tests Test 11/30/19 19:12 11/30/19 20:00 White Blood Count 8.5 x10^3/uL (4.0-11.0) Red Blood Count 5.44 x10^6/uL (3.50-5.40) H Hemoglobin 11.8 g/dL (12.0-15.5) L Hematocrit 37.7 % (36.0-47.0) Mean Corpuscular Volume 69 fL (79-100) L Mean Corpuscular Hemoglobin 22 pg (25-35) L Mean Corpuscular Hemoglobin Concent 31 g/dL (31-37) Red Cell Distribution Width 20.0 % (11.5-14.5) H Platelet Count 262 x10^3/uL (140-400) Neutrophils (%) (Auto) 46 % (31-73) Lymphocytes (%) (Auto) 38 % (24-48) Monocytes (%) (Auto) 11 % (0-9) H Eosinophils (%) (Auto) 5 % (0-3) H Basophils (%) (Auto) 1 % (0-3) Neutrophils # (Auto) 3.9 x10^3/uL (1.8-7.7) Lymphocytes # (Auto) 3.3 x10^3/uL (1.0-4.8) Monocytes # (Auto) 0.9 x10^3/uL (0.0-1.1) Eosinophils # (Auto) 0.4 x10^3/uL (0.0-0.7) Basophils # (Auto) 0.1 x10^3/uL (0.0-0.2) Platelet Estimate Adequate (ADEQUATE) Polychromasia Slight Hypochromasia Mod Anisocytosis Slight Microcytosis Marked Ovalocytes Few Prothrombin Time 13.1 SEC (11.7-14.0) Prothrombin Time INR 1.0 (0.8-1.1) Sodium Level 139 mmol/L (136-145) Potassium Level 3.9 mmol/L (3.5-5.1) Chloride Level 102 mmol/L (98-107) Carbon Dioxide Level 26 mmol/L (21-32) Anion Gap 11 (6-14) Blood Urea Nitrogen 16 mg/dL (7-20) Creatinine 0.8 mg/dL (0.6-1.0) Estimated GFR (Cockcroft-Gault) 88.5 BUN/Creatinine Ratio 20 (6-20) Glucose Level 125 mg/dL (70-99) H Calcium Level 9.6 mg/dL (8.5-10.1) Magnesium Level 2.0 mg/dL (1.8-2.4) Total Bilirubin 0.3 mg/dL (0.2-1.0) Aspartate Amino Transferase (AST) 17 U/L (15-37) Alanine Aminotransferase (ALT) 22 U/L (14-59) Alkaline Phosphatase 96 U/L (46-116) Troponin I Quantitative < 0.017 ng/mL (0.000-0.055) WV-Diq-Q-Type Natriuretic Peptide 9 pg/mL (0-124) Total Protein 8.0 g/dL (6.4-8.2) Albumin 4.4 g/dL (3.4-5.0) Albumin/Globulin Ratio 1.2 (1.0-1.7) Urine Collection Type Unknown Urine Color Yellow Urine Clarity Clear Urine pH 7.5 Urine Specific Rubicon 1.020 Urine Protein Negative mg/dL (NEG-TRACE) Urine Glucose (UA) >=1000 mg/dL (NEG) Urine Ketones (Stick) Negative mg/dL (NEG) Urine Blood Negative (NEG) Urine Nitrite Negative (NEG) Urine Bilirubin Negative (NEG) Urine Urobilinogen Dipstick 1.0 mg/dL (0.2 mg/dL) Urine Leukocyte Esterase Negative (NEG) Urine RBC 0 /HPF (0-2) Urine WBC 1-4 /HPF (0-4) Urine Squamous Epithelial Cells Few /LPF Urine Amorphous Sediment Present /HPF Urine Bacteria Few /HPF (0-FEW) Laboratory Tests 11/30/19 19:12 Laboratory Tests 11/30/19 19:12 EKG EKG ekg was read by this physician at 1910, rate of 89 bpm, NO STEMI, SINUS RHYTHM.[] Radiology/Procedures Radiology/Procedures [][facility] [address] [place] [address] IMAGING REPORT Signed PATIENT: SANDRA ROA ACCOUNT: [id number] : 1960 LOCATION: ER AGE: 59 SEX: F EXAM STATUS: REG ER ORD. PHYSICIAN: KAI ARRINGTON DO REASON: chest pain PROCEDURE: PORTABLE CHEST 1V EXAM: AP View of the chest DATE: 11/30/2019 7:06 PM INDICATION: COMPARISON: No Prior FINDINGS: The heart is not enlarged. Mediastinal and hilar contours are normal. No focal parenchymal airspace opacity. No pleural effusion or pneumothorax. IMPRESSION: 1. No radiographic evidence for acute cardiopulmonary process. Electronically signed by: Cleveland Miranda MD (11/30/2019 8:18 PM) [facility] DICTATED and SIGNED BY: CLEVELAND MIRANDA MD DATE: 11/30/19 2018 Course & Med Decision Making Course & Med Decision Making Pertinent Labs and Imaging studies reviewed. (See chart for details) [] Dragon Disclaimer Dragon Disclaimer This electronic medical record was generated, in whole or in part, using a voice recognition dictation system. Departure Departure Impression: Primary Impression: Chest pain Disposition: 09 ADMITTED INPATIENT Admitting Physician: GABE (DR. MIGUEL) Condition: STABLE Referrals: BISHNU ALLEN Jr, MD (PCP) The HEART Score for CP Pts HEART Score for Chest Pain: HEART Score for Chest Pain Response (Comments) Value History Moderately Suspicious 1 ECG Nonspecific Repolarizatio 1 Age >45 - < 65 1 Risk Factors >3 Risk Factors or Hx CAD 2 Troponin < Normal Limit 0 Total 5 Risk Factors: Risk Factors: DM, Current or recent (<one month) smoker, HTN, HLP, family history of CAD, obesity. Risk Scores: Score 0 - 3: 2.5% MACE over next 6 weeks - Discharge Home Score 4 - 6: 20.3% MACE over next 6 weeks - Admit for Clinical Observation Score 7 - 10: 72.7% MACE over next 6 weeks - Early Invasive Strategies KAI ARRINGTON DO Nov 30, 2019 19:14
[2019-11-30] MEDS ORDERED: ASPIRIN 325 MG TABLET PO ONE (19:15)
[2019-11-30] MEDS ORDERED: NITROGLYCERIN SUBLINGUAL 0.4 MG BOTTLE OF 25. SL PRN (19:15)
[2019-11-30 19:25] LABS: BASO # 0.1 x10^3/uL (0.0-0.2); BASO % 1 % (0-3); EOS # 0.4 x10^3/uL (0.0-0.7); EOS % 5 % (0-3); HEMATOCRIT 37.7 % (36.0-47.0); HEMOGLOBIN 11.8 g/dL (12.0-15.5); LYMPH # 3.3 x10^3/uL (1.0-4.8); LYMPH % 38 % (24-48); MEAN CORPUSCULAR HEMOGLOBIN 22 pg (25-35); MEAN CORPUSCULAR HGB CONC 31 g/dL (31-37); MEAN CORPUSCULAR VOLUME 69 fL (79-100); MONO # 0.9 x10^3/uL (0.0-1.1); MONO % 11 % (0-9); NEUT # 3.9 x10^3/uL (1.8-7.7); NEUT % 46 % (31-73); PLATELET COUNT 262 x10^3/uL (140-400); RED BLOOD COUNT 5.44 x10^6/uL (3.50-5.40); WHITE BLOOD COUNT 8.5 x10^3/uL (4.0-11.0)
[2019-11-30 19:30] LABS: CALCIUM 9.6 mg/dL (8.5-10.1); CREATININE 0.8 mg/dL (0.6-1.0); GFR 88.5; POTASSIUM 3.9 mmol/L (3.5-5.1)
[2019-11-30] MEDS ORDERED: ASPIRIN CHEWABLE 81 MG TABLET. PO ONE (19:30)
[2019-11-30 19:36] LABS: ALBUMIN 4.4 g/dL (3.4-5.0); ALBUMIN/GLOBULIN RATIO 1.2 (1.0-1.7); TOTAL BILIRUBIN 0.3 mg/dL (0.2-1.0)
[2019-11-30 19:37] LABS: PROTHROMBIN TIME PATIENT 13.1 SEC (11.7-14.0)
[2019-11-30 20:00] LABS: ANISOCYTOSIS SLIGHT; HYPOCHROMIA MOD; MICROCYTOSIS MARKED; OVALOCYTES FEW; PLT ESTIMATE ADEQUATE (ADEQUATE); POLYCHROMASIA SLIGHT
[2019-11-30 20:09] LABS: BILIRUBIN,URINE NEGATIVE (NEG); CLARITY,URINE CLEAR; COLOR,URINE YELLOW; NITRITE,URINE NEGATIVE (NEG); PH,URINE 7.5; PROTEIN,URINE NEGATIVE (NEG-TRACE)
[2019-11-30 20:14] LABS: AMORPHOUS SEDIMENT,UR PRESENT /HPF; BACTERIA,URINE FEW /HPF (0-FEW); RBC,URINE 0 /HPF (0-2); SQUAMOUS EPITHELIAL CELL,UR FEW /LPF
--- NOTE | 2019-11-30 20:21 | RAD ---
EXAM: AP View of the chest DATE: 11/30/2019 7:06 PM INDICATION: COMPARISON: No Prior FINDINGS: The heart is not enlarged. Mediastinal and hilar contours are normal. No focal parenchymal airspace opacity. No pleural effusion or pneumothorax. IMPRESSION: 1. No radiographic evidence for acute cardiopulmonary process. Electronically signed by: Cleveland Yu MD (11/30/2019 8:18 PM) [id number]
[2019-11-30] MEDS ORDERED: ONDANSETRON PF 4 MG/2 ML VIAL. IVP ONE (20:45)
[2019-11-30] MEDS ORDERED: MORPHINE SULFATE 4 MG/ML VIAL. IV ONE (20:45)
[2019-11-30] MEDS ORDERED: ONDANSETRON PF 4 MG/2 ML VIAL. IV PRN (20:45)
[2019-11-30] MEDS: ATORVASTATIN CALCIUM 10 MG TABLET. PO SCH (22:45)
[2019-11-30 23:34] VITALS: BP 120/80
[2019-12-01] MEDS ORDERED: SITA1TAB7 PO (01:23)
[2019-12-01] MEDS ORDERED: EMPA10TA (01:29)
[2019-12-01 03:30] VITALS: BP 117/79
[2019-12-01] MEDS: oxyCODONE/APAP 5/325 1 TAB TABLET PO PRN ×2 (03:44→10:24)
[2019-12-01 07:00] VITALS: BP 168/72
--- NOTE | 2019-12-01 09:42 | PDOC1 ---
History and Physical Date of Admission Date of Admission DATE: 12/01/19 TIME: 09:38 Identification/Chief Complaint Chief Complaint SEEN IN ER ,59 year old female who presented to ER today for evaluation of left-sided chest pain that radiated to her left arm and shoulder associated with trouble breathing after she walking up some steps at her house. She denies any fever, no cough, no abdominal pain, no nausea vomiting. Patient denies any history of coronary artery disease. Patient has history hypertension, strong family history OF heart disease TROPONIN I NEG X 4 Past Medical History Past Medical History Past Medical History Past Medical History Past Medical History: High Cholesterol, Hypertension Past Surgical History: Hysterectomy Alcohol Use: None Drug Use: None FHX HTN Musculoskeletal: Osteoarthritis Past Surgical History Past Surgical History: Hysterectomy Family History Family History: High Cholestrol, Hypertension Social History Smoke: No ALCOHOL: none Drugs: None Current Problem List Problem List Problems Medical Problems: (1) Chest pain Status: Acute Current Medications Current Medications Current Medications Aspirin (Chuck Aspirin) 325 mg 1X ONCE PO ; Start 11/30/19 at 19:15; Stop 11/30/19 at 19:16; Status Cancel Nitroglycerin (Nitrostat) 0.4 mg PRN Q5MIN PRN SL CP RATING > 1/10; Start 11/30/19 at 19:15; Stop 12/01/19 at 19:14 Aspirin (Children'S Aspirin) 162 mg 1X ONCE PO Last administered on 11/30/19at 19:29; Start 11/30/19 at 19:30; Stop 11/30/19 at 19:31; Status DC Ondansetron HCl (Zofran) 4 mg PRN Q8HRS PRN IV NAUSEA/VOMITING; Start 11/30/19 at 20:45; Stop 12/01/19 at 20:44 Morphine Sulfate (Morphine Sulfate) 4 mg 1X ONCE IV Last administered on 11/30/19at 20:46; Start 11/30/19 at 20:45; Stop 11/30/19 at 20:46; Status DC Ondansetron HCl (Zofran) 4 mg 1X ONCE IVP Last administered on 11/30/19at 20:46; Start 11/30/19 at 20:45; Stop 11/30/19 at 20:46; Status DC Oxycodone/ Acetaminophen (Percocet 5/325) 1 tab PRN Q4HRS PRN PO MILD PAIN 1-3 Last administered on 12/01/19at 03:44; Start 11/30/19 at 22:15 Atorvastatin Calcium (Lipitor) 5 mg QHS PO Last administered on 11/30/19at 22:45; Start 11/30/19 at 23:00 Active Scripts Active Oxycodone-Acetaminophen 5-325 (Oxycodone Hcl/Acetaminophen) 1 Each Tablet 1 Tab PO PRN Q4HRS PRN Reported Jardiance (Empagliflozin) 10 Mg Tablet 10 DAILY MDD 10 1 Days Janumet 50-500 Mg Tablet (Sitagliptin Phos/Metformin Hcl) 1 Each Tablet 1 Tab PO BID Pravastatin Sodium 20 Mg Tablet 1 Tab PO QHS Ferrous Sulfate 325 Mg Tablet.dr 325 Mg PO Lisinopril 20 Mg Tablet 1 Tab PO DAILY Allergies Allergies: Coded Allergies: nitroglycerin (Verified Allergy, Intermediate, 11/30/19) ROS Review of System 14 PT ROS OTHERWISE NEG General: No: Chills, Night Sweats, Fatigue, Malaise, Appetite, Other PSYCHOLOGICAL ROS: No: Anxiety, Behavioral Disorder, Concentration difficultie, Decreased libido, Depression, Disorientation, Hallucinations, Hostility, Irritablity, Memory difficulties, Mood Swings, Obsessive thoughts, Physical abuse, Sexual abuse, Sleep disturbances, Suicidal ideation, Other Eyes: No Blurry vision, No Decreased vision, No Double vision, No Dry eyes, No Excessive tearing, No Eye Pain, No Itchy Eyes, No Loss of vision, No Photophobi a, No Scotomata, No Uses contacts, No Uses glasses, No Other HEENT: No: Heacaches, Visual Changes, Hearing change, Nasal congestion, Nasal discharge, Oral lesions, Sinus pain, Sore Throat, Epistaxis, Sneezing, Snoring, Tinnitus, Vertigo, Vocal changes, Other ALLERGY AND IMMUNOLOGY: No: Hives, Insect Bite Sensitivity, Itchy/Watery Eyes, Nasal Congestion, Post Nasal Drip, Seasonal Allergies, Other Hematological and Lymphatic: No: Bleeding Problems, Blood Clots, Blood Transfusions, Brusing, Night Sweats, Pallor, Swollen Lymph Nodes, Other Cardiovascular: yes Chest Pain; No Palpitations, No Orthopnea, No Paroxysmal Noc. Dyspnea, No Edema, No Lt Headedness, No Other Gastrointestinal: No Nausea, No Vomiting, No Abdominal Pain, No Diarrhea, No Constipation, No Melena, No Hematochezia, No Other Genitourinary: No Dysuria, No Frequency, No Incontinence, No Hematuria, No Retention, No Discharge, No Urgency, No Pain, No Flank Pain, No Other, No , No , No , No , No , No , No Musculoskeletal: No Gait Disturbance, No Joint Pain, No Joint Stiffness, No Joint Swelling, No Muscle Pain, No Muscular Weakness, No Pain In:, No Swelling In:, No Other Neurological: No Behavorial Changes, No Bowel/Bladder ControlChng, No Confusion, No Dizziness, No Gait Disturbance, No Headaches, No Impaired Coord/balance, No Memory Loss, No Numbness/Tingling, No Seizures, No Speech Problems, No Tremors, No Visual Changes, No Weakness, No Other Physical Exam Physical Exam Physical Exam Physical Exam See above Constitutional: Well developed, well nourished, no acute distress, non-toxic appearance. [] HENT: Normocephalic, atraumatic, bilateral external ears normal, oropharynx moist, no oral exudates, nose normal. [] Eyes: PERRLA, EOMI, conjunctiva normal, no discharge. [] Neck: Normal range of motion, no tenderness, supple, no stridor. [] Cardiovascular:Heart rate regular rhythm, no murmur [] Lungs & Thorax: Bilateral breath sounds clear to auscultation [] Abdomen: Bowel sounds normal, soft, no tenderness, no masses, no pulsatile masses. [] Skin: Warm, dry, no erythema, no rash. [] Back: No tenderness, no CVA tenderness. [] Extremities: No tenderness, no cyanosis, no clubbing, ROM intact, no edema. [] Neurologic: Alert and oriented X 3, normal motor function, normal sensory function, no focal deficits noted. [] Psychologic: Affect normal, judgment normal, mood normal. [] General: Alert, Oriented X3, Cooperative, No acute distress HEENT: Atraumatic, EOMI, Mucous membr. moist/pink Breasts: Not examined Abdomen: Normal bowel sounds, Soft Rectal Exam: not examined Extremities: No cyanosis Neuro: Normal speech, Cranial nerves 3-12 NL Psych/Mental Status: Mental status NL, Mood NL Vitals Vitals Vital Signs Date Time Temp Pulse Resp B/P (MAP) Pulse Ox O2 Delivery O2 Flow Rate FiO2 12/01/19 08:30 Room Air 12/01/19 07:00 97.9 68 18 168/72 (104) 98 97.9 Labs Labs Laboratory Tests Test 11/30/19 19:12 11/30/19 20:00 12/01/19 00:26 12/01/19 07:00 White Blood Count 8.5 x10^3/uL (4.0-11.0) Red Blood Count 5.44 x10^6/uL (3.50-5.40) Hemoglobin 11.8 g/dL (12.0-15.5) Hematocrit 37.7 % (36.0-47.0) Mean Corpuscular Volume 69 fL (79-100) Mean Corpuscular Hemoglobin 22 pg (25-35) Mean Corpuscular Hemoglobin Concent 31 g/dL (31-37) Red Cell Distribution Width 20.0 % (11.5-14.5) Platelet Count 262 x10^3/uL (140-400) Neutrophils (%) (Auto) 46 % (31-73) Lymphocytes (%) (Auto) 38 % (24-48) Monocytes (%) (Auto) 11 % (0-9) Eosinophils (%) (Auto) 5 % (0-3) Basophils (%) (Auto) 1 % (0-3) Neutrophils # (Auto) 3.9 x10^3/uL (1.8-7.7) Lymphocytes # (Auto) 3.3 x10^3/uL (1.0-4.8) Monocytes # (Auto) 0.9 x10^3/uL (0.0-1.1) Eosinophils # (Auto) 0.4 x10^3/uL (0.0-0.7) Basophils # (Auto) 0.1 x10^3/uL (0.0-0.2) Platelet Estimate Adequate (ADEQUATE) Polychromasia Slight Hypochromasia Mod Anisocytosis Slight Microcytosis Marked Ovalocytes Few Prothrombin Time 13.1 SEC (11.7-14.0) Prothromb Time International Ratio 1.0 (0.8-1.1) Sodium Level 139 mmol/L (136-145) Potassium Level 3.9 mmol/L (3.5-5.1) Chloride Level 102 mmol/L (98-107) Carbon Dioxide Level 26 mmol/L (21-32) Anion Gap 11 (6-14) Blood Urea Nitrogen 16 mg/dL (7-20) Creatinine 0.8 mg/dL (0.6-1.0) Estimated GFR (Cockcroft-Gault) 88.5 BUN/Creatinine Ratio 20 (6-20) Glucose Level 125 mg/dL (70-99) Calcium Level 9.6 mg/dL (8.5-10.1) Magnesium Level 2.0 mg/dL (1.8-2.4) Total Bilirubin 0.3 mg/dL (0.2-1.0) Aspartate Amino Transf (AST/SGOT) 17 U/L (15-37) Alanine Aminotransferase (ALT/SGPT) 22 U/L (14-59) Alkaline Phosphatase 96 U/L (46-116) Troponin I Quantitative < 0.017 ng/mL (0.000-0.055) < 0.017 ng/mL (0.000-0.055) < 0.017 ng/mL (0.000-0.055) [id number]-Type Natriuretic Peptide 9 pg/mL (0-124) Total Protein 8.0 g/dL (6.4-8.2) Albumin 4.4 g/dL (3.4-5.0) Albumin/Globulin Ratio 1.2 (1.0-1.7) Urine Collection Type Unknown Urine Color Yellow Urine Clarity Clear Urine pH 7.5 Urine Specific [place] 1.020 Urine Protein Negative mg/dL (NEG-TRACE) Urine Glucose (UA) >=1000 mg/dL (NEG) Urine Ketones (Stick) Negative mg/dL (NEG) Urine Blood Negative (NEG) Urine Nitrite Negative (NEG) Urine Bilirubin Negative (NEG) Urine Urobilinogen Dipstick 1.0 mg/dL (0.2 mg/dL) Urine Leukocyte Esterase Negative (NEG) Urine RBC 0 /HPF (0-2) Urine WBC 1-4 /HPF (0-4) Urine Squamous Epithelial Cells Few /LPF Urine Amorphous Sediment Present /HPF Urine Bacteria Few /HPF (0-FEW) Laboratory Tests Test 11/30/19 19:12 11/30/19 20:00 12/01/19 00:26 12/01/19 07:00 White Blood Count 8.5 x10^3/uL (4.0-11.0) Red Blood Count 5.44 x10^6/uL (3.50-5.40) Hemoglobin 11.8 g/dL (12.0-15.5) Hematocrit 37.7 % (36.0-47.0) Mean Corpuscular Volume 69 fL (79-100) Mean Corpuscular Hemoglobin 22 pg (25-35) Mean Corpuscular Hemoglobin Concent 31 g/dL (31-37) Red Cell Distribution Width 20.0 % (11.5-14.5) Platelet Count 262 x10^3/uL (140-400) Neutrophils (%) (Auto) 46 % (31-73) Lymphocytes (%) (Auto) 38 % (24-48) Monocytes (%) (Auto) 11 % (0-9) Eosinophils (%) (Auto) 5 % (0-3) Basophils (%) (Auto) 1 % (0-3) Neutrophils # (Auto) 3.9 x10^3/uL (1.8-7.7) Lymphocytes # (Auto) 3.3 x10^3/uL (1.0-4.8) Monocytes # (Auto) 0.9 x10^3/uL (0.0-1.1) Eosinophils # (Auto) 0.4 x10^3/uL (0.0-0.7) Basophils # (Auto) 0.1 x10^3/uL (0.0-0.2) Platelet Estimate Adequate (ADEQUATE) Polychromasia Slight Hypochromasia Mod Anisocytosis Slight Microcytosis Marked Ovalocytes Few Prothrombin Time 13.1 SEC (11.7-14.0) Prothromb Time International Ratio 1.0 (0.8-1.1) Sodium Level 139 mmol/L (136-145) Potassium Level 3.9 mmol/L (3.5-5.1) Chloride Level 102 mmol/L (98-107) Carbon Dioxide Level 26 mmol/L (21-32) Anion Gap 11 (6-14) Blood Urea Nitrogen 16 mg/dL (7-20) Creatinine 0.8 mg/dL (0.6-1.0) Estimated GFR (Cockcroft-Gault) 88.5 BUN/Creatinine Ratio 20 (6-20) Glucose Level 125 mg/dL (70-99) Calcium Level 9.6 mg/dL (8.5-10.1) Magnesium Level 2.0 mg/dL (1.8-2.4) Total Bilirubin 0.3 mg/dL (0.2-1.0) Aspartate Amino Transf (AST/SGOT) 17 U/L (15-37) Alanine Aminotransferase (ALT/SGPT) 22 U/L (14-59) Alkaline Phosphatase 96 U/L (46-116) Troponin I Quantitative < 0.017 ng/mL (0.000-0.055) < 0.017 ng/mL (0.000-0.055) < 0.017 ng/mL (0.000-0.055) KJ-[id number]-F-Type Natriuretic Peptide 9 pg/mL (0-124) Total Protein 8.0 g/dL (6.4-8.2) Albumin 4.4 g/dL (3.4-5.0) Albumin/Globulin Ratio 1.2 (1.0-1.7) Urine Collection Type Unknown Urine Color Yellow Urine Clarity Clear Urine pH 7.5 Urine Specific [place] 1.020 Urine Protein Negative mg/dL (NEG-TRACE) Urine Glucose (UA) >=1000 mg/dL (NEG) Urine Ketones (Stick) Negative mg/dL (NEG) Urine Blood Negative (NEG) Urine Nitrite Negative (NEG) Urine Bilirubin Negative (NEG) Urine Urobilinogen Dipstick 1.0 mg/dL (0.2 mg/dL) Urine Leukocyte Esterase Negative (NEG) Urine RBC 0 /HPF (0-2) Urine WBC 1-4 /HPF (0-4) Urine Squamous Epithelial Cells Few /LPF Urine Amorphous Sediment Present /HPF Urine Bacteria Few /HPF (0-FEW) Images Images Tricuspid Valve TR P. Velocity 238cm/s RAP ESTIMATE 3mmHg TR Peak Gr. 23mmHg RVSP 26mmHg Pulmonary Vein S1 Velocity 71.2cm/s D2 Velocity 51.2cm/s PVa duration 124msec LEFT VENTRICLE The left ventricle is normal size. There is normal left ventricular wall thickness. Left ventricle systolic function is normal. The Ejection Fraction is 60%. There is normal LV segmental wall motion. The left ventricular diastolic function and filling is normal for age. There is no ventricular septal defect visualized. RIGHT VENTRICLE The right ventricle is normal size. The right ventricular systolic function is normal. ATRIA The left atrium size is normal. The right atrium size is normal. The interatrial septum is intact with no evidence for an atrial septal defect or patent foramen ovale as noted on 2-D or Doppler imaging. AORTIC VALVE The aortic valve is normal in structure and function. The aortic valve is trileaflet. Doppler and Color Flow revealed no significant aortic regurgitation. There is no significant aortic valvular stenosis. MITRAL VALVE The mitral valve is normal in structure There is no evidence of mitral valve prolapse. There is no mitral valve stenosis. Doppler and Color Flow revealed mild mitral regurgitation. TRICUSPID VALVE The tricuspid valve is normal in structure. Doppler and Color Flow revealed trace to mild tricuspid regurgitation. There is no pulmonary hypertension. The PA pressure was estimated at 26 mmHg. There is no tricuspid valve stenosis. PULMONIC VALVE The pulmonary valve is normal in structure Doppler and Color Flow revealed trace pulmonic valvular regurgitation. There is no pulmonic valvular stenosis. GREAT VESSELS The aortic root is normal in size. The ascending aorta is normal in size. Normal pulmonary venous flow (Doppler). The IVC is normal in size and collapses >50% with inspiration. PERICARDIAL EFFUSION There is no pleural effusion. There is no evidence of significant pericardial effusion. Critical Notification Critical Value: No <Conclusion> Left ventricle systolic function is normal. The Ejection Fraction is 60%. The left atrium size is normal. The right atrium size is normal. The aortic valve is normal in structure and function. The aortic valve is trileaflet. Doppler and Color Flow revealed mild mitral regurgitation. Doppler and Color Flow revealed trace to mild tricuspid regurgitation. There is no pulmonary hypertension. The PA pressure was estimated at 26 mmHg. Doppler and Color Flow revealed trace pulmonic valvular regurgitation. There is no evidence of significant pericardial effusion. LEFT VENTRICLE The left ventricle is normal size. There is normal left ventricular wall thickness. Left ventricle systolic function is normal. The Ejection Fraction is 60%. There is normal LV segmental wall motion. The left ventricular diastolic function and filling is normal for age. There is no ventricular septal defect visualized. RIGHT VENTRICLE The right ventricle is normal size. The right ventricular systolic function is normal. ATRIA The left atrium size is normal. The right atrium size is normal. The interatrial septum is intact with no evidence for an atrial septal defect or patent foramen ovale as noted on 2-D or Doppler imaging. AORTIC VALVE The aortic valve is normal in structure and function. The aortic valve is trileaflet. Doppler and Color Flow revealed no significant aortic regurgitation. There is no significant aortic valvular stenosis. MITRAL VALVE The mitral valve is normal in structure There is no evidence of mitral valve prolapse. There is no mitral valve stenosis. Doppler and Color Flow revealed mild mitral regurgitation. TRICUSPID VALVE The tricuspid valve is normal in structure. Doppler and Color Flow revealed trace to mild tricuspid regurgitation. There is no pulmonary hypertension. The PA pressure was estimated at 26 mmHg. There is no tricuspid valve stenosis. PULMONIC VALVE The pulmonary valve is normal in structure Doppler and Color Flow revealed trace pulmonic valvular regurgitation. There is no pulmonic valvular stenosis. GREAT VESSELS The aortic root is normal in size. The ascending aorta is normal in size. Normal pulmonary venous flow (Doppler). The IVC is normal in size and collapses >50% with inspiration. PERICARDIAL EFFUSION There is no pleural effusion. There is no evidence of significant pericardial effusion. Critical Notification Critical Value: No <Conclusion> Left ventricle systolic function is normal. The Ejection Fraction is 60%. The left atrium size is normal. The right atrium size is normal. The aortic valve is normal in structure and function. The aortic valve is trileaflet. Doppler and Color Flow revealed mild mitral regurgitation. Doppler and Color Flow revealed trace to mild tricuspid regurgitation. There is no pulmonary hypertension. The PA pressure was estimated at 26 mmHg. Doppler and Color Flow revealed trace pulmonic valvular regurgitation. There is no evidence of significant pericardial effusion. DICTATED and SIGNED BY: MARY HAYES MD DATE: 03/09/17 1648 CC: DIETER KUHN III DO; KRISTIAN MCKINLEY MD; MARY HAYES MD; BISHNU ALLEN Jr, MD ~ EXAM: AP View of the chest DATE: 11/30/2019 7:06 PM INDICATION: COMPARISON: No Prior FINDINGS: The heart is not enlarged. Mediastinal and hilar contours are normal. No focal parenchymal airspace opacity. No pleural effusion or pneumothorax. IMPRESSION: 1. No radiographic evidence for acute cardiopulmonary process. Electronically signed by: Cleveland Miranda MD (11/30/2019 8:18 PM) [facility] DICTATED and SIGNED BY: CLEVELAND MIRANDA MD DATE: 11/30/192017 VTE Prophylaxis Ordered VTE Prophylaxis Devices: No VTE Pharmacological Prophylaxi: Yes Assessment/Plan Assessment/Plan Impression: Chest pain HYPERTENSION ADMITTED CVC BED Consult cardiology trend troponin i cardiac cath in am PRINCE MIGUEL MD Dec 01, 2019 09:42
--- NOTE | 2019-12-01 10:39 | EKG ---
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
[2019-12-01 11:00] VITALS: BP 107/67
[2019-12-01] MEDS ORDERED: PRAV40TA2 PO (11:00)
--- NOTE | 2019-12-01 11:54 | PDOC2 ---
CONSULT Date of Consult Date of Consult DATE: 12/01/19 TIME: 11:53 Reason for Consult Reason for Consult: Chest pain Referring Physician Referring Physician: Dr. Laughlin Identification/Chief Complaint Chief Complaint Chest pain Source Source: Chart review, Patient History of Present Illness Reason for Visit: 59-year-old female presented complaining of left-sided chest pain that she described as pressure-like sensation, 'somebody sitting on chest', associated with nausea, diaphoresis and dyspnea and worse on exertion. This was initially at 7/10 severity and currently at 3/10 severity. She denied any orthopnea/PND, palpitations or syncope. She has strong family history of premature coronary artery disease. Past Medical History Past Medical History Hypertension Hyperlipidemia Diabetes mellitus type 2 Past Surgical History Past Surgical History Hysterectomy Past Surgical History: Hysterectomy Family History Family History Hypertension and premature coronary artery disease Social History No ALCOHOL: none Drugs: None Current Problem List Problem List Problems Medical Problems: (1) Chest pain Status: Acute Current Medications Current Medications Current Medications Aspirin (Chuck Aspirin) 325 mg 1X ONCE PO ; Start 11/30/19 at 19:15; Stop 11/30/19 at 19:16; Status Cancel Nitroglycerin (Nitrostat) 0.4 mg PRN Q5MIN PRN SL CP RATING > 1/10; Start 11/30 at 19:15; Stop 12/01/19 at 19:14 Aspirin (Children'S Aspirin) 162 mg 1X ONCE PO Last administered on 11/30/19at 19:29; Start 11/30/19 at 19:30; Stop 11/30/19 at 19:31; Status DC Ondansetron HCl (Zofran) 4 mg PRN Q8HRS PRN IV NAUSEA/VOMITING; Start 11/30/19 at 20:45; Stop 12/01/19 at 20:44 Morphine Sulfate (Morphine Sulfate) 4 mg 1X ONCE IV Last administered on 11/30/19at 20:46; Start 11/30/19 at 20:45; Stop 11/30/19 at 20:46; Status DC Ondansetron HCl (Zofran) 4 mg 1X ONCE IVP Last administered on 11/30/19at 20:46; Start 11/30/19 at 20:45; Stop 11/30/19 at 20:46; Status DC Oxycodone/ Acetaminophen (Percocet 5/325) 1 tab PRN Q4HRS PRN PO MILD PAIN 1-3 Last administered on 12/01/19at 10:24; Start 11/30/19 at 22:15 Atorvastatin Calcium (Lipitor) 5 mg QHS PO Last administered on 11/30/19at 22:45; Start 11/30/19 at 23:00 Active Scripts Active Oxycodone-Acetaminophen 5-325 (Oxycodone Hcl/Acetaminophen) 1 Each Tablet 1 Tab PO PRN Q4HRS PRN Reported Pravastatin Sodium 40 Mg Tablet 1 Tab PO QHS Jardiance (Empagliflozin) 10 Mg Tablet 10 DAILY MDD 10 1 Days Janumet 50-500 Mg Tablet (Sitagliptin Phos/Metformin Hcl) 1 Each Tablet 1 Tab PO BID Ferrous Sulfate 325 Mg Tablet.dr 325 Mg PO Lisinopril 20 Mg Tablet 1 Tab PO DAILY Allergies Allergies: Coded Allergies: nitroglycerin (Verified Allergy, Intermediate, 11/30/19) ROS PSYCHOLOGICAL ROS: No: Hallucinations Eyes: No Loss of vision HEENT: No: Epistaxis Respiratory: YES: Shortness of breath; No: Hemoptysis Cardiovascular: yes Chest Pain Gastrointestinal: Yes Nausea Genitourinary: No Hematuria Neurological: No Seizures Skin: No Rash Physical Exam General: Alert, Oriented X3 HEENT: Atraumatic Lungs: Clear to auscultation Heart: Regular rate Abdomen: Soft Extremities: No edema Psych/Mental Status: Mood NL Vitals VITALS Vital Signs Date Time Temp Pulse Resp B/P (MAP) Pulse Ox O2 Delivery O2 Flow Rate FiO2 12/01/19 11:00 98.3 70 18 107/67 (80) 98 Room Air 98.3 Labs Labs Laboratory Tests Test 11/30/19 19:12 11/30/19 20:00 12/01/19 00:26 12/01/19 07:00 White Blood Count 8.5 x10^3/uL (4.0-11.0) Red Blood Count 5.44 x10^6/uL (3.50-5.40) Hemoglobin 11.8 g/dL (12.0-15.5) Hematocrit 37.7 % (36.0-47.0) Mean Corpuscular Volume 69 fL (79-100) Mean Corpuscular Hemoglobin 22 pg (25-35) Mean Corpuscular Hemoglobin Concent 31 g/dL (31-37) Red Cell Distribution Width 20.0 % (11.5-14.5) Platelet Count 262 x10^3/uL (140-400) Neutrophils (%) (Auto) 46 % (31-73) Lymphocytes (%) (Auto) 38 % (24-48) Monocytes (%) (Auto) 11 % (0-9) Eosinophils (%) (Auto) 5 % (0-3) Basophils (%) (Auto) 1 % (0-3) Neutrophils # (Auto) 3.9 x10^3/uL (1.8-7.7) Lymphocytes # (Auto) 3.3 x10^3/uL (1.0-4.8) Monocytes # (Auto) 0.9 x10^3/uL (0.0-1.1) Eosinophils # (Auto) 0.4 x10^3/uL (0.0-0.7) Basophils # (Auto) 0.1 x10^3/uL (0.0-0.2) Platelet Estimate Adequate (ADEQUATE) Polychromasia Slight Hypochromasia Mod Anisocytosis Slight Microcytosis Marked Ovalocytes Few Prothrombin Time 13.1 SEC (11.7-14.0) Prothromb Time International Ratio 1.0 (0.8-1.1) Sodium Level 139 mmol/L (136-145) Potassium Level 3.9 mmol/L (3.5-5.1) Chloride Level 102 mmol/L (98-107) Carbon Dioxide Level 26 mmol/L (21-32) Anion Gap 11 (6-14) Blood Urea Nitrogen 16 mg/dL (7-20) Creatinine 0.8 mg/dL (0.6-1.0) Estimated GFR (Cockcroft-Gault) 88.5 BUN/Creatinine Ratio 20 (6-20) Glucose Level 125 mg/dL (70-99) Calcium Level 9.6 mg/dL (8.5-10.1) Magnesium Level 2.0 mg/dL (1.8-2.4) Total Bilirubin 0.3 mg/dL (0.2-1.0) Aspartate Amino Transf (AST/SGOT) 17 U/L (15-37) Alanine Aminotransferase (ALT/SGPT) 22 U/L (14-59) Alkaline Phosphatase 96 U/L (46-116) Troponin I Quantitative < 0.017 ng/mL (0.000-0.055) < 0.017 ng/mL (0.000-0.055) < 0.017 ng/mL (0.000-0.055) BR-Yfv-L-Type Natriuretic Peptide 9 pg/mL (0-124) Total Protein 8.0 g/dL (6.4-8.2) Albumin 4.4 g/dL (3.4-5.0) Albumin/Globulin Ratio 1.2 (1.0-1.7) Urine Collection Type Unknown Urine Color Yellow Urine Clarity Clear Urine pH 7.5 Urine Specific [place] 1.020 Urine Protein Negative mg/dL (NEG-TRACE) Urine Glucose (UA) >=1000 mg/dL (NEG) Urine Ketones (Stick) Negative mg/dL (NEG) Urine Blood Negative (NEG) Urine Nitrite Negative (NEG) Urine Bilirubin Negative (NEG) Urine Urobilinogen Dipstick 1.0 mg/dL (0.2 mg/dL) Urine Leukocyte Esterase Negative (NEG) Urine RBC 0 /HPF (0-2) Urine WBC 1-4 /HPF (0-4) Urine Squamous Epithelial Cells Few /LPF Urine Amorphous Sediment Present /HPF Urine Bacteria Few /HPF (0-FEW) Laboratory Tests Test 11/30/19 19:12 11/30/19 20:00 12/01/19 00:26 12/01/19 07:00 White Blood Count 8.5 x10^3/uL (4.0-11.0) Red Blood Count 5.44 x10^6/uL (3.50-5.40) Hemoglobin 11.8 g/dL (12.0-15.5) Hematocrit 37.7 % (36.0-47.0) Mean Corpuscular Volume 69 fL (79-100) Mean Corpuscular Hemoglobin 22 pg (25-35) Mean Corpuscular Hemoglobin Concent 31 g/dL (31-37) Red Cell Distribution Width 20.0 % (11.5-14.5) Platelet Count 262 x10^3/uL (140-400) Neutrophils (%) (Auto) 46 % (31-73) Lymphocytes (%) (Auto) 38 % (24-48) Monocytes (%) (Auto) 11 % (0-9) Eosinophils (%) (Auto) 5 % (0-3) Basophils (%) (Auto) 1 % (0-3) Neutrophils # (Auto) 3.9 x10^3/uL (1.8-7.7) Lymphocytes # (Auto) 3.3 x10^3/uL (1.0-4.8) Monocytes # (Auto) 0.9 x10^3/uL (0.0-1.1) Eosinophils # (Auto) 0.4 x10^3/uL (0.0-0.7) Basophils # (Auto) 0.1 x10^3/uL (0.0-0.2) Platelet Estimate Adequate (ADEQUATE) Polychromasia Slight Hypochromasia Mod Anisocytosis Slight Microcytosis Marked Ovalocytes Few Prothrombin Time 13.1 SEC (11.7-14.0) Prothromb Time International Ratio 1.0 (0.8-1.1) Sodium Level 139 mmol/L (136-145) Potassium Level 3.9 mmol/L (3.5-5.1) Chloride Level 102 mmol/L (98-107) Carbon Dioxide Level 26 mmol/L (21-32) Anion Gap 11 (6-14) Blood Urea Nitrogen 16 mg/dL (7-20) Creatinine 0.8 mg/dL (0.6-1.0) Estimated GFR (Cockcroft-Gault) 88.5 BUN/Creatinine Ratio 20 (6-20) Glucose Level 125 mg/dL (70-99) Calcium Level 9.6 mg/dL (8.5-10.1) Magnesium Level 2.0 mg/dL (1.8-2.4) Total Bilirubin 0.3 mg/dL (0.2-1.0) Aspartate Amino Transf (AST/SGOT) 17 U/L (15-37) Alanine Aminotransferase (ALT/SGPT) 22 U/L (14-59) Alkaline Phosphatase 96 U/L (46-116) Troponin I Quantitative < 0.017 ng/mL (0.000-0.055) < 0.017 ng/mL (0.000-0.055) < 0.017 ng/mL (0.000-0.055) IJ-Suz-J-Type Natriuretic Peptide 9 pg/mL (0-124) Total Protein 8.0 g/dL (6.4-8.2) Albumin 4.4 g/dL (3.4-5.0) Albumin/Globulin Ratio 1.2 (1.0-1.7) Urine Collection Type Unknown Urine Color Yellow Urine Clarity Clear Urine pH 7.5 Urine Specific [place] 1.020 Urine Protein Negative mg/dL (NEG-TRACE) Urine Glucose (UA) >=1000 mg/dL (NEG) Urine Ketones (Stick) Negative mg/dL (NEG) Urine Blood Negative (NEG) Urine Nitrite Negative (NEG) Urine Bilirubin Negative (NEG) Urine Urobilinogen Dipstick 1.0 mg/dL (0.2 mg/dL) Urine Leukocyte Esterase Negative (NEG) Urine RBC 0 /HPF (0-2) Urine WBC 1-4 /HPF (0-4) Urine Squamous Epithelial Cells Few /LPF Urine Amorphous Sediment Present /HPF Urine Bacteria Few /HPF (0-FEW) Assessment/Plan Assessment/Plan 1. Chest pain with typical features concerning for unstable angina. Patient has multiple cardiovascular risk factors. Myocardial infarction has been ruled out. Plan for cardiac catheterization for definitive evaluation. Risks and benefits were explained and she is agreeable. 2. Hypertension: Controlled 3. Hyperlipidemia: Statins 4. Diabetes mellitus type 2: Treated per IM Thank you for your consultation DAVID SHELTON MD Dec 01, 2019 11:54
[2019-12-01 15:00] VITALS: BP 104/67
[2019-12-01] MEDS ORDERED: MORPHINE SULFATE 2 MG/ML VIAL. IV PRN (17:00)
[2019-12-01] MEDS ORDERED: cloNIDine HCL 0.1 MG TABLET PO PRN (17:15)
[2019-12-01] MEDS ORDERED: 0.9 % SODIUM CHLORIDE 10 ML DISP.SYRIN. IV PRN (17:15)
[2019-12-01] MEDS ORDERED: ACETAMINOPHEN 325 MG TABLET. PO PRN (17:15)
[2019-12-01] MEDS ORDERED: MAG HYDROX/ALUMINUM HYD/SIMETH 30 ML ORAL.SUSP PO PRN (17:15)
[2019-12-01] MEDS ORDERED: ALBUTEROL SULFATE 2.5 MG/3 ML NEBU. NEB PRN (17:15)
[2019-12-01] MEDS ORDERED: ONDANSETRON PF 4 MG/2 ML VIAL. IV PRN (17:15)
[2019-12-01] MEDS ORDERED: guaiFENesin ORAL 200 MG/10 ML LIQUID. PO PRN (17:15)
[2019-12-01] MEDS ORDERED: LORazepam 0.5 MG TABLET PO PRN (17:15)
[2019-12-01] MEDS ORDERED: DOCUSATE SODIUM 100 MG CAPSULE. PO PRN (17:15)
[2019-12-01] MEDS ORDERED: ZOLPIDEM 5 MG TABLET. PO PRN (17:15)
[2019-12-01] MEDS ORDERED: metFORMIN 500 MG TABLET PO SCH (18:00)
[2019-12-01] MEDS ORDERED: LINAGLIPTIN 5 MG TABLET PO SCH (18:00)
[2019-12-01] MEDS: METFORMIN HCL PO SCH (18:16)
[2019-12-01] MEDS: SITAGLIPTIN PHOS PO SCH (18:16)
--- NOTE | 2019-12-01 18:28 | EKG ---
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
[2019-12-01 19:00] VITALS: BP 105/68
[2019-12-01] MEDS: ATORVASTATIN CALCIUM 10 MG TABLET. PO SCH (20:03)
--- NOTE | 2019-12-01 20:04 | NUR ---
Pt refused hs lipitor, she states it has given her headaches when she has taken it in the past.
[2019-12-01] MEDS ORDERED: METFORMIN HCL PO SCH (21:00)
[2019-12-01] MEDS ORDERED: SITAGLIPTIN PHOS PO SCH (21:00)
[2019-12-01] MEDS ORDERED: NON FORMULARY ITEM (Pravastatin Sodium 1 TAB) PO SCH (21:00)
[2019-12-01 23:00] VITALS: BP 120/70
[2019-12-02] VITALS (15 sets, daily range): BP systolic 98–152; BP diastolic 62–92
[2019-12-02] MEDS: SITAGLIPTIN PHOS PO SCH ×2 (07:37→07:39)
[2019-12-02] MEDS: METFORMIN HCL PO SCH ×2 (07:37→07:39)
[2019-12-02] MEDS: ENOXAPARIN 40 MG/0.4 ML SYRINGE. SQ SCH (09:39)
[2019-12-02] MEDS: LISINOPRIL 20 MG TABLET PO SCH (09:39)
--- NOTE | 2019-12-02 13:04 | PDOC ---
PROGRESS NOTES History of Present Illness History of Present Illness VTE Prophylaxis Ordered VTE Prophylaxis Devices: No VTE Pharmacological Prophylaxi: Yes Assessment/Plan Assessment/Plan Impression: Chest pain HYPERTENSION MICROCYTIC ANEMIA ADMITTED CVC BED Consult cardiology trend troponin i cardiac cath FE PANEL Procedure(s) performed: Left heart catheterization, selective coronary angiography and left ventriculography via right transradial approach Flouro TIme: 2.4 min Dose:26.03 Gycm2 Contrast: 75mL Omni Sedation Time: 19 min INDICATION The indication(s) include : unstable angina . [facility] Clinical Frailty Scale [facility] Clinical Frailty Scale: Managing Well Heart Failure Heart Failure: No PROCEDURE NARRATIVE After explaining the risks, benefits and alternative options, informed consent was obtained from patient. Patient was brought to the cardiac Applied Mathematician and right wrist was prepped and draped in the usual fashion after confirming a positive modified Madhu's test. Arterial access was obtained in the right radial artery and a 6 Danish sheath was inserted. 6 Danish Estrada catheter was used to perform selective angiography of the left and right coronary arteries. 6 Danish pigtail catheter was used to perform left ventriculography. Patient tolerated the procedure well. Hemostasis was achieved using TR band. There were no immediate complications. The following findings were noted. FINDINGS 1. Hemodynamics: Left ventricular end-diastolic pressure of 14 mmHg. No pullback gradient across the aortic valve. 2. Left ventriculography: Normal left ventricle systolic function with ejection fraction estimated at 70%. No significant mitral regurgitation seen. 3. Coronary angiography: a. The left main coronary artery arose from the left sinus of Valsalva, gave rise to the left anterior descending and left circumflex arteries and did not show any significant stenosis. b. The left anterior descending artery showed 20% stenosis in the proximal to midsegment. c. The left circumflex artery did not show any significant stenosis. d. The right coronary artery was a dominant vessel arising from the right sinus of Valsalva that showed minimal luminal irregularities without any significant stenosis. Conclusion 1. No significant coronary artery disease 2. Normal left ventricle systolic function with ejection fraction estimated at 70%. Signed by : David Carrasquillo, Electronically Approved : 12/02/2019 14:51:09 DICTATED and SIGNED BY: DAVID CARRASQUILLO MD DATE: 12/02/19 1444 Vitals Vitals Vital Signs Date Time Temp Pulse Resp B/P (MAP) Pulse Ox O2 Delivery O2 Flow Rate FiO2 1/6/20 11:04 98.6 78 16 125/84 (98) 96 Room Air 98.6 Physical Exam General: Alert, Oriented X3, Cooperative Heart: Regular rate, Normal S1, Normal S2 Lungs: Clear, Other Abdomen: Normal bowel sounds, Soft Extremities: No cyanosis, No edema Labs LABS Laboratory Tests Test 12/01/19 19:44 12/02/19 07:43 12/02/19 11:18 Glucose (Fingerstick) 170 mg/dL (70-99) 97 mg/dL (70-99) 80 mg/dL (70-99) Assessment and Plan Assessmemt and Plan Problems Medical Problems: (1) Chest pain Status: Acute Comment Review of Relevant I have reviewed the following items kory (where applicable) has been applied. Labs Laboratory Tests Test 11/30/19 19:12 11/30/19 20:00 12/01/19 00:26 12/01/19 07:00 White Blood Count 8.5 x10^3/uL (4.0-11.0) Red Blood Count 5.44 x10^6/uL (3.50-5.40) Hemoglobin 11.8 g/dL (12.0-15.5) Hematocrit 37.7 % (36.0-47.0) Mean Corpuscular Volume 69 fL (79-100) Mean Corpuscular Hemoglobin 22 pg (25-35) Mean Corpuscular Hemoglobin Concent 31 g/dL (31-37) Red Cell Distribution Width 20.0 % (11.5-14.5) Platelet Count 262 x10^3/uL (140-400) Neutrophils (%) (Auto) 46 % (31-73) Lymphocytes (%) (Auto) 38 % (24-48) Monocytes (%) (Auto) 11 % (0-9) Eosinophils (%) (Auto) 5 % (0-3) Basophils (%) (Auto) 1 % (0-3) Neutrophils # (Auto) 3.9 x10^3/uL (1.8-7.7) Lymphocytes # (Auto) 3.3 x10^3/uL (1.0-4.8) Monocytes # (Auto) 0.9 x10^3/uL (0.0-1.1) Eosinophils # (Auto) 0.4 x10^3/uL (0.0-0.7) Basophils # (Auto) 0.1 x10^3/uL (0.0-0.2) Platelet Estimate Adequate (ADEQUATE) Polychromasia Slight Hypochromasia Mod Anisocytosis Slight Microcytosis Marked Ovalocytes Few Prothrombin Time 13.1 SEC (11.7-14.0) Prothromb Time International Ratio 1.0 (0.8-1.1) Sodium Level 139 mmol/L (136-145) Potassium Level 3.9 mmol/L (3.5-5.1) Chloride Level 102 mmol/L (98-107) Carbon Dioxide Level 26 mmol/L (21-32) Anion Gap 11 (6-14) Blood Urea Nitrogen 16 mg/dL (7-20) Creatinine 0.8 mg/dL (0.6-1.0) Estimated GFR (Cockcroft-Gault) 88.5 BUN/Creatinine Ratio 20 (6-20) Glucose Level 125 mg/dL (70-99) Calcium Level 9.6 mg/dL (8.5-10.1) Magnesium Level 2.0 mg/dL (1.8-2.4) Total Bilirubin 0.3 mg/dL (0.2-1.0) Aspartate Amino Transf (AST/SGOT) 17 U/L (15-37) Alanine Aminotransferase (ALT/SGPT) 22 U/L (14-59) Alkaline Phosphatase 96 U/L (46-116) Troponin I Quantitative < 0.017 ng/mL (0.000-0.055) < 0.017 ng/mL (0.000-0.055) < 0.017 ng/mL (0.000-0.055) FT-Saf-N-Type Natriuretic Peptide 9 pg/mL (0-124) Total Protein 8.0 g/dL (6.4-8.2) Albumin 4.4 g/dL (3.4-5.0) Albumin/Globulin Ratio 1.2 (1.0-1.7) Urine Collection Type Unknown Urine Color Yellow Urine Clarity Clear Urine pH 7.5 Urine Specific [place] 1.020 Urine Protein Negative mg/dL (NEG-TRACE) Urine Glucose (UA) >=1000 mg/dL (NEG) Urine Ketones (Stick) Negative mg/dL (NEG) Urine Blood Negative (NEG) Urine Nitrite Negative (NEG) Urine Bilirubin Negative (NEG) Urine Urobilinogen Dipstick 1.0 mg/dL (0.2 mg/dL) Urine Leukocyte Esterase Negative (NEG) Urine RBC 0 /HPF (0-2) Urine WBC 1-4 /HPF (0-4) Urine Squamous Epithelial Cells Few /LPF Urine Amorphous Sediment Present /HPF Urine Bacteria Few /HPF (0-FEW) Test 12/01/19 12:00 12/01/19 19:44 12/02/19 07:43 12/02/19 11:18 Troponin I Quantitative < 0.017 ng/mL (0.000-0.055) Glucose (Fingerstick) 170 mg/dL (70-99) 97 mg/dL (70-99) 80 mg/dL (70-99) Laboratory Tests Test 12/01/19 19:44 12/02/19 07:43 12/02/19 11:18 Glucose (Fingerstick) 170 mg/dL (70-99) 97 mg/dL (70-99) 80 mg/dL (70-99) Medications Current Medications Aspirin (Chuck Aspirin) 325 mg 1X ONCE PO ; Start 11/30/19 at 19:15; Stop 11/30/19 at 19:16; Status Cancel Nitroglycerin (Nitrostat) 0.4 mg PRN Q5MIN PRN SL CP RATING > 1/10; Start 11/30/19 at 19:15; Stop 12/01/19 at 19:14; Status DC Aspirin (Children'S Aspirin) 162 mg 1X ONCE PO Last administered on 11/30/19at 19:29; Start 11/30/19 at 19:30; Stop 11/30/19 at 19:31; Status DC Ondansetron HCl (Zofran) 4 mg PRN Q8HRS PRN IV NAUSEA/VOMITING Last administered on 12/01/19at 18:08; Start 11/30/19 at 20:45; Stop 12/01/19 at 20:44; Status DC Morphine Sulfate (Morphine Sulfate) 4 mg 1X ONCE IV Last administered on 11/30/19at 20:46; Start 11/30/19 at 20:45; Stop 11/30/19 at 20:46; Status DC Ondansetron HCl (Zofran) 4 mg 1X ONCE IVP Last administered on 11/30/19at 20:46; Start 11/30/19 at 20:45; Stop 11/30/19 at 20:46; Status DC Oxycodone/ Acetaminophen (Percocet 5/325) 1 tab PRN Q4HRS PRN PO MODERATE PAIN Last administered on 12/01/19at 10:24; Start 11/30/19 at 22:15 Atorvastatin Calcium (Lipitor) 5 mg QHS PO Last administered on 11/30/19at 22:45; Start 11/30/19 at 23:00 Morphine Sulfate (Morphine Sulfate) 2 mg PRN Q2HR PRN IV PAIN Last administered on 12/01/19at 18:04; Start 12/01/19 at 17:00 Sodium Chloride (Normal Saline Flush) 3 ml QSHIFT PRN IV AFTER MEDS AND BLOOD DRAWS; Start 12/01/19 at 17:15 Ondansetron HCl (Zofran) 4 mg PRN Q4HRS PRN IV NAUSEA/VOMITING; Start 12/01/19 at 17:15 Zolpidem Tartrate (Ambien) 5 mg PRN QHS PRN PO INSOMNIA; Start 12/01/19 at 17:15 Acetaminophen (Tylenol) 650 mg PRN Q4HRS PRN PO TEMP OVER 100.4F OR MILD PAIN; Start 12/01/19 at 17:15 Al Hydroxide/Mg Hydroxide (Mylanta Plus Xs) 30 ml PRN DAILY PRN PO HEARTBURN / GAS; Start 12/01/19 at 17:15 Clonidine HCl (Catapres) 0.1 mg PRN Q6HRS PRN PO SBP>160 OR DBP>90; Start 12/01/19 at 17:15 Docusate Sodium (Colace) 100 mg PRN BID PRN PO HARD STOOLS; Start 12/01/19 at 17:15 Albuterol Sulfate (Ventolin Neb Soln) 2.5 mg PRN Q4HRS PRN NEB SHORTNESS OF BREATH; Start 12/01/19 at 17:15 Guaifenesin (Robitussin) 200 mg PRN Q4HRS PRN PO COUGH; Start 12/01/19 at 17:15 Lorazepam (Ativan) 0.5 mg PRN Q4HRS PRN PO ANXIETY / AGITATION; Start 12/01/19 at 17:15 Enoxaparin Sodium (Lovenox 40mg Syringe) 40 mg DAILY SQ Last administered on 12/02/19at 09:39; Start 12/02/19 at 09:00 Lisinopril (Prinivil) 20 mg DAILY PO Last administered on 12/02/19at 09:39; Start 12/02/19 at 09:00 Non-Formulary Medication (Empagliflozin (Jardiance)) 10 mg DAILY PO Last administered on 12/02/19at 09:39; Start 12/01/19 at 18:30 Non-Formulary Medication (Pravastatin Sodium ) 1 tab QHS PO ; Start 12/01/19 at 21:00; Status UNV Non-Formulary Medication (Sitagliptin Phos/Metformin Hcl (Janumet 50-500 Mg Tablet)) 1 tab BID PO ; Start 12/01/19 at 21:00; Status UNV Metformin HCl (Glucophage) 500 mg BIDWMEALS PO ; Start 12/01/19 at 18:00; Status Cancel Linagliptin (Tradjenta) 5 mg DAILY PO ; Start 12/01/19 at 18:00; Status Cancel Non-Formulary Medication (Sitagliptin Phos/Metformin Hcl (Janumet 50-500 Mg Tablet)) 1 tab BIDWMEALS PO Last administered on 12/01/19at 18:16; Start 12/01/19 at 18:30 Active Scripts Active Oxycodone-Acetaminophen 5-325 (Oxycodone Hcl/Acetaminophen) 1 Each Tablet 1 Tab PO PRN Q4HRS PRN Reported Pravastatin Sodium 40 Mg Tablet 1 Tab PO QHS Jardiance (Empagliflozin) 10 Mg Tablet 10 DAILY MDD 10 1 Days Janumet 50-500 Mg Tablet (Sitagliptin Phos/Metformin Hcl) 1 Each Tablet 1 Tab PO BID Ferrous Sulfate 325 Mg Tablet.dr 325 Mg PO Lisinopril 20 Mg Tablet 1 Tab PO DAILY Vitals/I & O Vital Sign - Last 24 Hours 12/01/19 12/01/19 12/01/19 12/01/19 15:00 18:04 18:34 19:00 Temp 98.5 99.0 98.5 99.0 Pulse 68 80 Resp 18 20 B/P (MAP) 104/67 (79) 105/68 (80) Pulse Ox 98 98 98 95 O2 Delivery Room Air Room Air Room Air Room Air 12/01/19 12/01/19 12/02/19 12/02/19 20:00 23:00 03:00 07:00 Temp 98.9 99.2 99.0 98.9 99.2 99.0 Pulse 76 77 78 Resp 16 20 18 B/P (MAP) 120/70 (87) 98/70 (79) 126/78 (94) Pulse Ox 96 98 94 O2 Delivery Room Air Room Air Room Air Room Air 12/02/19 12/02/19 12/02/19 08:00 09:39 11:04 Temp 98.6 98.6 Pulse 78 78 Resp 16 B/P (MAP) 126/78 125/84 (98) Pulse Ox 96 O2 Delivery Room Air Room Air Intake and Output 12/01/19 12/01/19 12/02/19 15:00 23:00 07:00 Intake Total 240 ml 480 ml Output Total 400 ml Balance 240 ml 480 ml -400 ml PRINCE MIGUEL MD Dec 02, 2019 13:04
[2019-12-02] MEDS ORDERED: NITROGLYCERIN 200 MCG/2 ML SYRINGE FOR CATH/VASC LAB. ONE (14:04)
[2019-12-02] MEDS ORDERED: VERAPAMIL 5 MG/2 ML VIAL. ONE (14:04)
[2019-12-02] MEDS ORDERED: MIDAZOLAM HCL/PF 2 MG/2 ML VIAL. ONE (14:04)
[2019-12-02] MEDS ORDERED: HEPARIN for IV BOLUS 10,000 UNIT/10 ML VIAL. ONE (14:04)
[2019-12-02] MEDS ORDERED: fentaNYL PF VIAL 100 MCG/2 ML VIAL ONE (14:04)
[2019-12-02] MEDS ORDERED: LIDOCAINE 1% PF 2 ML VIAL. ONE (14:04)
--- NOTE | 2019-12-02 14:04 | NUR ---
SS following for discharge planning. SS reviewed pt chart. Pt is from home with spouse and is currently on room air. Pt having heart cath today. SS will continue to follow for discharge planning.
[2019-12-02] MEDS ORDERED: IOHEXOL 300 MG/ML 100ML VIAL. ONE (14:05)
[2019-12-02] MEDS ORDERED: NITROGLYCERIN 200 MCG/2 ML SYRINGE FOR CATH/VASC LAB. IART ONE (14:45)
[2019-12-02] MEDS ORDERED: HEPARIN for IV BOLUS 10,000 UNIT/10 ML VIAL. IART ONE (14:45)
[2019-12-02] MEDS ORDERED: fentaNYL PF VIAL 100 MCG/2 ML VIAL IV ONE (14:45)
[2019-12-02] MEDS ORDERED: CONTRAST GIVEN. MC PRN (14:45)
[2019-12-02] MEDS ORDERED: LIDOCAINE 1% PF 2 ML VIAL. INJ ONE (14:45)
[2019-12-02] MEDS ORDERED: MIDAZOLAM HCL/PF 2 MG/2 ML VIAL. IV ONE (14:45)
[2019-12-02] MEDS ORDERED: IOHEXOL 300 MG/ML 100ML VIAL. IART ONE (14:45)
[2019-12-02] MEDS ORDERED: VERAPAMIL 5 MG/2 ML VIAL. IART ONE (14:45)
--- NOTE | 2019-12-02 14:51 | CARD ---
MR#: [id number] Date of Study: 12/02/2019 Ordering Physician: DAVID CARRASQUILLO, Referring Physician: DAVID CARRASQUILLO, Tech: Tiana Walker APPROVED REPORT Technologist: Tiana aWlker Nurse: Marlee Hyde Procedure(s) performed: Left heart catheterization, selective coronary angiography and left ventricul ography via right transradial approach Flouro TIme: 2.4 min Dose:26.03 Gycm2 Contrast: 75mL Omni Sedation Time: 19 min INDICATION The indication(s) include : unstable angina . [facility] Clinical Frailty Scale [facility] Clinical Frailty Scale: Managing Well Heart Failure Heart Failure: No PROCEDURE NARRATIVE After explaining the risks, benefits and alternative options, informed consent was obtained from trevor ent. Patient was brought to the cardiac Saw[employer] Drier and right wrist was prepped and draped in the usual fashion after confirming a positive modified Madhu's test. Arterial access was obtained in the [facility] t radial artery and a 6 Nauruan sheath was inserted. 6 Nauruan Estrada catheter was used to perform hermes ective angiography of the left and right coronary arteries. 6 Nauruan pigtail catheter was used to pe rform left ventriculography. Patient tolerated the procedure well. Hemostasis was achieved using TR band. There were no immediate complications. The following findings were noted. FINDINGS 1. Hemodynamics: Left ventricular end-diastolic pressure of 14 mmHg. No pullback gradient across th e aortic valve. 2. Left ventriculography: Normal left ventricle systolic function with ejection fraction estimated at 70%. No significant mitral regurgitation seen. 3. Coronary angiography: a. The left main coronary artery arose from the left sinus of Valsalva, gave rise to the left anteri or descending and left circumflex arteries and did not show any significant stenosis. b. The left anterior descending artery showed 20% stenosis in the proximal to midsegment. c. The left circumflex artery did not show any significant stenosis. d. The right coronary artery was a dominant vessel arising from the right sinus of Valsalva that maulik wed minimal luminal irregularities without any significant stenosis. Conclusion 1. No significant coronary artery disease 2. Normal left ventricle systolic function with ejection fraction estimated at 70%. Signed by : David Carrasquillo, Electronically Approved : 12/02/2019 14:51:09
--- NOTE | 2019-12-02 14:54 | PDOC ---
MODERATE SEDATION ASSESSMENT RISKS/ALTERNATIVES Risks/Alternatives Risks and alternatives of this type of sedation and procedure discussed with: RISK/ALTERNATIVES: Patient H & P ON CHART H & P H & P on chart and reviewed for co-morbid conditions and appropriate labs. H&P ON CHART: Yes STATUS PREG STATUS ASSESSED: N/A MEDS/ALLERGIES REVIEWED Meds/Allergies Reviewed Medications and Allergies including time and route of recently administered narcotics and sedatives. MEDS/ALLERGIES REVIEWED: Yes ASA RATING ASA RATING: II AIRWAY ASSESSMENT Airway Assessment Airway patency, oral function limitations, presence of caps, crowns, dentures, partials, and ability to extend neck assessed. AIRWAY ASSESSMENT: Yes MALLAMPATI SCORE MALLAMPATI SCORE: II PRE-SEDATION ASSESSMENT PRE-SEDATION ASSESSMENT: Yes DAVID SHELTON MD Dec 02, 2019 14:54
[2019-12-02] MEDS: IV 1/2 NORMAL SALINE 1,000 ML IV SCH (15:25)
[2019-12-02] MEDS: ATORVASTATIN CALCIUM 10 MG TABLET. PO SCH (20:08)
[2019-12-03 03:28] VITALS: BP 138/87
[2019-12-03 07:00] VITALS: BP 112/77
[2019-12-03] MEDS: IV 1/2 NORMAL SALINE 1,000 ML IV SCH (07:17)
[2019-12-03] MEDS: METFORMIN HCL PO SCH (07:20)
[2019-12-03] MEDS: SITAGLIPTIN PHOS PO SCH (07:20)
[2019-12-03 08:11] VITALS: BP 112/77
[2019-12-03] MEDS: LISINOPRIL 20 MG TABLET PO SCH (08:11)
[2019-12-03] MEDS: ENOXAPARIN 40 MG/0.4 ML SYRINGE. SQ SCH (08:11)
--- NOTE | 2019-12-03 11:20 | PDOC ---
PROGRESS NOTES History of Present Illness History of Present Illness VTE Prophylaxis Ordered VTE Prophylaxis Devices: No VTE Pharmacological Prophylaxi: Yes discharge dx Assessment/Plan Impression: Chest pain // gerd HYPERTENSION MICROCYTIC ANEMIA ADMITTED CVC BED Consult cardiology trend troponin i cardiac cath FE PANEL Procedure(s) performed: Left heart catheterization, selective coronary angiography and left ventriculography via right transradial approach Flouro TIme: 2.4 min Dose:26.03 Gycm2 Contrast: 75mL Omni Sedation Time: 19 min INDICATION The indication(s) include : unstable angina . [facility] Clinical Frailty Scale [facility] Clinical Frailty Scale: Managing Well Heart Failure Heart Failure: No PROCEDURE NARRATIVE After explaining the risks, benefits and alternative options, informed consent was obtained from patient. Patient was brought to the cardiac Commissary Manager and right wrist was prepped and draped in the usual fashion after confirming a positive modified Madhu's test. Arterial access was obtained in the right radial artery and a 6 Cameroonian sheath was inserted. 6 Cameroonian Estrada catheter was used to perform selective angiography of the left and right coronary arteries. 6 Cameroonian pigtail catheter was used to perform left ventriculography. Patient tolerated the procedure well. Hemostasis was achieved using TR band. There were no immediate complications. The following findings were noted. FINDINGS 1. Hemodynamics: Left ventricular end-diastolic pressure of 14 mmHg. No pullback gradient across the aortic valve. 2. Left ventriculography: Normal left ventricle systolic function with ejection fraction estimated at 70%. No significant mitral regurgitation seen. 3. Coronary angiography: a. The left main coronary artery arose from the left sinus of Valsalva, gave rise to the left anterior descending and left circumflex arteries and did not show any significant stenosis. b. The left anterior descending artery showed 20% stenosis in the proximal to midsegment. c. The left circumflex artery did not show any significant stenosis. d. The right coronary artery was a dominant vessel arising from the right sinus of Valsalva that showed minimal luminal irregularities without any significant stenosis. Conclusion 1. No significant coronary artery disease 2. Normal left ventricle systolic function with ejection fraction estimated at 70%. Signed by : David Carrasquillo, Electronically Approved : 12/02/2019 14:51:09 DICTATED and SIGNED BY: DAVID CARRASQUILLO MD DATE: 12/02/19 1444 Vitals Vitals Vital Signs Date Time Temp Pulse Resp B/P (MAP) Pulse Ox O2 Delivery O2 Flow Rate FiO2 12/03/19 08:11 72 112/77 12/03/19 08:00 Room Air 12/03/19 07:00 98.6 16 99 98.6 12/02/19 14:42 2.0 Physical Exam General: Alert, Oriented X3, Cooperative, No acute distress Heart: Regular rate, Normal S1, Normal S2 Lungs: Clear, Other Abdomen: Normal bowel sounds, Soft Extremities: No cyanosis, No edema Labs LABS Laboratory Tests Test 12/02/19 16:20 12/02/19 20:53 12/03/19 07:32 Glucose (Fingerstick) 154 mg/dL (70-99) 147 mg/dL (70-99) 97 mg/dL (70-99) Assessment and Plan Assessmemt and Plan Problems Medical Problems: (1) Chest pain Status: Acute Comment Review of Relevant I have reviewed the following items kory (where applicable) has been applied. Labs Laboratory Tests Test 12/01/19 12:00 12/01/19 19:44 12/02/19 07:43 12/02/19 11:18 Iron Level 40 ug/dL (50-170) Total Iron Binding Capacity 350 ug/dL (250-450) Iron Saturation 11 % (15-34) Troponin I Quantitative < 0.017 ng/mL (0.000-0.055) Glucose (Fingerstick) 170 mg/dL (70-99) 97 mg/dL (70-99) 80 mg/dL (70-99) Test 12/02/19 16:20 12/02/19 20:53 12/03/19 07:32 Glucose (Fingerstick) 154 mg/dL (70-99) 147 mg/dL (70-99) 97 mg/dL (70-99) Laboratory Tests Test 12/02/19 16:20 12/02/19 20:53 12/03/19 07:32 Glucose (Fingerstick) 154 mg/dL (70-99) 147 mg/dL (70-99) 97 mg/dL (70-99) Medications Current Medications Aspirin (Chuck Aspirin) 325 mg 1X ONCE PO ; Start 11/30/19 at 19:15; Stop 11/30/19 at 19:16; Status Cancel Nitroglycerin (Nitrostat) 0.4 mg PRN Q5MIN PRN SL CP RATING > 1/10; Start 11/30/19 at 19:15; Stop 12/01/19 at 19:14; Status DC Aspirin (Children'S Aspirin) 162 mg 1X ONCE PO Last administered on 11/30/19at 19:29; Start 11/30/19 at 19:30; Stop 11/30/19 at 19:31; Status DC Ondansetron HCl (Zofran) 4 mg PRN Q8HRS PRN IV NAUSEA/VOMITING Last administered on 12/01/19at 18:08; Start 11/30/19 at 20:45; Stop 12/01/19 at 20:44; Status DC Morphine Sulfate (Morphine Sulfate) 4 mg 1X ONCE IV Last administered on 11/30/19at 20:46; Start 11/30/19 at 20:45; Stop 11/30/19 at 20:46; Status DC Ondansetron HCl (Zofran) 4 mg 1X ONCE IVP Last administered on 11/30/19at 20:46; Start 11/30/19 at 20:45; Stop 11/30/19 at 20:46; Status DC Oxycodone/ Acetaminophen (Percocet 5/325) 1 tab PRN Q4HRS PRN PO MODERATE PAIN Last administered on 12/01/19at 10:24; Start 11/30/19 at 22:15 Atorvastatin Calcium (Lipitor) 5 mg QHS PO Last administered on 12/02/19at 20:08; Start 11/30/19 at 23:00 Morphine Sulfate (Morphine Sulfate) 2 mg PRN Q2HR PRN IV PAIN Last administered on 12/01/19at 18:04; Start 12/01/19 at 17:00 Sodium Chloride (Normal Saline Flush) 3 ml QSHIFT PRN IV AFTER MEDS AND BLOOD DRAWS; Start 12/01/19 at 17:15 Ondansetron HCl (Zofran) 4 mg PRN Q4HRS PRN IV NAUSEA/VOMITING; Start 12/01/19 at 17:15 Zolpidem Tartrate (Ambien) 5 mg PRN QHS PRN PO INSOMNIA; Start 12/01/19 at 17:15 Acetaminophen (Tylenol) 650 mg PRN Q4HRS PRN PO TEMP OVER 100.4F OR MILD PAIN Last administered on 12/02/19at 17:09; Start 12/01/19 at 17:15 Al Hydroxide/Mg Hydroxide (Mylanta Plus Xs) 30 ml PRN DAILY PRN PO HEARTBURN / GAS; Start 12/01/19 at 17:15 Clonidine HCl (Catapres) 0.1 mg PRN Q6HRS PRN PO SBP>160 OR DBP>90; Start 12/01/19 at 17:15 Docusate Sodium (Colace) 100 mg PRN BID PRN PO HARD STOOLS; Start 12/01/19 at 17:15 Albuterol Sulfate (Ventolin Neb Soln) 2.5 mg PRN Q4HRS PRN NEB SHORTNESS OF BREATH; Start 12/01/19 at 17:15 Guaifenesin (Robitussin) 200 mg PRN Q4HRS PRN PO COUGH; Start 12/01/19 at 17:15 Lorazepam (Ativan) 0.5 mg PRN Q4HRS PRN PO ANXIETY / AGITATION; Start 12/01/19 at 17:15 Enoxaparin Sodium (Lovenox 40mg Syringe) 40 mg DAILY SQ Last administered on 12/03/19at 08:11; Start 12/02/19 at 09:00 Lisinopril (Prinivil) 20 mg DAILY PO Last administered on 12/03/19at 08:11; Start 12/02/19 at 09:00 Non-Formulary Medication (Empagliflozin (Jardiance)) 10 mg DAILY PO Last administered on 12/03/19at 08:12; Start 12/01/19 at 18:30 Non-Formulary Medication (Pravastatin Sodium ) 1 tab QHS PO ; Start 12/01/19 at 21:00; Status UNV Non-Formulary Medication (Sitagliptin Phos/Metformin Hcl (Janumet 50-500 Mg Tablet)) 1 tab BID PO ; Start 12/01/19 at 21:00; Status UNV Metformin HCl (Glucophage) 500 mg BIDWMEALS PO ; Start 12/01/19 at 18:00; Status Cancel Linagliptin (Tradjenta) 5 mg DAILY PO ; Start 12/01/19 at 18:00; Status Cancel Non-Formulary Medication (Sitagliptin Phos/Metformin Hcl (Janumet 50-500 Mg Tablet)) 1 tab BIDWMEALS PO Last administered on 12/01/19at 18:16; Start 12/01/19 at 18:30 Fentanyl Citrate (Fentanyl 2ml Vial) 100 mcg STK-MED ONCE .ROUTE ; Start 12/02/19 at 14:04; Stop 12/02/19 at 14:04; Status DC Midazolam HCl (Versed) 2 mg STK-MED ONCE .ROUTE ; Start 12/02/19 at 14:04; Stop 12/02/19 at 14:04; Status DC Heparin Sodium (Porcine) (Heparin Sodium) 10,000 unit STK-MED ONCE .ROUTE ; Start 12/02/19 at 14:04; Stop 12/02/19 at 14:04; Status DC Verapamil HCl (Verapamil) 5 mg STK-MED ONCE .ROUTE ; Start 12/02/19 at 14:04; Stop 12/02/19 at 14:05; Status DC Nitroglycerin (Nitroglycerin) 200 mcg STK-MED ONCE .ROUTE ; Start 12/02/19 at 14:04; Stop 12/02/19 at 14:05; Status DC Lidocaine HCl (Xylocaine-Mpf 1% 2ml Vial) 2 ml STK-MED ONCE .ROUTE ; Start 12/02/19 at 14:04; Stop 12/02/19 at 14:05; Status DC Heparin Sodium/ Sodium Chloride 500 ml @ As Directed STK-MED ONCE .ROUTE ; Start 12/02/19 at 14:05; Stop 12/02/19 at 14:05; Status DC Iohexol (Omnipaque 300 Mg/ml) 100 ml STK-MED ONCE .ROUTE ; Start 12/02/19 at 14:05; Stop 12/02/19 at 14:05; Status DC Nitroglycerin (Nitroglycerin) 200 mcg 1X ONCE IART Last administered on 12/02/19at 14:41; Start 12/02/19 at 14:45; Stop 12/02/19 at 14:46; Status DC Verapamil HCl (Verapamil) 2.5 mg 1X ONCE IART Last administered on 12/02/19at 14:42; Start 12/02/19 at 14:45; Stop 12/02/19 at 14:46; Status DC Heparin Sodium (Porcine) (Heparin Sodium) 2,500 unit 1X ONCE IART Last administered on 12/02/19at 14:43; Start 12/02/19 at 14:45; Stop 12/02/19 at 14:46; Status DC Heparin Sodium/ Sodium Chloride (HEPARIN for ARTERIAL LINE FLUSH) 1,000 unit 1X ONCE IART Last administered on 12/02/19at 14:41; Start 12/02/19 at 14:45; Stop 12/02/19 at 14:46; Status DC Heparin Sodium/ Sodium Chloride (HEPARIN for ARTERIAL LINE FLUSH) 1,000 unit 1X ONCE IART Last administered on 12/02/19at 14:43; Start 12/02/19 at 14:45; Stop 12/02/19 at 14:46; Status DC Midazolam HCl (Versed) 2 mg 1X ONCE IV Last administered on 12/02/19at 14:43; Start 12/02/19 at 14:45; Stop 12/02/19 at 14:46; Status DC Fentanyl Citrate (Fentanyl 2ml Vial) 100 mcg 1X ONCE IV Last administered on 12/02/19at 14:42; Start 12/02/19 at 14:45; Stop 12/02/19 at 14:46; Status DC Iohexol (Omnipaque 300 Mg/ml) 100 ml 1X ONCE IART Last administered on 12/02/19at 14:42; Start 12/02/19 at 14:45; Stop 12/02/19 at 14:46; Status DC Lidocaine HCl (Xylocaine-Mpf 1% 2ml Vial) 2 ml 1X ONCE INJ Last administered on 12/02/19at 14:42; Start 12/02/19 at 14:45; Stop 12/02/19 at 14:46; Status DC Info (CONTRAST GIVEN -- Rx MONITORING) 1 each PRN DAILY PRN MC SEE COMMENTS; Start 12/02/19 at 14:45; Stop 12/04/19 at 14:44 Sodium Chloride 1,000 ml @ 60 mls/hr [id number] IV Last administered on 12/02/19at 15:25; Start 12/02/19 at 14:54 Active Scripts Active Oxycodone-Acetaminophen 5-325 (Oxycodone Hcl/Acetaminophen) 1 Each Tablet 1 Tab PO PRN Q4HRS PRN Reported Pravastatin Sodium 40 Mg Tablet 1 Tab PO QHS Jardiance (Empagliflozin) 10 Mg Tablet 10 DAILY MDD 10 1 Days Janumet 50-500 Mg Tablet (Sitagliptin Phos/Metformin Hcl) 1 Each Tablet 1 Tab PO BID Ferrous Sulfate 325 Mg Tablet.dr 325 Mg PO Lisinopril 20 Mg Tablet 1 Tab PO DAILY Vitals/I & O Vital Sign - Last 24 Hours 12/02/19 12/02/19 12/02/19 12/02/19 14:39 14:42 14:42 14:52 Pulse 76 80 75 Resp 13 13 16 Pulse Ox 100 100 99 O2 Delivery Room Air Nasal Cannula Room Air O2 Flow Rate 2.0 12/02/19 12/02/19 12/02/19 12/02/19 14:59 15:07 15:07 15:22 Temp 98.4 98.4 Pulse 76 75 87 Resp 15 18 16 16 B/P (MAP) 136/92 (107) Pulse Ox 100 94 97 97 O2 Delivery Room Air Room Air Room Air Room Air 12/02/19 12/02/19 12/02/19 12/02/19 15:37 15:52 16:07 16:37 Pulse 84 84 86 86 Resp 16 16 16 16 Pulse Ox 96 98 97 95 O2 Delivery Room Air Room Air Room Air Room Air 12/02/19 12/02/19 12/02/19 12/02/19 17:37 18:37 19:13 20:00 Temp 97.8 97.8 Pulse 80 82 80 Resp 16 16 18 B/P (MAP) 128/73 (91) Pulse Ox 99 99 97 O2 Delivery Room Air Room Air Room Air Room Air 12/02/19 12/03/19 12/03/19 12/03/19 22:31 03:28 07:00 08:00 Temp 98.0 98.6 98.0 98.6 Pulse 75 77 72 Resp 18 16 16 B/P (MAP) 103/62 (76) 138/87 (104) 112/77 (89) Pulse Ox 99 99 99 O2 Delivery Room Air Room Air Room Air Room Air 12/03/19 08:11 Pulse 72 B/P (MAP) 112/77 Intake and Output 12/02/19 12/02/19 12/03/19 15:00 23:00 07:00 Intake Total 0 ml 120 ml 200 ml Output Total 300 ml 1080 ml 600 ml Balance -300 ml -960 ml -400 ml PRINCE MIGUEL MD Dec 03, 2019 11:20
[2019-12-03] MEDS ORDERED: ACET325T9 PO (11:23)
[2019-12-03] MEDS ORDERED: ALBU2.5V8 NEB (11:23)
[2019-12-03] MEDS ORDERED: MAG30ORA2 PO (11:23)
[2019-12-03] MEDS ORDERED: PANT40TA77 PO (11:24)
--- NOTE | 2019-12-03 11:25 | DISCH ---
DISCHARGE INSTRUCTIONS Condition on Discharge Condition on Discharge: Stable Activity After Discharge Activity Instructions for Disc: No restrictions Lifting Instructions after Dis: No heavy lifting, No pulling or pushing Exercise Instruction after Dis: Progress as tolerated Driving Instructions after Dis: No driving for 2 weeks Weight Bearing Status after Di: Full weight bearing Diet after Discharge Diet after Discharge: Regular, Diabetic No Calorie Level Wound Incision Care Wound/Incision Care: No wound care needed Checks after Discharge Checks after discharge: Check blood press - daily Contacting the DR. after DC Call your doctor for: If your condition worsens Treatment/Equipment after DC Adaptive Equipment Issued: PRINCE Souza MD Dec 03, 2019 11:25
[2019-12-03] MEDS ORDERED: PANTOPRAZOLE 40 MG TABLET.DR. PO SCH (12:00)
--- NOTE | 2019-12-03 12:23 | NUR ---
Discharge Note: SANDRA ROA Discharge instructions and discharge home medications reviewed with Patient and a copy given. All questions have been answered and understanding verbalized. The following instructions and handouts were given: pantoprazole, albuterol Patient discharged to home with spouse via ambulatory.
== END 2019-12-03 12:23 | disposition home or self-care (01) | DRG 392 ==
LOC: ER 18:59 → 2 NORTH 20:05 → OBSVTOIN 20:11
PROVIDERS: ADMIT Family Medicine; ATTEND Family Medicine
PROC: 4A023N7 Measurement of Cardiac Sampling and Pressure, Left Heart, Percutaneous Approach (ICD-10-PCS; principal; 2019-12-02)
PROC: B2111ZZ Fluoroscopy of Multiple Coronary Arteries using Low Osmolar Contrast (ICD-10-PCS; 2019-12-02)
PROC: B2151ZZ Fluoroscopy of Left Heart using Low Osmolar Contrast (ICD-10-PCS; 2019-12-02)
DX: K21.9 Gastro-esophageal reflux disease without esophagitis (principal); I10 Essential (primary) hypertension; D50.9 Iron deficiency anemia, unspecified; E11.9 Type 2 diabetes mellitus without complications; E78.00 Pure hypercholesterolemia, unspecified; E78.5 Hyperlipidemia, unspecified; I11.0 Hypertensive heart disease with heart failure; I50.9 Heart failure, unspecified; Z82.49 Family history of ischemic heart disease and other diseases of the circulatory system; Z90.710 Acquired absence of both cervix and uterus; M19.90 Unspecified osteoarthritis, unspecified site
CPT/HCPCS: 36415; 71045; 80053; 81001; 82962; 83540; 83550; 83735; 83880; 84484; 85025; 85610; 93005; 93458; 96374; 96375; 99152; C1769; C1892; G0379; J1644; J1650; J2250; J2270; J2405; J3010; J3490; Q9967; 99285-25; G0378

== ENCOUNTER → 2021-01-25 | Outpatient (CLI) | payer BC ==
[~2021-01-25] MED LIST changes: +ACET325T9 PO; +ALBU2.5V8 NEB; +EMPA10TA; -LISI-334 PO; +LISI20TA18 PO; +MAG30ORA2 PO; +PRAV40TA2 PO; +SITA1TAB7 PO
--- NOTE | 2021-01-25 15:59 | CARD ---
MR#: [id number] Date of Study: 01/25/2021 Ordering Physician: DAVID SHELTON, Referring Physician: DAVID SHELTON, Tech: Sherry Díaz XIOMARA APPROVED REPORT EXAM: Two-dimensional and M-mode echocardiogram with Doppler and color Doppler. Other Information Quality : Good INDICATION Hypertension/HCVD 2D DIMENSIONS RVDd2.8 (2.9-3.5cm)Left Atrium(2D)3.0 (1.6-4.0cm) IVSd1.2 (0.7-1.1cm)Aortic Root(2D)3.0 (2.0-3.7cm) LVDd3.9 (3.9-5.9cm)LVOT Diameter2.0 (1.8-2.4cm) PWd1.2 (0.7-1.1cm)LVDs2.9 (2.5-4.0cm) FS (%) 26.6 %SV35.5 ml LVEF(%)60.0 (>50%) Aortic Valve AoV Peak Chris.106.4cm/sAoV VTI22.2cm AO Peak GR.4.5mmHgLVOT VTI 19.10cm AO Mean GR.3mmHgAVA (VTI)2.60cm2 Mitral Valve MV E Xbtbqzig09.7cm/sMV DECEL [id number] MV A Waeopvog54.9cm/sE/A Ratio1.2 TDI Lateral E' P. V8.50cm/sMedial E' P. V5.99cm/s E/Lateral E'9.4E/Medial E'13.3 Pulmonary Vein S1 Wskltqse28.2cm/sS2 Pplaepnl85.50cm/s D2 Vkvksxmq76.5cm/s LEFT VENTRICLE The left ventricle is normal size. There is mild concentric left ventricular hypertrophy. The left ve ntricular systolic function is normal. The Ejection Fraction is 55-60%. There is normal LV segmental wall motion. Transmitral Doppler flow pattern is Grade I-abnormal relaxation pattern. RIGHT VENTRICLE The right ventricle is normal size. The right ventricular systolic function is normal. ATRIA The left atrium size is normal. The right atrium size is normal. The interatrial septum is intact wit h no evidence for an atrial septal defect or patent foramen ovale as noted on 2-D or Doppler imaging. AORTIC VALVE The aortic valve is calcified but opens well. Doppler and Color Flow revealed no significant aortic r egurgitation. There is no significant aortic valvular stenosis. MITRAL VALVE The mitral valve is normal in structure and function. There is no evidence of mitral valve prolapse. There is no mitral valve stenosis. Doppler and Color Flow revealed no mitral valve regurgitation note d. TRICUSPID VALVE The tricuspid valve is normal in structure and function. Doppler and Color Flow revealed no tricuspid valve regurgitation noted. There is no tricuspid valve stenosis. PULMONIC VALVE The pulmonic valve is not well visualized. Doppler and Color Flow revealed no pulmonic valvular regur gitation. There is no pulmonic valvular stenosis. GREAT VESSELS The aortic root is normal in size. The ascending aorta is normal in size. The IVC is normal in size a nd collapses >50% with inspiration. PERICARDIAL EFFUSION There is no evidence of significant pericardial effusion. Critical Notification Critical Value: No <Conclusion> The left ventricular systolic function is normal. The Ejection Fraction is 55-60%. There is normal LV segmental wall motion. There is no evidence of significant pericardial effusion. Signed by : David Shelton, Electronically Approved : 01/25/2021 15:58:58
== END ==
LOC: ECHO 12:43
PROVIDERS: ATTEND Internal Medicine Cardiovascular Disease
DX: I35.1 Nonrheumatic aortic (valve) insufficiency (principal); I11.9 Hypertensive heart disease without heart failure
CPT/HCPCS: 93306

== ENCOUNTER → 2022-01-26 | Outpatient (CLI) | payer BC ==
[~2022-01-26] MED LIST changes: -EMPA10TA; +EMPA10TA3; +REGADENOSON 0.4 MG/5 ML DISP.SYRIN. IV ONE
--- NOTE | 2022-01-26 14:16 | RAD ---
MR#: [id number] Date of Study: 01/26/2022 Ordering Physician: DAVID SHELTON Referring Physician: MARISELA MARSHALL Tech: AMBROCIO Sorensen APPROVED REPORT Test Type: Pharmacological Stress Nurse/Tech: Leena Washburn R.N. Test Indications: chest pain Cardiac History: htn,DM Medications: See Electronic Medical Record Medical History: See Electronic Medical Record Resting ECG: SR Resting Heart Rate: 66 bpm Resting Blood Pressure: 131/75mmHg Pretest Chest Pain: No chest pain Nurse/Tech Notes S1S2, lungs CTA Consent: The procedure was explained to the patient in lay terms. Informed consent was witnessed. Bernardo eout was entered into [employer]. History and Stress Test performed by AMBROCIO Sorensen Pharm. Details Pharmacologic stress testing was performed using 0.4mg per 5ml of regadenoson given intravenously ove r 7-10 seconds. Stress Symptoms SOA, H/A, stomach cramps, chest tightness scale 7/10- this did resolve by the end of recovery period POST EXERCISE Reason for Termination: Infusion complete Max HR: 106 bpm Max Blood Pressure: 127/65mmHg Blood Pressure response to exercise: Normal blood pressure response during stress. Heart Rate response to exercise: wnl Arrhythmia: No. ST Change: No. INTERPRETATION Stress EKG Conclusion: The resting EKG shows a sinus rhythm with minimal nonspecific ST segment corcoran es. The stress EKG shows no significant changes from baseline. No EKG evidence of stress-induced ischemia. Imaging Protocol IMAGE PROTOCOL: Rest Tc-99m/stress Tc-99m 1 day Rest: Stress: Viability: Radiopharm.Tc99m [id number] Sestamibi Ginj26hHr 32mCi Duration 15min. 10min. Img Date 01/26/2022 01/26/2022 Inj-Img [id number]. 60min. Rest Admin Site:IV - Right AntecubitalAdministrator:AMBROCIO Sorensen Stress Admin Site: IV - Right AntecubitalAdministrator: Orville Pope, RT (R)(N) STRESS DATA End Diast. Vol.59.0mlAv. Heart Rate89.0bpm End Syst. Vol.6.0mlCO Index BSA0.0L/min Myocardial Lzrm713.0gEject. Lqhrexjk67.0% Stress Rates Pk. Fill Rate4.68EDV/secLVtime Pk. Fill 164.63msec Pk. Empty Rate6.44ESV/secLVtime Pk. Sbagn927.20msec 1/3 Pk. Fill1.56EDV/sec Stress Scores Regional WT1.00Summed WT3.00 Regional WM0.00Summed WM0.00 LV Perfusion The stress scans showed no significant defects. The rest scans showed no significant defects. Nuclear imaging shows no reversible ischemia or infarct. Wall Motion Intact LV systolic function with an ejection fraction of greater than 75%. LV Perf. Quant 17 Seg. SSS0.00 17 Seg. SRS0.00 17 Seg. SDS0.00 Stress Defect Extent (% LAD)0.00Rest Defect Extent (% LAD)0.00Rev. Defect Extent (% LAD)0.00 Stress Defect Extent (% LCX) 0.00Rest Defect Extent (% LCX)0.00Rev. Defect Extent (% LCX)0.00 Stress Defect Extent (% RCA)0.00Rest Defect Extent (% RCA)0.00Rev. Defect Extent (% RCA)0.00 Stress Defect Extent (% MAVIS)0.00Rest Defect Extent (% MAVIS)0.00Rev. Defect Extent (% MAVIS)0.00 Conclusion 1. No EKG evidence of stress-induced ischemia. 2. Nuclear imaging shows no reversible ischemia or infarct. 3. Normal left ventricular systolic function with an ejection fraction of greater than 75%. 4. Low risk Lexiscan nuclear stress test. Signed by : Keon Emery MD Electronically Approved : 01/26/2022 14:15:42
== END ==
LOC: NM 08:01
PROVIDERS: ATTEND Internal Medicine Cardiovascular Disease
DX: R07.9 Chest pain, unspecified (principal)
CPT/HCPCS: 78452; 93017; A9500; J2785

== ENCOUNTER 2022-04-24 09:26 | Emergency (ER) | payer BC ==
[~2022-04-24] VITALS: Ht 152.4 cm; Wt 67.0 kg
[~2022-04-24 09:26] MED LIST changes: -REGADENOSON 0.4 MG/5 ML DISP.SYRIN. IV ONE
[2022-04-24] MEDS ORDERED: IV NORMAL SALINE 1000ML BAG 1,000 ML IV ONE (09:45)
[2022-04-24] MEDS ORDERED: KETOROLAC 30 MG/ML VIAL. IVP ONE (09:45)
[2022-04-24] MEDS ORDERED: ONDANSETRON PF 4 MG/2 ML VIAL. IVP ONE (09:45)
[2022-04-24 09:56] LABS: BACTERIA,URINE 0 /HPF (0-FEW); RBC,URINE 0 /HPF (0-2); WBC,URINE 0 /HPF (0-4)
[2022-04-24 09:57] LABS: BASO % 1 % (0-3); EOS # 0.1 x10^3/uL (0.0-0.7); EOS % 1 % (0-3); HEMATOCRIT 27.3 % (36.0-47.0); HEMOGLOBIN 8.1 g/dL (12.0-15.5); LYMPH # 1.3 x10^3/uL (1.0-4.8); LYMPH % 14 % (24-48); MEAN CORPUSCULAR HEMOGLOBIN 17 pg (25-35); MEAN CORPUSCULAR HGB CONC 30 g/dL (31-37); MEAN CORPUSCULAR VOLUME 57 fL (79-100); MONO # 0.3 x10^3/uL (0.0-1.1); MONO % 4 % (0-9); NEUT # 7.5 x10^3/uL (1.8-7.7); NEUT % 81 % (31-73); PLATELET COUNT 412 x10^3/uL (140-400); RED BLOOD COUNT 4.82 x10^6/uL (3.50-5.40); RED CELL DISTRIBUTION WIDTH 23.9 % (11.5-14.5); WHITE BLOOD COUNT 9.2 x10^3/uL (4.0-11.0)
[2022-04-24 10:14] LABS: CALCIUM 9.2 mg/dL (8.5-10.1); CREATININE 0.7 mg/dL (0.6-1.0); GFR 102.6; POTASSIUM 4.1 mmol/L (3.5-5.1)
[2022-04-24] MEDS ORDERED: IOHEXOL 300 MG/ML 100ML VIAL. IV ONE (10:15)
[2022-04-24 10:19] LABS: ALBUMIN 4.2 g/dL (3.4-5.0); ALBUMIN/GLOBULIN RATIO 1.1 (1.0-1.7); TOTAL BILIRUBIN 0.4 mg/dL (0.2-1.0)
[2022-04-24 10:21] LABS: ANISOCYTOSIS PRESENT; HYPOCHROMIA PRESENT; MICROCYTOSIS PRESENT; PLT ESTIMATE ADEQUATE (ADEQUATE); POLYCHROMASIA PRESENT
[2022-04-24] MEDS ORDERED: CONTRAST GIVEN. MC PRN (10:30)
--- NOTE | 2022-04-24 11:55 | PHYS DOC ---
Past Medical History Past Medical History: Diabetes-Type II, High Cholesterol, Hypertension Past Surgical History: No Surgical History Smoking Status: Never Smoker Alcohol Use: None Drug Use: None General Adult EDM: Chief Complaint: FLANK PAIN HPI: HPI: Patient is a 61-year-old female presents to the emergency department complaining of right flank and mid back pain that woke her up out of bed at approximately 530 this morning. Patient reports she did not take any pain medications prior to coming to the emergency department, patient reports her pain is a constant 8 out of 10. Patient denies a history of kidney stones, denies seeing blood in her urine, denies increased urinary frequency, urinary burning, hematuria or other dysuria. Patient denies seeing blood in her stool. Reports normal bowel movement yesterday. Patient states she was working in the yard all day yesterday bending down and suspects she may have pulled a muscle in her back. Patient also complains of a vaginal discharge with itching since November, reports she has seen her primary care physician twice who did not do any visual exam of her vagina, placed her on yeast infection medicines twice that did not seem to help. Patient denies rashes or lesions to her vagina, denies STI concerns. Patient denies fever or chills, chest pain, chest congestion or nasal congestion, denies dizziness, syncopal episodes, or diaphoresis. Patient denies other physical complaints physical concerns. Review of Systems: Review of Systems: 14 body systems of review of systems have been reviewed. See HPI for pertinent positives and negative responses, otherwise all other systems are negative, nonpertinent or noncontributory. Constitutional: Negative except as outlined in HPI above. Skin: Negative except as outlined in HPI above. Eyes: Negative except as outlined in HPI above. HENT: Negative except as outlined in HPI above. Respiratory: Negative except as outlined in HPI above. Cardiovascular: Negative except as outlined in HPI above. GI: Negative except as outlined in HPI above. : Negative except as outlined in HPI above. Musculoskeletal: Negative except as outlined in HPI above. Integument: Negative except as outlined in HPI above. Neurologic: Negative except as outlined in HPI above. Endocrine: Negative except as outlined in HPI above. Lymphatic: Negative except as outlined in HPI above. Psychiatric: Negative except as outlined in HPI above. Heart Score: C/O Chest Pain: No Risk Factors: Risk Factors: DM, Current or recent (<one month) smoker, HTN, HLP, family history of CAD, obesity. Risk Scores: Score 0 - 3: 2.5% MACE over next 6 weeks - Discharge Home Score 4 - 6: 20.3% MACE over next 6 weeks - Admit for Clinical Observation Score 7 - 10: 72.7% MACE over next 6 weeks - Early Invasive Strategies Current Medications: Current Medications Medications (Trade) Dose Ordered Sig/Fe Start Time Stop Time Status Last Admin Dose Admin Info (CONTRAST GIVEN -- Rx MONITORING) 1 each PRN DAILY PRN 04/24/22 10:30 04/26/22 10:29 Iohexol (Omnipaque 300 Mg/ml) 75 ml 1X ONCE 04/24/22 10:15 04/24/22 10:18 DC 04/24/22 10:15 75 ML Ketorolac Tromethamine (Toradol 30mg Vial) 30 mg 1X ONCE 04/24/22 09:45 04/24/22 09:46 DC 04/24/22 09:45 30 MG Ondansetron HCl (Zofran) 4 mg 1X ONCE 04/24/22 09:45 04/24/22 09:46 DC 04/24/22 09:45 4 MG Sodium Chloride 1,000 ml @ 1,000 mls/hr 1X ONCE 04/24/22 09:45 04/24/22 10:44 DC 04/24/22 09:45 1,000 MLS/HR Allergies: Allergies: Allergies Coded Allergies Type Severity Reaction Last Updated Verified nitroglycerin Allergy Mild 12/02/19 Yes Physical Exam: PE: Constitutional: Well developed, well nourished, no acute distress, non-toxic appearance. 61-year-old female in no apparent distress. HENT: Normocephalic, atraumatic. Eyes: Conjunctiva normal, no discharge. Neck: Normal range of motion. Cardiovascular: Distal cap refill less than 2 seconds, no cyanosis appreciated. Heart sounds are S1-S2, regular rate and rhythm per auscultation. Lungs & Thorax: Patient is in no respiratory distress, no adventitious lung sounds appreciated. Lung sounds are clear to auscultation all lung flores. Normal work of breathing. Abdomen: Bowel sounds normal, soft, no tenderness, no masses, no pulsatile masses. No bruising or skin discoloration of the abdomen. Normal bowel sounds all 4 quadrants. Skin: Warm, dry, no erythema, no rash. Back: There is pain to the right flank, positive right-sided CVA TTP, no left- sided CVA TTP, no midline spinal pain present. Extremities: No tenderness, no cyanosis, no clubbing, ROM intact, no edema. Neurologic: Alert and oriented X 3, normal motor function, normal sensory function, no focal deficits noted. Psychologic: Affect normal, judgement normal, mood normal. : Pelvic exam performed with female ED nurse at bedside for house mover, there are no rashes or lesions of the external vaginal structures, there is no external discharge appreciated, there is excoriation of the labial skin folds, speculum exam did reveal a yellow discharge, the mucosa of the vaginal scott are pink and nonerythematous, GC/chlamydia and wet prep cultures were obtained and sent to lab. There is no cervical motion tenderness present. Also rectal exam to obtain stool for occult blood was performed, there are external hemorrhoids that are nonthrombosed, not irritated, there is no visualization of blood, no masses of the rectum appreciated, no internal hemorrhoids appreciated per digital exam, patient tolerated well. Current Patient Data: Labs: Laboratory Tests Test 04/24/22 09:34 04/24/22 09:41 04/24/22 11:12 Urine Collection Type Unknown Urine Color (Auto) Light yellow Urine Turbidity Clear Urine pH (Auto) 8.5 Urine Specific [place] 1.031 Urine Protein (Auto) Negative mg/dL Urine Glucose (Auto)(UA) >=1000 mg/dL Urine Ketones (Auto) Negative mg/dL Urine Blood (Auto) Negative Urine Nitrite Negative Urine Bilirubin (Auto) Negative Urine Urobilinogen (Auto) Normal mg/dL Urine Leukocyte Esterase (Auto) Negative Urine RBC 0 /HPF Urine WBC 0 /HPF Urine Squamous Epithelial Cells Few /LPF Urine Bacteria 0 /HPF White Blood Count 9.2 x10^3/uL Red Blood Count 4.81 x10^6/uL Hemoglobin 8.1 g/dL Hematocrit 27.3 % Mean Corpuscular Volume 57 fL Mean Corpuscular Hemoglobin 17 pg Mean Corpuscular Hemoglobin Concent 30 g/dL Red Cell Distribution Width 23.9 % Platelet Count 412 x10^3/uL Neutrophils (%) (Auto) 81 % Lymphocytes (%) (Auto) 14 % Monocytes (%) (Auto) 4 % Eosinophils (%) (Auto) 1 % Basophils (%) (Auto) 1 % Neutrophils # (Auto) 7.5 x10^3/uL Lymphocytes # (Auto) 1.3 x10^3/uL Monocytes # (Auto) 0.3 x10^3/uL Eosinophils # (Auto) 0.1 x10^3/uL Basophils # (Auto) 0.0 x10^3/uL Platelet Estimate Adequate Polychromasia Present Hypochromasia Present Anisocytosis Present Microcytosis Present Macrocytosis Present Absolute Reticulocyte Count 0.062 x10^6/uL Percent Reticulocyte Count 1.3 % Immature Reticulocyte Fraction 0.40 Sodium Level 139 mmol/L Potassium Level 4.1 mmol/L Chloride Level 107 mmol/L Carbon Dioxide Level 24 mmol/L Anion Gap 8 Blood Urea Nitrogen 18 mg/dL Creatinine 0.7 mg/dL Estimated GFR (Cockcroft-Gault) 102.6 BUN/Creatinine Ratio 26 Glucose Level 162 mg/dL Calcium Level 9.2 mg/dL Total Bilirubin 0.4 mg/dL Aspartate Amino Transf (AST/SGOT) 20 U/L Alanine Aminotransferase (ALT/SGPT) 20 U/L Alkaline Phosphatase 85 U/L Total Protein 8.0 g/dL Albumin 4.2 g/dL Albumin/Globulin Ratio 1.1 Lipase 110 U/L Stool Occult Blood Negative Current Medications Medications (Trade) Dose Ordered Sig/Fe Route PRN Reason Start Time Stop Time Status Last Admin Dose Admin Sodium Chloride 1,000 ml @ 1,000 mls/hr 1X ONCE IV 04/24/22 09:45 04/24/22 10:44 DC 04/24/22 09:45 Ketorolac Tromethamine (Toradol 30mg Vial) 30 mg 1X ONCE IVP 04/24/22 09:45 04/24/22 09:46 DC 04/24/22 09:45 Ondansetron HCl (Zofran) 4 mg 1X ONCE IVP 04/24/22 09:45 04/24/22 09:46 DC 04/24/22 09:45 Iohexol (Omnipaque 300 Mg/ml) 75 ml 1X ONCE IV 04/24/22 10:15 04/24/22 10:18 DC 04/24/22 10:15 Info (CONTRAST GIVEN -- Rx MONITORING) 1 each PRN DAILY PRN MC SEE COMMENTS 04/24/22 10:30 04/26/22 10:29 Morphine Sulfate (Morphine Sulfate) 4 mg 1X ONCE IVP 04/24/22 12:30 04/24/22 12:31 Laboratory Tests Test 04/24/22 09:34 04/24/22 09:41 Urine Collection Type Unknown Urine Color (Auto) Light yellow Urine Turbidity Clear Urine pH (Auto) 8.5 (<5.0-8.0) Urine Specific [place] 1.031 (1.000-1.030) Urine Protein (Auto) Negative mg/dL (Negative) Urine Glucose (Auto)(UA) >=1000 mg/dL (Negative) Urine Ketones (Auto) Negative mg/dL (Negative) Urine Blood (Auto) Negative (Negative) Urine Nitrite Negative (Negative) Urine Bilirubin (Auto) Negative (Negative) Urine Urobilinogen (Auto) Normal mg/dL (Normal) Urine Leukocyte Esterase (Auto) Negative (Negative) Urine RBC 0 /HPF (0-2) Urine WBC 0 /HPF (0-4) Urine Squamous Epithelial Cells Few /LPF Urine Bacteria 0 /HPF (0-FEW) White Blood Count 9.2 x10^3/uL (4.0-11.0) Red Blood Count 4.81 x10^6/uL (3.50-5.70) Hemoglobin 8.1 g/dL (12.0-15.5) L Hematocrit 27.3 % (36.0-47.0) L Mean Corpuscular Volume 57 fL (79-100) L Mean Corpuscular Hemoglobin 17 pg (25-35) L Mean Corpuscular Hemoglobin Concent 30 g/dL (31-37) L Red Cell Distribution Width 23.9 % (11.5-14.5) H Platelet Count 412 x10^3/uL (140-400) H Neutrophils (%) (Auto) 81 % (31-73) H Lymphocytes (%) (Auto) 14 % (24-48) L Monocytes (%) (Auto) 4 % (0-9) Eosinophils (%) (Auto) 1 % (0-3) Basophils (%) (Auto) 1 % (0-3) Neutrophils # (Auto) 7.5 x10^3/uL (1.8-7.7) Lymphocytes # (Auto) 1.3 x10^3/uL (1.0-4.8) Monocytes # (Auto) 0.3 x10^3/uL (0.0-1.1) Eosinophils # (Auto) 0.1 x10^3/uL (0.0-0.7) Basophils # (Auto) 0.0 x10^3/uL (0.0-0.2) Platelet Estimate Adequate (ADEQUATE) Polychromasia Present Hypochromasia Present Anisocytosis Present Microcytosis Present Macrocytosis Present Absolute Reticulocyte Count 0.062 x10^6/uL (0.020-0.120) Percent Reticulocyte Count 1.3 % (0.5-2.3) Immature Reticulocyte Fraction 0.40 (0.20-0.60) Sodium Level 139 mmol/L (136-145) Potassium Level 4.1 mmol/L (3.5-5.1) Chloride Level 107 mmol/L (98-107) Carbon Dioxide Level 24 mmol/L (21-32) Anion Gap 8 (6-14) Blood Urea Nitrogen 18 mg/dL (7-20) Creatinine 0.7 mg/dL (0.6-1.0) Estimated GFR (Cockcroft-Gault) 102.6 BUN/Creatinine Ratio 26 (6-20) H Glucose Level 162 mg/dL (70-99) H Calcium Level 9.2 mg/dL (8.5-10.1) Total Bilirubin 0.4 mg/dL (0.2-1.0) Aspartate Amino Transferase (AST) 20 U/L (15-37) Alanine Aminotransferase (ALT) 20 U/L (14-59) Alkaline Phosphatase 85 U/L (46-116) Total Protein 8.0 g/dL (6.4-8.2) Albumin 4.2 g/dL (3.4-5.0) Albumin/Globulin Ratio 1.1 (1.0-1.7) Lipase 110 U/L (73-393) Laboratory Tests 04/24/22 09:41 Laboratory Tests 04/24/22 09:41 Vital Signs: Vital Signs Date Time Temp Pulse Resp B/P (MAP) Pulse Ox O2 Delivery O2 Flow Rate FiO2 04/24/22 09:36 98.2 65 18 177/73 (107) 98 98.2 EKG: EKG: [] Radiology/Procedures: Radiology/Procedures: REASON: Right flank pain, CVA tenderness, no hematuria, negative urinalysis PROCEDURE: CT ABD PELV W/ IV CONTRST ONLY CT ABDOMEN+PELVIS W History: Right flank pain, CVA tenderness, no hematuria Comparison: CT abdomen and pelvis 03/07/2017 Technique: CT of the abdomen and pelvis with intravenous contrast. Findings: The lung bases are clear. The liver is unremarkable. Status post cholecystectomy. The pancreas, spleen and adrenal glands are unremarkable. There is a left renal cyst measuring 3.4 cm diameter. No hydronephrosis or nephrol ithiasis. The stomach and small bowel are unremarkable. The appendix is within normal limits. Unremarkable colon. No colonic wall thickening or pericolonic inflammatory changes. Mild stool burden. The bladder is unremarkable. Status post hysterectomy. No pelvic masses. No intra-abdominal or pelvic free air or free fluid. No adenopathy. The vasculature is unremarkable. Soft tissues are within normal limits. No acute osseous abnormalities are identified. There are mild degenerative changes in the spine. Transitional lumbosacral anatomy. Impression: 1. No acute findings in the abdomen and pelvis. ------ Exposure: One or more of the following individualized dose reduction techniques were utilized for this examination: 1. Automated exposure control 2. Adjustment of the mA and/or kV according to patient size 3. Use of iterative reconstruction technique. Electronically signed by: Francisco Sanchez MD (04/24/2022 12:04 PM) [id number] Course & Med Decision Making: Course & Med Decision Making Pertinent Labs and Imaging studies reviewed. (See chart for details) 61-year-old female, vital signs reviewed, presents to the emergency department concerning right flank pain sudden onset that woke her up this morning at 530. Physical examination suspicious for renal colic versus urinary tract infection versus muscle strain of back, also vaginal exam suspicious for BV versus other STI. Patient denies STI concerns. Will order urinalysis assay, 1 L normal saline, 30 mg IV Toradol, 4 mg IV Zofran, wet prep culture GC chlamydia cultures, CBC, CMP, lipase, a pelvic exam was performed, fecal occult blood, reticulocyte count, CT abdomen pelvis with IV contrast. Patient's urine was not infected, there is no hematuria, CT of the abdomen pelvis was negative for acute process, there was no indication or support of labs to suggest pyelonephritis or other acute infectious process of the abdomen, there was no renal colic appreciated per CT scan, right-sided flank and right- sided back pain suspicious for muscle strain of back, I did discuss wet prep cultures suspicious for bacterial vaginosis, will start antibiotic regimen, reviewed side effects with patient, discussed with patient abnormal white blood cell count, patient reports she did take iron supplements in the past for similar concerns from her doctor however states it was noted her blood appeared to be getting better after her hysterectomy several years ago so she was taken off of her iron supplement. Discussed with patient strict follow-up with primary care physician Dr. Yee to review labs that were drawn today for consideration of outpatient management from his office or further investigation by a application support. Patient reports she did have a application support at [facility] that told her there was nothing more that he could do and referred her back to her primary care provider. Patient did give verbal understanding of and is amenable to ED discharge planning. Discussed with the patient all findings and diagnostic testing as well as the need to follow-up with their primary care provider for further evaluation and treatment or return to the ED if any new or worsening symptoms. Strict return precautions were also discussed at length, the patient voiced understanding and agreement with the discharge planning. The patient was nontoxic in appearance, in no apparent distress, and hemodynamically stable at the time of disposition. Estrella Disclaimer: Estrella Disclaimer: This electronic medical record was generated, in whole or in part, using a voice recognition dictation system. Departure Departure Impression: Primary Impression: Strain of mid-back Qualified Codes: S29.012A - Strain of muscle and tendon of back wall of thorax, initial encounter Additional Impressions: Bacterial vaginosis Abnormal WBC count Disposition: HOME / SELF CARE / HOMELESS Condition: GOOD Referrals: GIAN YEE III, MD (PCP) Patient Instructions: Back Pain, Adult, Bacterial Vaginosis Additional Instructions: You were seen today in the emergency department for pain to your right back and right flank. You were also having concerns of vaginal itching. As we discussed the vaginal exam did reveal you have bacterial vaginosis, I have started you on a antibiotic regimen, please take as directed until complete. A CT scan of your abdomen and pelvis did not reveal any concerning signs of infection, you do not have a kidney infection, you do not have kidney stones or other infectious process or concerning findings of the abdomen or pelvis. I suspect your flank and back pain is related to you working out in your yard all day yesterday in which you may have strained the muscles of your back. As we discussed I am also prescribing you a pain medication and a muscle relaxer to take as directed, please do not operate heavy machinery, drive motor vehicles, or perform dangerous activities while taking a muscle relaxer. We also discussed the abnormal white blood cell count results, you had indicated you had taken iron supplements in the past for similar results however were taken off. I have attached a copy of your lab results, please make an appointment this coming Monday to be seen by your primary care physician Dr. Marie to review these labs for consideration of treatment out of his office or an additional appointment with a application support. Thank you for visiting our Emergency Department. It was a pleasure taking care of you today in the emergency department and we appreciate you trusting us with your care. If any additional problems come up don't hesitate to return to visit us. Please follow up with your primary care provider so they can plan additional care if needed and know about the problem that you had. If symptoms worsen come back to the Emergency Department. Any concerning symptoms that start such as chest pain, shortness of air, weakness or numbness on one side of the body, running high fevers or any other concerning symptoms return to the ER. Scripts Metronidazole (METRONIDAZOLE) 500 Mg Tablet 1 TAB PO BID for BV for 7 Days, #14 TAB 0 Refills Prov: WYATT AYON APRN 04/24/22 Ibuprofen (IBUPROFEN) 600 Mg Tablet 600 MG PO PRN Q6HRS PRN for INFLAMMATION, #30 TAB 0 Refills Prov: WYATT AYON APRN 04/24/22 Cyclobenzaprine Hcl (CYCLOBENZAPRINE HCL) 10 Mg Tablet 10 MG PO TID for back pains, #15 TAB 0 Refills Prov: WYATT AYON APRN 04/24/22 WYATT AYON APRN April 24, 2022 11:55
[2022-04-24 11:59] LABS: FECAL OB PT NEGATIVE (NEG)
--- NOTE | 2022-04-24 12:07 | RAD ---
CT ABDOMEN+PELVIS W History: Right flank pain, CVA tenderness, no hematuria Comparison: CT abdomen and pelvis 03/07/2017 Technique: CT of the abdomen and pelvis with intravenous contrast. Findings: The lung bases are clear. The liver is unremarkable. Status post cholecystectomy. The pancreas, splee n and adrenal glands are unremarkable. There is a left renal cyst measuring 3.4 cm diameter. No hydro nephrosis or nephrolithiasis. The stomach and small bowel are unremarkable. The appendix is within normal limits. Unremarkable colo n. No colonic wall thickening or pericolonic inflammatory changes. Mild stool burden. The bladder is unremarkable. Status post hysterectomy. No pelvic masses. No intra-abdominal or pelvic free air or free fluid. No adenopathy. The vasculature is unremarkable. Soft tissues are within normal limits. No acute osseo us abnormalities are identified. There are mild degenerative changes in the spine. Transitional lumbo sacral anatomy. Impression: 1. No acute findings in the abdomen and pelvis. ------ Exposure: One or more of the following individualized dose reduction techniques were utilized for thi s examination: 1. Automated exposure control 2. Adjustment of the mA and/or kV according to patient size 3. Use of iterative reconstruction technique. Electronically signed by: Francisco Sanchez MD (04/24/2022 12:04 PM) [id number]
[2022-04-24] MEDS ORDERED: MORPHINE SULFATE 4 MG/ML INJ. IVP ONE (12:30)
[2022-04-24] MEDS ORDERED: METR-34 PO (13:03)
[2022-04-24] MEDS ORDERED: IBUP-1007 PO (13:03)
[2022-04-24] MEDS ORDERED: CYCL10TA19 PO (13:03)
[2022-04-24 13:09] VITALS: BP 142/70
[2022-04-26 13:27] LABS: GC PROBE Negative (Negative)
== END 2022-04-24 13:20 | disposition home or self-care (01) ==
LOC: ER 09:26
DX: S29.012A Strain of muscle and tendon of back wall of thorax, initial encounter (principal); N76.0 Acute vaginitis; B96.89 Other specified bacterial agents as the cause of diseases classified elsewhere; D72.89 Other specified disorders of white blood cells; K64.4 Residual hemorrhoidal skin tags; E11.9 Type 2 diabetes mellitus without complications; E78.00 Pure hypercholesterolemia, unspecified; I10 Essential (primary) hypertension; Z88.8 Allergy status to other drugs, medicaments and biological substances; X58.XXXA Exposure to other specified factors, initial encounter; Y93.89 Activity, other specified; Y92.89 Other specified places as the place of occurrence of the external cause; Y99.8 Other external cause status
CPT/HCPCS: 36415; 74177; 80053; 81001; 82274; 83690; 85025; 85045; 87491; 87591; 96361; 96374; 96375; 99285; J1885; J2405; J7030; Q0111; Q9967